=== PATIENT | male | born 1945 | race Caucasian/White ===

== ENCOUNTER 2016-03-24 01:57 | Inpatient (IN) | payer OTHER, MEDICARE ==
[~2016-03-24] VITALS: Ht 170.2 cm; Wt 84.9 kg
[2016-03-24] VITALS (11 sets, daily range): BP systolic 93–158; BP diastolic 47–75; PULSE 60–80; RESP 16–18; TEMP 96.4–98.2; O2SAT 95–98
[~2016-03-24 01:57] MED LIST: ALBU17I
[2016-03-24] MEDS ORDERED: HUMALOG SQ (02:15)
[2016-03-24] MEDS ORDERED: HYDR-3583 PO (02:15)
[2016-03-24] MEDS ORDERED: IPRASOL INH (02:16)
[2016-03-24] MEDS ORDERED: LACT10SO PO (02:17)
[2016-03-24] MEDS ORDERED: LEVEMIR SQ (02:17)
[2016-03-24] MEDS ORDERED: LEVO125T4 PO (02:18)
[2016-03-24] MEDS ORDERED: LYRI50CA PO (02:18)
[2016-03-24] MEDS ORDERED: MILKSUS PO (02:19)
[2016-03-24] MEDS ORDERED: METO50TA11 PO (02:19)
[2016-03-24] MEDS ORDERED: NITR1SUB3 SL (02:19)
[2016-03-24] MEDS ORDERED: POTA-163 PO (02:20)
[2016-03-24] MEDS ORDERED: THEO300T30 PO (02:21)
[2016-03-24] MEDS ORDERED: SIMV80TA PO (02:21)
[2016-03-24] MEDS ORDERED: SILV1CRE20 TOPICAL (02:21)
[2016-03-24] MEDS ORDERED: VICT18IN SQ (02:21)
[2016-03-24 02:32] LABS: AUTOMATED NEUTROPHIL # 4.5 TH/MM3 (1.8-7.7); BASOPHIL % 0.6 % (0.0-2.0); EOSINOPHIL # 0.1 TH/MM3 (0-0.4); EOSINOPHIL % 1.5 % (0.0-4.0); HEMO FLAGS DIFF FINAL; LYMPH % 19.2 % (9.0-44.0); LYMPHOCYTE # 1.2 TH/MM3 (1.0-4.8); MEAN CELL VOLUME 83.7 FL (80.0-100.0); MEAN CORPUSCULAR HEMOGLOBIN 28.4 PG (27.0-34.0); MEAN CORPUSCULAR HGB CONC 33.9 % (32.0-36.0); MONO % 7.4 % (0.0-8.0); NEUT % 71.3 % (16.0-70.0); PLATELET COUNT 232 TH/MM3 (150-450); RED BLOOD COUNT 3.23 MIL/MM3 (4.50-5.90); RED CELL DISTRIBUTION WIDTH 15.8 % (11.6-17.2); WHITE BLOOD COUNT 6.3 TH/MM3 (4.0-11.0)
--- NOTE | 2016-03-24 02:36 | RADRPT ---
EXAM DATE/TIME: 03/24/2016 02:18 [place] COMPARISON: No previous studies available for comparison. INDICATIONS : Shortness of breath.. Chest pain. MEDICAL HISTORY : None. SURGICAL HISTORY : None. ENCOUNTER: Initial ACUITY: 1 day PAIN SCORE: 0/10 LOCATION: Bilateral chest FINDINGS: A single AP semierect view of the chest was obtained and demonstrates patchy opacity in the medial le ft lower lobe. The right lung is clear. The heart size is mildly prominent with no perihilar edema. T he soft tissues and bony thorax are intact. There are multiple overlying electrocardiogram leads. CONCLUSION: Patchy opacity at the left lung base of concern for possible pneumonia. Chandan Danielle MD on March 24, 2016 at 2:33 Board Certified Radiologist. This report was verified electronically.
[2016-03-24 02:43] LABS: APTT (PATIENT) 30.4 SEC (24.3-30.1); INTERNATIONAL NORMALIZED RATIO 1.1 RATIO; PROTHROMBIN TIME - PATIENT 12.6 SEC (9.8-11.6)
[2016-03-24 02:51] LABS: BICARBONATE 33.2 MEQ/L (21.0-32.0); MAGNESIUM 1.1 MG/DL (1.5-2.5); POTASSIUM 3.1 MEQ/L (3.5-5.1)
[2016-03-24] MEDS ORDERED: cefTRIAXone INJ 1,000 MG in SODIUM CHLORIDE 0.9% INJ 100 ML IV ONE (03:30)
[2016-03-24] MEDS ORDERED: AZITHROMYCIN INJ 500 MG in SODIUM CHLOR 0.9% 250 ML INJ 250 ML IV ONE (03:30)
[2016-03-24] MEDS ORDERED: POTASSIUM CHLORIDE 20 MEQ CONTROLLED RELEASE TAB PO ONE (03:45)
[2016-03-24] MEDS ORDERED: traMADol HCL 50 MG TAB PO ONE (04:00)
[2016-03-24] MEDS ORDERED: RESP: ALBUTEROL 2.5 MG/IPRATROPIUM 0.5 MG NEB (SCH) INH ONE (04:00)
[2016-03-24] MEDS ORDERED: DEXTROSE 50% IN WATER 50 ML VIAL(D50) IV PUSH PRN (04:15)
[2016-03-24] MEDS ORDERED: Vancomycin Consult Pharmacy 1 EA OTHER SCH (04:15)
[2016-03-24] MEDS ORDERED: POTASSIUM CHLORIDE 10 MEQ CONTROLLED RELEASE TAB PO ONE (04:15)
[2016-03-24] MEDS ORDERED: GLUCAGON 1 MG/ML VIAL OTHER PRN (04:15)
--- NOTE | 2016-03-24 04:18 | PD ---
HPI Chief Complaint: Chest Pain Time Seen by Provider: 02:15 Travel History International Travel<30 days: No Contact w/Intl Traveler<30days: No Traveled to known affect area: No History of Present Illness HPI Patient is a 70-year-old male with history of CT in the past as well as COPD on home oxygen, who comes in complaining of chest pain and shortness of breath. He says he has been having episodes of chest pain all day, which feels like pressure to the left side of his chest. He says it radiates up towards his jaw. Says it feels like when he had an CT in the past. He also complains of a cough productive of yellowish sputum since yesterday. He has not had any fever or chills. He said he had some nausea associated with the chest pain, but no vomiting. PFSH Past Medical History Asthma: Yes Cardiovascular Problems: Yes (5 stents, 2 mi) High Cholesterol: Yes COPD: Yes Hypertension: Yes Respiratory: Yes (copd 02 dependent) Myocardial Infarction: Yes Tetanus Vaccination: < 5 Years Influenza Vaccination: Yes Past Surgical History Cardiac Surgery: Yes (5 stents ) Social History Alcohol Use: No Tobacco Use: No (03/31 PPD) Substance Use: No Allergies-Medications (Allergen,Severity, Reaction): Coded Allergies: Penicillin (Verified Allergy, Mild, 03/24/16) Reported Meds & Prescriptions Reported Meds & Active Scripts Active Reported Victoza Inj (Liraglutide Inj) 18 Mg/3 Ml Pen 1.8 Mg SQ DAILY Theophylline ER 12 HR (Theophylline) 300 Mg Tab 300 Mg PO Q12H Simvastatin 80 Mg Tab 80 Mg PO DAILY Silvadene Topical (Silver Sulfadiazine) 1 % Cream 1 Applic TOPICAL DIRECTED Potassium Chloride ER (Potassium Chloride) 20 Meq Tab 20 Meq PO BID Nitroglycerin SL (Nitroglycerin) 0.4 Mg Subl 0.4 Mg SL DIRECTED PRN ONE TABLET UNDER THE TONGUE NEEDED FOR CHEST PAIN, MAY REPEAT EVERY FIVE MINUTES FOR A TOTAL OF 3 DOSES OR CALL 911 IF NO RELIEF Milk of Magnesia Liq (Magnesium Hydroxide) 400 Mg/5 Ml Susp 30 Ml PO DAILY PRN Metoprolol Succinate ER 24 HR (Metoprolol Succinate) 50 Mg Tab 50 Mg PO DAILY Lyrica (Pregabalin) 50 Mg Cap 50 Mg PO DAILY Levothyroxine (Levothyroxine Sodium) 125 Mcg Tab 125 Mcg PO DAILY Levemir Inj (Insulin Detemir) 1,000 unit/ 10 ML Vial 10 Units SQ DAILY Do not mix with any other Insulin. Lactulose Liq (Lactulose) 10 Gm/15 Ml Soln 30 Ml PO Q6H PRN Duoneb (Ipratropium-Albuterol Neb) 0.5-2.5 Mg/3 Ml Neb 1 Nebule INH DAILY Hydrocodone-Acetaminophen 10-325 mg Tab 1 Tab PO Q4H PRN Humalog Inj (Insulin Human Lispro) 1,000 Unit/10 Ml Vial 5 Units SQ TIDAC Review of Systems Except as stated in HPI: all other systems reviewed are Neg General / Constitutional: No: Fever, Chills Eyes: No: Blurred Vision HENT: No: Headaches Cardiovascular: Positive: Chest Pain or Discomfort Respiratory: Positive: Cough, Shortness of Breath Gastrointestinal: Positive: Nausea, No: Vomiting, Abdominal Pain Musculoskeletal: Positive: Edema, No: Pain Skin: No Change in Pigmentation Neurologic: No: Weakness, Dizziness Physical Exam Narrative GENERAL: Awake and alert in no acute distress. SKIN: Warm and dry. HEAD: Atraumatic. Normocephalic. EYES: Pupils equal and round. No scleral icterus. ENT: Mucous membranes pink and moist. NECK: Trachea midline. No JVD. CARDIOVASCULAR: Regular rate and rhythm. No murmur appreciated. RESPIRATORY: No accessory muscle use. Decreased breath sounds. Breath sounds equal bilaterally. GASTROINTESTINAL: Abdomen soft, non-tender, nondistended. Umbilical hernia present, reducible, nontender. MUSCULOSKELETAL: No obvious deformities. No clubbing. No cyanosis. Minimal edema bilateral lower extremities. Pedal pulses intact. NEUROLOGICAL: Awake and alert. No obvious cranial nerve deficits. Motor grossly within normal limits. Normal speech. PSYCHIATRIC: Appropriate mood and affect; insight and judgment normal. Data Data Last Documented VS Vital Signs Date Time Temp Pulse Resp B/P Pulse Ox O2 Delivery O2 Flow Rate FiO2 03/24/16 03:44 80 18 144/66 98 Nasal Cannula 2 03/24/16 02:00 98.0 Orders Basic Metabolic Panel (Bmp) (03/24/16 02:14) Ckmb (Isoenzyme) Profile (03/24/16 02:14) Complete Blood Count With Diff (03/24/16 02:14) Magnesium (Mg) (03/24/16 02:14) Prothrombin Time / Inr (Pt) (03/24/16 02:14) Act Partial Throm Time (Ptt) (03/24/16 02:14) Troponin I (03/24/16 02:14) Lipase (03/24/16 02:14) Chest, Single Ap (03/24/16 02:14) Ecg Monitoring (03/24/16 02:14) Bilateral Bp Monitoring (03/24/16 02:14) Iv Access Insert/Monitor (03/24/16 02:14) Oximetry (03/24/16 02:14) Oxygen Administration (03/24/16 02:14) Sodium Chloride 0.9% Flush (Ns Flush) (03/24/16 02:15) Ceftriaxone Inj (Rocephin Inj) (03/24/16 03:30) Azithromycin Inj (Zithromax Inj) (03/24/16 03:30) Potassium Chloride (Kcl) (03/24/16 03:45) Admit Order (Ed Use Only) (03/24/16 ) Insulin Detemir Inj (Levemir Inj) (03/24/16 09:00) Levothyroxine (Synthroid) (03/24/16 06:00) Metoprolol Succinate Er (Toprol Xl) (03/24/16 09:00) Potassium Chloride (Kcl) (03/24/16 09:00) Pregabalin (Lyrica) (03/24/16 09:00) Theophylline Er 12 Hr (Theochron) (03/24/16 05:00) Pravastatin (Pravachol) (03/24/16 09:00) Albuterol-Ipratropium Neb (Duoneb Neb) (03/24/16 04:00) Tramadol (Ultram) (03/24/16 04:00) Diet Heart Healthy (03/24/16 Breakfast) Vital Signs (Adult) LEIDA.Q4H (03/24/16 03:53) Diet 1800 Ada Cons Carb (03/24/16 Breakfast) Troponin I (03/24/16 08:00) Troponin I (03/24/16 14:00) Acetaminophen (Tylenol) (03/24/16 04:00) Ondansetron Inj (Zofran Inj) (03/24/16 04:00) Labs Laboratory Tests Test 03/24/16 02:20 White Blood Count 6.3 TH/MM3 Red Blood Count 3.23 MIL/MM3 Hemoglobin 9.2 GM/DL Hematocrit 27.0 % Mean Corpuscular Volume 83.7 FL Mean Corpuscular Hemoglobin 28.4 PG Mean Corpuscular Hemoglobin 33.9 % Concent Red Cell Distribution Width 15.8 % Platelet Count 232 TH/MM3 Mean Platelet Volume 8.5 FL Neutrophils (%) (Auto) 71.3 % Lymphocytes (%) (Auto) 19.2 % Monocytes (%) (Auto) 7.4 % Eosinophils (%) (Auto) 1.5 % Basophils (%) (Auto) 0.6 % Neutrophils # (Auto) 4.5 TH/MM3 Lymphocytes # (Auto) 1.2 TH/MM3 Monocytes # (Auto) 0.5 TH/MM3 Eosinophils # (Auto) 0.1 TH/MM3 Basophils # (Auto) 0.0 TH/MM3 CBC Comment DIFF FINAL Differential Comment Prothrombin Time 12.6 SEC Prothromb Time International 1.1 RATIO Ratio Activated Partial 30.4 SEC Thromboplast Time Sodium Level 141 MEQ/L Potassium Level 3.1 MEQ/L Chloride Level 100 MEQ/L Carbon Dioxide Level 33.2 MEQ/L Anion Gap 8 MEQ/L Blood Urea Nitrogen 6 MG/DL Creatinine 0.79 MG/DL Estimat Glomerular Filtration 96 ML/MIN Rate Random Glucose 92 MG/DL Calcium Level 7.7 MG/DL Magnesium Level 1.1 MG/DL Total Creatine Kinase 25 U/L Troponin I 0.04 NG/ML Lipase 137 U/L MDM Medical Decision Making Medical Screen Exam Complete: Yes Emergency Medical Condition: Yes Medical Record Reviewed: Yes Interpretation(s) ECG shows sinus rhythm at 75, no ST elevation. T-wave inversions in V2 and V3. PVCs. Differential Diagnosis ACS versus pneumonia versus NSTEMI versus STEMI versus pneumothorax Narrative Course Patient is 71-year-old male who comes in complaining of chest pain with cough. Exam shows decreased breath sounds at the lungs. IV established, patient connected to the youth nutritional monitor. Patient received nitroglycerin 3 as well as aspirin from EMS with improvement of his chest pain. He is currently not having any pain. ECG shows no ST elevation. Labs sent show troponin of 0.04. Potassium is low at 3.1, this was replaced. Hemoglobin is 9.2. Chest x-ray shows a left lower lung infiltrate. Patient treated with Rocephin and azithromycin. Patient asked for a breathing treatment, given 1 DuoNeb. Patient admitted for pneumonia and ACS rule out. Diagnosis Primary Impression: Pneumonia Qualified Code: J18.1 - Pneumonia of left lower lobe due to infectious organism Additional Impression: Chest pain Qualified Code: R07.89 - Other chest pain Admitting Information Admitting Physician Requests: Admit Xiao Messina MD Mar 24, 2016 04:18
[2016-03-24] MEDS ORDERED: MAGNESIUM SULFATE 1 GM PREMIX 100 ML IV ONE ×2 (04:30→10:45)
--- NOTE | 2016-03-24 04:34 | HHI.HP ---
[facility] Bertha Kc MD Admission Diagnosis pneumonia, chest pain Diagnoses: (1) Pneumonia Diagnosis: Principal (2) Chest pain Chief Complaint: chest pain Travel History International Travel<30 Days: No Contact w/Intl Traveler <30 Da: No Traveled to Known Affected Are: No History of Present Illness patient is a 71 y/o male with history of CAD, COPD, hypertension and diabetes , shelter resident, was just discharged from the hospital yesterday, was sent from shelter because of chest pain and sob. he says that he had chest pain all day yesterday. pain is in lower chest and epigastric with no radiation. he didn't have and emesis, diaphoresis or dizziness. he had productive cough of yellowish sputum. he doesn't report any fever. he uses oxygen for his COPD. he says that he was in the hospital for about a week because of rectal bleed and was just discharged to rehab yesterday. Review of Systems Constitutional: DENIES: Fever, Weight loss, Chills, Night Sweats Eyes: DENIES: Blurred vision, Diplopia, Vision loss, Double Vision Ears, nose, mouth, throat: DENIES: Tinnitus, Vertigo, Throat pain, Epistaxis Respiratory: COMPLAINS OF: Cough, Sputum production, Shortness of breath, DENIES: Apneas, Snoring, Wheezing, Hemoptysis Cardiovascular: COMPLAINS OF: Chest pain, DENIES: Palpitations, Syncope, Dyspnea on Exertion, PND, Lower Extremity Edema, Orthopnea, Claudication Gastrointestinal: DENIES: Abdominal pain, Black stools, Bloody stools, Constipation, Diarrhea, Nausea, Vomiting, Difficulty Swallowing, Anorexia Genitourinary: DENIES: Urinary frequency, Urgency, Hematuria, Dysuria Musculoskeletal: DENIES: Joint pain, Muscle aches, Stiffness, Joint Swelling Integumentary: DENIES: Rash Neurologic: DENIES: Abnormal gait, Headache, Localized weakness, Paresthesias, Seizures, Speech Problems, Tremor, Poor Balance Psychiatric: DENIES: Anxiety, Confusion, Mood changes, Depression, Hallucinations, Agitation, Suicidal Ideation, Homicidal Ideation, Delusions Past Family Social History Past Medical History CAD- s/p stent placement hypertension diabetes mellitus COPD hypothyroidism Past Surgical History bladder surgery cardiac stent placement Reported Medications levothyroxine metoprolol victoza levemir simvastatin theophylline potassium lyrica Allergies: Coded Allergies: Penicillin (Verified Allergy, Mild, 03/24/16) Active Ordered Medications Current Medications IV Flush 2 ml 2 ml UNSCH PRN IVF FLUSH AFTER USING IV ACCESS; Start 03/24/16 at 02:15 Ceftriaxone Sodium 1000 mg/ Sodium Chloride 100 ml @ 200 mls/hr ONCE ONCE IV Last administered on 03/24/16at 03:37; Start 03/24/16 at 03:30; Stop 03/24/16 at 03:59; Status DC Azithromycin/ Sodium Chloride (Zithromax Inj/ NS 250 ml Inj) 250 ml @ 250 mls/ hr ONCE ONCE IV Last administered on 03/24/16at 03:40; Start 03/24/16 at 03: 30; Stop 03/24/16 at 04:29 Potassium Chloride (KCl) 20 meq ONCE ONCE PO Last administered on 03/24/16at 03:40; Start 03/24/16 at 03:45; Stop 03/24/16 at 03:46; Status DC Insulin Detemir (Levemir Inj) 10 units DAILY SQ ; Start 03/24/16 at 09:00 Levothyroxine Sodium (Synthroid) 125 mcg DAILY@06 PO ; Start 03/24/16 at 06:00 Metoprolol Succinate (Toprol Xl) 50 mg DAILY PO ; Start 03/24/16 at 09:00 Potassium Chloride (KCl) 20 meq BID PO ; Start 03/24/16 at 09:00 Pregabalin (Lyrica) 50 mg DAILY PO ; Start 03/24/16 at 09:00 Theophylline (Theochron) 300 mg Q12H PO ; Start 03/24/16 at 05:00 Pravastatin Sodium (Pravachol) 80 mg DAILY PO CM; Start 03/24/16 at 09:00 Albuterol/ Ipratropium (Duoneb Neb) 1 ampule ONCE ONCE INH Last administered on 03/24/16at 04:07; Start 03/24/16 at 04:00; Stop 03/24/16 at 04:01; Status DC Tramadol HCl (Ultram) 50 mg ONCE ONCE PO Last administered on 03/24/16at 04:06 ; Start 03/24/16 at 04:00; Stop 03/24/16 at 04:01; Status DC Acetaminophen (Tylenol) 650 mg Q4H PRN PO FEVER; Start 03/24/16 at 04:00 Ondansetron HCl (Zofran Inj) 4 mg Q8HR PRN IV PUSH NAUSEA; Start 03/24/16 at 04:00 Family History not relevant to this admission. Social History shelter resident.quit smoking and drinking years ago. Physical Exam Vital Signs Vital Signs Date Time Temp Pulse Resp B/P Pulse Ox O2 Delivery O2 Flow Rate FiO2 03/24/16 04:07 95 Nasal Cannula 2.00 03/24/16 03:44 80 18 144/66 98 Nasal Cannula 2 03/24/16 03:40 98 Nasal Cannula 2 03/24/16 03:40 98 Nasal Cannula 2 03/24/16 02:00 98.0 78 18 158/73 96 Physical Exam GENERAL: with mild sob SKIN: No rashes, ecchymoses or lesions. Cool and dry. HEAD: Atraumatic. Normocephalic. No temporal or scalp tenderness. EYES: Pupils equal round and reactive. Extraocular motions intact. No scleral icterus. No injection or drainage. ENT: Nose without bleeding, purulent drainage or septal hematoma. Throat without erythema, tonsillar hypertrophy or exudate. Uvula midline. Airway patent. NECK: Trachea midline. No JVD or lymphadenopathy. Supple, nontender, no meningeal signs. CARDIOVASCULAR: Regular rate and rhythm without murmurs, gallops, or rubs. RESPIRATORY: diminished air entry in bases GASTROINTESTINAL: Abdomen soft, non-tender, nondistended. No hepato-splenomegaly , or palpable masses. No guarding. MUSCULOSKELETAL: Extremities without clubbing, cyanosis, or edema. No joint tenderness, effusion, or edema noted. No calf tenderness. Negative Homans sign bilaterally. NEUROLOGICAL: Awake and alert. Cranial nerves II through XII intact. Motor and sensory grossly within normal limits. Five out of 5 muscle strength in all muscle groups. Normal speech. Laboratory Laboratory Tests Test 03/24/16 02:20 White Blood Count 6.3 Red Blood Count 3.23 Hemoglobin 9.2 Hematocrit 27.0 Mean Corpuscular Volume 83.7 Mean Corpuscular Hemoglobin 28.4 Mean Corpuscular Hemoglobin 33.9 Concent Red Cell Distribution Width 15.8 Platelet Count 232 Mean Platelet Volume 8.5 Neutrophils (%) (Auto) 71.3 Lymphocytes (%) (Auto) 19.2 Monocytes (%) (Auto) 7.4 Eosinophils (%) (Auto) 1.5 Basophils (%) (Auto) 0.6 Neutrophils # (Auto) 4.5 Lymphocytes # (Auto) 1.2 Monocytes # (Auto) 0.5 Eosinophils # (Auto) 0.1 Basophils # (Auto) 0.0 CBC Comment DIFF FINAL Differential Comment Prothrombin Time 12.6 Prothromb Time International 1.1 Ratio Activated Partial 30.4 Thromboplast Time Sodium Level 141 Potassium Level 3.1 Chloride Level 100 Carbon Dioxide Level 33.2 Anion Gap 8 Blood Urea Nitrogen 6 Creatinine 0.79 Estimat Glomerular Filtration 96 Rate Random Glucose 92 Calcium Level 7.7 Magnesium Level 1.1 Total Creatine Kinase 25 Troponin I 0.04 Lipase 137 Result Diagram: 03/24/1621903/24/16219 Imaging Last Impressions Chest X-Ray 03/24/16213 Signed Impressions: Service Date/Time: Thursday, March 24, 2016 02:18 - CONCLUSION: Patchy opacity at the left lung base of concern for possible pneumonia. Chandan Danielle MD EKG; sinus rhythm with RBBB and occasional supraventricular complexes. Assessment and Plan Assessment and Plan A/P - Nosocomial pneumonia ( patient was just discharged from the hospital to rehab ) with history of COPD start broad spectrum IV antibiotics- continue with neb treatment and oxygen via N/C- will obtain and follow the cultures of note the patient is oxygen dependent -chest pain with CAD- s/p stent placement; pain is atypical with negative first set of cardiac enzymes- resume metoprolol and statin- patient had recent rectal bleed and reportedly was taken off his antiplatelet therapy- will trend the cardiac enzymes- being followed up by . -hypokalemia/hypomagnesemia; will replace and monitor -diabetes mellitus; resume levemir- accu-check with SSI -hypertension/ dyslipidemia/hypothyroidism; resume home meds -anemia with recent rectal bleed- patient says that he had GI work-up including colonoscopy during that visit will monitor H/H. -DVT prophylaxis with SCD's Discussed Condition With ER physician and the patient. Physician Certification 2 Midnight Certification Type: Admission for Inpatient Services Order for Inpatient Services The services are ordered in accordance with Medicare regulations or non- Medicare payer requirements, as applicable. In the case of services not specified as inpatient-only, they are appropriately provided as inpatient services in accordance with the 2-midnight benchmark. Estimated LOS (days): 2 days is the estimated time the patient will need to remain in the hospital, assuming treatment plan goals are met and no additional complications. Post-Hospital Plan: SNF Problem Qualifiers (1) Pneumonia: Qualified Code: J18.1 - Pneumonia of left lower lobe due to infectious organism (2) Chest pain: Qualified Code: R07.89 - Other chest pain Hillary Davies MD Mar 24, 2016 04:34
[2016-03-24] MEDS ORDERED: THEOPHYLLINE ER 12 HR 300 MG TABCR PO SCH (05:00)
[2016-03-24] MEDS: THEOPHYLLINE ER 24 HR 300 MG CAPCR PO SCH ×2 (06:05→21:05)
[2016-03-24] MEDS: LEVOTHYROXINE SODIUM 125 MCG TAB PO SCH ×2 (06:05→08:46)
[2016-03-24] MEDS: VANCOMYCIN INJ 1,300 MG in SODIUM CHLORID 0.9% 500 ML INJ 500 ML IV SCH ×2 (06:05→20:58)
[2016-03-24] MEDS: INSULIN ASPART SUPPLEMENTAL SCALE SQ SCH ×4 (06:26→23:56)
--- NOTE | 2016-03-24 07:33 | EKG ---
Date Performed: 03/24/2016 Time Performed: 02:00:07 PTAGE: 71 years EKG: Sinus rhythm WITH OCCASIONAL SUPRAVENTRICULAR PREMATURE COMPLEXES RIGHT BUNDLE BRANCH BLOCK ABNORMAL ECG NO PREVIOUS TRACING DOCTOR: Daniel Boogie Interpretating Date/Time 03/24/2016 07:33:23
[2016-03-24] MEDS: LEVOFLOXACIN 750 MG PREMIX INJ 150 ML IV SCH (08:46)
[2016-03-24] MEDS: INSULIN DETEMIR 100 UNITS/ML VIAL SQ SCH (08:46)
[2016-03-24] MEDS: POTASSIUM CHLORIDE 20 MEQ CONTROLLED RELEASE TAB PO SCH ×2 (08:47→21:00)
[2016-03-24] MEDS: PRAVASTATIN SOD 80 MG TAB PO SCH (08:47)
[2016-03-24] MEDS: ACETAMINOPHEN 325 MG TAB PO PRN ×2 (08:47→17:34)
[2016-03-24] MEDS: PANTOPRAZOLE SOD 20 MG DELAYED RELEASE TAB PO SCH (08:47)
[2016-03-24] MEDS: METOPROLOL SUCCINATE 50 MG EXTENDED RELEASE TAB PO SCH (08:47)
[2016-03-24] MEDS: RESP: ALBUTEROL 2.5 MG/IPRATROPIUM 0.5 MG NEB (SCH) NEB ×4 (09:01→19:53)
--- NOTE | 2016-03-24 10:03 | HHI.PR ---
Subjective Remarks Follow-up for chest pain and cough Per patient, chest pain is a lot better, about 3/10, sharp and pressure-like, mostly in the subcostal area associated with cough with yellowish sputum. Afebrile. Per patient, he was at [facility] recently for rectal bleeding and was found to have bleeding secondary to medications. Colonoscopy was done which was allegedly unremarkable. Objective Vitals Vital Signs Date Time Temp Pulse Resp B/P Pulse Ox O2 Delivery O2 Flow Rate FiO2 03/24/16 09:01 95 Nasal Cannula 2.00 03/24/16 08:13 97.7 68 16 132/75 95 03/24/16 06:05 97.9 69 18 128/72 96 03/24/16 04:07 95 Nasal Cannula 2.00 03/24/16 03:44 80 18 144/66 98 Nasal Cannula 2 03/24/16 03:40 98 Nasal Cannula 2 03/24/16 03:40 98 Nasal Cannula 2 03/24/16 02:00 98.0 78 18 158/73 96 I/O 03/23/16 03/23/16 03/23/16 03/24/16 03/24/16 03/24/16 07:00 15:00 23:00 07:00 15:00 23:00 Intake Total 30 ml Balance 30 ml Intake Oral 30 ml Result Diagram: 03/24/1621903/24/16219 Imaging Last Impressions Chest X-Ray 03/24/16213 Signed Impressions: Service Date/Time: Thursday, March 24, 2016 02:18 - CONCLUSION: Patchy opacity at the left lung base of concern for possible pneumonia. Chandan Danielle MD Objective Remarks Not in distress, on oxygen. PERRL, pink conjunctiva without injection, anicteric Nose without bleeding, airway patent, oropharynx clear Supple neck, no masses or thyromegaly, trachea midline Normal rate and regular rhythm, no murmurs gallops or rubs appreciated. Crackles in both bases especially on the left, no wheezing. Poor effort. Normal bowel sounds, soft, non-tender, nondistended, no guarding. Extremities without clubbing, cyanosis, or edema. No rash of generalized distribution. AAO x3, no cranial nerve deficits, moves all 4 extremities, no focal neurologic deficits Normal mood, appropriate affect A/P Problem List: (1) Pneumonia ICD Code: J18.9 Status: Acute (2) Chest pain ICD Code: R07.9 Status: Acute Assessment and Plan This is a 71-year-old male who presented to the hospital with chest pain and cough. Hospital-acquired pneumonia-patient recently discharged from the hospital for rectal bleeding to rehabilitation. Not in COPD exacerbation with history of COPD. Continue vancomycin and Levaquin, patient already improved, duo nebs [id number] and as needed. Check sputum culture. Patient is oxygen dependent. No leukocytosis-start incentive spirometry Chest pain with history of coronary artery disease-s/p stent placement; pain is atypical with negative first set of cardiac enzymes, will check another troponin , continue metoprolol and statin. Upon definitive therapy because of rectal bleeding Recent rectal bleed-per patient, had rectal bleeding and was transfused 2 units of packed red blood cells at [facility], colonoscopy allegedly done and was told that it was unremarkable, antiplatelets were stopped. We'll retrieve records from [facility]. Monitor hemoglobin. Hypokalemia-replaced, recheck Hypomagnesemia-replaced, recheck Sacral wound-consult wound care, Mepilex for now. Next Diabetes mellitus-continue Levemir with sliding scale insulin. DVT prophylaxis: SCDs Discussed with RN. Discharge Planning Discharged back to rehabilitation when medically cleared. Problem Qualifiers (1) Pneumonia: Qualified Code: J18.1 - Pneumonia of left lower lobe due to infectious organism (2) Chest pain: Qualified Code: R07.89 - Other chest pain Mary Mccollum MD Mar 24, 2016 10:03
[2016-03-24] MEDS ORDERED: ENALAPRILAT 1.25 MG/ML VIAL IV PUSH PRN (10:45)
[2016-03-24] MEDS ORDERED: VANCOMYCIN INJ 1,300 MG in SODIUM CHLORID 0.9% 500 ML INJ 500 ML IV SCH (12:00)
[2016-03-24 12:55] LABS: HEMATOCRIT 25.9 % (39.0-51.0); REVIEW FLAG FINAL
[2016-03-24 12:57] LABS: MAGNESIUM 1.4 MG/DL (1.5-2.5)
[2016-03-24 15:10] LABS: BICARBONATE 30.9 MEQ/L (21.0-32.0); POTASSIUM 3.7 MEQ/L (3.5-5.1)
[2016-03-24 18:36] LABS: HEMATOCRIT 29.4 % (39.0-51.0); REVIEW FLAG FINAL
[2016-03-24] MEDS: SODIUM CHLORIDE 0.9% FLUSH 5 ML FLUSH IVF PRN (21:00)
[2016-03-25] VITALS (8 sets, daily range): BP systolic 109–142; BP diastolic 51–63; PULSE 74–88; RESP 16–20; TEMP 95.7–99; O2SAT 88–97
[2016-03-25] MEDS: RESP: ALBUTEROL 2.5 MG/IPRATROPIUM 0.5 MG NEB (SCH) NEB ×6 (00:31→20:43)
[2016-03-25] MEDS ORDERED: diphenhydrAMINE HCL 50 MG CAP PO ONE (01:15)
[2016-03-25] MEDS: ACETAMINOPHEN 325 MG TAB PO PRN ×2 (01:22→18:25)
[2016-03-25 03:49] LABS: AUTOMATED NEUTROPHIL # 3.7 TH/MM3 (1.8-7.7); BASOPHIL % 0.9 % (0.0-2.0); EOSINOPHIL # 0.1 TH/MM3 (0-0.4); HEMATOCRIT 25.8 % (39.0-51.0); HEMO FLAGS DIFF FINAL; LYMPH % 21.4 % (9.0-44.0); LYMPHOCYTE # 1.2 TH/MM3 (1.0-4.8); MEAN CELL VOLUME 83.4 FL (80.0-100.0); MEAN CORPUSCULAR HEMOGLOBIN 27.7 PG (27.0-34.0); MEAN CORPUSCULAR HGB CONC 33.2 % (32.0-36.0); MONO % 7.2 % (0.0-8.0); NEUT % 68.5 % (16.0-70.0); PLATELET COUNT 195 TH/MM3 (150-450); RED BLOOD COUNT 3.09 MIL/MM3 (4.50-5.90); WHITE BLOOD COUNT 5.4 TH/MM3 (4.0-11.0)
[2016-03-25 04:12] LABS: BICARBONATE 28.5 MEQ/L (21.0-32.0); POTASSIUM 3.8 MEQ/L (3.5-5.1)
[2016-03-25] MEDS: THEOPHYLLINE ER 24 HR 300 MG CAPCR PO SCH ×2 (05:00→18:15)
[2016-03-25] MEDS: VANCOMYCIN INJ 1,300 MG in SODIUM CHLORID 0.9% 500 ML INJ 500 ML IV SCH (06:54)
[2016-03-25] MEDS: INSULIN ASPART SUPPLEMENTAL SCALE SQ SCH ×4 (07:00→21:00)
[2016-03-25] MEDS: METOPROLOL SUCCINATE 50 MG EXTENDED RELEASE TAB PO SCH (08:06)
[2016-03-25] MEDS: LEVOFLOXACIN 750 MG PREMIX INJ 150 ML IV SCH (08:06)
[2016-03-25] MEDS: PREGABALIN 25 MG CAP PO SCH ×2 (08:06→09:00)
[2016-03-25] MEDS: PRAVASTATIN SOD 80 MG TAB PO SCH (08:06)
[2016-03-25] MEDS: POTASSIUM CHLORIDE 20 MEQ CONTROLLED RELEASE TAB PO SCH ×2 (08:07→21:25)
[2016-03-25] MEDS: PANTOPRAZOLE SOD 20 MG DELAYED RELEASE TAB PO SCH (08:07)
[2016-03-25] MEDS: INSULIN DETEMIR 100 UNITS/ML VIAL SQ SCH (08:09)
--- NOTE | 2016-03-25 10:12 | HHI.PR ---
Subjective Remarks Follow-up for pneumonia Shortness of breath a bit better again today, no nausea or vomiting. Cough is improved. Afebrile. Patient's hemoglobin dropped. No bowel movements yet. Patient cannot sleep at night. Requesting trazodone. Objective Vitals Vital Signs Date Time Temp Pulse Resp B/P Pulse Ox O2 Delivery O2 Flow Rate FiO2 03/25/16 08:28 95 Nasal Cannula 2.00 03/25/16 08:00 95.7 78 20 136/63 95 03/25/16 04:00 98.5 80 16 121/51 96 03/25/16 00:00 98.4 74 16 140/56 97 03/24/16 20:00 96.4 62 16 93/47 97 03/24/16 19:55 98 Nasal Cannula 2.00 03/24/16 16:10 98.2 60 16 120/68 96 03/24/16 12:10 97.9 61 16 122/58 96 I/O 03/24/16 03/24/16 03/24/16 03/25/16 03/25/16 03/25/16 07:00 15:00 23:00 07:00 15:00 23:00 Intake Total 30 ml 980 ml 480 ml 120 ml Output Total 500 ml 100 ml Balance 30 ml 980 ml -20 ml 20 ml Intake Oral 30 ml 980 ml 480 ml 120 ml Output Urine Total 500 ml 100 ml # Voids 5 # Bowel Movements 0 0 Result Diagram: 03/25/16 0327 03/25/16326 Objective Remarks Not in distress, on oxygen. PERRL, pink conjunctiva without injection, anicteric Nose without bleeding, airway patent, oropharynx clear Supple neck, no masses or thyromegaly, trachea midline Normal rate and regular rhythm, no murmurs gallops or rubs appreciated. Crackles in both bases especially on the left, no wheezing. Poor effort. Normal bowel sounds, soft, non-tender, nondistended, no guarding. Extremities without clubbing, cyanosis, or edema. No rash of generalized distribution. AAO x3, no cranial nerve deficits, moves all 4 extremities, no focal neurologic deficits Normal mood, appropriate affect A/P Problem List: (1) Pneumonia ICD Code: J18.9 Status: Acute (2) Chest pain ICD Code: R07.9 Status: Acute Assessment and Plan This is a 71-year-old male who presented to the hospital with chest pain and cough. Hospital-acquired pneumonia-patient recently discharged from the hospital for rectal bleeding to rehabilitation. Not in COPD exacerbation with history of COPD. Continue vancomycin and Levaquin, patient already improved, duo nebs [id number] and as needed. Follow-up sputum culture. Patient is oxygen dependent, continue incentive spirometry Chest pain with history of coronary artery disease-s/p stent placement; pain is atypical with negative first set of cardiac enzymes, troponin negative 3, continue metoprolol and statin. Recent rectal bleed-per patient, had rectal bleeding and was transfused 2 units of packed red blood cells at [facility], colonoscopy allegedly done and was told that it was unremarkable, antiplatelets were stopped. Awaiting records from [facility]. Hemoglobin dropped, monitor CBC daily, check occult blood. Hypokalemia-replaced Hypomagnesemia-replace Sacral wound-consult wound care, Mepilex for now. Diabetes mellitus-continue Levemir with sliding scale insulin. Insomnia-trazodone DVT prophylaxis: SCDs Discussed with RN. Discharge Planning Discharged back to rehabilitation when medically cleared. Problem Qualifiers (1) Pneumonia: Qualified Code: J18.1 - Pneumonia of left lower lobe due to infectious organism (2) Chest pain: Qualified Code: R07.89 - Other chest pain Mary Mccollum MD Mar 25, 2016 10:12
[2016-03-25] MEDS: MAGNESIUM SULFATE 1 GM PREMIX 100 ML IV SCH ×2 (11:30→13:21)
[2016-03-25 12:41] LABS: HEMATOCRIT 27.1 % (39.0-51.0); REVIEW FLAG FINAL
[2016-03-25] MEDS: ONDANSETRON HCL 4 MG/2 ML VIAL IV PUSH PRN (13:20)
[2016-03-25] MEDS ORDERED: PHARMACY ORDERED LAB XX ONE (17:45)
[2016-03-25 19:20] LABS: HEMATOCRIT 26.1 % (39.0-51.0); REVIEW FLAG FINAL
[2016-03-25] MEDS: traZODone HCL 50 MG TAB PO PRN (21:24)
[2016-03-26] VITALS (9 sets, daily range): BP systolic 107–140; BP diastolic 52–62; PULSE 80–96; RESP 16–34; TEMP 96.5–99.8; O2SAT 92–98
[2016-03-26] MEDS ORDERED: COLLAGENASE OINT 30 GM TUBE TOP PRN (00:30)
[2016-03-26] MEDS: RESP: ALBUTEROL 2.5 MG/IPRATROPIUM 0.5 MG NEB (SCH) NEB ×6 (00:42→19:34)
[2016-03-26] MEDS: ACETAMINOPHEN 325 MG TAB PO PRN ×2 (01:28→19:35)
[2016-03-26] MEDS: LEVOTHYROXINE SODIUM 125 MCG TAB PO SCH (05:48)
[2016-03-26] MEDS: THEOPHYLLINE ER 24 HR 300 MG CAPCR PO SCH ×2 (05:49→17:57)
[2016-03-26] MEDS: INSULIN ASPART SUPPLEMENTAL SCALE SQ SCH ×4 (07:00→21:00)
[2016-03-26 07:07] LABS: AUTOMATED NEUTROPHIL # 2.9 TH/MM3 (1.8-7.7); BASOPHIL % 0.7 % (0.0-2.0); EOSINOPHIL # 0.1 TH/MM3 (0-0.4); EOSINOPHIL % 2.9 % (0.0-4.0); HEMATOCRIT 25.4 % (39.0-51.0); HEMO FLAGS DIFF FINAL; LYMPH % 25.9 % (9.0-44.0); LYMPHOCYTE # 1.2 TH/MM3 (1.0-4.8); MEAN CELL VOLUME 84.2 FL (80.0-100.0); MEAN CORPUSCULAR HEMOGLOBIN 27.8 PG (27.0-34.0); MONO % 8.3 % (0.0-8.0); NEUT % 62.2 % (16.0-70.0); PLATELET COUNT 192 TH/MM3 (150-450); RED BLOOD COUNT 3.01 MIL/MM3 (4.50-5.90); RED CELL DISTRIBUTION WIDTH 16.2 % (11.6-17.2); WHITE BLOOD COUNT 4.7 TH/MM3 (4.0-11.0)
[2016-03-26 07:40] LABS: MAGNESIUM 1.9 MG/DL (1.5-2.5)
--- NOTE | 2016-03-26 08:48 | HHI.PR ---
Subjective Remarks Follow-up for chest pain Was paged for chest pain or shortness of breath. Patient had a sudden onset of severe, 8/10, vague, annoying, substernal/epigastric chest pain associated with tachypnea, diaphoresis and shortness of breath but no nausea, vomiting, dizziness or blurring of vision. Pain is now subsided but still present. He is now more calm. He also has bilateral lower extremity tingling/numbness. He says that he has history of hypokalemia. Objective Vitals Vital Signs Date Time Temp Pulse Resp B/P Pulse Ox O2 Delivery O2 Flow Rate FiO2 03/26/16 08:21 98 Nasal Cannula 2.00 03/26/16 04:00 96.5 88 17 125/52 93 03/26/16 00:00 98.2 80 16 107/57 96 03/25/16 20:45 93 Nasal Cannula 2.00 03/25/16 20:00 99.0 81 16 114/54 93 03/25/16 16:00 98.4 80 20 142/58 95 03/25/16 12:00 97.7 88 20 109/53 88 I/O 03/25/16 03/25/16 03/25/16 03/26/16 03/26/16 03/26/16 06:59 14:59 22:59 06:59 14:59 22:59 Intake Total 120 ml 1046 ml 517 ml Output Total 100 ml 100 ml Balance 20 ml 946 ml 517 ml Intake Oral 120 ml 390 ml 240 ml IV Total 656 ml 277 ml Output Urine Total 100 ml 100 ml # Voids 2 3 # Bowel Movements 0 0 0 Result Diagram: 03/26/16 0629 03/25/16 0327 Objective Remarks Mildly in distress, on nasal cannula, desaturation to 88% when talking. PERRL, pink conjunctiva without injection, anicteric Nose without bleeding, airway patent, oropharynx clear Supple neck, no masses or thyromegaly, trachea midline Normal rate and regular rhythm, no murmurs gallops or rubs appreciated. Crackles in both bases, otherwise clear. Poor effort. Normal bowel sounds, soft, non-tender, nondistended, no guarding. Extremities without clubbing, cyanosis, or edema. No rash of generalized distribution. AAO x3, no cranial nerve deficits, moves all 4 extremities, no focal neurologic deficits Anxious A/P Problem List: (1) Pneumonia ICD Code: J18.9 Status: Acute (2) Chest pain ICD Code: R07.9 Status: Acute Assessment and Plan This is a 71-year-old male who presented to the hospital with chest pain and cough. Hospital-acquired pneumonia-patient recently discharged from the hospital for rectal bleeding to rehabilitation. Not in COPD exacerbation with history of COPD. Continue vancomycin and Levaquin, patient already improved, duo nebs [id number] and as needed. Follow-up sputum culture. Patient is oxygen dependent, continue incentive spirometry Chest pain with history of coronary artery disease-s/p stent placement; had another chest pain today, with desaturation and shortness of breath and diaphoresis, check troponin 2, check EKG, check VQ scan. Continue metoprolol and statin. Not on any DVT prophylaxis. Recent rectal bleed-per patient, had rectal bleeding and was transfused 2 units of packed red blood cells at [facility], colonoscopy allegedly done and was told that it was unremarkable, antiplatelets were stopped. Obtain records from [facility]. Hemoglobin dropped again, monitor CBC, check occult blood. Transfuse as needed Hypokalemia-replaced Hypomagnesemia-replace Sacral wound-consult wound care, Mepilex for now. Diabetes mellitus-continue Levemir with sliding scale insulin. Insomnia-trazodone DVT prophylaxis: SCDs, pharmacological prophylaxis contraindicated, suspecting rectal bleed. Discharge Planning Discharged back to rehabilitation when medically cleared. Problem Qualifiers (1) Pneumonia: Qualified Code: J18.1 - Pneumonia of left lower lobe due to infectious organism (2) Chest pain: Qualified Code: R07.89 - Other chest pain Mary Mccollum MD Mar 26, 2016 08:48
[2016-03-26 08:55] LABS: BICARBONATE 26.3 MEQ/L (21.0-32.0)
[2016-03-26] MEDS: INSULIN DETEMIR 100 UNITS/ML VIAL SQ SCH (09:12)
[2016-03-26] MEDS: PREGABALIN 25 MG CAP PO SCH (09:12)
[2016-03-26] MEDS: POTASSIUM CHLORIDE 20 MEQ CONTROLLED RELEASE TAB PO SCH ×2 (09:13→23:07)
[2016-03-26] MEDS: LEVOFLOXACIN 750 MG PREMIX INJ 150 ML IV SCH (09:13)
[2016-03-26] MEDS: METOPROLOL SUCCINATE 50 MG EXTENDED RELEASE TAB PO SCH (09:13)
[2016-03-26] MEDS: PRAVASTATIN SOD 80 MG TAB PO SCH (09:13)
[2016-03-26] MEDS: PANTOPRAZOLE SOD 20 MG DELAYED RELEASE TAB PO SCH (09:14)
[2016-03-26] MEDS ORDERED: IOHEXOL 350 MG/ML 10 ML VIAL (for RAD DIAG) IV ONE (09:51)
--- NOTE | 2016-03-26 10:04 | RADRPT ---
EXAM DATE/TIME: 03/26/2016 09:48 [facility] COMPARISON: CHEST SINGLE AP, March 24, 2016, 2:18. INDICATIONS : Chest pain with short of breath IV CONTRAST: 75 cc Omnipaque 350 (iohexol) IV RADIATION DOSE: 23.30 CTDIvol (mGy) MEDICAL HISTORY : Cardiovascular disease. Hypertension. Chronic obstructive pulmonary disease.Asthma, 1 1/2 PPD smoker SURGICAL HISTORY : 5 cardiac stents ENCOUNTER: Initial ACUITY: 1 day PAIN SCALE: 5/10 LOCATION: chest TECHNIQUE: Volumetric scanning of the chest was performed using a pulmonary embolism protocol MIP images were re constructed. Using automated exposure control and adjustment of the mA and/or kV according to patien t size, radiation dose was kept as low as reasonably achievable to obtain optimal diagnostic quality images. FINDINGS: PULMONARY ARTERIES: No filling defects are seen in the pulmonary arteries through the segmental level. LUNGS: Mild compressive atelectasis with air bronchograms adjacent to the left and right lung bases pleural effusions.. PLEURAE: Bilateral small pleural effusions layer posteriorly. MEDIASTINUM: There is good visualization of the great vessels of the middle mediastinum. No evidence of mediastin al or hilar adenopathy/mass. Cardiomegaly with atherosclerotic changes of aorta and extensive coronar y calcifications. MUSCULOSKELETAL: Within normal limits for patient age. MISCELLANEOUS: The visualized upper abdominal organs demonstrate no acute abnormality. CONCLUSION: Negative for pulmonary embolism. Atherosclerotic cardiovascular disease compensated cardiomegaly with coronary calcifications. Small posterior bilateral pleural effusions with adjacent mil d compressive atelectasis of lower lobe adjacent parenchyma. Manas Vigil MD on March 26, 2016 at 9:58 Board Certified Radiologist. This report was verified electronically.
[2016-03-26] MEDS: LORazepam 1 MG TAB PO PRN (12:32)
--- NOTE | 2016-03-26 23:04 | EKG ---
Date Performed: 03/26/2016 Time Performed: 08:39:52 PTAGE: 71 years EKG: Sinus rhythm BORDERLINE LEFT AXIS DEVIATION RIGHT BUNDLE BRANCH BLOCK ABNORMAL ECG PREVIOUS TRACING : 03/24/2016 02.00 DOCTOR: Bozena Strickland Interpretating Date/Time 03/26/2016 23:02:02
[2016-03-27] VITALS (9 sets, daily range): BP systolic 74–100; BP diastolic 38–51; PULSE 93–122; RESP 16–23; TEMP 96.2–101.3; O2SAT 92–96
[2016-03-27] MEDS: RESP: ALBUTEROL 2.5 MG/IPRATROPIUM 0.5 MG NEB (SCH) NEB ×6 (01:03→19:54)
[2016-03-27] MEDS: traZODone HCL 50 MG TAB PO PRN ×2 (01:53→22:20)
[2016-03-27] MEDS: LEVOTHYROXINE SODIUM 125 MCG TAB PO SCH (06:03)
[2016-03-27] MEDS: THEOPHYLLINE ER 24 HR 300 MG CAPCR PO SCH ×2 (06:03→18:21)
[2016-03-27] MEDS: LORazepam 1 MG TAB PO PRN (06:08)
[2016-03-27] MEDS: ACETAMINOPHEN 325 MG TAB PO PRN ×3 (06:08→18:28)
[2016-03-27] MEDS: INSULIN ASPART SUPPLEMENTAL SCALE SQ SCH ×4 (06:09→21:00)
[2016-03-27 07:01] LABS: AUTOMATED NEUTROPHIL # 3.6 TH/MM3 (1.8-7.7); BASOPHIL % 0.7 % (0.0-2.0); EOSINOPHIL # 0.1 TH/MM3 (0-0.4); EOSINOPHIL % 2.4 % (0.0-4.0); HEMATOCRIT 25.4 % (39.0-51.0); HEMO FLAGS DIFF FINAL; LYMPH % 25.5 % (9.0-44.0); LYMPHOCYTE # 1.5 TH/MM3 (1.0-4.8); MEAN CELL VOLUME 83.6 FL (80.0-100.0); MEAN CORPUSCULAR HEMOGLOBIN 27.9 PG (27.0-34.0); MEAN CORPUSCULAR HGB CONC 33.4 % (32.0-36.0); MONO % 8.9 % (0.0-8.0); NEUT % 62.5 % (16.0-70.0); PLATELET COUNT 195 TH/MM3 (150-450); RED BLOOD COUNT 3.04 MIL/MM3 (4.50-5.90); RED CELL DISTRIBUTION WIDTH 16.3 % (11.6-17.2); WHITE BLOOD COUNT 5.7 TH/MM3 (4.0-11.0)
[2016-03-27 07:06] LABS: BICARBONATE 26.6 MEQ/L (21.0-32.0); MAGNESIUM 1.6 MG/DL (1.5-2.5); POTASSIUM 3.9 MEQ/L (3.5-5.1)
[2016-03-27] MEDS: METOPROLOL SUCCINATE 50 MG EXTENDED RELEASE TAB PO SCH (09:00)
[2016-03-27] MEDS: LEVOFLOXACIN 750 MG PREMIX INJ 150 ML IV SCH (10:27)
[2016-03-27] MEDS: PANTOPRAZOLE SOD 20 MG DELAYED RELEASE TAB PO SCH (10:28)
[2016-03-27] MEDS: PREGABALIN 25 MG CAP PO SCH (10:28)
[2016-03-27] MEDS: INSULIN DETEMIR 100 UNITS/ML VIAL SQ SCH (10:28)
[2016-03-27] MEDS: POTASSIUM CHLORIDE 20 MEQ CONTROLLED RELEASE TAB PO SCH ×2 (10:28→22:04)
[2016-03-27] MEDS: PRAVASTATIN SOD 80 MG TAB PO SCH (10:29)
--- NOTE | 2016-03-27 14:18 | HHI.PR ---
Subjective Remarks denies cp denies worsening sob still with cough. low grade temp of 100.9 today Objective Vitals Vital Signs Date Time Temp Pulse Resp B/P Pulse Ox O2 Delivery O2 Flow Rate FiO2 03/27/16 08:11 93 Nasal Cannula 2.00 03/27/16 08:00 100.9 97 18 92/50 95 03/27/16 04:00 98.2 93 16 100/41 96 03/27/16 01:07 93 Nasal Cannula 2.00 03/26/16 23:24 98.1 84 16 118/53 94 03/26/16 19:00 99.6 96 17 140/62 94 03/26/16 17:41 92 Nasal Cannula 2.00 03/26/16 15:50 99.8 92 31 139/52 95 I/O 03/26/16 03/26/16 03/26/16 03/27/16 03/27/16 03/27/16 07:00 15:00 23:00 07:00 15:00 23:00 Intake Total 517 ml 360 ml 480 ml 480 ml Balance 517 ml 360 ml 480 ml 480 ml Intake Oral 240 ml 360 ml 480 ml 480 ml IV Total 277 ml # Voids 3 1 4 3 # Bowel Movements 0 1 1 0 Result Diagram: 03/27/16 0536 03/27/16 [address] Angiography 03/26/16 0000 Signed Impressions: Service Date/Time: Saturday, March 26, 2016 09:48 - CONCLUSION: Negative for pulmonary embolism. Atherosclerotic cardiovascular disease compensated cardiomegaly with coronary calcifications. Small posterior bilateral pleural effusions with adjacent mild compressive atelectasis of lower lobe adjacent parenchyma. Manas Vigil MD Chest X-Ray 03/24/16 0214 Signed Impressions: Service Date/Time: Thursday, March 24, 2016 02:18 - CONCLUSION: Patchy opacity at the left lung base of concern for possible pneumonia. Chandan Danielle MD Objective Remarks GENERAL: Well-nourished, well-developed patient. SKIN: Warm and dry. Unstageable sacral decubitus ulcer. Ulcer without erythema , purulent discharge observed. HEAD: Normocephalic. EYES: No scleral icterus. No injection or drainage. NECK: Supple, trachea midline. No JVD or lymphadenopathy. CARDIOVASCULAR: Regular rate and rhythm without murmurs, gallops, or rubs. RESPIRATORY: Crackles in the left lower lung field. No wheezing or rhonchi auscultated. GASTROINTESTINAL: Abdomen soft, non-tender, nondistended. EXTREMITIES: No cyanosis, or edema. NEUROLOGICAL: Awake, alert, and oriented x 3. Non-focal. Procedures none Medications and IVs Current Medications Medications (Trade) Dose Ordered Sig/Hilda Route Start Time Stop Time Status Last Admin (NS Flush) 2 ml UNSCH PRN IVF 03/24/16 02:15 03/24/16 21:00 (Levemir Inj) 10 units DAILY SQ 03/24/16 09:00 03/27/16 10:28 (Synthroid) 125 mcg DAILY@06 PO 03/24/16 06:00 03/27/16 06:03 (Toprol Xl) 50 mg DAILY PO 03/24/16 09:00 03/26/16 09:13 (KCl) 20 meq BID PO 03/24/16 09:00 03/27/16 10:28 (Lyrica) 50 mg DAILY PO 03/24/16 09:00 03/27/16 10:28 (Pravachol) 80 mg DAILY PO 03/24/16 09:00 03/27/16 10:29 (Tylenol) 650 mg Q4H PRN PO 03/24/16 04:00 03/27/16 10:28 Ondansetron HCl 4 mg 4 mg Q8HR PRN IV PUSH 03/24/16 04:00 03/25/16 13:20 (Levaquin 750 Mg Premix Inj) 150 ml @ 100 mls/hr Q24H IV 03/24/16 09:00 03/27/16 10:27 (D50w (Vial) Inj) 25 ml UNSCH PRN IV PUSH 03/24/16 04:15 Glucagon 1 mg 1 mg UNSCH PRN OTHER 03/24/16 04:15 Vancomycin HCl 1300 mg/Sodium Chloride 513 ml @ 242.362 mls/hr Q12H IV 03/24/16 06:00 Hold 03/25/16 06:54 (Vancomycin Consult Pharmacy) 0 ml @ 0 mls/hr UNSCH OTHER 03/24/16 04:15 (Protonix) 20 mg DAILY PO 03/24/16 09:00 03/27/16 10:28 (Pablito-24) 300 mg Q12H PO 03/24/16 05:00 03/27/16 06:03 (Vasotec Inj) 1.25 mg Q6H PRN IV PUSH 03/24/16 10:45 (Desyrel) 50 mg HS PRN PO 03/25/16 10:15 03/27/16 01:53 (Santyl Oint) APPLY TO COCCYX WOUND UNSCH PRN TOP 03/26/16 00:30 03/26/16 23:16 (Ativan) 1 mg Q6H PRN PO 03/26/16 12:30 03/27/16 06:08 Urinary Catheter: No Vascular Central Line Catheter: No A/P Problem List: (1) HCAP (healthcare-associated pneumonia) ICD Code: J18.9 Status: Acute Plan: Evaluation admitted to the medical floor. Treated with IV antibioticsthe patient starting IV vancomycin and IV Levaquin. Evaluation having low-grade fevers and hypotension as well as tachycardia, concurred with sepsis syndrome. Blood cultures negative 3. Sputum culture no growth in 48 hours. However patient having fevers. I will add aztreonam and Flagyl to cover for possible aspiration pneumonia. Consultations infectious disease. (2) Chest pain ICD Code: R07.9 Status: Resolved Plan: Chest pain resolved. Cardiac enzymes remained negative. EKG showed sinus rhythm with right bundle branch block and T-wave inversions in V1 and V2. No ST changes suggestive of active ischemia. (3) DANNA (acute kidney injury) ICD Code: N17.9 Status: Acute Plan: Creatinine trending up slowly, it was 0.85 on presentation and now is 1.16. I will start the patient on gentle IV fluids and continue to monitor BUN/ creatinine as well as strict I's and O's. The patient's urine output seems to be marginal to low. Also check urine for eosinophils to rule out acute interstitial nephritis. The creatinine continues to rise then we'll consult nephrology. Hold vancomycin for possible vancomycin-induced acute kidney injury. (4) Anemia ICD Code: D64.9 Status: Acute Plan: Recent rectal bleed-per patient, had rectal bleeding and was transfused 2 units of packed red blood cells at [facility], colonoscopy allegedly done and was told that it was unremarkable, antiplatelets were stopped. Hemoglobin stable at 8.5. No reports of rectal bleeding. Continue to monitor hemoglobin and transfuse for a hemoglobin more than 9 if active bleeding. (5) Low grade fever ICD Code: R50.9 Status: Acute Plan: Patient with low-grade fever, likely sepsis from HCAP. Continue to monitor vital signs. (6) Diabetes ICD Code: E11.9 Status: Chronic Plan: Blood sugar seems to be stable. Continue Accu-Cheks and SSI with insulin NovoLog. Check hemoglobin A1c. (7) Hypotension ICD Code: I95.9 Status: Acute Plan: I will order 1 L bolus of normal saline. Monitor vital signs. (8) Hypokalemia ICD Code: E87.6 Status: Acute Plan: Resolved. K 3.9 today. continue to monitor and replace as needed. (9) Hypomagnesemia ICD Code: E83.42 Status: Acute Plan: Magnesium 1.6. Will continue to replace and monitor - goal >2 (10) Sacral wound ICD Code: S31.000A Status: Acute Plan: Appreciate wound care recommendations. Sacral wound ulcer is unstageable but does not look infected. Wound care recommended Santyl to be applied to the sacral wound. Assessment and Plan GI prophylaxis: Continue PPI. DVT prophylaxis: SCDs, chemotherapy prophylaxis contraindicated for reported rectal bleeding and increased risk of bleeding. Discharge Planning Continue to monitor in the medical floor. Problem Qualifiers (1) Chest pain: Qualified Code: R07.89 - Other chest pain (2) Anemia: Qualified Code: D64.9 - Anemia, unspecified type (3) Diabetes: Qualified Code: E11.8 - Type 2 diabetes mellitus with complication, with long- term current use of insulin (4) Hypotension: Qualified Code: I95.9 - Hypotension, unspecified hypotension type (5) Sacral wound: Qualified Code: S31.000D - Sacral wound, subsequent encounter Martinez Flores MD Mar 27, 2016 14:18
[2016-03-27] MEDS ORDERED: SODIUM CHLORID 0.9% 500 ML INJ 500 ML IV ONE (15:15)
[2016-03-27] MEDS: metroNIDAZOLE 500 MG INJ 100 ML IV SCH ×2 (18:20→23:27)
[2016-03-27] MEDS: MAGNESIUM SULFATE 1 GM PREMIX 100 ML IV SCH ×2 (18:21→18:33)
[2016-03-27] MEDS: NS + KCL 20 MEQ INJ 1,000 ML IV SCH ×2 (18:29→23:27)
--- NOTE | 2016-03-27 20:22 | HHI.PR ---
Addendum to Inpatient Note Addendum Reason: Additional Documentation Additional Information Rapid response was called on this patient at around 8 PM. Patient was found to be hypotensive with a heart rate around 120s. Chart reviewed. Patient examined at the bedside. Patient is being managed for sepsis secondary to pneumonia. He also did have episodes of rectal bleed about a week ago while at [facility]. He was noted to be hypotensive during the day and therefore his primary doctors have ordered for fluid bolus at around 3 PM. However he so far has not received any fluids yet. On exam, patient is awake, alert, oriented. He is seen somewhat of mild to moderate respiratory distress. When asked about this, he stated that he has been short of breath for past several days. He denies any rectal bleed while at our hospital. Nursing staff also did not notice any blood in stool. Patient is actually constipated for today. Patient denies any chest pain. He does report that he has been dizzy for the past few days. He usually gets up and uses a bedside commode. He states every time he tries to get up, he would have to take a break to make sure that he doesn't get worse. His lung exam reveals bilateral good air entry, with mild expiratory wheezing. His heart rate is regular, tachycardic around 110, no murmur appreciated. His abdomen is soft and nontender. No murmur is appreciated. There is no calf asymmetry or edema. Impression: Hypotensionsecondary to anemia/sepsis Acute respiratory distresssecondary to COPD/anemia Plan: Stat labs including hemoglobin hematocrit, BNP. Electrolytes. give nebs stat pt denies hx of chf- states hx of copd on home oxygen fluid bolus one liter is being given check lactate level continue antibiotics regimen fever control hold antihypertensives labs reviewed later slowly dropping hgb given hypotension, hx of cad, will transfuse 2 units prbc each unit over 4 hrs critical care time 30min Cindy Jackson MD Mar 27, 2016 20:22
--- NOTE | 2016-03-27 21:16 | RADRPT ---
EXAM DATE/TIME: 03/27/2016 20:47 [facility] COMPARISON: CHEST SINGLE AP, March 24, 2016, 2:18. INDICATIONS : Short of Breath. MEDICAL HISTORY : Cardiovascular disease. Hypertension. Chronic obstructive pulmonary disease.Asthma, 1.5 PPD smoker. SURGICAL HISTORY : Cardiac stents ENCOUNTER: Initial ACUITY: 1 day PAIN SCORE: 0/10 LOCATION: Bilateral chest FINDINGS: Mild consolidation with a small effusion seen at the right lung base, not significantly changed. The infiltrate previously seen in the left lung base has essentially resolved in the interim. No pneumoth orax. Heart size stable, upper limits of normal. CONCLUSION: Clearing of the left base. No significant change mild consolidation and small effusion right base. Romel Beltran MD on March 27, 2016 at 21:14 Board Certified Radiologist. This report was verified electronically.
[2016-03-27] MEDS: AZTREONAM INJ 2,000 MG in SODIUM CHLORIDE 0.9% INJ 100 ML IV SCH (22:04)
[2016-03-27 22:27] LABS: AUTOMATED NEUTROPHIL # 3.8 TH/MM3 (1.8-7.7); BASOPHIL # 0.1 TH/MM3 (0-0.2); BASOPHIL % 1.3 % (0.0-2.0); EOSINOPHIL # 0.1 TH/MM3 (0-0.4); EOSINOPHIL % 2.4 % (0.0-4.0); HEMATOCRIT 23.5 % (39.0-51.0); HEMO FLAGS DIFF FINAL; LYMPHOCYTE # 1.4 TH/MM3 (1.0-4.8); MEAN CELL VOLUME 83.4 FL (80.0-100.0); MEAN CORPUSCULAR HEMOGLOBIN 28.2 PG (27.0-34.0); MEAN CORPUSCULAR HGB CONC 33.8 % (32.0-36.0); MONO % 8.3 % (0.0-8.0); PLATELET COUNT 222 TH/MM3 (150-450); RED BLOOD COUNT 2.81 MIL/MM3 (4.50-5.90); WHITE BLOOD COUNT 5.9 TH/MM3 (4.0-11.0)
[2016-03-27 22:55] LABS: ANION GAP 5 MEQ/L (5-15); AST (GOT) 13 U/L (15-37); BICARBONATE 30.1 MEQ/L (21.0-32.0); BLOOD UREA NITROGEN 7 MG/DL (7-18); CHLORIDE 101 MEQ/L (98-107); GLOMERULAR FILTRATION RATE 56 ML/MIN (>89); MAGNESIUM 1.8 MG/DL (1.5-2.5); POTASSIUM 3.8 MEQ/L (3.5-5.1); SODIUM (NA) 136 MEQ/L (136-145)
[2016-03-27 22:59] LABS: ALKALINE PHOSPHATASE 102 U/L (45-117); ALT (GPT) 9 U/L (12-78); TOTAL BILIRUBIN ADULT 0.6 MG/DL (0.2-1.0)
[2016-03-28] VITALS (14 sets, daily range): BP systolic 93–142; BP diastolic 45–86; PULSE 103–137; RESP 18–38; TEMP 96.3–101; O2SAT 94–100
[2016-03-28] MEDS: RESP: ALBUTEROL 2.5 MG/IPRATROPIUM 0.5 MG NEB (SCH) NEB ×3 (00:33→08:00)
[2016-03-28] MEDS: AZTREONAM INJ 2,000 MG in SODIUM CHLORIDE 0.9% INJ 100 ML IV SCH ×3 (01:00→16:49)
[2016-03-28 01:18] LABS: BLOOD, URINE SMALL (NEG); GLUCOSE,URINE NEG (NEG); KETONE, URINE NEG (NEG); MUCUS URINE FEW /lpf (OCC); NITRITE,URINE NEG (NEG); RENAL EPITHELIAL CELLS <1 /hpf; SQUAMOUS EPITHELIAL CELL URINE 1 /hpf (0-5); URINE COLOR YELLOW (YELLW/STRAW)
[2016-03-28 01:22] LABS: COMMENT (UR) CULT NOT INDICATED; CULTURE IF INDICATED CULT NOT INDICATED
[2016-03-28] MEDS: THEOPHYLLINE ER 24 HR 300 MG CAPCR PO SCH ×2 (04:48→16:52)
[2016-03-28] MEDS: ACETAMINOPHEN 325 MG TAB PO PRN ×2 (04:48→11:15)
[2016-03-28] MEDS: LEVOTHYROXINE SODIUM 125 MCG TAB PO SCH (04:48)
[2016-03-28] MEDS: INSULIN ASPART SUPPLEMENTAL SCALE SQ SCH ×4 (07:00→20:08)
[2016-03-28] MEDS: metroNIDAZOLE 500 MG INJ 100 ML IV SCH (07:58)
[2016-03-28] MEDS: LEVOFLOXACIN 750 MG PREMIX INJ 150 ML IV SCH (07:59)
[2016-03-28] MEDS: PREGABALIN 25 MG CAP PO SCH (07:59)
[2016-03-28] MEDS: PRAVASTATIN SOD 80 MG TAB PO SCH (07:59)
[2016-03-28] MEDS: INSULIN DETEMIR 100 UNITS/ML VIAL SQ SCH (08:00)
[2016-03-28] MEDS: PANTOPRAZOLE SOD 20 MG DELAYED RELEASE TAB PO SCH (08:00)
[2016-03-28] MEDS: POTASSIUM CHLORIDE 20 MEQ CONTROLLED RELEASE TAB PO SCH ×2 (08:00→20:02)
[2016-03-28] MEDS: RESP: ALBUTEROL 1.25 MG/3 ML NEB (PRN) NEB ×4 (08:55→19:19)
[2016-03-28] MEDS: NS + KCL 20 MEQ INJ 1,000 ML IV SCH ×2 (12:00→19:48)
[2016-03-28] MEDS ORDERED: MORPHINE SULFATE 4 MG/ML INJ IV ONE (12:15)
[2016-03-28] MEDS: ONDANSETRON HCL 4 MG/2 ML VIAL IV PUSH PRN (12:33)
--- NOTE | 2016-03-28 12:41 | PD.CONS ---
History of Present Illness Service Infectious Disease Consult Requested By Dr Blunt Reason for Consult Evaluate patient with sepsis, suspect HCAP and has decubitus ulcers Primary Care Physician Bertha Kc MD Diagnoses: History of Present Illness Patient seen and examined. Records reviewed. Patient is a 71-year-old male, came from the long term, admitted to the hospital for evaluation of chest pain and shortness of breath. He was reportedly just discharged from the hospital. Patient points to this sternal region, and describes the pain as heavy and constant. It gets worse when he takes a deep breath. He has a cough but not bringing up any phlegm. Patient has not noted any improvement in his symptoms. Chest x-ray on admission did show some infiltrates on the left base. He had CTA 2 days ago and did not show any evidence of pulmonary embolism, did show bilateral pleural effusion with some compressive atelectasis. Patient since yesterday started having fevers. He is complaining of being cold currently. He has not had any bowel movement, and claims that his by mouth intake is very poor. He complains of diffuse abdominal pain. He is voiding without any problem, and has no Baca catheter in place. Patient has no central line, and has peripheral IV. Patient has not really ambulated except transferring from bed to the bedside commode. He denies any nausea or vomiting. His last chest x-ray yesterday has shown some improvement in the infiltrates. Patient has been on Levaquin since March 24 , and Azactam was added. Patient also is on IV vancomycin. Infectious disease consultation has been requested to evaluate the patient for sepsis, suspected pneumonia, and also patient with decubitus ulcer. Review of Systems Constitutional: COMPLAINS OF: Fever, Chills, Change in appetite Ears, nose, mouth, throat: DENIES: Nasal discharge, Oral lesions, Throat pain, Ear Pain, Running Nose, Sinus Pain Respiratory: COMPLAINS OF: Cough, Shortness of breath Cardiovascular: COMPLAINS OF: Chest pain, DENIES: Palpitations Gastrointestinal: COMPLAINS OF: Abdominal pain, Constipation, Anorexia, DENIES : Nausea, Vomiting Genitourinary: DENIES: Urgency, Dysuria Musculoskeletal: COMPLAINS OF: Back pain Integumentary: DENIES: Rash Neurologic: DENIES: Headache Past Family Social History Allergies: Coded Allergies: Penicillin (Verified Allergy, Mild, 12/26/16) Past Medical History CAD- s/p stent placement hypertension diabetes mellitus COPD hypothyroidism Past Surgical History bladder surgery cardiac stent placement Active Ordered Medications Tylenol Albuterol Azactam Vasotec Insulin Levaquin Synthroid Ativan Flagyl Morphine Zofran Protonix Potassium Pravachol [place], Theophylline Desyrel Social History Resides in [place] Ex-smoker Previous hx ETOH No drug use Physical Exam Vital Signs Vital Signs Date Time Temp Pulse Resp B/P Pulse Ox O2 Delivery O2 Flow Rate FiO2 03/28/16 08:55 96 Nasal Cannula 2.00 03/28/16 08:00 97.7 113 19 93/47 95 03/28/16 07:30 99.3 112 18 112/86 96 03/28/16 04:15 100.4 118 20 97/45 94 03/28/16 04:00 100.4 114 18 107/50 96 03/28/16 01:10 100.2 106 20 122/48 96 03/28/16 00:55 99.4 106 20 112/45 95 03/28/16 00:35 95 Nasal Cannula 2.00 03/28/16 00:15 100.0 103 19 109/48 94 03/27/16 22:00 110 03/27/16 22:00 95 Nasal Cannula 2.00 03/27/16 19:45 101.3 122 23 74/38 95 03/27/16 16:23 96 Nasal Cannula 2.00 03/27/16 16:00 98.0 99 16 93/49 94 Physical Exam GENERAL: This is a well-nourished, well-developed male, looks chronically ill appearing, in no apparent distress. SKIN: Warm and dry. Has poor skin turgor. Has brownish pigmentation of the skin in his upper extremity. IV sites look okay. No ecchymosis. HEAD: Atraumatic. Normocephalic. No temporal or scalp tenderness. EYES: [place] conjunctivae IV, no petechia or hemorrhage. Pupils equal round and reactive. Extraocular motions intact. No scleral icterus. No injection or drainage. ENT: Nose without bleeding, or purulent drainage. Slightly dry oral mucosa.. Throat without erythema, or exudate. Uvula midline. Airway patent. NECK: Trachea midline. No JVD or lymphadenopathy. Supple, nontender, no meningeal signs. CARDIOVASCULAR: Regular rate and rhythm without murmurs, gallops, or rubs. RESPIRATORY: Clear to auscultation. Breath sounds equal bilaterally. No wheezes , rales, or rhonchi. Decreased breath sounds at the bases. GASTROINTESTINAL: Abdomen distended, and globular, bowel sounds are present and hypoactive. There is diffuse abdominal tenderness, and he has a large umbilical hernia. No guarding or rebound. MUSCULOSKELETAL: Extremities without clubbing, cyanosis. Has mild edema. No joint effusion, or edema noted. No calf tenderness. Negative Homans sign bilaterally. NEUROLOGICAL: Awake and alert. Cranial nerves II through XII intact. Motor and sensory grossly within normal limits. Five out of 5 muscle strength in all muscle groups. Normal speech. PSYCH: Depressed affect, calm and cooperative LINE: PIV with no evidence of infection Laboratory Laboratory Tests Test 03/27/16 03/27/16 03/27/16 03/27/16 17:53 22:18 22:20 23:00 Hemoglobin 8.5 7.9 B-Type Natriuretic Peptide 25 White Blood Count 5.9 Red Blood Count 2.81 Hematocrit 23.5 Mean Corpuscular Volume 83.4 Mean Corpuscular Hemoglobin 28.2 Mean Corpuscular Hemoglobin 33.8 Concent Red Cell Distribution Width 16.0 Platelet Count 222 Mean Platelet Volume 8.3 Neutrophils (%) (Auto) 64.0 Lymphocytes (%) (Auto) 24.0 Monocytes (%) (Auto) 8.3 Eosinophils (%) (Auto) 2.4 Basophils (%) (Auto) 1.3 Neutrophils # (Auto) 3.8 Lymphocytes # (Auto) 1.4 Monocytes # (Auto) 0.5 Eosinophils # (Auto) 0.1 Basophils # (Auto) 0.1 CBC Comment DIFF FINAL Differential Comment Sodium Level 136 Potassium Level 3.8 Chloride Level 101 Carbon Dioxide Level 30.1 Anion Gap 5 Blood Urea Nitrogen 7 Creatinine 1.26 Estimat Glomerular Filtration 56 Rate Random Glucose 91 Lactic Acid Level 1.3 Calcium Level 7.9 Magnesium Level 1.8 Total Bilirubin 0.6 Aspartate Amino Transf 13 (AST/SGOT) Alanine Aminotransferase 9 (ALT/SGPT) Alkaline Phosphatase 102 Total Protein 5.1 Albumin 2.0 Blood Type A POSITIVE A POSITIVE Antibody Screen NEGATIVE Crossmatch Leukocyte-Reduced Red Blood Cells Blood Bank Comment Test 03/28/16 01:00 Urine Color YELLOW Urine Turbidity CLEAR Urine pH 8.0 Urine Specific [place] 1.016 Urine Protein TRACE Urine Glucose (UA) NEG Urine Ketones NEG Urine Occult Blood SMALL Urine Nitrite NEG Urine Bilirubin NEG Urine Urobilinogen LESS THAN 2.0 Urine Leukocyte Esterase SMALL Urine RBC LESS THAN 1 Urine WBC 3 Urine Squamous Epithelial 1 Cells Urine Renal Epithelial Cells <1 Urine Mucus FEW Microscopic Urinalysis Comment CULT NOT INDICATED Date/Time Procedure Status Source Growth 03/25/16 06:00 Gram Stain - Final Complete Sputum Expectorated Sputum 03/25/16 06:00 Sputum Culture - Final Complete Sputum Expectorated Sputum NO GROWTH IN 48 HOURS. 03/24/16 04:35 Aerobic Blood Culture - Preliminary Resulted Blood Peripheral NO GROWTH IN 4 DAYS 03/24/16 04:35 Anaerobic Blood Culture - Preliminary Resulted Blood Peripheral NO GROWTH IN 4 DAYS Result Diagram: 03/27/16 2218 03/27/16 2218 Imaging RADIOLOGY STUDIES/FILMS REVIEWED Chest X-Ray 03/27/16 0000 Signed Impressions: Service Date/Time: February 20:47 - CONCLUSION: Clearing of the left base. No significant change mild consolidation and small effusion right base. Romel Beltran MD CT Angiography 03/26/16 0000 Signed Impressions: Service Date/Time: Saturday, March 26, 2016 09:48 - CONCLUSION: Negative for pulmonary embolism. Atherosclerotic cardiovascular disease compensated cardiomegaly with coronary calcifications. Small posterior bilateral pleural effusions with adjacent mild compressive atelectasis of lower lobe adjacent parenchyma. Manas Vigil MD Assessment and Plan Assessment and Plan IMPRESSION Sepsis, new, started with fevers yesterday, tachycardic, and some low BP - CXR is better, no PNA on CTA, no PE - no diarrhea, has abdominal pain, ?source; LFT ok - UA ok - PIV ok, no central line - decubitus look ok and not grossly infected Chest pain, etiology? RECOMMENDATION Repeat 2 BC today Stop Levaquin Continue Vanco and Azactam - pharm doing Vanco dosing Continue Flagyl CT A/P - to evaluate abdominal pain Follow C/S Monitor temps Monitor progress Follow clinical response and determine Abx course I will follow along with you Thank you for this consultation Chitra Gaspar MD Mar 28, 2016 12:41
[2016-03-28] MEDS ORDERED: DIATRIZOATE MEGLUM/DIATRIZOATE SOD 9 ML CUP PO ONE (13:15)
[2016-03-28 14:07] LABS: CREATINE KINASE 122 U/L (39-308)
[2016-03-28 14:19] LABS: CKMB 2.5 NG/ML (0.5-3.6)
--- NOTE | 2016-03-28 15:33 | HHI.PR ---
Subjective Remarks Overnight events noted patient hypotensive last night transfused 2 units prbc c/o chest pain today - given morphine still tachycardic Patient denies melena or hematochezia c/o abdominal pain - more epigastric and LUQ Denies melena, hematochezia, denies nausea Objective Vitals Vital Signs Date Time Temp Pulse Resp B/P Pulse Ox O2 Delivery O2 Flow Rate FiO2 03/28/16 11:00 96.3 115 21 131/62 100 03/28/16 08:55 96 Nasal Cannula 2.00 03/28/16 08:00 97.7 113 19 93/47 95 03/28/16 07:30 99.3 112 18 112/86 96 03/28/16 04:15 100.4 118 20 97/45 94 03/28/16 04:00 100.4 114 18 107/50 96 03/28/16 01:10 100.2 106 20 122/48 96 03/28/16 00:55 99.4 106 20 112/45 95 03/28/16 00:35 95 Nasal Cannula 2.00 03/28/16 00:15 100.0 103 19 109/48 94 03/27/16 22:00 110 03/27/16 22:00 95 Nasal Cannula 2.00 03/27/16 19:45 101.3 122 23 74/38 95 03/27/16 16:23 96 Nasal Cannula 2.00 03/27/16 16:00 98.0 99 16 93/49 94 I/O 03/27/16 03/27/16 03/27/16 03/28/16 03/28/16 03/28/16 06:59 14:59 22:59 06:59 14:59 22:59 Intake Total 480 ml 480 ml 1216 ml 889 ml 845 ml Balance 480 ml 480 ml 1216 ml 889 ml 845 ml Intake Oral 480 ml 480 ml 240 ml 240 ml IV Total 976 ml 324 ml 520 ml Packed Cells 325 ml 325 ml # Voids 3 3 1 5 # Bowel Movements 0 0 0 0 Result Diagram: 03/27/16221703/27/162217 Imaging Last Impressions Chest X-Ray 03/27/16 0000 Signed Impressions: Service Date/Time: February 20:47 - CONCLUSION: Clearing of the left base. No significant change mild consolidation and small effusion right base. Romel Beltran MD CT Angiography 03/26/16 0000 Signed Impressions: Service Date/Time: Saturday, March 26, 2016 09:48 - CONCLUSION: Negative for pulmonary embolism. Atherosclerotic cardiovascular disease compensated cardiomegaly with coronary calcifications. Small posterior bilateral pleural effusions with adjacent mild compressive atelectasis of lower lobe adjacent parenchyma. Manas Vigil MD Objective Remarks GENERAL: Well-nourished, well-developed patient. SKIN: Warm and dry. Unstageable sacral decubitus ulcer. Ulcer without erythema , purulent discharge observed. HEAD: Normocephalic. EYES: No scleral icterus. No injection or drainage. NECK: Supple, trachea midline. No JVD or lymphadenopathy. CARDIOVASCULAR: Regular rate and rhythm without murmurs, gallops, or rubs. RESPIRATORY: Crackles in the left lower lung field. No wheezing or rhonchi auscultated. GASTROINTESTINAL: Abdomen soft, non-tender, nondistended. Bowel sounds are sluggish. There is a large umbilical hernia which is compressible but nonreproducible. Abdominal hernia is non-tender. EXTREMITIES: No cyanosis, or edema. NEUROLOGICAL: Awake, alert, and oriented x 3. Non-focal. Procedures none Medications and IVs Current Medications Medications (Trade) Dose Ordered Sig/Hilda Route Start Time Stop Time Status Last Admin (NS Flush) 2 ml UNSCH PRN IVF 03/24/16 02:15 03/24/16 21:00 (Levemir Inj) 10 units DAILY SQ 03/24/16 09:00 03/28/16 08:00 (Synthroid) 125 mcg DAILY@06 PO 03/24/16 06:00 03/28/16 04:48 (Toprol Xl) 50 mg DAILY PO 03/24/16 09:00 Hold 03/26/16 09:13 (KCl) 20 meq BID PO 03/24/16 09:00 03/28/16 08:00 (Lyrica) 50 mg DAILY PO 03/24/16 09:00 03/28/16 07:59 (Pravachol) 80 mg DAILY PO 03/24/16 09:00 03/28/16 07:59 (Tylenol) 650 mg Q4H PRN PO 03/24/16 04:00 12/30/16 11:15 (Zofran Inj) 4 mg Q8HR PRN IV PUSH 03/24/16 04:00 03/28/16 12:33 (D50w (Vial) Inj) 25 ml UNSCH PRN IV PUSH 03/24/16 04:15 (Glucagon Inj) 1 mg UNSCH PRN OTHER 03/24/16 04:15 (Protonix) 20 mg DAILY PO 03/24/16 09:00 03/28/16 08:00 ([place]-24) 300 mg Q12H PO 03/24/16 05:00 03/28/16 04:48 (Vasotec Inj) 1.25 mg Q6H PRN IV PUSH 03/24/16 10:45 (Desyrel) 50 mg HS PRN PO 03/25/16 10:15 03/27/16 22:20 (Santyl Oint) APPLY TO COCCYX WOUND UNSCH PRN TOP 03/26/16 00:30 03/26/16 23:16 Lorazepam 1 mg 1 mg Q6H PRN PO 03/26/16 12:30 03/27/16 06:08 Potassium Chloride/Sodium Chloride 1,000 ml @ 150 mls/hr Q6H40M IV 03/27/16 16:00 03/27/16 18:29 (Azactam Inj/NS Inj) 100 ml @ 200 mls/hr Q8H IV 03/27/16 17:00 03/28/16 07:59 (Flagyl) 500 mg Q8H PO 03/28/16 17:00 Urinary Catheter: No Vascular Central Line Catheter: No A/P Problem List: (1) HCAP (healthcare-associated pneumonia) ICD Code: J18.9 Status: Acute Plan: Patient admitted to the medical floor. Treated with IV antibioticsthe patient was started IV vancomycin and IV Levaquin. Evaluation having low-grade fevers and hypotension as well as tachycardia, concurred with sepsis syndrome. Blood cultures negative 3. Sputum culture no growth in 48 hours. However patient having fevers. I will add aztreonam and Flagyl to cover for possible aspiration pneumonia. 03/28 appreciate ID recommendations. She had active recommendations. Blood cultures redrawn. Repeat chest x-ray obtained on 03/27 showed consolidation and effusion on the right base. Ancef from that the patient has right crackles on exam. IV Levaquin has been discontinued as per the infectious disease. Continue vancomycin and aztreonam. (2) Chest pain ICD Code: R07.9 Status: Resolved Plan: Chest pain resolved. Cardiac enzymes remained negative. EKG showed sinus rhythm with right bundle branch block and T-wave inversions in V1 and V2. No ST changes suggestive of active ischemia. (3) DANNA (acute kidney injury) ICD Code: N17.9 Status: Acute Plan: Creatinine trending up slowly, it was 0.85 on presentation and now is 1.16. I will start the patient on gentle IV fluids and continue to monitor BUN/ creatinine as well as strict I's and O's. The patient's urine output seems to be marginal to low. Also check urine for eosinophils to rule out acute interstitial nephritis. The creatinine continues to rise then we'll consult nephrology. Hold vancomycin for possible vancomycin-induced acute kidney injury. (4) Anemia ICD Code: D64.9 Status: Acute Plan: Recent rectal bleed-per patient, had rectal bleeding and was transfused 2 units of packed red blood cells at [facility], colonoscopy allegedly done and was told that it was unremarkable, antiplatelets were stopped. Hemoglobin stable at 8.5. No reports of rectal bleeding. Continue to monitor hemoglobin and transfuse for a hemoglobin more than 9 if active bleeding. 03/28 patient had hemoglobin drop from 8.5-7.9. Status post transfusion of 2 units of packed red blood cells. We'll check stat CBC. There are no signs of any active bleeding at this time. Continue to monitor and transfuse for hemoglobin less than 9 effective bleeding and less than 7 if no active bleeding. (5) Low grade fever ICD Code: R50.9 Status: Acute Plan: Patient with low-grade fever, likely sepsis from HCAP, patient also has abdominal pain, CT abdomen and pelvis ordered to rule out abdominal process. (6) Diabetes ICD Code: E11.9 Status: Chronic Plan: Blood sugar seems to be stable. Continue Accu-Cheks and SSI with insulin NovoLog. Check hemoglobin A1c. 03/28 blood sugar seems to be stable. Continue Accu-Cheks with SSI with insulin NovoLog. (7) Hypotension ICD Code: I95.9 Status: Acute Plan: I will order 1 L bolus of normal saline. Monitor vital signs. 03/28 patient again with hypotension overnight. Status post fusion of the units of proper blood cells. Blood pressure much improved today. (8) Hypokalemia ICD Code: E87.6 Status: Acute Plan: Resolved. K 3.8 today. continue to monitor and replace as needed. (9) Hypomagnesemia ICD Code: E83.42 Status: Acute Plan: Magnesium 1.6. Will continue to replace and monitor - goal >2 (10) Sacral wound ICD Code: S31.000A Status: Acute Plan: Appreciate wound care recommendations. Sacral wound ulcer is unstageable but does not look infected. Wound care recommended Santyl to be applied to the sacral wound. (11) Sinus tachycardia ICD Code: R00.0 Status: Acute Plan: 03/28 patient again tachycardic. Patient currently with abdominal pain, looks dehydrated. I will increase IV fluids to 50 mL per hour. Bolus with normal saline as needed for systolic blood pressure less than 100. (12) Abdominal pain ICD Code: R10.9 Status: Acute Plan: Abdominal pain mostly localized in the epigastric and left upper quadrant region. Patient has a compressible but none reducible umbilical hernia. Bowel sounds are sluggish. Check CT abdomen and pelvis without IV contrast with oral contrast to rule out obstruction and another possible source of sepsis. I will place on IV morphine for pain control. Assessment and Plan GI prophylaxis: Continue PPI. DVT prophylaxis: SCDs, chemotherapy prophylaxis contraindicated for reported rectal bleeding and increased risk of bleeding. Discharge Planning Continue to monitor in the medical floor. Problem Qualifiers (1) Chest pain: Qualified Code: R07.89 - Other chest pain (2) Anemia: Qualified Code: D64.9 - Anemia, unspecified type (3) Diabetes: Qualified Code: E11.8 - Type 2 diabetes mellitus with complication, with long- term current use of insulin (4) Hypotension: Qualified Code: I95.9 - Hypotension, unspecified hypotension type (5) Sacral wound: Qualified Code: S31.000D - Sacral wound, subsequent encounter (6) Abdominal pain: Qualified Code: R10.10 - Pain of upper abdomen Martinez Flores MD Mar 28, 2016 15:33
[2016-03-28 16:10] LABS: AUTOMATED NEUTROPHIL # 3.4 TH/MM3 (1.8-7.7); BASOPHIL # 0.1 TH/MM3 (0-0.2); BASOPHIL % 0.9 % (0.0-2.0); EOSINOPHIL # 0.2 TH/MM3 (0-0.4); EOSINOPHIL % 3.9 % (0.0-4.0); HEMATOCRIT 29.1 % (39.0-51.0); HEMO FLAGS DIFF FINAL; LYMPH % 23.8 % (9.0-44.0); LYMPHOCYTE # 1.4 TH/MM3 (1.0-4.8); MEAN CELL VOLUME 81.4 FL (80.0-100.0); MEAN CORPUSCULAR HEMOGLOBIN 27.3 PG (27.0-34.0); MEAN CORPUSCULAR HGB CONC 33.6 % (32.0-36.0); MONO % 12.8 % (0.0-8.0); NEUT % 58.6 % (16.0-70.0); PLATELET COUNT 221 TH/MM3 (150-450); RED BLOOD COUNT 3.58 MIL/MM3 (4.50-5.90); RED CELL DISTRIBUTION WIDTH 17.7 % (11.6-17.2); WHITE BLOOD COUNT 5.9 TH/MM3 (4.0-11.0)
[2016-03-28 16:25] LABS: ALT (GPT) 11 U/L (12-78); ANION GAP 8 MEQ/L (5-15); AST (GOT) 17 U/L (15-37); BICARBONATE 26.7 MEQ/L (21.0-32.0); BLOOD UREA NITROGEN 10 MG/DL (7-18); CHLORIDE 103 MEQ/L (98-107); GLOMERULAR FILTRATION RATE 57 ML/MIN (>89); POTASSIUM 3.8 MEQ/L (3.5-5.1); SODIUM (NA) 138 MEQ/L (136-145)
[2016-03-28 16:27] LABS: ALKALINE PHOSPHATASE 98 U/L (45-117); TOTAL BILIRUBIN ADULT 0.9 MG/DL (0.2-1.0)
[2016-03-28] MEDS: metroNIDAZOLE 500 MG TAB PO SCH (16:48)
[2016-03-28] MEDS: MORPHINE SULFATE 4 MG/ML INJ IV PUSH PRN ×2 (16:49→20:02)
--- NOTE | 2016-03-28 19:01 | RADRPT ---
EXAM DATE/TIME: 03/28/2016 18:35 [facility] COMPARISON: No previous studies available for comparison. INDICATIONS : Diffuse abdominal pain for 4 days. ORAL CONTRAST: Partial prescribed oral contrast ingested. RADIATION DOSE: 8.00 CTDIvol (mGy) MEDICAL HISTORY : Hypertension. Cardiovascular disease Chronic obstructive pulmonary disease. SURGICAL HISTORY : None. ENCOUNTER: Initial ACUITY: 4 - 6 days PAIN SCALE: 4/10 LOCATION: Diffuse abdomen/pelvis TECHNIQUE: Volumetric scanning of the abdomen and pelvis was performed. Using automated exposure control and ad justment of the mA and/or kV according to patient size, radiation dose was kept as low as reasonably achievable to obtain optimal diagnostic quality images. FINDINGS: LOWER LUNGS: Right basilar consolidation and small right pleural effusion. Tiny left pleural effusion LIVER: Homogeneous density without lesion. There is no dilation of the biliary tree. There are calcified ga llstones. SPLEEN: Normal size without lesion. PANCREAS: Within normal limits. KIDNEYS: Normal in size and shape. There is no mass, stone, or hydronephrosis. ADRENAL GLANDS: Within normal limits. VASCULAR: There is no aortic aneurysm. BOWEL/MESENTERY: There is diverticulosis greatest involving the descending and sigmoid colon. Mild degree of diverticu litis cannot be excluded the sigmoid colon. Small air-fluid level seen anterior to the artery bladder likely within small bowel loop. There is no free intraperitoneal air or fluid. ABDOMINAL WALL: Moderate sized umbilical hernia containing fat. RETROPERITONEUM: There is no lymphadenopathy. BLADDER: Decompressed by Baca catheter REPRODUCTIVE: Within normal limits. INGUINAL: There is no lymphadenopathy or hernia. MUSCULOSKELETAL: Degenerative changes and scoliosis. CONCLUSION: 1. Diverticulosis of the colon with questionable minimal diverticulitis of the sigmoid colon. No perf oration or abscess. 2. Cholelithiasis. 3. Small air fluid level anterior to the urinary bladder which is decompressed by Baca catheter. Thi s is likely related to an unopacified small bowel loop. 4. Right basilar consolidation a small right pleural effusion. Small left pleural effusion. Ajith Woods MD on March 28, 2016 at 18:53 Board Certified Radiologist. This report was verified electronically.
[2016-03-28] MEDS: traZODone HCL 50 MG TAB PO PRN (21:42)
--- NOTE | 2016-03-28 23:04 | HHI.PR ---
Addendum to Inpatient Note Addendum Reason: Additional Documentation Additional Information Patient complaining of chest pressure tonight. Vital signs are stable. He's in no distress. Will obtain STAT troponin I, CBC, and EKG. Will follow results. Sierra Quezada Mar 28, 2016 23:04
[2016-03-28] MEDS ORDERED: SODIUM CHLOR 0.9% 1000 ML INJ 1,000 ML IV ONE (23:15)
[2016-03-28] MEDS ORDERED: ACETAMINOPHEN 1000 MG/100 ML VIAL IV ONE (23:15)
--- NOTE | 2016-03-28 23:50 | RADRPT ---
EXAM DATE/TIME: 03/28/2016 23:31 [facility] COMPARISON: CHEST SINGLE AP, March 27, 2016, 20:47. INDICATIONS : Chest pain. MEDICAL HISTORY : Hypertension. Chronic obstructive pulmonary disease. Myocardial infarction. Asthma. SURGICAL HISTORY : Coronary artery stent. ENCOUNTER: Subsequent ACUITY: 4 - 6 days PAIN SCORE: 7/10 LOCATION: Bilateral chest FINDINGS: A single view of the chest demonstrates right basilar density and small pleural effusion. Left lung c lear. The cardiomediastinal contours are unremarkable. Osseous structures are intact. CONCLUSION: Right basilar density and small right pleural effusion. Ajith Woods MD on March 28, 2016 at 23:48 Board Certified Radiologist. This report was verified electronically.
[2016-03-29] VITALS (13 sets, daily range): BP systolic 106–192; BP diastolic 41–67; PULSE 101–156; RESP 20–36; TEMP 98.8–102.2; O2SAT 93–98
[2016-03-29 00:15] LABS: BLOOD GAS BASE EXCESS -0.4 mmol/L (-2-2); BLOOD GAS CARBOXYHEMOGLOBIN 1.7 % (0-4); BLOOD GAS HCO3 23 mmol/L (22-26); BLOOD GAS METHEMOGLOBIN 0.8 % (0-2); BLOOD GAS O2 HGB SATURATION 95 % (90-100); BLOOD GAS OXYGEN CONTENT 12.8 Vol % (12.0-20.0); BLOOD GAS PCO2 30 mmHg (38-42); BLOOD GAS PO2 87 mmHg (61-120); BLOOD GAS TOTAL HGB 9.5 G/DL (12.0-16.0); CRITICAL VALUE NO; DRAW SITE RT RADIAL; LITER FLOW 3 L/M; NUMBER OF ARTERIAL PUNCTURES 1; OXYGEN DEVICE NASAL CANNULA; TEMP CORR TO 98.6
[2016-03-29 00:16] LABS: STAT YES; ULNAR PULSE PRESENT
[2016-03-29 00:18] LABS: AUTOMATED NEUTROPHIL # 3.6 TH/MM3 (1.8-7.7); BASOPHIL % 0.8 % (0.0-2.0); EOSINOPHIL # 0.2 TH/MM3 (0-0.4); EOSINOPHIL % 3.2 % (0.0-4.0); HEMO FLAGS DIFF FINAL; LYMPH % 25.9 % (9.0-44.0); LYMPHOCYTE # 1.5 TH/MM3 (1.0-4.8); MEAN CELL VOLUME 80.5 FL (80.0-100.0); MEAN CORPUSCULAR HGB CONC 34.8 % (32.0-36.0); MONO % 10.4 % (0.0-8.0); NEUT % 59.7 % (16.0-70.0); PLATELET COUNT 193 TH/MM3 (150-450); RED BLOOD COUNT 3.36 MIL/MM3 (4.50-5.90); RED CELL DISTRIBUTION WIDTH 17.6 % (11.6-17.2)
[2016-03-29] MEDS: LORazepam 1 MG TAB PO PRN ×3 (01:00→22:35)
[2016-03-29] MEDS: metroNIDAZOLE 500 MG TAB PO SCH ×3 (01:00→19:34)
[2016-03-29] MEDS ORDERED: SODIUM CHLOR 0.9% 1000 ML INJ 1,000 ML IV ONE (01:00)
[2016-03-29] MEDS: AZTREONAM INJ 2,000 MG in SODIUM CHLORIDE 0.9% INJ 100 ML IV SCH ×3 (02:09→19:34)
[2016-03-29] MEDS: NS + KCL 20 MEQ INJ 1,000 ML IV SCH (02:28)
[2016-03-29] MEDS: RESP: ALBUTEROL 1.25 MG/3 ML NEB (PRN) NEB ×2 (03:14→07:32)
[2016-03-29] MEDS: LEVOTHYROXINE SODIUM 125 MCG TAB PO SCH (06:03)
[2016-03-29] MEDS: THEOPHYLLINE ER 24 HR 300 MG CAPCR PO SCH ×2 (06:03→20:21)
[2016-03-29] MEDS: INSULIN ASPART SUPPLEMENTAL SCALE SQ SCH ×4 (06:07→21:00)
[2016-03-29 06:40] LABS: AUTOMATED NEUTROPHIL # 3.2 TH/MM3 (1.8-7.7); BASOPHIL % 0.8 % (0.0-2.0); EOSINOPHIL # 0.2 TH/MM3 (0-0.4); HEMATOCRIT 25.9 % (39.0-51.0); HEMO FLAGS DIFF FINAL; LYMPHOCYTE # 1.2 TH/MM3 (1.0-4.8); MEAN CELL VOLUME 80.8 FL (80.0-100.0); MEAN CORPUSCULAR HGB CONC 34.6 % (32.0-36.0); MONO % 10.3 % (0.0-8.0); NEUT % 61.9 % (16.0-70.0); PLATELET COUNT 189 TH/MM3 (150-450); RED CELL DISTRIBUTION WIDTH 17.3 % (11.6-17.2); WHITE BLOOD COUNT 5.1 TH/MM3 (4.0-11.0)
[2016-03-29 07:05] LABS: ALT (GPT) 9 U/L (12-78); ANION GAP 10 MEQ/L (5-15); AST (GOT) 17 U/L (15-37); BICARBONATE 22.7 MEQ/L (21.0-32.0); BLOOD UREA NITROGEN 7 MG/DL (7-18); CHLORIDE 107 MEQ/L (98-107); GLOMERULAR FILTRATION RATE 66 ML/MIN (>89); MAGNESIUM 1.6 MG/DL (1.5-2.5); POTASSIUM 3.8 MEQ/L (3.5-5.1); SODIUM (NA) 140 MEQ/L (136-145)
[2016-03-29 07:07] LABS: ALKALINE PHOSPHATASE 91 U/L (45-117); TOTAL BILIRUBIN ADULT 0.7 MG/DL (0.2-1.0)
[2016-03-29] MEDS: PREGABALIN 25 MG CAP PO SCH (07:50)
[2016-03-29] MEDS: INSULIN DETEMIR 100 UNITS/ML VIAL SQ SCH (07:50)
[2016-03-29] MEDS: PRAVASTATIN SOD 80 MG TAB PO SCH (07:51)
[2016-03-29] MEDS: PANTOPRAZOLE SOD 40 MG DELAYED RELEASE TAB PO SCH (07:51)
[2016-03-29] MEDS: POTASSIUM CHLORIDE 20 MEQ CONTROLLED RELEASE TAB PO SCH ×2 (07:51→19:34)
--- NOTE | 2016-03-29 11:48 | HHI.PR ---
Subjective Remarks Patient tachycardic last night feels sob still coughing denies cp abdominal pain much improved and almost resolved denies fevers/chills stable vital signs Objective Vitals Vital Signs Date Time Temp Pulse Resp B/P Pulse Ox O2 Delivery O2 Flow Rate FiO2 03/29/16 08:00 98.8 120 26 151/65 95 03/29/16 07:33 94 Nasal Cannula 3.00 03/29/16 04:30 99.5 114 22 112/47 97 03/29/16 02:20 99.6 123 26 122/49 96 03/29/16 00:46 99.3 119 29 106/41 96 03/28/16 23:00 101.0 137 38 118/47 95 03/28/16 20:00 98.5 129 19 142/53 95 03/28/16 19:23 97 Nasal Cannula 3.00 03/28/16 16:00 97.8 119 21 129/46 97 03/28/16 13:00 100 Nasal Cannula 2.00 I/O 03/28/16 03/28/16 03/28/16 03/29/16 03/29/16 03/29/16 07:00 15:00 23:00 07:00 15:00 23:00 Intake Total 889 ml 1325 ml 240 ml 2860 ml Output Total 250 ml 900 ml Balance 889 ml 1325 ml -10 ml 1960 ml Intake Oral 240 ml 480 ml 240 ml 360 ml IV Total 324 ml 520 ml 2500 ml Packed Cells 325 ml 325 ml Output Urine Total 250 ml 900 ml # Voids 5 3 # Bowel Movements 0 0 0 0 Result Diagram: 03/29/16 0530 03/29/16 0530 Imaging Last Impressions Chest X-Ray 03/28/16 0000 Signed Impressions: Service Date/Time: Monday, March 28, 2016 23:31 - CONCLUSION: Right basilar density and small right pleural effusion. Ajith Woods MD Abdomen/Pelvis CT 03/28/16 0000 Signed Impressions: Service Date/Time: Monday, March 28, 2016 18:35 - CONCLUSION: 1. Diverticulosis of the colon with questionable minimal diverticulitis of the sigmoid colon. No perforation or abscess. 2. Cholelithiasis. 3. Small air fluid level anterior to the urinary bladder which is decompressed by Baca catheter. This is likely related to an unopacified small bowel loop. 4. Right basilar consolidation a small right pleural effusion. Small left pleural effusion. Ajith Woods MD CT Angiography 03/26/16 0000 Signed Impressions: Service Date/Time: Saturday, March 26, 2016 09:48 - CONCLUSION: Negative for pulmonary embolism. Atherosclerotic cardiovascular disease compensated cardiomegaly with coronary calcifications. Small posterior bilateral pleural effusions with adjacent mild compressive atelectasis of lower lobe adjacent parenchyma. Manas Vigil MD Objective Remarks GENERAL: Well-nourished, well-developed patient in moderate respiratory distress SKIN: Warm and dry. Unstageable sacral decubitus ulcer. Ulcer without erythema , purulent discharge observed. HEAD: Normocephalic. EYES: No scleral icterus. No injection or drainage. NECK: Supple, trachea midline. No JVD or lymphadenopathy. CARDIOVASCULAR: Regular rate and rhythm without murmurs, gallops, or rubs. RESPIRATORY: Crackles in the left lower lung field. No wheezing or rhonchi auscultated. GASTROINTESTINAL: Abdomen soft, non-tender, nondistended. Bowel sounds are sluggish. There is a large umbilical hernia which is compressible but nonreproducible. Abdominal hernia is non-tender. EXTREMITIES: No cyanosis, or edema. NEUROLOGICAL: Awake, alert, and oriented x 3. Non-focal. Procedures none Medications and IVs Current Medications Medications (Trade) Dose Ordered Sig/Hilda Route Start Time Stop Time Status Last Admin (NS Flush) 2 ml UNSCH PRN IVF 03/24/16 02:15 03/24/16 21:00 (Levemir Inj) 10 units DAILY SQ 03/24/16 09:00 03/29/16 07:50 (Synthroid) 125 mcg DAILY@06 PO 03/24/16 06:00 03/29/16 06:03 (Toprol Xl) 50 mg DAILY PO 03/24/16 09:00 Hold 03/26/16 09:13 (KCl) 20 meq BID PO 03/24/16 09:00 03/29/16 07:51 (Lyrica) 50 mg DAILY PO 03/24/16 09:00 03/29/16 07:50 (Pravachol) 80 mg DAILY PO 03/24/16 09:00 03/29/16 07:51 (Tylenol) 650 mg Q4H PRN PO 03/24/16 04:00 03/28/16 11:15 (Zofran Inj) 4 mg Q8HR PRN IV PUSH 03/24/16 04:00 03/28/16 12:33 (D50w (Vial) Inj) 25 ml UNSCH PRN IV PUSH 03/24/16 04:15 (Glucagon Inj) 1 mg UNSCH PRN OTHER 03/24/16 04:15 (Pablito-24) 300 mg Q12H PO 03/24/16 05:00 03/29/16 06:03 (Vasotec Inj) 1.25 mg Q6H PRN IV PUSH 03/24/16 10:45 (Desyrel) 50 mg HS PRN PO 03/25/16 10:15 03/28/16 21:42 (Santyl Oint) APPLY TO COCCYX WOUND UNSCH PRN TOP 03/26/16 00:30 03/26/16 23:16 Lorazepam 1 mg 1 mg Q6H PRN PO 03/26/16 12:30 03/29/16 07:51 Potassium Chloride/Sodium Chloride 1,000 ml @ 150 mls/hr Q6H40M IV 03/27/16 16:00 03/29/16 02:28 (Azactam Inj/NS Inj) 100 ml @ 200 mls/hr Q8H IV 03/27/16 17:00 03/29/16 07:50 (Flagyl) 500 mg Q8H PO 03/28/16 17:00 03/29/16 07:51 (Morphine Inj) 2 mg Q3H PRN IV PUSH 03/28/16 16:30 03/28/16 20:02 (Morphine Inj) 4 mg Q3H PRN IV PUSH 03/28/16 16:30 (Protonix) 40 mg DAILY PO 03/29/16 09:00 03/29/16 07:51 Urinary Catheter: No Vascular Central Line Catheter: No A/P Problem List: (1) HCAP (healthcare-associated pneumonia) ICD Code: J18.9 Status: Acute Plan: Patient admitted to the medical floor. Treated with IV antibioticsthe patient was started IV vancomycin and IV Levaquin. Evaluation having low-grade fevers and hypotension as well as tachycardia, concurred with sepsis syndrome. Blood cultures negative 3. Sputum culture no growth in 48 hours. However patient having fevers. I will add aztreonam and Flagyl to cover for possible aspiration pneumonia. 03/28 appreciate ID recommendations. She had active recommendations. Blood cultures redrawn. Repeat chest x-ray obtained on 03/27 showed consolidation and effusion on the right base. Patient has right crackles on lung exam. CT abdomen and pelvis showed possible diverticulitis - Patient started on oral flagyl. Continue IV Vancomycin and IV Aztreonam. Antibiotics as per ID. (2) Chest pain ICD Code: R07.9 Status: Resolved Plan: Chest pain resolved. Cardiac enzymes remained negative. EKG showed sinus rhythm with right bundle branch block and T-wave inversions in V1 and V2. No ST changes suggestive of active ischemia. (3) DANNA (acute kidney injury) ICD Code: N17.9 Status: Acute Plan: Creatinine trending up slowly, it was 0.85 on presentation and now is 1.16. I will start the patient on gentle IV fluids and continue to monitor BUN/ creatinine as well as strict I's and O's. The patient's urine output seems to be marginal to low. Also check urine for eosinophils to rule out acute interstitial nephritis. The creatinine continues to rise then we'll consult nephrology. Hold vancomycin for possible vancomycin-induced acute kidney injury. (4) Anemia ICD Code: D64.9 Status: Acute Plan: Recent rectal bleed-per patient, had rectal bleeding and was transfused 2 units of packed red blood cells at [facility], colonoscopy allegedly done and was told that it was unremarkable, antiplatelets were stopped. Hemoglobin stable at 8.5. No reports of rectal bleeding. Continue to monitor hemoglobin and transfuse for a hemoglobin more than 9 if active bleeding. 03/28 patient had hemoglobin drop from 8.5-7.9. Status post transfusion of 2 units of packed red blood cells. We'll check stat CBC. There are no signs of any active bleeding at this time. Continue to monitor and transfuse for hemoglobin less than 9 effective bleeding and less than 7 if no active bleeding. (5) Low grade fever ICD Code: R50.9 Status: Acute Plan: Patient with low-grade fever, likely sepsis from HCAP, patient also has abdominal pain, CT abdomen and pelvis ordered to rule out abdominal process. CT abdomen and pelvis showed diverticulitis. Patient started on by mouth Flagyl twice a day, IV Flagyl discontinued. (6) Diabetes ICD Code: E11.9 Status: Chronic Plan: Blood sugar seems to be stable. Continue Accu-Cheks and SSI with insulin NovoLog. Hemoglobin A1c pending. (7) Hypotension ICD Code: I95.9 Status: Acute Plan: I will order 1 L bolus of normal saline. Monitor vital signs. 03/28 patient again with hypotension overnight. Status post fusion of the units of proper blood cells. Blood pressure much improved today. 03/29 hypotension resolved. DC IV fluids. (8) Hypokalemia ICD Code: E87.6 Status: Acute Plan: Resolved. K 3.8 today. continue to monitor and replace as needed. (9) Hypomagnesemia ICD Code: E83.42 Status: Acute Plan: Magnesium 1.6. Will continue to replace and monitor - goal >2 (10) Sacral wound ICD Code: S31.000A Status: Acute Plan: Appreciate wound care recommendations. Sacral wound ulcer is unstageable but does not look infected. Wound care recommended Santyl to be applied to the sacral wound. (11) Sinus tachycardia ICD Code: R00.0 Status: Acute Plan: 03/28 patient again tachycardic. Patient currently with abdominal pain, looks dehydrated. I will increase IV fluids to 50 mL per hour. Bolus with normal saline as needed for systolic blood pressure less than 100. 03/29 telemetry monitoring shows A. fib with RVR. (12) Abdominal pain ICD Code: R10.9 Status: Acute Plan: , Pain much improved. Likely secondary to diverticulitis shown on CT of the abdomen and pelvis. Continue IV antibiotics as per ID. CT abdomen and pelvis rule out perforation (13) SOB (shortness of breath) ICD Code: R06.02 Status: Acute Plan: Shortness of breath likely secondary to A. fib with RVR. I will check a chest x-ray. Discontinue IV fluids. I will give Lasix 20 g IV 1 since patient has been on IV fluids. (14) Atrial fibrillation with RVR ICD Code: I48.91 Status: Acute Plan: Check EKG stat. Evaluation with heart rate sustained in the 140s complaining of shortness of breath. Telemetry shows A. fib with RVR. I will start the patient on IV Cardizem bolus and will also start a drip. I will check TSH and consult cardiology. Patient will be transferred to the [facility] floor. I will also start heparin drip and check 2-D echocardiogram. (15) Sepsis ICD Code: A41.9 Status: Acute Plan: Patient with fever up to 101, tachycardia and diverticulitis as well as suspected pneumonia as well as resolved hypotension. ID following. Blood cultures negative to date UA negative. Assessment and Plan GI prophylaxis: Continue PPI. DVT prophylaxis: SCDs, chemotherapy prophylaxis contraindicated for reported rectal bleeding and increased risk of bleeding. Discharge Planning Continue to monitor in the medical floor. Problem Qualifiers (1) Chest pain: Qualified Code: R07.89 - Other chest pain (2) Anemia: Qualified Code: D64.9 - Anemia, unspecified type (3) Diabetes: Qualified Code: E11.8 - Type 2 diabetes mellitus with complication, with long- term current use of insulin (4) Hypotension: Qualified Code: I95.9 - Hypotension, unspecified hypotension type (5) Sacral wound: Qualified Code: S31.000D - Sacral wound, subsequent encounter (6) Abdominal pain: Qualified Code: R10.10 - Pain of upper abdomen Martinez Flores MD Mar 29, 2016 11:48
[2016-03-29] MEDS ORDERED: DILTIAZEM INJ 125 MG in SODIUM CHLORIDE 0.9% INJ 100 ML IV SCH (12:00)
[2016-03-29] MEDS ORDERED: DILTIAZEM HCL 25 MG/5 ML VIAL IVP ONE (12:00)
[2016-03-29] MEDS ORDERED: FUROSEMIDE 20 MG/2 ML VIAL IV PUSH ONE (12:00)
[2016-03-29] MEDS ORDERED: DILTIAZEM HCL 25 MG/5 ML VIAL IVP PRN (12:15)
[2016-03-29] MEDS ORDERED: HEPARIN-D5W INJ 250 ML IV SCH (12:15)
--- NOTE | 2016-03-29 13:16 | RADRPT ---
EXAM DATE/TIME: 03/29/2016 12:32 [facility] COMPARISON: CHEST SINGLE AP, March 28, 2016, 23:31. INDICATIONS : Shortness of breath. MEDICAL HISTORY : Hypertension. Chronic obstructive pulmonary disease. Myocardial infarction. Asthma. SURGICAL HISTORY : Coronary artery stent. ENCOUNTER: Initial ACUITY: 3 weeks PAIN SCORE: 4/10 LOCATION: Chest FINDINGS: No significant change has occurred. Moderate right effusion and right basilar consolidation. Left tyler ng is clear. Cardiomegaly. CONCLUSION: No significant change has occurred. Luis Carlos Oneill MD on March 29, 2016 at 13:14 Board Certified Radiologist. This report was verified electronically.
--- NOTE | 2016-03-29 14:24 | EKG ---
Date Performed: 03/29/2016 Time Performed: 08:13:19 PTAGE: 71 years EKG: SINUS TACHYCARDIA MARKED LEFT AXIS DEVIATION RIGHT BUNDLE BRANCH BLOCK CANNOT EXCLUDE A MOE OR ANTEROSEPTAL INFARCT Since previous tracing, no significant change noted ABNORMAL ECG PREVIOUS TRACING : 03/28/2016 12.20 DOCTOR: Mandy Laura Interpretating Date/Time 03/29/2016 14:24:04
--- NOTE | 2016-03-29 14:24 | EKG ---
Date Performed: 03/28/2016 Time Performed: 12:20:38 PTAGE: 71 years EKG: SINUS TACHYCARDIA INDETERMINATE AXIS RIGHT BUNDLE BRANCH BLOCK Compared to previous tracing , the sinus tachycardia is new. There has been a rightward shift in the axis. There has been an inc rease in the anterior ST-T wave changes associated with the right bundle branch block. ABNORMAL ECG PREVIOUS TRACING : 03/26/2016 08.39 DOCTOR: Mandy Laura Interpretating Date/Time 03/29/2016 14:23:32
[2016-03-29] MEDS: MORPHINE SULFATE 4 MG/ML INJ IV PUSH PRN ×2 (14:40→19:35)
[2016-03-29] MEDS ORDERED: DILTIAZEM HCL 25 MG/5 ML VIAL IV PUSH PRN (15:00)
[2016-03-29] MEDS ORDERED: BUMETANIDE INJ 1 MG/4 ML VIAL IV PUSH ONE (15:15)
[2016-03-29 15:37] LABS: BLOOD GAS BASE EXCESS -0.7 mmol/L (-2-2); BLOOD GAS CARBOXYHEMOGLOBIN 1.8 % (0-4); BLOOD GAS HCO3 23 mmol/L (22-26); BLOOD GAS METHEMOGLOBIN 1.3 % (0-2); BLOOD GAS O2 HGB SATURATION 90 % (90-100); BLOOD GAS OXYGEN CONTENT 13.4 Vol % (12.0-20.0); BLOOD GAS PCO2 35 mmHg (38-42); BLOOD GAS PO2 64 mmHg (61-120); BLOOD GAS TOTAL HGB 10.6 G/DL (12.0-16.0); CRITICAL VALUE NO; DRAW SITE RT RADIAL; LITER FLOW 3 L/M; NUMBER OF ARTERIAL PUNCTURES 1; OXYGEN DEVICE NASAL CANNULA; STAT NO; TEMP CORR TO 98.6; ULNAR PULSE PRESENT
[2016-03-29] MEDS ORDERED: POTASSIUM PHOSPHATE INJ 15 MMOL in SODIUM CHLORIDE 0.9% INJ 150 ML IV ONE (16:00)
[2016-03-29 16:42] LABS: HEMATOCRIT 36.6 % (39.0-51.0); MEAN CELL VOLUME 80.7 FL (80.0-100.0); MEAN CORPUSCULAR HEMOGLOBIN 27.6 PG (27.0-34.0); RED BLOOD COUNT 4.53 MIL/MM3 (4.50-5.90); REVIEW FLAG FINAL
[2016-03-29 16:43] LABS: MEAN CORPUSCULAR HGB CONC 34.2 % (32.0-36.0); PLATELET COUNT 242 TH/MM3 (150-450); RED CELL DISTRIBUTION WIDTH 17.5 % (11.6-17.2)
[2016-03-29 16:45] LABS: APTT (PATIENT) 33.3 SEC (24.3-30.1); INTERNATIONAL NORMALIZED RATIO 1.3 RATIO; PROTHROMBIN TIME - PATIENT 14.7 SEC (9.8-11.6)
[2016-03-29] MEDS: CEFEPIME INJ 1,000 MG in SODIUM CHLORIDE 0.9% INJ 100 ML IV SCH (17:00)
--- NOTE | 2016-03-29 18:08 | MB ---
cc: MARIBEL LAURA M.D. DATE OF CONSULTATION 03/29/16 CHIEF COMPLAINT Chest pain and tachycardia. HISTORY OF PRESENT ILLNESS The patient is a 71-year-old white male with complex cardiovascular history. He has known coronary artery disease and is status post multiple stent placement at various hospitals around [facility]. Review of office records reveals prior stent placements in 2005, 2008, 2010, 2012 and 2013. He has a longstanding history of hypertension, diabetes, chronic obstructive pulmonary disease, hypothyroidism. The patient presents initially presents from detention with chest pain and shortness of breath approximately one week ago. He was admitted with sepsis and GI bleed. Throughout his hospital stay, he has had intermittent tachycardia and has been transferred down to telemetry unit at that time for suspected atrial fibrillation. At the time I see him, the patient is remarkably free of cardiovascular complaints lying supine in bed without chest discomfort, shortness of breath, orthopnea or sensation of palpitation. He denies nausea or vomiting, syncope or presyncope, although he has been out of bed except to transfer to a bedside commode. PAST MEDICAL HISTORY As above. ALLERGIES PENICILLIN PHYSICAL EXAMINATION GENERAL: The patient is a pleasant white male in no acute distress. VITAL SIGNS: Blood pressure of 148/70, pulse of 80, respirations of 20. The patient is afebrile. HEENT/NECK: Unremarkable for the patient' s age. No jugular venous distention. No bruits appreciated. LUNGS: Diffuse crackles right chest. CARDIOVASCULAR: Irregular rate and rhythm without murmurs, rubs, clicks or gallops. Heart sounds are distant. ABDOMEN: Soft without masses, no organomegaly. Bowel sounds are present. EXTREMITIES: No cyanosis, clubbing or edema. NEUROLOGIC: Grossly intact without focal findings. LABORATORY DATA Complete metabolic profile is unremarkable except for random glucose of 119. Creatinine of 1.24. Total protein is low at 4.8. Serial enzymes are minimally elevated at 0.04 and remain flat throughout this admission. B-natriuretic peptide is normal at 25. TSH is within normal limits. CBC is remarkable for a normochromic normocytic anemia on admission with hematocrit of 23%. After two units of packed blood cells hematocrit is now noted at 36%. Platelet count is normal. IMAGING STUDIES Chest x-ray shows moderate right effusion and right basilar consolidation. Left lung is reported to be clear. CT of the abdomen and pelvis reveals diverticulosis with minimal diverticulitis. No perforation or abscess noted. CARDIOLOGY STUDIES Electrocardiogram reveals probable atrial flutter with right axis deviation and right bundle branch block and diffuse nonspecific ST-T wave changes. ASSESSMENT AND PLAN Essentially the patient presents with probably intermittent atrial flutter in the setting of known coronary artery disease and recurrent GI bleed. The patient will be transferred to the unit for closer observation. At the present time, the patient is stable and free of cardiovascular complaints. Prognosis is guarded. Further therapy pending per Dr. Laura. MD HUMBERTO Feng/ /5:04 PM /5:29 PM
--- NOTE | 2016-03-29 18:13 | MB ---
cc: MARIBEL PALOMARES DATE OF CONSULTATION 03/29/16 ADDENDUM The patient gives a history of atrial fibrillation with previous anticoagulant use, but he comes in taking only antiplatelet therapy and he had a new patient office visit with my partner, Dr. Nash, last week and there is no mention of atrial fibrillation. He did go into atrial fibrillation earlier today, but has subsequently converted to sinus rhythm. He is admitted primarily for gastrointestinal bleeding and was transfused just yesterday evening. In light of recent antiplatelet therapy, I think we need to discontinue the heparin started this afternoon until we can be certain about his GI status. He is being transferred to ICU where he can be watched closely. I am going to check an echocardiogram. I am going to check thyroid function studies. Actually, his thyroid studies are normal. We will gradually switch him to p.o. AV nicolas blocking therapy and I will consider anticoagulation when he is cleared by GI or if he has atrial fibrillation that is recurrent and sustains more than 48 hours. Obviously, we would also be more aggressive if he has evidence of rheumatic heart disease, but there is no history of that and I hear no murmurs to suggest that possibility. Ultimately, he is clearly going to be at significantly higher risk of bleeding with full anticoagulant therapy and we need further workup to decide about the wisdom of that approach. We will follow with you. MD HUMBERTO Feng/ /5:42 PM /6:09 PM
[2016-03-29] MEDS: MAGNESIUM SULFATE 1 GM PREMIX 100 ML IV SCH ×2 (18:28→19:32)
--- NOTE | 2016-03-29 20:06 | HHI.PR ---
Addendum to Inpatient Note Addendum Reason: Additional Documentation Additional Information Earlier around 5 PM I was called by RN because patient complaining of shortness of breath, having the 150s despite of being on IV Cardizem drip. I ordered a second IV Cardizem bolus which slowed the heart rate into the 90s. The patient was satting 98%. Patient awake alert and oriented 3, in mild distress. Also ordered IV Bumex, chest x-ray which showed worsening right lower lobe infiltrate. Patient was also starting IV cefepime. ABG ordered. Case was discussed with Dr. Chen who recommended possible use of bipap. ABG showed a pH of 7.44, PCO2 35, PO2 of 64. The patient at the time did not require any BiPAP and was satting well on nasal cannula. The patient was transferred to the intensive care unit. Martinez Flores MD Mar 29, 2016 20:06
[2016-03-29] MEDS: ACETAMINOPHEN 325 MG TAB PO PRN (20:21)
[2016-03-29 20:36] LABS: HDL CHOLESTEROL 27.8 MG/DL (40.0-60.0)
[2016-03-30] VITALS (14 sets, daily range): BP systolic 92–119; BP diastolic 49–58; PULSE 91–130; RESP 26–40; TEMP 98.7–101.5; O2SAT 93–99
[2016-03-30] MEDS: CEFEPIME INJ 1,000 MG in SODIUM CHLORIDE 0.9% INJ 100 ML IV SCH ×3 (01:00→14:45)
[2016-03-30] MEDS: AZTREONAM INJ 2,000 MG in SODIUM CHLORIDE 0.9% INJ 100 ML IV SCH ×3 (01:27→16:30)
[2016-03-30] MEDS: MORPHINE SULFATE 4 MG/ML INJ IV PUSH PRN ×4 (01:28→14:45)
[2016-03-30] MEDS: metroNIDAZOLE 500 MG TAB PO SCH ×3 (01:28→14:45)
[2016-03-30] MEDS: ONDANSETRON HCL 4 MG/2 ML VIAL IV PUSH PRN (04:19)
[2016-03-30] MEDS: LEVOTHYROXINE SODIUM 125 MCG TAB PO SCH (05:09)
[2016-03-30] MEDS: INSULIN ASPART SUPPLEMENTAL SCALE SQ SCH ×4 (05:46→20:27)
[2016-03-30 06:40] LABS: ALT (GPT) 10 U/L (12-78); ANION GAP 11 MEQ/L (5-15); AST (GOT) 19 U/L (15-37); BICARBONATE 24.5 MEQ/L (21.0-32.0); BLOOD UREA NITROGEN 10 MG/DL (7-18); CHLORIDE 102 MEQ/L (98-107); GLOMERULAR FILTRATION RATE 55 ML/MIN (>89); MAGNESIUM 1.8 MG/DL (1.5-2.5); POTASSIUM 4.1 MEQ/L (3.5-5.1); SODIUM (NA) 137 MEQ/L (136-145)
[2016-03-30] MEDS: THEOPHYLLINE ER 24 HR 300 MG CAPCR PO SCH ×2 (06:50→16:30)
[2016-03-30 06:55] LABS: ALKALINE PHOSPHATASE 103 U/L (45-117); TOTAL BILIRUBIN ADULT 0.7 MG/DL (0.2-1.0)
[2016-03-30 08:14] LABS: AUTOMATED NEUTROPHIL # 4.5 TH/MM3 (1.8-7.7); BASOPHIL % 0.6 % (0.0-2.0); EOSINOPHIL # 0.1 TH/MM3 (0-0.4); EOSINOPHIL % 1.8 % (0.0-4.0); HEMATOCRIT 31.7 % (39.0-51.0); LYMPH % 26.4 % (9.0-44.0); MEAN CELL VOLUME 82.6 FL (80.0-100.0); MEAN CORPUSCULAR HEMOGLOBIN 26.7 PG (27.0-34.0); MEAN CORPUSCULAR HGB CONC 32.3 % (32.0-36.0); MONO % 12.6 % (0.0-8.0); NEUT % 58.6 % (16.0-70.0); PLATELET COUNT 206 TH/MM3 (150-450); RED BLOOD COUNT 3.83 MIL/MM3 (4.50-5.90); RED CELL DISTRIBUTION WIDTH 17.5 % (11.6-17.2); WHITE BLOOD COUNT 7.6 TH/MM3 (4.0-11.0)
[2016-03-30 08:16] LABS: HEMO FLAGS AUTO DIFF
[2016-03-30] MEDS: PRAVASTATIN SOD 80 MG TAB PO SCH (09:28)
[2016-03-30] MEDS: PREGABALIN 25 MG CAP PO SCH (09:28)
[2016-03-30] MEDS: POTASSIUM CHLORIDE 20 MEQ CONTROLLED RELEASE TAB PO SCH ×2 (09:28→20:27)
[2016-03-30] MEDS: PANTOPRAZOLE SOD 40 MG DELAYED RELEASE TAB PO SCH (09:28)
[2016-03-30] MEDS: LORazepam 1 MG TAB PO PRN (10:37)
--- NOTE | 2016-03-30 13:32 | EKG ---
Date Performed: 03/29/2016 Time Performed: 12:45:23 PTAGE: 71 years EKG: SUPRAVENTRICUALR TACHYCARDIA RIGHT BUNDLE BRANCH BLOCK PROBABLE ANTEROLATERAL INFARCT OF UN DETERMINED AGE ABNORMAL ECG Compared to PREVIOUS TRACING , the supraventricular tachycardia is new. There has been a rightward sh ift in the axis. PREVIOUS TRACIN03/29/2016 08.13 DOCTOR: Mandy Laura Interpretating Date/Time 03/30/2016 13:29:37
--- NOTE | 2016-03-30 13:34 | EKG ---
Date Performed: 03/29/2016 Time Performed: 13:32:32 PTAGE: 71 years EKG: SUPRAVENTRICULAR TACHYCARDIA OF UNCERTAIN MECHANISM RIGHT BUNDLE BRANCH BLOCK RIGHT AXIS DE VIATION ANTEROLATERAL INFARCT OF UNDETERMINED AGE Abnormal ECG Compared to PREVIOUS TRACING , there has been no significant serial change. PREVIOUS TRACIN 016 12.45 DOCTOR: Mandy Laura Interpretating Date/Time 03/30/2016 13:30:44
--- NOTE | 2016-03-30 14:05 | PD.CARD.PN ---
Subjective Subjective Remarks Has remained in AF with RVR - rates 100-110 mostly. No further CP Objective Medications Current Medications Medications (Trade) Dose Ordered Sig/Hilda Route Start Time Stop Time Status Last Admin (NS Flush) 2 ml UNSCH PRN IVF 03/24/16 02:15 03/24/16 21:00 (Levemir Inj) 10 units DAILY SQ 03/24/16 09:00 Hold 03/29/16 07:50 (Synthroid) 125 mcg DAILY@06 PO 03/24/16 06:00 03/30/16 05:09 (Toprol Xl) 50 mg DAILY PO 03/24/16 09:00 Hold 03/26/16 09:13 (KCl) 20 meq BID PO 03/24/16 09:00 03/30/16 09:28 (Lyrica) 50 mg DAILY PO 03/24/16 09:00 03/30/16 09:28 (Pravachol) 80 mg DAILY PO 03/24/16 09:00 03/30/16 09:28 (Tylenol) 650 mg Q4H PRN PO 03/24/16 04:00 03/29/16 20:21 (Zofran Inj) 4 mg Q8HR PRN IV PUSH 03/24/16 04:00 03/30/16 04:19 (D50w (Vial) Inj) 25 ml UNSCH PRN IV PUSH 03/24/16 04:15 (Glucagon Inj) 1 mg UNSCH PRN OTHER 03/24/16 04:15 (Pablito-24) 300 mg Q12H PO 03/24/16 05:00 03/30/16 06:50 (Vasotec Inj) 1.25 mg Q6H PRN IV PUSH 03/24/16 10:45 (Desyrel) 50 mg HS PRN PO 03/25/16 10:15 03/28/16 21:42 (Santyl Oint) APPLY TO COCCYX WOUND UNSCH PRN TOP 03/26/16 00:30 03/26/16 23:16 Lorazepam 1 mg 1 mg Q6H PRN PO 03/26/16 12:30 03/30/16 10:37 (Azactam Inj/NS Inj) 100 ml @ 200 mls/hr Q8H IV 03/27/16 17:00 03/30/16 09:24 (Flagyl) 500 mg Q8H PO 03/28/16 17:00 03/30/16 09:28 (Morphine Inj) 2 mg Q3H PRN IV PUSH 03/28/16 16:30 03/30/16 02:25 (Morphine Inj) 4 mg Q3H PRN IV PUSH 03/28/16 16:30 03/30/16 05:10 Pantoprazole Sodium 40 mg 40 mg DAILY PO 03/29/16 09:00 03/30/16 09:28 Diltiazem HCl 125 mg/Sodium Chloride 125 ml @ 0 mls/hr TITRATE IV 03/29/16 12:00 03/29/16 20:22 (Maxipime Inj/NS Inj) 100 ml @ 200 mls/hr Q8H IV 03/29/16 17:00 03/30/16 09:00 Vital Signs / I&O Vital Signs Date Time Temp Pulse Resp B/P Pulse Ox O2 Delivery O2 Flow Rate FiO2 03/30/16 10:28 24 03/30/16 09:30 94 Nasal Cannula 4.00 03/30/16 08:00 98.8 91 34 108/53 93 03/30/16 08:00 113 03/30/16 07:44 98 40 03/30/16 07:00 92 Nasal Cannula 4.00 03/30/16 06:00 114 03/30/16 04:00 111 03/30/16 04:00 98.7 111 31 111/57 99 03/30/16 02:00 107 03/30/16 00:00 107 03/30/16 00:00 99.4 107 40 119/58 99 03/29/16 22:00 118 03/29/16 21:34 98 Simple Mask 10.00 03/29/16 20:00 97 Bi-Pap 50 03/29/16 20:00 102.2 101 36 106/53 97 03/29/16 20:00 133 03/29/16 18:33 97 50 03/29/16 17:34 95 Nasal Cannula 2.00 03/29/16 17:00 99.9 116 20 149/62 95 03/29/16 16:00 101.3 153 22 192/57 95 03/29/16 15:45 18 03/29/16 15:30 156 I/O 12/31/16 12/03/29/16 03/30/16 03/30/16 03/30/16 07:00 15:00 23:00 07:00 15:00 23:00 Intake Total 2860 ml 240 ml 2610 ml 493 ml Output Total 900 ml 800 ml 325 ml 550 ml Balance 1960 ml -560 ml 2285 ml -57 ml Intake Oral 360 ml 240 ml 240 ml 120 ml IV Total 2500 ml 2370 ml 373 ml Output Urine Total 900 ml 800 ml 325 ml 550 ml # Bowel Movements 0 0 0 0 Physical Exam Lungs: CTA anteriorly CV: IRRR, HS distant Monitor: AF with RVR; rate 115 Ext: No edema Laboratory Laboratory Tests Test 03/29/16 03/29/16 03/29/16 03/29/16 15:30 15:51 15:58 19:59 Blood Gas Puncture Site RT RADIAL Blood Gas Patient Temperature 98.6 Blood Gas HCO3 23 mmol/L Blood Gas Base Excess -0.7 mmol/L Blood Gas Oxygen Saturation 90 % Arterial Blood pH 7.44 Arterial Blood Partial 35 mmHg Pressure CO2 Arterial Blood Partial 64 mmHg Pressure O2 Arterial Blood Oxygen Content 13.4 Vol % Arterial Blood 1.8 % Carboxyhemoglobin Arterial Blood Methemoglobin 1.3 % Blood Gas Hemoglobin 10.6 G/DL Oxygen Delivery Device NASAL CANNULA Blood Gas Liter Flow 3 L/M Prothrombin Time 14.7 SEC Prothromb Time International 1.3 RATIO Ratio Activated Partial 33.3 SEC 30.0 SEC Thromboplast Time White Blood Count 10.0 TH/MM3 Red Blood Count 4.53 MIL/MM3 Hemoglobin 12.5 GM/DL Hematocrit 36.6 % Mean Corpuscular Volume 80.7 FL Mean Corpuscular Hemoglobin 27.6 PG Mean Corpuscular Hemoglobin 34.2 % Concent Red Cell Distribution Width 17.5 % Platelet Count 242 TH/MM3 Mean Platelet Volume 8.9 FL Troponin I 0.11 NG/ML Triglycerides Level 154 MG/DL Cholesterol Level 93 MG/DL LDL Cholesterol 34 MG/DL HDL Cholesterol 27.8 MG/DL Cholesterol/HDL Ratio 3.34 RATIO Test 03/29/16 03/30/16 22:30 03:52 Nasal Screen MRSA (PCR) NEGATIVE White Blood Count 7.6 TH/MM3 Red Blood Count 3.83 MIL/MM3 Hemoglobin 10.2 GM/DL Hematocrit 31.7 % Mean Corpuscular Volume 82.6 FL Mean Corpuscular Hemoglobin 26.7 PG Mean Corpuscular Hemoglobin 32.3 % Concent Red Cell Distribution Width 17.5 % Platelet Count 206 TH/MM3 Mean Platelet Volume 8.5 FL Neutrophils (%) (Auto) 58.6 % Lymphocytes (%) (Auto) 26.4 % Monocytes (%) (Auto) 12.6 % Eosinophils (%) (Auto) 1.8 % Basophils (%) (Auto) 0.6 % Neutrophils # (Auto) 4.5 TH/MM3 Lymphocytes # (Auto) 2.0 TH/MM3 Monocytes # (Auto) 1.0 TH/MM3 Eosinophils # (Auto) 0.1 TH/MM3 Basophils # (Auto) 0.0 TH/MM3 CBC Comment AUTO DIFF Sodium Level 137 MEQ/L Potassium Level 4.1 MEQ/L Chloride Level 102 MEQ/L Carbon Dioxide Level 24.5 MEQ/L Anion Gap 11 MEQ/L Blood Urea Nitrogen 10 MG/DL Creatinine 1.29 MG/DL Estimat Glomerular Filtration 55 ML/MIN Rate Random Glucose 125 MG/DL Calcium Level 7.9 MG/DL Phosphorus Level 3.6 MG/DL Magnesium Level 1.8 MG/DL Total Bilirubin 0.7 MG/DL Aspartate Amino Transf 19 U/L (AST/SGOT) Alanine Aminotransferase 10 U/L (ALT/SGPT) Alkaline Phosphatase 103 U/L Total Protein 4.8 GM/DL Albumin 1.8 GM/DL Imaging Last Impressions Chest X-Ray 03/29/16 0000 Signed Impressions: Service Date/Time: Tuesday, March 29, 2016 12:32 - CONCLUSION: No significant change has occurred. Luis Carlos Oneill MD Abdomen/Pelvis CT 03/28/16 0000 Signed Impressions: Service Date/Time: Monday, March 28, 2016 18:35 - CONCLUSION: 1. Diverticulosis of the colon with questionable minimal diverticulitis of the sigmoid colon. No perforation or abscess. 2. Cholelithiasis. 3. Small air fluid level anterior to the urinary bladder which is decompressed by Baca catheter. This is likely related to an unopacified small bowel loop. 4. Right basilar consolidation a small right pleural effusion. Small left pleural effusion. Ajith Woods MD CT Angiography 03/26/16 0000 Signed Impressions: Service Date/Time: Saturday, March 26, 2016 09:48 - CONCLUSION: Negative for pulmonary embolism. Atherosclerotic cardiovascular disease compensated cardiomegaly with coronary calcifications. Small posterior bilateral pleural effusions with adjacent mild compressive atelectasis of lower lobe adjacent parenchyma. Manas Vigil MD Assessment and Plan Assessment and Plan Covering for Dr. Nash 1) Persistent AF with RVR; will start Amiodarone 400mg TID with food 2) Ideally would like to start anticoagulation. GI consultation would be appreciated. Etiology of GIB/anemia on admission unclear. Will ask attending to order heparin if stable from GI eval/standpoint. Heparin as a trial would give the opportunity to reverse for acute problems. 3) No further CP. Troponin elevation noted at 0.11 but presently assymptomatic. Echo pending. Dr. Scott will see on Thursday and Dr. aNsh to assume cardiology f/u Thursday. Discussed Condition With Deandra Anglin Mar 30, 2016 14:05
[2016-03-30 14:47] LABS: SCAN/DIFF AUTO DIFF CONFIRMED
--- NOTE | 2016-03-30 15:17 | HHI.PR ---
Subjective Remarks patient still in afib with RVR as per RN patient has been complaining all day Patient c/o chest pain which he refers as burning Objective Vitals Vital Signs Date Time Temp Pulse Resp B/P Pulse Ox O2 Delivery O2 Flow Rate FiO2 03/30/16 14:50 22 03/30/16 10:28 24 03/30/16 09:30 94 Nasal Cannula 4.00 03/30/16 08:00 98.8 91 34 108/53 93 03/30/16 08:00 113 03/30/16 07:44 98 40 03/30/16 07:00 92 Nasal Cannula 4.00 03/30/16 06:00 114 03/30/16 04:00 111 03/30/16 04:00 98.7 111 31 111/57 99 03/30/16 02:00 107 03/30/16 00:00 107 03/30/16 00:00 99.4 107 40 119/58 99 03/29/16 22:00 118 03/29/16 21:34 98 Simple Mask 10.00 03/29/16 20:00 97 Bi-Pap 50 03/29/16 20:00 102.2 101 36 106/53 97 03/29/16 20:00 133 03/29/16 18:33 97 50 03/29/16 17:34 95 Nasal Cannula 2.00 03/29/16 17:00 99.9 116 20 149/62 95 03/29/16 16:00 101.3 153 22 192/57 95 03/29/16 15:30 156 I/O 03/29/16 03/29/16 03/29/16 03/30/16 03/30/16 03/30/16 06:59 14:59 22:59 06:59 14:59 22:59 Intake Total 2860 ml 240 ml 2610 ml 493 ml Output Total 900 ml 800 ml 325 ml 550 ml Balance 1960 ml -560 ml 2285 ml -57 ml Intake Oral 360 ml 240 ml 240 ml 120 ml IV Total 2500 ml 2370 ml 373 ml Output Urine Total 900 ml 800 ml 325 ml 550 ml # Bowel Movements 0 0 0 0 Result Diagram: 03/30/16 0352 03/30/16 0352 Imaging Last Impressions Chest X-Ray 03/29/16 0000 Signed Impressions: Service Date/Time: Tuesday, March 29, 2016 12:32 - CONCLUSION: No significant change has occurred. Luis Carlos Oneill MD Abdomen/Pelvis CT 03/28/16 0000 Signed Impressions: Service Date/Time: Monday, March 28, 2016 18:35 - CONCLUSION: 1. Diverticulosis of the colon with questionable minimal diverticulitis of the sigmoid colon. No perforation or abscess. 2. Cholelithiasis. 3. Small air fluid level anterior to the urinary bladder which is decompressed by Baca catheter. This is likely related to an unopacified small bowel loop. 4. Right basilar consolidation a small right pleural effusion. Small left pleural effusion. Ajith Woods MD CT Angiography 03/26/16 0000 Signed Impressions: Service Date/Time: Saturday, March 26, 2016 09:48 - CONCLUSION: Negative for pulmonary embolism. Atherosclerotic cardiovascular disease compensated cardiomegaly with coronary calcifications. Small posterior bilateral pleural effusions with adjacent mild compressive atelectasis of lower lobe adjacent parenchyma. Manas Vigil MD Objective Remarks GENERAL: Well-nourished, well-developed patient in moderate respiratory distress SKIN: Warm and dry. Unstageable sacral decubitus ulcer. Ulcer without erythema , purulent discharge observed. HEAD: Normocephalic. EYES: No scleral icterus. No injection or drainage. NECK: Supple, trachea midline. No JVD or lymphadenopathy. CARDIOVASCULAR: Regular rate and rhythm without murmurs, gallops, or rubs. RESPIRATORY: Crackles in the right lower lung field. Wheezing diffusely but more in right lung. GASTROINTESTINAL: Abdomen soft, non-tender, nondistended. Bowel sounds are sluggish. There is a large umbilical hernia which is compressible but nonreproducible. Abdominal hernia is non-tender. EXTREMITIES: No cyanosis, or edema. NEUROLOGICAL: Awake, alert, and oriented x 3. Non-focal. Procedures none Medications and IVs Current Medications Medications (Trade) Dose Ordered Sig/Hilda Route Start Time Stop Time Status Last Admin (NS Flush) 2 ml UNSCH PRN IVF 03/24/16 02:15 03/24/16 21:00 (Levemir Inj) 10 units DAILY SQ 03/24/16 09:00 Hold 03/29/16 07:50 (Synthroid) 125 mcg DAILY@06 PO 03/24/16 06:00 03/30/16 05:09 (KCl) 20 meq BID PO 03/24/16 09:00 03/30/16 09:28 (Lyrica) 50 mg DAILY PO 03/24/16 09:00 03/30/16 09:28 (Pravachol) 80 mg DAILY PO 03/24/16 09:00 03/30/16 09:28 (Tylenol) 650 mg Q4H PRN PO 03/24/16 04:00 03/29/16 20:21 (Zofran Inj) 4 mg Q8HR PRN IV PUSH 03/24/16 04:00 03/30/16 04:19 (D50w (Vial) Inj) 25 ml UNSCH PRN IV PUSH 03/24/16 04:15 (Glucagon Inj) 1 mg UNSCH PRN OTHER 03/24/16 04:15 (Pablito-24) 300 mg Q12H PO 03/24/16 05:00 03/30/16 06:50 (Vasotec Inj) 1.25 mg Q6H PRN IV PUSH 03/24/16 10:45 (Desyrel) 50 mg HS PRN PO 03/25/16 10:15 03/28/16 21:42 (Santyl Oint) APPLY TO COCCYX WOUND UNSCH PRN TOP 03/26/16 00:30 03/26/16 23:16 Lorazepam 1 mg 1 mg Q6H PRN PO 03/26/16 12:30 03/30/16 10:37 (Azactam Inj/NS Inj) 100 ml @ 200 mls/hr Q8H IV 03/27/16 17:00 03/30/16 09:24 (Flagyl) 500 mg Q8H PO 03/28/16 17:00 03/30/16 14:45 (Morphine Inj) 2 mg Q3H PRN IV PUSH 03/28/16 16:30 03/30/16 02:25 (Morphine Inj) 4 mg Q3H PRN IV PUSH 03/28/16 16:30 03/30/16 14:45 Pantoprazole Sodium 40 mg 40 mg DAILY PO 03/29/16 09:00 03/30/16 09:28 Diltiazem HCl 125 mg/Sodium Chloride 125 ml @ 0 mls/hr TITRATE IV 03/29/16 12:00 03/29/16 20:22 (Maxipime Inj/NS Inj) 100 ml @ 200 mls/hr Q8H IV 03/29/16 17:00 03/30/16 14:45 (Cordarone) 400 mg TID PO 03/30/16 18:00 A/P Problem List: (1) HCAP (healthcare-associated pneumonia) ICD Code: J18.9 Status: Acute Plan: Patient admitted to the medical floor. Treated with IV antibioticsthe patient was started IV vancomycin and IV Levaquin. Evaluation having low-grade fevers and hypotension as well as tachycardia, concurred with sepsis syndrome. Blood cultures negative 3. Sputum culture no growth in 48 hours. However patient having fevers. I will add aztreonam and Flagyl to cover for possible aspiration pneumonia. 03/28 appreciate ID recommendations. She had active recommendations. Blood cultures redrawn. Repeat chest x-ray obtained on 03/27 showed consolidation and effusion on the right base. Patient has right crackles on lung exam. CT abdomen and pelvis showed possible diverticulitis - Patient started on oral flagyl. Continue IV Vancomycin and IV Aztreonam. Antibiotics as per ID. 02/27 Patient with respiratory failure sp bipap overnight, now better on nasal canula. repeat cxr. Expiratory wheezing difusely but more on left lung field, will start on IV Solumedrol. (2) Chest pain ICD Code: R07.9 Status: Resolved Plan: Chest pain resolved. Cardiac enzymes remained negative. EKG showed sinus rhythm with right bundle branch block and T-wave inversions in V1 and V2. No ST changes suggestive of active ischemia. 02/27 Patient still c/o chest pain, cardiology following. Troponin elevated and trending up. Today 0.11 from 0.05. (3) DANNA (acute kidney injury) ICD Code: N17.9 Status: Acute Plan: Creatinine trending up slowly, it was 0.85 on presentation and now is 1.16. I will start the patient on gentle IV fluids and continue to monitor BUN/ creatinine as well as strict I's and O's. The patient's urine output seems to be marginal to low. 03/30/16 urine output better, creatinine trending up slowly. Consult nephrology. urine eosinophils negative. (4) Anemia ICD Code: D64.9 Status: Acute Plan: Recent rectal bleed-per patient, had rectal bleeding and was transfused 2 units of packed red blood cells at [facility], colonoscopy allegedly done and was told that it was unremarkable, antiplatelets were stopped. Hemoglobin stable at 8.5. No reports of rectal bleeding. Continue to monitor hemoglobin and transfuse for a hemoglobin more than 9 if active bleeding. 03/28 patient had hemoglobin drop from 8.5-7.9. Status post transfusion of 2 units of packed red blood cells. We'll check stat CBC. There are no signs of any active bleeding at this time. Continue to monitor and transfuse for hemoglobin less than 9 effective bleeding and less than 7 if no active bleeding. 02/27 Gi bleed source is unclear. Patient had transfusion due to anemia and chest pain. Stool for occult blood pending. GI consult as per cardiology recommendations. (5) Diabetes ICD Code: E11.9 Status: Chronic Plan: Blood sugar seems to be stable. Continue Accu-Cheks and SSI with insulin NovoLog. Hemoglobin A1c pending. (6) Hypotension ICD Code: I95.9 Status: Acute Plan: I will order 1 L bolus of normal saline. Monitor vital signs. 03/28 patient again with hypotension overnight. Status post fusion of the units of proper blood cells. Blood pressure much improved today. 03/29 hypotension resolved. DC IV fluids. 03/30/16 Patient hypotensive after Iv morphine. Will give 500 ml NS bolus and hold Cardizem drip for now. (7) Hypokalemia ICD Code: E87.6 Status: Resolved Plan: Resolved, continue to monitor and replace as needed. (8) Hypomagnesemia ICD Code: E83.42 Status: Acute Plan: Magnesium 1.8. Will continue to replace and monitor - goal >2 (9) Sacral wound ICD Code: S31.000A Status: Acute Plan: Appreciate wound care recommendations. Sacral wound ulcer is unstageable but does not look infected. Wound care recommended Santyl to be applied to the sacral wound. 03/30/16 fu wound culture since some purulence observed. (10) Sinus tachycardia ICD Code: R00.0 Status: Acute Plan: 03/28 patient again tachycardic. Patient currently with abdominal pain, looks dehydrated. I will increase IV fluids to 50 mL per hour. Bolus with normal saline as needed for systolic blood pressure less than 100. 03/29 telemetry monitoring shows A. fib with RVR. 03/30/16 afib w rvr - fu cardiology recommendations - started on amiodarone. (11) Abdominal pain ICD Code: R10.9 Status: Acute Plan: Likely secondary to diverticulitis shown on CT of the abdomen and pelvis. Continue IV antibiotics as per ID. CT abdomen and pelvis rule out perforation 03/30/16 pain resolved. (12) SOB (shortness of breath) ICD Code: R06.02 Status: Acute Plan: Shortness of breath likely secondary to A. fib with RVR. CXR showed 03/30/16 Patient wheezing today. ? Allergic reeaction to cefepime, ? reactive airway disease. Dc Cefepime. Start on Iv Solumedrol. (13) Atrial fibrillation with RVR ICD Code: I48.91 Plan: Check EKG stat. Evaluation with heart rate sustained in the 140s complaining of shortness of breath. Telemetry shows A. fib with RVR. I will start the patient on IV Cardizem bolus and will also start a drip. I will check TSH and consult cardiology. Patient will be transferred to the [facility] floor. I will also start heparin drip and check 2-D echocardiogram. 03/30/16 tsh normal. Appreciate cardiology (14) Sepsis ICD Code: A41.9 Status: Acute Plan: Patient with fever up to 101, tachycardia and diverticulitis as well as suspected pneumonia as well as resolved hypotension. ID following. Blood cultures negative to date UA negative. 03/30/16 patient febrile with a Tmax of 102.2 last night. On Cefepime, Aztreonam, po flagyl. Dc Cefepime and resume Iv Vancomycin. Vanco to be dosed by pharmacy. Vancomycin was held due to rising creatinine, urine eosinophils negative. Assessment and Plan GI prophylaxis: Continue PPI. DVT prophylaxis: SCDs, chemotherapy prophylaxis contraindicated for reported rectal bleeding and increased risk of bleeding. Discharge Planning Continue to monitor in the medical floor. Problem Qualifiers (1) Chest pain: Qualified Code: R07.89 - Other chest pain (2) Anemia: Qualified Code: D64.9 - Anemia, unspecified type (3) Diabetes: Qualified Code: E11.8 - Type 2 diabetes mellitus with complication, with long- term current use of insulin (4) Hypotension: Qualified Code: I95.9 - Hypotension, unspecified hypotension type (5) Sacral wound: Qualified Code: S31.000D - Sacral wound, subsequent encounter (6) Abdominal pain: Qualified Code: R10.10 - Pain of upper abdomen Martinez Flores MD Mar 30, 2016 15:17
[2016-03-30] MEDS ORDERED: methylPREDNISolone SOD SUCC 125 MG/2 ML VIAL IV PUSH ONE (15:30)
[2016-03-30] MEDS ORDERED: VANCOMYCIN INJ 1,000 MG in SODIUM CHLOR 0.9% 250 ML INJ 250 ML IV SCH (16:00)
[2016-03-30] MEDS ORDERED: Vancomycin Consult Pharmacy 1 EA OTHER SCH (16:00)
[2016-03-30] MEDS ORDERED: SODIUM CHLORID 0.9% 500 ML INJ 500 ML IV ONE (16:00)
[2016-03-30] MEDS: AMIODARONE 200 MG TAB PO SCH (16:30)
[2016-03-30] MEDS: SODIUM CHLOR 0.9% 1000 ML INJ 1,000 ML IV SCH (17:00)
[2016-03-30] MEDS: ACETAMINOPHEN 325 MG TAB PO PRN (17:13)
[2016-03-30 17:14] LABS: AUTOMATED NEUTROPHIL # 6.3 TH/MM3 (1.8-7.7); BASOPHIL # 0.1 TH/MM3 (0-0.2); BASOPHIL % 0.8 % (0.0-2.0); EOSINOPHIL % 0.3 % (0.0-4.0); HEMATOCRIT 29.8 % (39.0-51.0); HEMO FLAGS DIFF FINAL; LYMPH % 17.2 % (9.0-44.0); LYMPHOCYTE # 1.5 TH/MM3 (1.0-4.8); MEAN CELL VOLUME 82.1 FL (80.0-100.0); MEAN CORPUSCULAR HEMOGLOBIN 27.1 PG (27.0-34.0); MONO % 11.2 % (0.0-8.0); NEUT % 70.5 % (16.0-70.0); PLATELET COUNT 243 TH/MM3 (150-450); RED BLOOD COUNT 3.63 MIL/MM3 (4.50-5.90); RED CELL DISTRIBUTION WIDTH 17.2 % (11.6-17.2)
--- NOTE | 2016-03-30 17:19 | EC ---
Study Study Date:03/30/2016 STUDY CONCLUSIONS SUMMARY - Procedure narrative: Limited study secondary to moving patient/ poor patient cooperation. - Left ventricle: Wall thickness was increased in a pattern of mild LVH. Systolic function was normal. The estimated ejection fraction was in the range of 55% to 60%. If LV function is below 40, please consider prescribing an ACEI or ARB or document rationale for non-use. PROCEDURE DATA Procedure: Limited study secondary to moving patient/ poor patient cooperation. Transthoracic echocardiography. Image quality was poor. Study completion: The patient tolerated the procedure well. Transthoracic echocardiography. M-mode, limited 2D, limited spectral Doppler, and color Doppler. CARDIAC ANATOMY LEFT VENTRICLE: Wall thickness was increased in a pattern of mild LVH. Systolic function was normal. The estimated ejection fraction was in the range of 55% to 60%. BASIC MEASUREMENTS ADULT NORMAL Left ventricle LV internal dimension, ED, chordal level, 46 mm 43-52 PLAX LV internal dimension, ES, chordal level, 37 mm 23-38 PLAX Fractional shortening, chordal level, PLAX *20 % >29 LV posterior wall thickness, ED 12.8 mm IVS/LVPW ratio, ED 1.16 <1.3 Ventricular septum Septal thickness, ED 14.9 mm Aortic valve Leaflet separation 22 mm 15-26 Right ventricle RV internal dimension, ED, PLAX 29.8 mm 19-38 BASIC MEASUREMENTS ADULT NORMAL Aortic valve Leaflet separation 22 mm 15-26 Aorta Root diameter, ED 37 mm 20-37 Left atrium Anterior-posterior dimension, ES *41 mm 19-40 LA/aortic root ratio 1.11 LEGEND: Mean values are shown as u=mean value. Asterisk (*) burnett values outside specified normal range. Prepared and signed by Joy Scott [id number]
[2016-03-30 17:46] LABS: FERRITIN 2066 NG/ML (26-388); TRANSFERRIN IRON PROFILE 94 MG/DL (200-360)
[2016-03-30] MEDS ORDERED: VANCOMYCIN INJ 1,600 MG in SODIUM CHLORID 0.9% 500 ML INJ 500 ML IV SCH (18:00)
[2016-03-30] MEDS: methylPREDNISolone SOD SUCC 40 MG/1 ML VIAL IV PUSH SCH (21:10)
[2016-03-31] VITALS (14 sets, daily range): BP systolic 97–122; BP diastolic 51–57; PULSE 74–131; RESP 26–41; TEMP 97.6–98.4; O2SAT 95–99
[2016-03-31] MEDS: metroNIDAZOLE 500 MG TAB PO SCH ×3 (00:59→16:46)
[2016-03-31] MEDS: AZTREONAM INJ 2,000 MG in SODIUM CHLORIDE 0.9% INJ 100 ML IV SCH ×3 (00:59→16:46)
[2016-03-31] MEDS: traZODone HCL 50 MG TAB PO PRN ×2 (02:26→20:03)
[2016-03-31] MEDS: SODIUM CHLOR 0.9% 1000 ML INJ 1,000 ML IV SCH ×3 (03:00→23:00)
[2016-03-31] MEDS: RESP: ALBUTEROL 1.25 MG/3 ML NEB (PRN) NEB ×4 (03:27→22:59)
[2016-03-31] MEDS: methylPREDNISolone SOD SUCC 40 MG/1 ML VIAL IV PUSH SCH ×3 (05:50→21:55)
[2016-03-31] MEDS: LEVOTHYROXINE SODIUM 125 MCG TAB PO SCH (05:50)
[2016-03-31] MEDS: THEOPHYLLINE ER 24 HR 300 MG CAPCR PO SCH ×2 (05:50→16:47)
[2016-03-31] MEDS: INSULIN ASPART SUPPLEMENTAL SCALE SQ SCH ×4 (06:03→20:03)
[2016-03-31 06:52] LABS: AUTOMATED NEUTROPHIL # 3.5 TH/MM3 (1.8-7.7); BASOPHIL % 0.4 % (0.0-2.0); HEMATOCRIT 32.2 % (39.0-51.0); HEMO FLAGS DIFF FINAL; LYMPH % 8.4 % (9.0-44.0); LYMPHOCYTE # 0.3 TH/MM3 (1.0-4.8); MEAN CELL VOLUME 82.9 FL (80.0-100.0); MEAN CORPUSCULAR HEMOGLOBIN 26.6 PG (27.0-34.0); MEAN CORPUSCULAR HGB CONC 32.1 % (32.0-36.0); MONO % 2.6 % (0.0-8.0); NEUT % 88.6 % (16.0-70.0); PLATELET COUNT 217 TH/MM3 (150-450); RED BLOOD COUNT 3.89 MIL/MM3 (4.50-5.90); RED CELL DISTRIBUTION WIDTH 17.1 % (11.6-17.2); WHITE BLOOD COUNT 3.9 TH/MM3 (4.0-11.0)
[2016-03-31] MEDS: POTASSIUM CHLORIDE 20 MEQ CONTROLLED RELEASE TAB PO SCH ×2 (09:36→20:04)
[2016-03-31] MEDS: PRAVASTATIN SOD 80 MG TAB PO SCH (09:36)
[2016-03-31] MEDS: PANTOPRAZOLE SOD 40 MG DELAYED RELEASE TAB PO SCH (09:37)
[2016-03-31] MEDS: PREGABALIN 25 MG CAP PO SCH (09:37)
[2016-03-31] MEDS: AMIODARONE 200 MG TAB PO SCH ×3 (09:40→18:24)
--- NOTE | 2016-03-31 10:56 | PD.CONS ---
HPI History of Present Illness This is a 71 year old male with a known history of CAD S/P stents, COPD, HTN and diabetes, chornic anemia and recent rectal bleed. He was in [facility] about 3 weeks ago for rectal bleed/anemia and was discharged to a SNF, was there one day developed chest pain and shortness of breath and was admitted here with pneumonia. During his stay at [facility] a colonoscopy was done for his rectal bleeding, he states the colonoscopy did not find any reason for the bleed. He reports he was on Plavix and ASA for his CAD and Hx of chronic AFIB. Plavix and ASA were discontinued at that admission secondary to rectal bleed. He has been anemic during this admission,has evidence of iron deficiency with no signs of bleeding, he had PRBC's secondary to being symptomatic. H&H today is 10.4/32.2. GI was consulted for recommendations to start anticoagulants. ( Zuri Trent) PFSH Past Medical History CAD- s/p stent placement hypertension diabetes mellitus COPD hypothyroidism Past Surgical History bladder surgery cardiac stent placement (Zuri Trent) Coded Allergies: Penicillin (Verified Allergy, Mild, 03/24/16) Medications Reported Meds & Active Scripts Active Reported Victoza Inj (Liraglutide Inj) 18 Mg/3 Ml Pen 1.8 Mg SQ DAILY Theophylline ER 12 HR (Theophylline) 300 Mg Tab 300 Mg PO Q12H Simvastatin 80 Mg Tab 80 Mg PO DAILY Silvadene Topical (Silver Sulfadiazine) 1 % Cream 1 Applic TOPICAL DIRECTED Potassium Chloride ER (Potassium Chloride) 20 Meq Tab 20 Meq PO BID Nitroglycerin SL (Nitroglycerin) 0.4 Mg Subl 0.4 Mg SL DIRECTED PRN ONE TABLET UNDER THE TONGUE NEEDED FOR CHEST PAIN, MAY REPEAT EVERY FIVE MINUTES FOR A TOTAL OF 3 DOSES OR CALL 911 IF NO RELIEF Milk of Magnesia Liq (Magnesium Hydroxide) 400 Mg/5 Ml Susp 30 Ml PO DAILY PRN Metoprolol Succinate ER 24 HR (Metoprolol Succinate) 50 Mg Tab 50 Mg PO DAILY Lyrica (Pregabalin) 50 Mg Cap 50 Mg PO DAILY Levothyroxine (Levothyroxine Sodium) 125 Mcg Tab 125 Mcg PO DAILY Levemir Inj (Insulin Detemir) 1,000 unit/ 10 ML Vial 10 Units SQ DAILY Do not mix with any other Insulin. Lactulose Liq (Lactulose) 10 Gm/15 Ml Soln 30 Ml PO Q6H PRN Duoneb (Ipratropium-Albuterol Neb) 0.5-2.5 Mg/3 Ml Neb 1 Nebule INH DAILY Hydrocodone-Acetaminophen 10-325 mg Tab 1 Tab PO Q4H PRN Humalog Inj (Insulin Human Lispro) 1,000 Unit/10 Ml Vial 5 Units SQ TIDAC Family History not relevant to this admission. Social History [facility] resident.quit smoking and drinking years ago. (Zuri Trent) Review of Systems Gastrointestinal: COMPLAINS OF: Abdominal pain (mild epigastric tenderness), DENIES: Bloody stools, Constipation, Diarrhea, Nausea, Vomiting (Zuri Trent) GI Exam Vitals I&O Vital Signs Date Time Temp Pulse Resp B/P Pulse Ox O2 Delivery O2 Flow Rate FiO2 03/31/16 10:00 115 03/31/16 08:00 121 03/31/16 08:00 97.8 121 41 102/57 97 03/31/16 07:45 97 Nasal Cannula 3.00 03/31/16 07:00 99 Nasal Cannula 4.00 03/31/16 06:00 102 03/31/16 04:00 101 03/31/16 04:00 98.0 101 28 117/54 99 03/31/16 02:00 89 03/31/16 00:00 97.8 96 26 122/56 98 03/31/16 00:00 96 03/30/16 22:00 101 03/30/16 20:00 98 03/30/16 20:00 98.8 98 26 110/52 96 03/30/16 19:00 100 Nasal Cannula 4.00 03/30/16 18:00 102 03/30/16 16:00 98.8 104 30 94/52 95 03/30/16 16:00 104 03/30/16 14:50 22 03/30/16 14:00 130 03/30/16 12:00 111 03/30/16 12:00 101.5 111 36 92/49 95 03/30/16 10:28 24 I/O 03/30/16 03/30/16 03/30/16 03/31/16 03/31/16 03/31/16 07:00 15:00 23:00 07:00 15:00 23:00 Intake Total 493 ml 1070 ml 1140 ml 640 ml Output Total 550 ml 500 ml 600 ml 700 ml Balance -57 ml 570 ml 540 ml -60 ml Intake Oral 120 ml 400 ml 240 ml 240 ml IV Total 373 ml 670 ml 900 ml 400 ml Output Urine Total 550 ml 500 ml 600 ml 700 ml # Bowel Movements 0 Imaging Last 72 hours Impressions Chest X-Ray 03/29/16 0000 Signed Impressions: Service Date/Time: Tuesday, March 29, 2016 12:32 - CONCLUSION: No significant change has occurred. Luis Carlos Oneill MD Laboratory Test 03/30/16 03/31/16 16:44 04:47 White Blood Count 9.0 TH/MM3 3.9 TH/MM3 Red Blood Count 3.63 MIL/MM3 3.89 MIL/MM3 Hemoglobin 9.8 GM/DL 10.4 GM/DL Hematocrit 29.8 % 32.2 % Mean Corpuscular Volume 82.1 FL 82.9 FL Mean Corpuscular Hemoglobin 27.1 PG 26.6 PG Mean Corpuscular Hemoglobin 33.0 % 32.1 % Concent Red Cell Distribution Width 17.2 % 17.1 % Platelet Count 243 TH/MM3 217 TH/MM3 Mean Platelet Volume 8.0 FL 8.4 FL Neutrophils (%) (Auto) 70.5 % 88.6 % Lymphocytes (%) (Auto) 17.2 % 8.4 % Monocytes (%) (Auto) 11.2 % 2.6 % Eosinophils (%) (Auto) 0.3 % 0.0 % Basophils (%) (Auto) 0.8 % 0.4 % Neutrophils # (Auto) 6.3 TH/MM3 3.5 TH/MM3 Lymphocytes # (Auto) 1.5 TH/MM3 0.3 TH/MM3 Monocytes # (Auto) 1.0 TH/MM3 0.1 TH/MM3 Eosinophils # (Auto) 0.0 TH/MM3 0.0 TH/MM3 Basophils # (Auto) 0.1 TH/MM3 0.0 TH/MM3 CBC Comment DIFF FINAL DIFF FINAL Differential Comment Lactic Acid Level 1.0 mmol/L Iron Level 14 MCG/DL Total Iron Binding Capacity 132 MCG/DL Percent Iron Saturation 10.6 % Ferritin 2066 NG/ML Date/Time Procedure Status Source Growth 03/28/16 20:28 Stool Occult Blood (PHAM) Ordered Stool Stool Pending 03/28/16 14:35 Aerobic Blood Culture - Preliminary Resulted Blood Peripheral NO GROWTH IN 2 DAYS 03/28/16 14:35 Anaerobic Blood Culture - Preliminary Resulted Blood Peripheral NO GROWTH IN 2 DAYS Physical Examination HEENT: Pupils round and reactive to light; normocephalic; atraumatic; no jaundice. Throat is clear. NECK: Neck is supple, no JVD, no lymphadenopathy. CHEST: decreased breath sounds, mild wheezes in bases CARDIAC: Regular rate and rhythm with no murmur gallop or rubs. ABDOMEN: Soft, nondistended tender epigastric area; no hepatosplenomegaly; bowel sounds are present in all four quadrants. EXTREMITIES: No clubbing, cyanosis, or edema. SKIN: Normal; no rash; no jaundice. PHYSICAL LABORATORY ASSISTANT: No focal deficits; alert and oriented times three. (Zuri Trent) Assessment and Plan Assessment: (1) Anemia Plan: Has Hx of recent rectal bleed in Plavix and ASA According to the patient colonoscopy 3 weeks ago was unremarkable H&H has remained stable and has evidence of chronic anemia Plavix and ASA were discontinued secondary to bleeding No signs of obvious bleeding since admission (2) Diabetes Plan: followed by PCP (3) HCAP (healthcare-associated pneumonia) Plan: on antibiotics followed by PCP (4) Diverticulitis Plan: Currently on flagyl Abdomen/Pelvis CT done on 03/28/16 showed -1. Diverticulosis of the colon with questionable minimal diverticulitis of the sigmoid colon. No perforation or abscess. 2. Cholelithiasis. 3. Small air fluid level anterior to the urinary bladder which is decompressed by Baca catheter. This is likely related to an unopacified small bowel loop. 4. Right basilar consolidation a small right pleural effusion. Small left pleural effusion. Denies lower abdominal pain (5) Atrial fibrillation with RVR Plan: On Cardizem followed by cardiolgy Plan Plan -Continue to follow H&H, transfuse PRBC's PRN -Obtain results of previous colonoscopy done at [facility] -Continue Protonix -Supportive care -Further recommendations will follow after close review of case and previously colonoscopy, Thank you for this consultation Patient was seen and examined by Dr. Pulliam and myself this note is written on his behalf (Zuri Trent) Physician Comments Seen and examined, will review recent endoscopic evaluation from Steven Rodriguez, will follow up with you. (Shahla Pulliam MD) Problem Qualifiers (1) Anemia: Qualified Code: D64.9 - Anemia, unspecified type (2) Diabetes: Qualified Code: E11.8 - Type 2 diabetes mellitus with complication, with long- term current use of insulin (3) Diverticulitis: Zuri Trent Mar 31, 2016 10:56 Shahla Pulliam MD Mar 31, 2016 22:06
--- NOTE | 2016-03-31 13:24 | PD.CARD.PN ---
Subjective Subjective Remarks Pt without complaints, though aware of increased HR Objective Medications Current Medications Medications (Trade) Dose Ordered Sig/Hilda Route Start Time Stop Time Status Last Admin (NS Flush) 2 ml UNSCH PRN IVF 03/24/16 02:15 03/24/16 21:00 (Levemir Inj) 10 units DAILY SQ 03/24/16 09:00 Hold 03/29/16 07:50 (Synthroid) 125 mcg DAILY@06 PO 03/24/16 06:00 03/31/16 05:50 (KCl) 20 meq BID PO 03/24/16 09:00 03/31/16 09:36 (Lyrica) 50 mg DAILY PO 03/24/16 09:00 03/31/16 09:37 (Pravachol) 80 mg DAILY PO 03/24/16 09:00 03/31/16 09:36 (Tylenol) 650 mg Q4H PRN PO 03/24/16 04:00 03/30/16 17:13 (Zofran Inj) 4 mg Q8HR PRN IV PUSH 03/24/16 04:00 03/30/16 04:19 (D50w (Vial) Inj) 25 ml UNSCH PRN IV PUSH 03/24/16 04:15 (Glucagon Inj) 1 mg UNSCH PRN OTHER 03/24/16 04:15 (Pablito-24) 300 mg Q12H PO 03/24/16 05:00 03/31/16 05:50 (Vasotec Inj) 1.25 mg Q6H PRN IV PUSH 03/24/16 10:45 (Desyrel) 50 mg HS PRN PO 03/25/16 10:15 03/31/16 02:26 (Santyl Oint) APPLY TO COCCYX WOUND UNSCH PRN TOP 03/26/16 00:30 03/26/16 23:16 Lorazepam 1 mg 1 mg Q6H PRN PO 03/26/16 12:30 03/30/16 10:37 (Azactam Inj/NS Inj) 100 ml @ 200 mls/hr Q8H IV 03/27/16 17:00 03/31/16 09:36 (Flagyl) 500 mg Q8H PO 03/28/16 17:00 03/31/16 09:36 (Morphine Inj) 2 mg Q3H PRN IV PUSH 03/28/16 16:30 03/30/16 02:25 (Morphine Inj) 4 mg Q3H PRN IV PUSH 03/28/16 16:30 03/30/16 14:45 Pantoprazole Sodium 40 mg 40 mg DAILY PO 03/29/16 09:00 03/31/16 09:37 (Cardizem Inj/NS Inj) 125 ml @ 0 mls/hr TITRATE IV 03/29/16 12:00 03/29/16 20:22 (Cordarone) 400 mg TID PO 03/30/16 18:00 03/31/16 12:41 Methylprednisolone Sodium Succinate 40 mg 40 mg Q8HR IV PUSH 03/30/16 22:00 03/31/16 12:42 Pharmacy Profile Note 0 ml @ 0 mls/hr UNSCH OTHER 03/30/16 16:00 (Vancomycin Inj/ NS 500 ml Inj) 516 ml @ 250 mls/hr Q24H IV 03/30/16 18:00 03/30/16 17:47 Miscellaneous Information SPECIFIC LAB TO BE DRAWN:VANCO TROUGH DATE... ONCE ONCE XX 04/02/16 17:45 04/02/16 17:46 (NS 1000 ml Inj) 1,000 ml @ 100 mls/hr Q10H IV 03/30/16 17:00 03/31/16 12:42 Vital Signs / I&O Vital Signs Date Time Temp Pulse Resp B/P Pulse Ox O2 Delivery O2 Flow Rate FiO2 03/31/16 12:00 97.6 127 26 103/51 97 03/31/16 12:00 127 03/31/16 10:00 115 03/31/16 08:00 121 03/31/16 08:00 97.8 121 41 102/57 97 03/31/16 07:45 97 Nasal Cannula 3.00 03/31/16 07:00 99 Nasal Cannula 4.00 03/31/16 06:00 102 03/31/16 04:00 101 03/31/16 04:00 98.0 101 28 117/54 99 03/31/16 02:00 89 03/31/16 00:00 97.8 96 26 122/56 98 03/31/16 00:00 96 03/30/16 22:00 101 03/30/16 20:00 98 03/30/16 20:00 98.8 98 26 110/52 96 03/30/16 19:00 100 Nasal Cannula 4.00 03/30/16 18:00 102 03/30/16 16:00 98.8 104 30 94/52 95 03/30/16 16:00 104 03/30/16 14:50 22 03/30/16 14:00 130 I/O 03/30/16 03/30/16 03/30/16 03/31/16 03/31/16 03/31/16 07:00 15:00 23:00 07:00 15:00 23:00 Intake Total 493 ml 1070 ml 1140 ml 640 ml Output Total 550 ml 500 ml 600 ml 700 ml Balance -57 ml 570 ml 540 ml -60 ml Intake Oral 120 ml 400 ml 240 ml 240 ml IV Total 373 ml 670 ml 900 ml 400 ml Output Urine Total 550 ml 500 ml 600 ml 700 ml # Bowel Movements 0 Physical Exam GENERAL: Well developed, well nourished. No acute distress. HEENT: Jugular venous pressure is normal. CHEST: Lungs clear to auscultation bilaterally. Unlabored respiratory effort. CARDIAC: irregular rate and rhythm without S3, S4, or murmur. ABDOMEN: Soft, nontender, no hepatosplenomegaly. Bowel sounds present. EXTREMITIES: No clubbing, cyanosis, or edema. Laboratory Laboratory Tests Test 03/30/16 03/31/16 16:44 04:47 White Blood Count 9.0 TH/MM3 3.9 TH/MM3 Red Blood Count 3.63 MIL/MM3 3.89 MIL/MM3 Hemoglobin 9.8 GM/DL 10.4 GM/DL Hematocrit 29.8 % 32.2 % Mean Corpuscular Volume 82.1 FL 82.9 FL Mean Corpuscular Hemoglobin 27.1 PG 26.6 PG Mean Corpuscular Hemoglobin 33.0 % 32.1 % Concent Red Cell Distribution Width 17.2 % 17.1 % Platelet Count 243 TH/MM3 217 TH/MM3 Mean Platelet Volume 8.0 FL 8.4 FL Neutrophils (%) (Auto) 70.5 % 88.6 % Lymphocytes (%) (Auto) 17.2 % 8.4 % Monocytes (%) (Auto) 11.2 % 2.6 % Eosinophils (%) (Auto) 0.3 % 0.0 % Basophils (%) (Auto) 0.8 % 0.4 % Neutrophils # (Auto) 6.3 TH/MM3 3.5 TH/MM3 Lymphocytes # (Auto) 1.5 TH/MM3 0.3 TH/MM3 Monocytes # (Auto) 1.0 TH/MM3 0.1 TH/MM3 Eosinophils # (Auto) 0.0 TH/MM3 0.0 TH/MM3 Basophils # (Auto) 0.1 TH/MM3 0.0 TH/MM3 CBC Comment DIFF FINAL DIFF FINAL Differential Comment Lactic Acid Level 1.0 mmol/L Iron Level 14 MCG/DL Total Iron Binding Capacity 132 MCG/DL Percent Iron Saturation 10.6 % Ferritin 2066 NG/ML Assessment and Plan Assessment and Plan AF with RVR- Amio added yesterday - today cardizem IV bolus and drip - GI consult not clear if he could start on anticoagulation Anemia- per GI, recently taken off aspirin and plavix Sepsis- per ID Joy Scott MD Mar 31, 2016 13:24
[2016-03-31] MEDS ORDERED: DILTIAZEM HCL 25 MG/5 ML VIAL IVP ONE (13:30)
[2016-03-31] MEDS ORDERED: DILTIAZEM HCL 25 MG/5 ML VIAL IVP PRN (13:45)
[2016-03-31] MEDS: DILTIAZEM INJ 125 MG in SODIUM CHLORIDE 0.9% INJ 100 ML IV SCH ×2 (13:58→22:01)
[2016-03-31] MEDS: MORPHINE SULFATE 4 MG/ML INJ IV PUSH PRN ×2 (14:48→18:25)
--- NOTE | 2016-03-31 15:46 | HHI.IDPN ---
Subjective Subjective Remarks Notes reviewed High temsp not as frequent Still C/O abdominal pain and L sided chest pain Min cough Not SOB CT A/P with mild sigmoid diverticulitis Not eating much due to the pain Remains in atrial fib Antibiotics Azactam Flagyl Vancomycin Past Medical History CAD- s/p stent placement hypertension diabetes mellitus COPD hypothyroidism Past Surgical History bladder surgery cardiac stent placement Allergies: Coded Allergies: Penicillin (Verified Allergy, Mild, 03/24/16) Objective . Vital Signs Date Time Temp Pulse Resp B/P Pulse Ox O2 Delivery O2 Flow Rate FiO2 03/31/16 14:00 131 03/31/16 12:00 97.6 127 26 103/51 97 03/31/16 12:00 127 03/31/16 10:00 115 03/31/16 08:00 121 03/31/16 08:00 97.8 121 41 102/57 97 03/31/16 07:45 97 Nasal Cannula 3.00 03/31/16 07:00 99 Nasal Cannula 4.00 03/31/16 06:00 102 03/31/16 04:00 101 03/31/16 04:00 98.0 101 28 117/54 99 03/31/16 02:00 89 03/31/16 00:00 97.8 96 26 122/56 98 03/31/16 00:00 96 03/30/16 22:00 101 03/30/16 20:00 98 03/30/16 20:00 98.8 98 26 110/52 96 03/30/16 19:00 100 Nasal Cannula 4.00 03/30/16 18:00 102 03/30/16 16:00 98.8 104 30 94/52 95 03/30/16 16:00 104 03/30/16 03/30/16 03/31/16 14:59 22:59 06:59 Intake Total 1070 ml 1140 ml 640 ml Output Total 500 ml 600 ml 700 ml Balance 570 ml 540 ml -60 ml Intake Oral 400 ml 240 ml 240 ml IV Total 670 ml 900 ml 400 ml Output Urine Total 500 ml 600 ml 700 ml . Laboratory Tests Test 03/29/16 03/30/16 03/30/16 03/31/16 15:58 03:52 16:44 04:47 White Blood Count 10.0 TH/MM3 7.6 TH/MM3 9.0 TH/MM3 3.9 TH/MM3 Red Blood Count 4.53 MIL/MM3 3.83 MIL/MM3 3.63 MIL/MM3 3.89 MIL/MM3 Hemoglobin 12.5 GM/DL 10.2 GM/DL 9.8 GM/DL 10.4 GM/DL Hematocrit 36.6 % 31.7 % 29.8 % 32.2 % Mean Corpuscular Volume 80.7 FL 82.6 FL 82.1 FL 82.9 FL Mean Corpuscular Hemoglobin 27.6 PG 26.7 PG 27.1 PG 26.6 PG Mean Corpuscular Hemoglobin 34.2 % 32.3 % 33.0 % 32.1 % Concent Red Cell Distribution Width 17.5 % 17.5 % 17.2 % 17.1 % Platelet Count 242 TH/MM3 206 TH/MM3 243 TH/MM3 217 TH/MM3 Mean Platelet Volume 8.9 FL 8.5 FL 8.0 FL 8.4 FL Neutrophils (%) (Auto) 58.6 % 70.5 % 88.6 % Lymphocytes (%) (Auto) 26.4 % 17.2 % 8.4 % Monocytes (%) (Auto) 12.6 % 11.2 % 2.6 % Eosinophils (%) (Auto) 1.8 % 0.3 % 0.0 % Basophils (%) (Auto) 0.6 % 0.8 % 0.4 % Neutrophils # (Auto) 4.5 TH/MM3 6.3 TH/MM3 3.5 TH/MM3 Lymphocytes # (Auto) 2.0 TH/MM3 1.5 TH/MM3 0.3 TH/MM3 Monocytes # (Auto) 1.0 TH/MM3 1.0 TH/MM3 0.1 TH/MM3 Eosinophils # (Auto) 0.1 TH/MM3 0.0 TH/MM3 0.0 TH/MM3 Basophils # (Auto) 0.0 TH/MM3 0.1 TH/MM3 0.0 TH/MM3 CBC Comment AUTO DIFF DIFF FINAL DIFF FINAL Differential Comment AUTO DIFF CONFIRMED Laboratory Tests Test 03/29/16 03/30/16 03/30/16 19:59 03:52 16:44 Troponin I 0.11 NG/ML Triglycerides Level 154 MG/DL Cholesterol Level 93 MG/DL LDL Cholesterol 34 MG/DL HDL Cholesterol 27.8 MG/DL Cholesterol/HDL Ratio 3.34 RATIO Sodium Level 137 MEQ/L Potassium Level 4.1 MEQ/L Chloride Level 102 MEQ/L Carbon Dioxide Level 24.5 MEQ/L Anion Gap 11 MEQ/L Blood Urea Nitrogen 10 MG/DL Creatinine 1.29 MG/DL Estimat Glomerular Filtration 55 ML/MIN Rate Random Glucose 125 MG/DL Calcium Level 7.9 MG/DL Phosphorus Level 3.6 MG/DL Magnesium Level 1.8 MG/DL Total Bilirubin 0.7 MG/DL Aspartate Amino Transf 19 U/L (AST/SGOT) Alanine Aminotransferase 10 U/L (ALT/SGPT) Alkaline Phosphatase 103 U/L Total Protein 4.8 GM/DL Albumin 1.8 GM/DL Lactic Acid Level 1.0 mmol/L Iron Level 14 MCG/DL Total Iron Binding Capacity 132 MCG/DL Percent Iron Saturation 10.6 % Ferritin 2066 NG/ML Microbiology Date/Time Procedure Status Source Growth 03/28/16 20:28 Stool Occult Blood (PHAM) Ordered Stool Stool Pending Imaging Chest X-Ray 03/29/16 0000 Signed Impressions: Service Date/Time: Tuesday, March 29, 2016 12:32 - CONCLUSION: No significant change has occurred. Luis Carlos Oneill MD Abdomen/Pelvis CT 03/28/16 0000 Signed Impressions: Service Date/Time: Monday, March 28, 2016 18:35 - CONCLUSION: 1. Diverticulosis of the colon with questionable minimal diverticulitis of the sigmoid colon. No perforation or abscess. 2. Cholelithiasis. 3. Small air fluid level anterior to the urinary bladder which is decompressed by Baca catheter. This is likely related to an unopacified small bowel loop. 4. Right basilar consolidation a small right pleural effusion. Small left pleural effusion. Ajith Woods MD CT Angiography 03/26/16 0000 Signed Impressions: Service Date/Time: Saturday, March 26, 2016 09:48 - CONCLUSION: Negative for pulmonary embolism. Atherosclerotic cardiovascular disease compensated cardiomegaly with coronary calcifications. Small posterior bilateral pleural effusions with adjacent mild compressive atelectasis of lower lobe adjacent parenchyma. Manas Vigil MD Physical Exam GENERAL: Awake and alert, NAD. SKIN: Warm and dry. Has poor skin turgor. Has brownish pigmentation of the skin in his upper extremity. IV sites look okay. No ecchymosis. HEENT: [place] conjunctivae IV, no petechia or hemorrhage. No scleral icterus. No injection or drainage. Slightly dry oral mucosa.. Throat without erythema, or exudate. Uvula midline. Airway patent. NECK: Trachea midline. No JVD or lymphadenopathy. Supple, nontender, no meningeal signs. CARDIOVASCULAR: Regular rate and rhythm without murmurs, gallops, or rubs. RESPIRATORY: Clear to auscultation. Breath sounds equal bilaterally. No wheezes , rales, or rhonchi. Decreased breath sounds at the bases. GASTROINTESTINAL: Abdomen not distended, with diffuse abdominal tenderness, and he has a large umbilical hernia. No guarding or rebound. MUSCULOSKELETAL: Extremities without clubbing, cyanosis. Has mild edema. No joint effusion, or edema noted. No calf tenderness. Negative Homans sign bilaterally. NEUROLOGICAL: Non focal. PSYCH: calm and cooperative LINE: PIV with no evidence of infection Assessment & Plan Remarks IMPRESSION Sepsis, new, started with fevers yesterday, tachycardic, and some low BP - CXR is better, no PNA on CTA, no PE - has diverticultis on CT - temps not as frequent Chest pain, etiology? Abdominal pain RECOMMENDATION Continue Azactam Continue Flagyl Stop Vancomycin Restart PO Levaquin Monitor temps Monitor progress D/W Chitra Cadena MD Mar 31, 2016 15:46
[2016-03-31] MEDS: NITROGLYCERIN 2% OINT 1 GM PACKET TOPICAL SCH ×3 (16:46→23:26)
[2016-03-31] MEDS: LEVOFLOXACIN 500 MG TAB PO SCH (16:46)
[2016-03-31 17:20] LABS: HEMATOCRIT 28.3 % (39.0-51.0); REVIEW FLAG FINAL
[2016-03-31] MEDS: SODIUM CHLORIDE 0.9% FLUSH 5 ML FLUSH IVF PRN (17:24)
[2016-03-31] MEDS: ONDANSETRON HCL 4 MG/2 ML VIAL IV PUSH PRN (17:24)
[2016-03-31] MEDS ORDERED: DIGOXIN 0.5 MG/2 ML VIAL IV PUSH ONE (19:30)
--- NOTE | 2016-03-31 19:40 | HHI.PR ---
Subjective Remarks As per RN, the patient complaining of chest pain earlier. Patient still with tachycardia and rapid atrial fibrillation on telemetry. Patient opens also of abdominal pain, mostly epigastric Denies nausea or vomiting. As per RN the patient has not been eating much. Patient denies any melena or hematochezia Objective Vitals Vital Signs Date Time Temp Pulse Resp B/P Pulse Ox O2 Delivery O2 Flow Rate FiO2 03/31/16 18:00 125 03/31/16 16:00 131 03/31/16 16:00 98.4 131 34 97/51 95 03/31/16 14:00 131 03/31/16 12:00 97.6 127 26 103/51 97 03/31/16 12:00 127 03/31/16 10:00 115 03/31/16 08:00 121 03/31/16 08:00 97.8 121 41 102/57 97 03/31/16 07:45 97 Nasal Cannula 3.00 03/31/16 07:00 99 Nasal Cannula 4.00 03/31/16 06:00 102 03/31/16 04:00 101 03/31/16 04:00 98.0 101 28 117/54 99 03/31/16 02:00 89 03/31/16 00:00 97.8 96 26 122/56 98 03/31/16 00:00 96 03/30/16 22:00 101 03/30/16 20:00 98 03/30/16 20:00 98.8 98 26 110/52 96 I/O 03/30/16 03/30/16 03/30/16 03/31/16 03/31/16 03/31/16 06:59 14:59 22:59 06:59 14:59 22:59 Intake Total 493 ml 1070 ml 1140 ml 640 ml 1192 ml Output Total 550 ml 500 ml 600 ml 700 ml 500 ml Balance -57 ml 570 ml 540 ml -60 ml 692 ml Intake Oral 120 ml 400 ml 240 ml 240 ml 240 ml IV Total 373 ml 670 ml 900 ml 400 ml 952 ml Output Urine Total 550 ml 500 ml 600 ml 700 ml 500 ml # Bowel Movements 0 0 Result Diagram: 03/31/16 1700 03/30/16 0352 Imaging Last Impressions Chest X-Ray 03/29/16 0000 Signed Impressions: Service Date/Time: Tuesday, March 29, 2016 12:32 - CONCLUSION: No significant change has occurred. Luis Carlos Oneill MD Abdomen/Pelvis CT 03/28/16 0000 Signed Impressions: Service Date/Time: Monday, March 28, 2016 18:35 - CONCLUSION: 1. Diverticulosis of the colon with questionable minimal diverticulitis of the sigmoid colon. No perforation or abscess. 2. Cholelithiasis. 3. Small air fluid level anterior to the urinary bladder which is decompressed by Baca catheter. This is likely related to an unopacified small bowel loop. 4. Right basilar consolidation a small right pleural effusion. Small left pleural effusion. Ajith Woods MD CT Angiography 03/26/16 0000 Signed Impressions: Service Date/Time: Saturday, March 26, 2016 09:48 - CONCLUSION: Negative for pulmonary embolism. Atherosclerotic cardiovascular disease compensated cardiomegaly with coronary calcifications. Small posterior bilateral pleural effusions with adjacent mild compressive atelectasis of lower lobe adjacent parenchyma. Manas Vigil MD Objective Remarks GENERAL: Well-nourished, well-developed patient in moderate respiratory distress SKIN: Warm and dry. Unstageable sacral decubitus ulcer. Ulcer without erythema , purulent discharge observed. HEAD: Normocephalic. EYES: No scleral icterus. No injection or drainage. NECK: Supple, trachea midline. No JVD or lymphadenopathy. CARDIOVASCULAR: Regular rate and rhythm without murmurs, gallops, or rubs. RESPIRATORY: Crackles in the right lower lung field. Wheezing diffusely but more in right lung. GASTROINTESTINAL: Abdomen soft, non-tender, nondistended. Bowel sounds are sluggish. There is a large umbilical hernia which is compressible but nonreproducible. Abdominal hernia is non-tender. EXTREMITIES: No cyanosis, or edema. NEUROLOGICAL: Awake, alert, and oriented x 3. Non-focal. Procedures none Medications and IVs Current Medications Medications (Trade) Dose Ordered Sig/Hilda Route Start Time Stop Time Status Last Admin (NS Flush) 2 ml UNSCH PRN IVF 03/24/16 02:15 03/31/16 17:24 (Levemir Inj) 10 units DAILY SQ 03/24/16 09:00 Hold 03/29/16 07:50 (Synthroid) 125 mcg DAILY@06 PO 03/24/16 06:00 03/31/16 05:50 (KCl) 20 meq BID PO 03/24/16 09:00 03/31/16 09:36 (Lyrica) 50 mg DAILY PO 03/24/16 09:00 03/31/16 09:37 (Pravachol) 80 mg DAILY PO 03/24/16 09:00 03/31/16 09:36 (Tylenol) 650 mg Q4H PRN PO 03/24/16 04:00 03/30/16 17:13 (Zofran Inj) 4 mg Q8HR PRN IV PUSH 03/24/16 04:00 03/31/16 17:24 (D50w (Vial) Inj) 25 ml UNSCH PRN IV PUSH 03/24/16 04:15 (Glucagon Inj) 1 mg UNSCH PRN OTHER 03/24/16 04:15 (Pablito-24) 300 mg Q12H PO 03/24/16 05:00 03/31/16 16:47 (Vasotec Inj) 1.25 mg Q6H PRN IV PUSH 03/24/16 10:45 (Desyrel) 50 mg HS PRN PO 03/25/16 10:15 03/31/16 02:26 (Santyl Oint) APPLY TO COCCYX WOUND UNSCH PRN TOP 03/26/16 00:30 03/26/16 23:16 Lorazepam 1 mg 1 mg Q6H PRN PO 03/26/16 12:30 03/30/16 10:37 (Azactam Inj/NS Inj) 100 ml @ 200 mls/hr Q8H IV 03/27/16 17:00 03/31/16 16:46 (Flagyl) 500 mg Q8H PO 03/28/16 17:00 03/31/16 16:46 (Morphine Inj) 2 mg Q3H PRN IV PUSH 03/28/16 16:30 03/31/16 14:48 (Morphine Inj) 4 mg Q3H PRN IV PUSH 03/28/16 16:30 03/31/16 18:25 (Protonix) 40 mg DAILY PO 03/29/16 09:00 03/31/16 09:37 (Cordarone) 400 mg TID PO 03/30/16 18:00 03/31/16 18:24 Methylprednisolone Sodium Succinate 40 mg 40 mg Q8HR IV PUSH 03/30/16 22:00 03/31/16 12:42 Sodium Chloride 1,000 ml @ 100 mls/hr Q10H IV 03/30/16 17:00 03/31/16 12:42 (Cardizem Inj/NS Inj) 125 ml @ 0 mls/hr TITRATE IV 03/31/16 14:00 03/31/16 13:58 (Levaquin) 500 mg Q24H PO 03/31/16 16:00 03/31/16 16:46 (Nitroglycerin 2% Oint) 2 inch Q6HR TOPICAL 03/31/16 16:15 03/31/16 18:24 Urinary Catheter: No Vascular Central Line Catheter: No A/P Problem List: (1) HCAP (healthcare-associated pneumonia) ICD Code: J18.9 Status: Acute (2) Chest pain ICD Code: R07.9 Status: Resolved (3) DANNA (acute kidney injury) ICD Code: N17.9 Status: Acute (4) Anemia ICD Code: D64.9 Status: Acute (5) Diabetes ICD Code: E11.9 Status: Chronic (6) Hypotension ICD Code: I95.9 Status: Acute (7) Hypokalemia ICD Code: E87.6 Status: Resolved (8) Hypomagnesemia ICD Code: E83.42 Status: Acute (9) Sacral wound ICD Code: S31.000A Status: Acute (10) Sinus tachycardia ICD Code: R00.0 Status: Acute (11) Abdominal pain ICD Code: R10.9 Status: Acute (12) SOB (shortness of breath) ICD Code: R06.02 Status: Acute (13) Atrial fibrillation with RVR ICD Code: I48.91 Status: Acute (14) Sepsis ICD Code: A41.9 Status: Acute Assessment and Plan (1) HCAP (healthcare-associated pneumonia) Plan: Patient admitted to the medical floor. Treated with IV antibioticsthe patient was started IV vancomycin and IV Levaquin. Evaluation having low-grade fevers and hypotension as well as tachycardia, concurred with sepsis syndrome. Blood cultures negative 3. Sputum culture no growth in 48 hours. However patient having fevers. I will add aztreonam and Flagyl to cover for possible aspiration pneumonia. 03/28 appreciate ID recommendations. She had active recommendations. Blood cultures redrawn. Repeat chest x-ray obtained on 03/27 showed consolidation and effusion on the right base. Patient has right crackles on lung exam. CT abdomen and pelvis showed possible diverticulitis - Patient started on oral flagyl. Continue IV Vancomycin and IV Aztreonam. Antibiotics as per ID. 03/30 Patient with respiratory failure sp bipap overnight, now better on nasal canula. repeat cxr. Expiratory wheezing difusely but more on left lung field, will start on IV Solumedrol. 03/31/16 start to taper IV Solu-Medrol dose, continue IV antibiotics as per ID recommendations. I vancomycin discontinued. The patient starting IV Levaquin, continue aztreonam and oral Flagyl. Patient has good oxygen saturation on nasal cannula. (2) Chest pain Plan: Chest pain resolved. Cardiac enzymes remained negative. EKG showed sinus rhythm with right bundle branch block and T-wave inversions in V1 and V2. No ST changes suggestive of active ischemia. 03/30 Patient still c/o chest pain, cardiology following. Troponin elevated and trending up. Today 0.11 from 0.05. 03/31/16 patient complaining of chest pain today, likely rate related. Continue to monitor troponins. The patient was started on Nitropaste. Chest pain much improved but still present as per patient. (3) DANNA (acute kidney injury) Plan: Creatinine trending up slowly, it was 0.85 on presentation and now is 1.16. I will start the patient on gentle IV fluids and continue to monitor BUN/ creatinine as well as strict I's and O's. The patient's urine output seems to be marginal to low. Worsening urine output. Continue to monitor BUN/creatinine. Consult nephrology. (4) Anemia Plan: Recent rectal bleed-per patient, had rectal bleeding and was transfused 2 units of packed red blood cells at [facility], colonoscopy allegedly done and was told that it was unremarkable, antiplatelets were stopped. Hemoglobin stable at 8.5. No reports of rectal bleeding. Continue to monitor hemoglobin and transfuse for a hemoglobin more than 9 if active bleeding. 03/28 patient had hemoglobin drop from 8.5-7.9. Status post transfusion of 2 units of packed red blood cells. We'll check stat CBC. There are no signs of any active bleeding at this time. Continue to monitor and transfuse for hemoglobin less than 9 effective bleeding and less than 7 if no active bleeding. 03/31/16 appreciate GI consultation recommendations. The patient recently had a rectal bleed for which she had a colonoscopy at [facility]. The patient reportedly was on aspirin and Plavix for CAD and history of atrial fibrillation , however this was discontinued due to GI bleed which at the time required blood transfusion as per the patient. Follow-up GI recommendations, the patient likely is not a good candidate for anticoagulation. (5) Diabetes Plan: Blood sugar seems to be stable. Continue Accu-Cheks and SSI with insulin NovoLog. Hemoglobin A1c pending. (6) Hypotension Plan: I will order 1 L bolus of normal saline. Monitor vital signs. 03/28 patient again with hypotension overnight. Status post fusion of the units of proper blood cells. Blood pressure much improved today. 03/29 hypotension resolved. DC IV fluids. 03/30/16 Patient hypotensive after Iv morphine. Will give 500 ml NS bolus and hold Cardizem drip for now. 03/31/16 patient had stable blood pressure, however now again on RVR, Cardizem was resumed and is now hypotensive. Hypotension likely multifactorial from Nitropaste and Cardizem IV drip. I will give 1 dose of 0.5 mg of IV digoxin. I also instructed the RN to taper the dose of Cardizem as much as possible. (7) Hypokalemia Plan: Resolved, continue to monitor and replace as needed. (8) Hypomagnesemia Plan: Magnesium 1.8. Will continue to replace and monitor - goal >2 (9) Sacral wound Plan: Appreciate wound care recommendations. Sacral wound ulcer is unstageable but does not look infected. Wound care recommended Santyl to be applied to the sacral wound. 03/30/16 fu wound culture since some purulence observed. (10) Sinus tachycardia Plan: 03/28 patient again tachycardic. Patient currently with abdominal pain, looks dehydrated. I will increase IV fluids to 50 mL per hour. Bolus with normal saline as needed for systolic blood pressure less than 100. 03/29 telemetry monitoring shows A. fib with RVR. 03/30/16 afib w rvr - fu cardiology recommendations - started on amiodarone. (11) Abdominal pain Plan: Likely secondary to diverticulitis shown on CT of the abdomen and pelvis. Continue IV antibiotics as per ID. CT abdomen and pelvis rule out perforation 03/30/16 pain resolved. (12) SOB (shortness of breath) Plan: Shortness of breath likely secondary to A. fib with RVR. CXR showed 03/30/16 Patient wheezing today. ? Allergic reeaction to cefepime, ? reactive airway disease. Dc Cefepime. Start on Iv Solumedrol. 03/31/16 shortness of breath resolved. Patient not wheezing anymore. Start steroid taper. (13) Atrial fibrillation with RVR ICD Code: I48.91 Plan: Check EKG stat. Evaluation with heart rate sustained in the 140s complaining of shortness of breath. Telemetry shows A. fib with RVR. I will start the patient on IV Cardizem bolus and will also start a drip. I will check TSH and consult cardiology. Patient will be transferred to the [facility] floor. I will also start heparin drip and check 2-D echocardiogram. 03/30/16 tsh normal. Appreciate cardiology (14) Sepsis ICD Code: A41.9 Status: Acute Plan: Patient with fever up to 101, tachycardia and diverticulitis as well as suspected pneumonia as well as resolved hypotension. ID following. Blood cultures negative to date UA negative. 03/30/16 patient febrile with a Tmax of 102.2 last night. On Cefepime, Aztreonam, po flagyl. Dc Cefepime and resume Iv Vancomycin. Vanco to be dosed by pharmacy. Vancomycin was held due to rising creatinine, urine eosinophils negative. 03/31/16 vancomycin discontinued by infectious disease. Patient starting IV Levaquin, continue to treat him on by mouth Flagyl. Assessment and Plan GI prophylaxis: Continue PPI. DVT prophylaxis: SCDs, chemotherapy prophylaxis contraindicated for reported rectal bleeding and increased risk of bleeding. GI prophylaxis: Continue PPI. DVT prophylaxis: SCDs, chemotherapy prophylaxis contraindicated for reported rectal bleeding and increased risk of bleeding. Discharge Planning Continue to monitor in the intensive care unit. Problem Qualifiers (1) Chest pain: Qualified Code: R07.89 - Other chest pain (2) Anemia: Qualified Code: D64.9 - Anemia, unspecified type (3) Diabetes: Qualified Code: E11.8 - Type 2 diabetes mellitus with complication, with long- term current use of insulin (4) Hypotension: Qualified Code: I95.9 - Hypotension, unspecified hypotension type (5) Sacral wound: Qualified Code: S31.000D - Sacral wound, subsequent encounter (6) Abdominal pain: Qualified Code: R10.10 - Pain of upper abdomen Martinez Flores MD Mar 31, 2016 19:40
[2016-03-31 20:23] LABS: HEMOGLOBIN A1a 1.3 %; HEMOGLOBIN A1b 2.2 %; HEMOGLOBIN LA1C 1.9 %; HEMOGLOBIN P3 4.4 %
[2016-03-31 20:24] LABS: HEMOGLOBIN Ao 83.1 %
[2016-03-31 21:23] LABS: BICARBONATE 17.4 MEQ/L (21.0-32.0); CALCIUM-PROTEIN CORRECTED 8.4 MG/DL (8.5-10.1); POTASSIUM 3.9 MEQ/L (3.5-5.1); TOTAL BILIRUBIN ADULT 0.4 MG/DL (0.2-1.0)
[2016-03-31] MEDS ORDERED: METOPROLOL TARTRATE 5 MG/5 ML VIAL IV PUSH ONE (22:00)
[2016-03-31] MEDS: LORazepam 1 MG TAB PO PRN (23:26)
[2016-04-01] VITALS (16 sets, daily range): BP systolic 98–125; BP diastolic 52–61; PULSE 57–120; RESP 20–26; TEMP 97.6–98.2; O2SAT 93–99
[2016-04-01] MEDS: metroNIDAZOLE 500 MG TAB PO SCH ×4 (00:38→23:45)
[2016-04-01] MEDS: AZTREONAM INJ 2,000 MG in SODIUM CHLORIDE 0.9% INJ 100 ML IV SCH ×3 (00:39→18:01)
[2016-04-01] MEDS: RESP: ALBUTEROL 1.25 MG/3 ML NEB (PRN) NEB ×7 (01:42→19:58)
[2016-04-01 04:02] LABS: AUTOMATED NEUTROPHIL # 5.7 TH/MM3 (1.8-7.7); BASOPHIL % 0.1 % (0.0-2.0); HEMATOCRIT 26.6 % (39.0-51.0); LYMPH % 2.4 % (9.0-44.0); LYMPHOCYTE # 0.1 TH/MM3 (1.0-4.8); MEAN CELL VOLUME 81.8 FL (80.0-100.0); MEAN CORPUSCULAR HEMOGLOBIN 27.5 PG (27.0-34.0); MEAN CORPUSCULAR HGB CONC 33.6 % (32.0-36.0); MONO % 5.3 % (0.0-8.0); NEUT % 92.2 % (16.0-70.0); PLATELET COUNT 244 TH/MM3 (150-450); RED BLOOD COUNT 3.25 MIL/MM3 (4.50-5.90); WHITE BLOOD COUNT 6.1 TH/MM3 (4.0-11.0)
[2016-04-01 04:08] LABS: HEMO FLAGS AUTO DIFF
[2016-04-01] MEDS: LEVOTHYROXINE SODIUM 125 MCG TAB PO SCH (05:45)
[2016-04-01] MEDS: DILTIAZEM INJ 125 MG in SODIUM CHLORIDE 0.9% INJ 100 ML IV SCH ×2 (05:45→14:21)
[2016-04-01] MEDS: NITROGLYCERIN 2% OINT 1 GM PACKET TOPICAL SCH ×4 (05:45→23:45)
[2016-04-01] MEDS: methylPREDNISolone SOD SUCC 40 MG/1 ML VIAL IV PUSH SCH ×3 (05:45→21:48)
[2016-04-01] MEDS: THEOPHYLLINE ER 24 HR 300 MG CAPCR PO SCH ×2 (05:45→18:00)
[2016-04-01] MEDS: INSULIN ASPART SUPPLEMENTAL SCALE SQ SCH ×4 (06:06→20:00)
[2016-04-01 08:08] LABS: BANDS 6 % (0-6); NEUTROPHIL # MANUAL DIFF 5.9 TH/MM3 (1.8-7.7); PLATELET ESTIMATE SMEAR NORMAL (NORMAL); PLATELET MORPHOLOGY NORMAL (NORMAL); POLYS (SEG NEUTROPHILS) 91 % (16-70); SCAN/DIFF FINAL DIFF MANUAL; WBC DIFF SAMPLE 100
[2016-04-01 08:09] LABS: ACANTHOCYTES OCC (NORMAL)
[2016-04-01] MEDS: SODIUM CHLOR 0.9% 1000 ML INJ 1,000 ML IV SCH ×3 (09:00→23:58)
[2016-04-01] MEDS ORDERED: METOPROLOL TARTRATE 5 MG/5 ML VIAL ONE (09:08)
--- NOTE | 2016-04-01 09:15 | PD.CARD.PN ---
Subjective Subjective Remarks + cough. Poor appetite, C/o being hot - pushing blankets off Objective Medications Current Medications Medications (Trade) Dose Ordered Sig/Hilda Route Start Time Stop Time Status Last Admin (NS Flush) 2 ml UNSCH PRN IVF 03/24/16 02:15 03/31/16 17:24 (Levemir Inj) 10 units DAILY SQ 03/24/16 09:00 Hold 03/29/16 07:50 (Synthroid) 125 mcg DAILY@06 PO 03/24/16 06:00 04/01/16 05:45 (KCl) 20 meq BID PO 03/24/16 09:00 03/31/16 20:04 (Lyrica) 50 mg DAILY PO 03/24/16 09:00 03/31/16 09:37 (Pravachol) 80 mg DAILY PO 03/24/16 09:00 03/31/16 09:36 (Tylenol) 650 mg Q4H PRN PO 03/24/16 04:00 03/30/16 17:13 (Zofran Inj) 4 mg Q8HR PRN IV PUSH 03/24/16 04:00 03/31/16 17:24 (D50w (Vial) Inj) 25 ml UNSCH PRN IV PUSH 03/24/16 04:15 (Glucagon Inj) 1 mg UNSCH PRN OTHER 03/24/16 04:15 (Pablito-24) 300 mg Q12H PO 03/24/16 05:00 04/01/16 05:45 (Vasotec Inj) 1.25 mg Q6H PRN IV PUSH 03/24/16 10:45 (Desyrel) 50 mg HS PRN PO 03/25/16 10:15 03/31/16 20:03 (Santyl Oint) APPLY TO COCCYX WOUND UNSCH PRN TOP 03/26/16 00:30 03/26/16 23:16 Lorazepam 1 mg 1 mg Q6H PRN PO 03/26/16 12:30 03/31/16 23:26 (Azactam Inj/NS Inj) 100 ml @ 200 mls/hr Q8H IV 03/27/16 17:00 04/01/16 00:39 (Flagyl) 500 mg Q8H PO 03/28/16 17:00 04/01/16 00:38 (Morphine Inj) 2 mg Q3H PRN IV PUSH 03/28/16 16:30 03/31/16 14:48 (Morphine Inj) 4 mg Q3H PRN IV PUSH 03/28/16 16:30 03/31/16 18:25 (Protonix) 40 mg DAILY PO 03/29/16 09:00 03/31/16 09:37 (Cordarone) 400 mg TID PO 03/30/16 18:00 03/31/16 18:24 Methylprednisolone Sodium Succinate 40 mg 40 mg Q8HR IV PUSH 03/30/16 22:00 04/01/16 05:45 Sodium Chloride 1,000 ml @ 100 mls/hr Q10H IV 03/30/16 17:00 03/31/16 23:00 (Cardizem Inj/NS Inj) 125 ml @ 0 mls/hr TITRATE IV 03/31/16 14:00 04/01/16 05:45 (Levaquin) 500 mg Q24H PO 03/31/16 16:00 03/31/16 16:46 (Nitroglycerin 2% Oint) 2 inch Q6HR TOPICAL 03/31/16 16:15 04/01/16 05:45 Vital Signs / I&O Vital Signs Date Time Temp Pulse Resp B/P Pulse Ox O2 Delivery O2 Flow Rate FiO2 04/01/16 07:13 97 Nasal Cannula 3.00 04/01/16 06:00 92 04/01/16 04:00 97.8 115 26 112/53 94 04/01/16 04:00 115 04/01/16 02:00 106 04/01/16 00:00 98.2 97 21 114/53 96 04/01/16 00:00 97 03/31/16 22:00 74 03/31/16 20:00 98.0 117 30 116/56 95 03/31/16 20:00 117 03/31/16 19:15 96 Nasal Cannula 3.00 03/31/16 19:00 95 Nasal Cannula 4.00 03/31/16 18:00 125 03/31/16 16:00 131 03/31/16 16:00 98.4 131 34 97/51 95 03/31/16 14:00 131 03/31/16 12:00 97.6 127 26 103/51 97 03/31/16 12:00 127 03/31/16 10:00 115 I/O 03/31/16 03/31/16 03/31/16 04/01/16 04/01/16 04/01/16 07:00 15:00 23:00 07:00 15:00 23:00 Intake Total 640 ml 1192 ml 1540 ml 840 ml Output Total 700 ml 500 ml 800 ml 300 ml Balance -60 ml 692 ml 740 ml 540 ml Intake Oral 240 ml 240 ml 240 ml 240 ml IV Total 400 ml 952 ml 1300 ml 600 ml Output Urine Total 700 ml 500 ml 800 ml 300 ml # Bowel Movements 0 Physical Exam Alert Chest- crackles right base CV S1S2 irr irr tachy Abd soft Ext warm/well perfused. No edema Laboratory Laboratory Tests Test 03/31/16 03/31/16 04/01/16 17:00 20:07 03:16 Hemoglobin 9.3 GM/DL 8.9 GM/DL Hematocrit 28.3 % 26.6 % Sodium Level 136 MEQ/L Potassium Level 3.9 MEQ/L Chloride Level 104 MEQ/L Carbon Dioxide Level 17.4 MEQ/L Anion Gap 15 MEQ/L Blood Urea Nitrogen 19 MG/DL Creatinine 1.16 MG/DL Estimat Glomerular Filtration 62 ML/MIN Rate Random Glucose 287 MG/DL Calcium Level 7.1 MG/DL Protein Corrected Calcium 8.4 MG/DL Total Bilirubin 0.4 MG/DL Aspartate Amino Transf 27 U/L (AST/SGOT) Alanine Aminotransferase 10 U/L (ALT/SGPT) Alkaline Phosphatase 108 U/L Total Protein 4.8 GM/DL Albumin 1.8 GM/DL White Blood Count 6.1 TH/MM3 Red Blood Count 3.25 MIL/MM3 Mean Corpuscular Volume 81.8 FL Mean Corpuscular Hemoglobin 27.5 PG Mean Corpuscular Hemoglobin 33.6 % Concent Red Cell Distribution Width 17.0 % Platelet Count 244 TH/MM3 Mean Platelet Volume 8.2 FL Neutrophils (%) (Auto) 92.2 % Lymphocytes (%) (Auto) 2.4 % Monocytes (%) (Auto) 5.3 % Eosinophils (%) (Auto) 0.0 % Basophils (%) (Auto) 0.1 % Neutrophils # (Auto) 5.7 TH/MM3 Lymphocytes # (Auto) 0.1 TH/MM3 Monocytes # (Auto) 0.3 TH/MM3 Eosinophils # (Auto) 0.0 TH/MM3 Basophils # (Auto) 0.0 TH/MM3 CBC Comment AUTO DIFF Differential Total Cells 100 Counted Neutrophils % (Manual) 91 % Band Neutrophils % 6 % Lymphocytes % 2 % Monocytes % 1 % Neutrophils # (Manual) 5.9 TH/MM3 Differential Comment FINAL DIFF MANUAL Platelet Estimate NORMAL Platelet Morphology Comment NORMAL Acanthocytes OCC Assessment and Plan Problem List: (1) Atrial fibrillation with RVR Assessment and Plan: add metoprolol for rate control (2) Sepsis Assessment and Plan: due to pneumonia (3) Coronary artery disease Assessment and Plan: no angina. (4) Anemia Assessment and Plan: unable to safely anticoagulate Problem Qualifiers (1) Anemia: Qualified Code: D64.9 - Anemia, unspecified type Kelvin Nash MD Apr 01, 2016 09:15
[2016-04-01] MEDS: POTASSIUM CHLORIDE 20 MEQ CONTROLLED RELEASE TAB PO SCH ×2 (09:39→20:00)
[2016-04-01] MEDS: PRAVASTATIN SOD 80 MG TAB PO SCH (09:39)
[2016-04-01] MEDS: PREGABALIN 25 MG CAP PO SCH (09:39)
[2016-04-01] MEDS: PANTOPRAZOLE SOD 40 MG DELAYED RELEASE TAB PO SCH (09:40)
[2016-04-01] MEDS: AMIODARONE 200 MG TAB PO SCH ×3 (09:40→18:00)
[2016-04-01] MEDS: METOPROLOL TARTRATE 25 MG TAB PO SCH ×3 (09:42→21:48)
[2016-04-01] MEDS: LORazepam 1 MG TAB PO PRN (10:21)
--- NOTE | 2016-04-01 13:59 | HHI.GIFU ---
Subjective Remarks Patient is resting in bed, reports poor appetite but no nausea, no vomiting, no melena or hematochezia. Reports some mild abdominal pain (Shahida,Kelly HUMMEL) Objective Vitals I&O Vital Signs Date Time Temp Pulse Resp B/P Pulse Ox O2 Delivery O2 Flow Rate FiO2 04/01/16 10:00 93 04/01/16 08:00 98.0 95 25 122/58 93 04/01/16 08:00 88 04/01/16 08:00 94 Nasal Cannula 4.00 04/01/16 07:13 97 Nasal Cannula 3.00 04/01/16 06:00 92 04/01/16 04:00 97.8 115 26 112/53 94 04/01/16 04:00 115 04/01/16 02:00 106 04/01/16 00:00 98.2 97 21 114/53 96 04/01/16 00:00 97 03/31/16 22:00 74 03/31/16 20:00 98.0 117 30 116/56 95 03/31/16 20:00 117 03/31/16 19:15 96 Nasal Cannula 3.00 03/31/16 19:00 95 Nasal Cannula 4.00 03/31/16 18:00 125 03/31/16 16:00 131 03/31/16 16:00 98.4 131 34 97/51 95 03/31/16 14:00 131 I/O 03/31/16 03/31/16 03/31/16 04/01/16 04/01/16 04/01/16 07:00 15:00 23:00 07:00 15:00 23:00 Intake Total 640 ml 1192 ml 1540 ml 840 ml Output Total 700 ml 500 ml 800 ml 300 ml Balance -60 ml 692 ml 740 ml 540 ml Intake Oral 240 ml 240 ml 240 ml 240 ml IV Total 400 ml 952 ml 1300 ml 600 ml Output Urine Total 700 ml 500 ml 800 ml 300 ml # Bowel Movements 0 Laboratory Laboratory Tests Test 03/31/16 03/31/16 04/01/16 17:00 20:07 03:16 Hemoglobin 9.3 8.9 Hematocrit 28.3 26.6 Sodium Level 136 Potassium Level 3.9 Chloride Level 104 Carbon Dioxide Level 17.4 Anion Gap 15 Blood Urea Nitrogen 19 Creatinine 1.16 Estimat Glomerular Filtration 62 Rate Random Glucose 287 Calcium Level 7.1 Protein Corrected Calcium 8.4 Total Bilirubin 0.4 Aspartate Amino Transf 27 (AST/SGOT) Alanine Aminotransferase 10 (ALT/SGPT) Alkaline Phosphatase 108 Total Protein 4.8 Albumin 1.8 White Blood Count 6.1 Red Blood Count 3.25 Mean Corpuscular Volume 81.8 Mean Corpuscular Hemoglobin 27.5 Mean Corpuscular Hemoglobin 33.6 Concent Red Cell Distribution Width 17.0 Platelet Count 244 Mean Platelet Volume 8.2 Neutrophils (%) (Auto) 92.2 Lymphocytes (%) (Auto) 2.4 Monocytes (%) (Auto) 5.3 Eosinophils (%) (Auto) 0.0 Basophils (%) (Auto) 0.1 Neutrophils # (Auto) 5.7 Lymphocytes # (Auto) 0.1 Monocytes # (Auto) 0.3 Eosinophils # (Auto) 0.0 Basophils # (Auto) 0.0 CBC Comment AUTO DIFF Differential Total Cells 100 Counted Neutrophils % (Manual) 91 Band Neutrophils % 6 Lymphocytes % 2 Monocytes % 1 Neutrophils # (Manual) 5.9 Differential Comment FINAL DIFF MANUAL Platelet Estimate NORMAL Platelet Morphology Comment NORMAL Acanthocytes OCC Date/Time Procedure Status Source Growth 03/28/16 20:28 Stool Occult Blood (PHAM) Ordered Stool Stool Pending 03/28/16 14:35 Aerobic Blood Culture - Preliminary Resulted Blood Peripheral NO GROWTH IN 4 DAYS 03/28/16 14:35 Anaerobic Blood Culture - Preliminary Resulted Blood Peripheral NO GROWTH IN 4 DAYS Imaging Last Impressions Chest X-Ray 03/29/16 0000 Signed Impressions: Service Date/Time: Tuesday, March 29, 2016 12:32 - CONCLUSION: No significant change has occurred. Luis Carlos Oneill MD Abdomen/Pelvis CT 03/28/16 0000 Signed Impressions: Service Date/Time: Monday, March 28, 2016 18:35 - CONCLUSION: 1. Diverticulosis of the colon with questionable minimal diverticulitis of the sigmoid colon. No perforation or abscess. 2. Cholelithiasis. 3. Small air fluid level anterior to the urinary bladder which is decompressed by Baca catheter. This is likely related to an unopacified small bowel loop. 4. Right basilar consolidation a small right pleural effusion. Small left pleural effusion. Ajith Woods MD CT Angiography 03/26/16 0000 Signed Impressions: Service Date/Time: Saturday, March 26, 2016 09:48 - CONCLUSION: Negative for pulmonary embolism. Atherosclerotic cardiovascular disease compensated cardiomegaly with coronary calcifications. Small posterior bilateral pleural effusions with adjacent mild compressive atelectasis of lower lobe adjacent parenchyma. Manas Vigil MD Physical Exam HEENT: Pupils round and reactive to light; normocephalic; atraumatic; no jaundice. Throat is clear. NECK: Neck is supple, no JVD, no lymphadenopathy. CHEST: decreased breath sounds, mild wheezes in bases CARDIAC: Regular rate and rhythm with no murmur gallop or rubs. ABDOMEN: Soft, nondistended, nontender; no hepatosplenomegaly; bowel sounds are present in all four quadrants. EXTREMITIES: No clubbing, cyanosis, or edema. SKIN: Normal; no rash; no jaundice. COAGULATING BATH MIXER: No focal deficits; alert and oriented times three. (Kelly Pinedo) Assessment and Plan Assessment: (1) Anemia Plan: Has Hx of recent rectal bleed in Plavix and ASA According to the patient colonoscopy 3 weeks ago was unremarkable H&H has remained stable and has evidence of chronic anemia Plavix and ASA were discontinued secondary to bleeding No signs of obvious bleeding since admission (2) Diabetes Plan: followed by PCP (3) HCAP (healthcare-associated pneumonia) Plan: on antibiotics followed by PCP (4) Diverticulitis Plan: Currently on flagyl Abdomen/Pelvis CT done on 03/28/16 showed -1. Diverticulosis of the colon with questionable minimal diverticulitis of the sigmoid colon. No perforation or abscess. 2. Cholelithiasis. 3. Small air fluid level anterior to the urinary bladder which is decompressed by Bcaa catheter. This is likely related to an unopacified small bowel loop. 4. Right basilar consolidation a small right pleural effusion. Small left pleural effusion. Denies lower abdominal pain (5) Atrial fibrillation with RVR Plan: On Cardizem followed by cardiolgy Plan - Anemia- hgb continue to trend down, today is 8.9, no GI bleed reported, s/p 2 units of blood Plan -Continue to follow H&H, transfuse PRBC's PRN - Consider EGD once medically stable -Await report for previous colonoscopy done at [facility] - Cont. to hold Plavix -Continue Protonix -Supportive care Patient was seen and examined by Dr. Johnson and myself this note is written on his behalf (Kelly Pinedo) Physician Comments Patient was seen and examined, agree with above note. we will check labs, continue supportive care. (Dwight oJhnson MD) Problem Qualifiers (1) Anemia: Qualified Code: D64.9 - Anemia, unspecified type (2) Diabetes: Qualified Code: E11.8 - Type 2 diabetes mellitus with complication, with long- term current use of insulin (3) Diverticulitis: Kelly Pinedo Apr 01, 2016 13:59 Dwight Johnson MD Apr 01, 2016 22:14
[2016-04-01] MEDS ORDERED: CALCIUM CHLORIDE INJ 1 GM in SODIUM CHLORIDE 0.9% INJ 100 ML IV ONE (17:00)
--- NOTE | 2016-04-01 17:06 | HHI.PR ---
Subjective Remarks As per RN patient has a BM which was brown and non bloody patient has mild abdominal pain denies cp vital signs stable denies sob but requesting a treatment denies fevers/chills Objective Vitals Vital Signs Date Time Temp Pulse Resp B/P Pulse Ox O2 Delivery O2 Flow Rate FiO2 04/01/16 16:00 97.8 57 20 98/54 99 04/01/16 16:00 57 04/01/16 14:00 62 04/01/16 12:00 97.6 74 20 103/52 94 04/01/16 12:00 74 04/01/16 10:00 93 04/01/16 08:00 98.0 95 25 122/58 93 04/01/16 08:00 88 04/01/16 08:00 94 Nasal Cannula 4.00 04/01/16 07:13 97 Nasal Cannula 3.00 04/01/16 06:00 92 04/01/16 04:00 97.8 115 26 112/53 94 04/01/16 04:00 115 04/01/16 02:00 106 04/01/16 00:00 98.2 97 21 114/53 96 04/01/16 00:00 97 03/31/16 22:00 74 03/31/16 20:00 98.0 117 30 116/56 95 03/31/16 20:00 117 03/31/16 19:15 96 Nasal Cannula 3.00 03/31/16 19:00 95 Nasal Cannula 4.00 03/31/16 18:00 125 I/O 03/31/16 03/31/16 03/31/16 04/01/16 04/01/16 04/01/16 07:00 15:00 23:00 07:00 15:00 23:00 Intake Total 640 ml 1192 ml 1540 ml 840 ml 1541 ml Output Total 700 ml 500 ml 800 ml 300 ml 300 ml Balance -60 ml 692 ml 740 ml 540 ml 1241 ml Intake Oral 240 ml 240 ml 240 ml 240 ml 440 ml IV Total 400 ml 952 ml 1300 ml 600 ml 1101 ml Output Urine Total 700 ml 500 ml 800 ml 300 ml 300 ml # Bowel Movements 0 Result Diagram: 04/01/16 0316 03/31/162006 Objective Remarks GENERAL: Well-nourished, well-developed patient in moderate respiratory distress SKIN: Warm and dry. Unstageable sacral decubitus ulcer. Ulcer without erythema , purulent discharge observed. HEAD: Normocephalic. EYES: No scleral icterus. No injection or drainage. NECK: Supple, trachea midline. No JVD or lymphadenopathy. CARDIOVASCULAR: Regular rate and rhythm without murmurs, gallops, or rubs. RESPIRATORY: Clear lungs, no wheezing, ronchi or murmur GASTROINTESTINAL: Abdomen soft, non-tender, nondistended. Bowel sounds are sluggish. There is a large umbilical hernia which is compressible but nonreproducible. Abdominal hernia is non-tender. EXTREMITIES: No cyanosis, or edema. NEUROLOGICAL: Awake, alert, and oriented x 3. Non-focal. Procedures none Medications and IVs Current Medications Medications (Trade) Dose Ordered Sig/Hilda Route Start Time Stop Time Status Last Admin (NS Flush) 2 ml UNSCH PRN IVF 03/24/16 02:15 03/31/16 17:24 (Levemir Inj) 10 units DAILY SQ 03/24/16 09:00 Hold 03/29/16 07:50 (Synthroid) 125 mcg DAILY@06 PO 03/24/16 06:00 04/01/16 05:45 (KCl) 20 meq BID PO 03/24/16 09:00 04/01/16 09:39 (Lyrica) 50 mg DAILY PO 03/24/16 09:00 04/01/16 09:39 (Pravachol) 80 mg DAILY PO 03/24/16 09:00 04/01/16 09:39 (Tylenol) 650 mg Q4H PRN PO 03/24/16 04:00 03/30/16 17:13 (Zofran Inj) 4 mg Q8HR PRN IV PUSH 03/24/16 04:00 03/31/16 17:24 (D50w (Vial) Inj) 25 ml UNSCH PRN IV PUSH 03/24/16 04:15 (Glucagon Inj) 1 mg UNSCH PRN OTHER 03/24/16 04:15 (Pablito-24) 300 mg Q12H PO 03/24/16 05:00 04/01/16 05:45 (Vasotec Inj) 1.25 mg Q6H PRN IV PUSH 03/24/16 10:45 (Desyrel) 50 mg HS PRN PO 03/25/16 10:15 03/31/16 20:03 (Santyl Oint) APPLY TO COCCYX WOUND UNSCH PRN TOP 03/26/16 00:30 03/26/16 23:16 Lorazepam 1 mg 1 mg Q6H PRN PO 03/26/16 12:30 04/01/16 10:21 (Azactam Inj/NS Inj) 100 ml @ 200 mls/hr Q8H IV 03/27/16 17:00 04/01/16 09:42 (Flagyl) 500 mg Q8H PO 03/28/16 17:00 04/01/16 09:40 (Morphine Inj) 2 mg Q3H PRN IV PUSH 03/28/16 16:30 03/31/16 14:48 (Morphine Inj) 4 mg Q3H PRN IV PUSH 03/28/16 16:30 03/31/16 18:25 (Protonix) 40 mg DAILY PO 03/29/16 09:00 04/01/16 09:40 (Cordarone) 400 mg TID PO 03/30/16 18:00 04/01/16 11:59 Methylprednisolone Sodium Succinate 40 mg 40 mg Q8HR IV PUSH 03/30/16 22:00 04/01/16 14:21 Sodium Chloride 1,000 ml @ 100 mls/hr Q10H IV 03/30/16 17:00 04/01/16 14:21 (Cardizem Inj/NS Inj) 125 ml @ 0 mls/hr TITRATE IV 03/31/16 14:00 04/01/16 14:21 (Levaquin) 500 mg Q24H PO 03/31/16 16:00 03/31/16 16:46 (Nitroglycerin 2% Oint) 2 inch Q6HR TOPICAL 03/31/16 16:15 04/01/16 12:00 Metoprolol Tartrate 25 mg 25 mg Q8HR PO 04/01/16 10:00 04/01/16 14:20 (Calcium Chloride Inj/NS Inj) 110 ml @ 110 mls/hr ONCE ONCE IV 04/01/16 17:00 04/01/16 17:59 Urinary Catheter: Yes Assessment to: Continue Baca insert reason: Measure Accurate Output Vascular Central Line Catheter: No A/P Problem List: (1) HCAP (healthcare-associated pneumonia) ICD Code: J18.9 Status: Acute (2) Chest pain ICD Code: R07.9 Status: Resolved (3) DANNA (acute kidney injury) ICD Code: N17.9 Status: Acute (4) Anemia ICD Code: D64.9 Status: Acute (5) Diabetes ICD Code: E11.9 Status: Chronic (6) Hypotension ICD Code: I95.9 Status: Acute (7) Hypokalemia ICD Code: E87.6 Status: Resolved (8) Hypomagnesemia ICD Code: E83.42 Status: Acute (9) Sacral wound ICD Code: S31.000A Status: Acute (10) Sinus tachycardia ICD Code: R00.0 Status: Acute (11) Abdominal pain ICD Code: R10.9 Status: Acute (12) SOB (shortness of breath) ICD Code: R06.02 Status: Acute (13) Atrial fibrillation with RVR ICD Code: I48.91 Status: Acute (14) Sepsis ICD Code: A41.9 Status: Acute Assessment and Plan (1) HCAP (healthcare-associated pneumonia) Plan: Patient admitted to the medical floor. Treated with IV antibioticsthe patient was started IV vancomycin and IV Levaquin. Evaluation having low-grade fevers and hypotension as well as tachycardia, concurred with sepsis syndrome. Blood cultures negative 3. Sputum culture no growth in 48 hours. However patient having fevers. I will add aztreonam and Flagyl to cover for possible aspiration pneumonia. 03/28 appreciate ID recommendations. She had active recommendations. Blood cultures redrawn. Repeat chest x-ray obtained on 03/27 showed consolidation and effusion on the right base. Patient has right crackles on lung exam. CT abdomen and pelvis showed possible diverticulitis - Patient started on oral flagyl. Continue IV Vancomycin and IV Aztreonam. Antibiotics as per ID. 03/30 Patient with respiratory failure sp bipap overnight, now better on nasal canula. repeat cxr. Expiratory wheezing difusely but more on left lung field, will start on IV Solumedrol. 03/31/16 start to taper IV Solu-Medrol dose, continue IV antibiotics as per ID recommendations. I vancomycin discontinued. The patient starting IV Levaquin, continue aztreonam and oral Flagyl. Patient has good oxygen saturation on nasal cannula. 04/01/16 continue steroids - taper dose, antibiotics as per ID. (2) Chest pain Plan: Chest pain resolved. Cardiac enzymes remained negative. EKG showed sinus rhythm with right bundle branch block and T-wave inversions in V1 and V2. No ST changes suggestive of active ischemia. 03/30 Patient still c/o chest pain, cardiology following. Troponin elevated and trending up. Today 0.11 from 0.05. 03/31/16 patient complaining of chest pain today, likely rate related. Continue to monitor troponins. The patient was started on Nitropaste. Chest pain much improved but still present as per patient. (3) DANNA (acute kidney injury) Plan: Creatinine trending up slowly, it was 0.85 on presentation and now is 1.16. I will start the patient on gentle IV fluids and continue to monitor BUN/ creatinine as well as strict I's and O's. The patient's urine output seems to be marginal to low. 04/01/16 Low urine output, however creatinine slightly better, continue IV fluids , avoid nefrotoxins, monitor bun/creatinine, consider nephrology consult if worsening. (4) Anemia Plan: Recent rectal bleed-per patient, had rectal bleeding and was transfused 2 units of packed red blood cells at [facility], colonoscopy allegedly done and was told that it was unremarkable, antiplatelets were stopped. Hemoglobin stable at 8.5. No reports of rectal bleeding. Continue to monitor hemoglobin and transfuse for a hemoglobin more than 9 if active bleeding. 03/28 patient had hemoglobin drop from 8.5-7.9. Status post transfusion of 2 units of packed red blood cells. We'll check stat CBC. There are no signs of any active bleeding at this time. Continue to monitor and transfuse for hemoglobin less than 9 effective bleeding and less than 7 if no active bleeding. 03/31/16 appreciate GI consultation recommendations. The patient recently had a rectal bleed for which she had a colonoscopy at [facility]. The patient reportedly was on aspirin and Plavix for CAD and history of atrial fibrillation , however this was discontinued due to GI bleed which at the time required blood transfusion as per the patient. Follow-up GI recommendations, the patient likely is not a good candidate for anticoagulation. 04/01/16 As per GI EGD when more stable. Continue PPI. (5) Diabetes Plan: Blood sugar seems to be stable. Continue Accu-Cheks and SSI with insulin NovoLog. Hemoglobin A1c pending. (6) Hypotension Plan: I will order 1 L bolus of normal saline. Monitor vital signs. 03/28 patient again with hypotension overnight. Status post fusion of the units of proper blood cells. Blood pressure much improved today. 03/29 hypotension resolved. DC IV fluids. 03/30/16 Patient hypotensive after Iv morphine. Will give 500 ml NS bolus and hold Cardizem drip for now. 03/31/16 patient had stable blood pressure, however now again on RVR, Cardizem was resumed and is now hypotensive. Hypotension likely multifactorial from Nitropaste and Cardizem IV drip. I will give 1 dose of 0.5 mg of IV digoxin. I also instructed the RN to taper the dose of Cardizem as much as possible. 04/01/16 resolved (7) Hypokalemia Plan: Resolved, continue to monitor and replace as needed. (8) Hypomagnesemia Plan: Magnesium 1.8. Will continue to replace and monitor - goal >2 (9) Sacral wound Plan: Appreciate wound care recommendations. Sacral wound ulcer is unstageable but does not look infected. Wound care recommended Santyl to be applied to the sacral wound. 03/30/16 fu wound culture since some purulence observed. (10) Sinus tachycardia Plan: 03/28 patient again tachycardic. Patient currently with abdominal pain, looks dehydrated. I will increase IV fluids to 50 mL per hour. Bolus with normal saline as needed for systolic blood pressure less than 100. 03/29 telemetry monitoring shows A. fib with RVR. 03/30/16 afib w rvr - fu cardiology recommendations - started on amiodarone. (11) Abdominal pain Plan: Likely secondary to diverticulitis shown on CT of the abdomen and pelvis. Continue IV antibiotics as per ID. CT abdomen and pelvis rule out perforation 03/30/16 pain resolved. (12) SOB (shortness of breath) Plan: Shortness of breath likely secondary to A. fib with RVR. CXR showed 03/30/16 Patient wheezing today. ? Allergic reeaction to cefepime, ? reactive airway disease. Dc Cefepime. Start on Iv Solumedrol. 03/31/16 shortness of breath resolved. Patient not wheezing anymore. Start steroid taper. (13) Atrial fibrillation with RVR ICD Code: I48.91 Plan: Check EKG stat. Evaluation with heart rate sustained in the 140s complaining of shortness of breath. Telemetry shows A. fib with RVR. I will start the patient on IV Cardizem bolus and will also start a drip. I will check TSH and consult cardiology. Patient will be transferred to the [facility] floor. I will also start heparin drip and check 2-D echocardiogram. 03/30/16 tsh normal. Appreciate cardiology 04/01/16 Patient started on beta leilani, rate controlled now. Fu cardiology recommendations (14) Sepsis ICD Code: A41.9 Status: Acute Plan: Patient with fever up to 101, tachycardia and diverticulitis as well as suspected pneumonia as well as resolved hypotension. ID following. Blood cultures negative to date UA negative. 03/30/16 patient febrile with a Tmax of 102.2 last night. On Cefepime, Aztreonam, po flagyl. Dc Cefepime and resume Iv Vancomycin. Vanco to be dosed by pharmacy. Vancomycin was held due to rising creatinine, urine eosinophils negative. 03/31/16 vancomycin discontinued by infectious disease. Patient starting IV Levaquin, continue to treat him on by mouth Flagyl. 04/01/16 sepsis resolving. GI prophylaxis: Continue PPI. DVT prophylaxis: SCDs, chemotherapy prophylaxis contraindicated for reported rectal bleeding and increased risk of bleeding. Discharge Planning ok to transfer to medical telemetry. Problem Qualifiers (1) Chest pain: Qualified Code: R07.89 - Other chest pain (2) Anemia: Qualified Code: D64.9 - Anemia, unspecified type (3) Diabetes: Qualified Code: E11.8 - Type 2 diabetes mellitus with complication, with long- term current use of insulin (4) Hypotension: Qualified Code: I95.9 - Hypotension, unspecified hypotension type (5) Sacral wound: Qualified Code: S31.000D - Sacral wound, subsequent encounter (6) Abdominal pain: Qualified Code: R10.10 - Pain of upper abdomen Martinez Flores MD Apr 01, 2016 17:06
[2016-04-01] MEDS: LEVOFLOXACIN 500 MG TAB PO SCH (18:00)
[2016-04-01] MEDS: traZODone HCL 50 MG TAB PO PRN (23:45)
--- NOTE | 2016-04-01 23:58 | EKG ---
Date Performed: 03/31/2016 Time Performed: 14:58:29 PTAGE: 71 years EKG: ATRIAL FIBRILLATION WITH RAPID VENTRICULAR RESPONSE RIGHT BUNDLE BRANCH BLOCK POSSIBLE ANTE RIOR MYOCARDIAL INFARCTION , OF INDETERMINATE AGE ST DEPRESSION, CONSIDER SUBENDOCARDIAL INJURY ABNOR MAL ECG PREVIOUS TRACING : 03/29/2016 13.32 DOCTOR: Bozena Strickland Interpretating Date/Time 04/01/2016 23:50:30
[2016-04-02] VITALS (9 sets, daily range): BP systolic 123–171; BP diastolic 58–71; PULSE 74–103; RESP 20–24; TEMP 97.2–98.5; O2SAT 90–98
[2016-04-02] MEDS: AZTREONAM INJ 2,000 MG in SODIUM CHLORIDE 0.9% INJ 100 ML IV SCH ×3 (00:04→17:15)
[2016-04-02] MEDS: RESP: ALBUTEROL 1.25 MG/3 ML NEB (PRN) NEB ×3 (03:43→12:38)
[2016-04-02] MEDS: LORazepam 1 MG TAB PO PRN ×4 (04:24→23:03)
[2016-04-02] MEDS: THEOPHYLLINE ER 24 HR 300 MG CAPCR PO SCH ×2 (05:00→17:14)
[2016-04-02] MEDS: LEVOTHYROXINE SODIUM 125 MCG TAB PO SCH (05:53)
[2016-04-02] MEDS: NITROGLYCERIN 2% OINT 1 GM PACKET TOPICAL SCH ×3 (05:53→17:15)
[2016-04-02] MEDS: METOPROLOL TARTRATE 25 MG TAB PO SCH ×3 (05:53→22:35)
[2016-04-02] MEDS: methylPREDNISolone SOD SUCC 40 MG/1 ML VIAL IV PUSH SCH ×3 (05:55→22:33)
[2016-04-02 06:20] LABS: AUTOMATED NEUTROPHIL # 7.1 TH/MM3 (1.8-7.7); BASOPHIL % 0.1 % (0.0-2.0); HEMATOCRIT 30.1 % (39.0-51.0); HEMO FLAGS DIFF FINAL; LYMPH % 2.4 % (9.0-44.0); LYMPHOCYTE # 0.2 TH/MM3 (1.0-4.8); MEAN CELL VOLUME 83.3 FL (80.0-100.0); MEAN CORPUSCULAR HGB CONC 32.4 % (32.0-36.0); MONO % 3.6 % (0.0-8.0); NEUT % 93.9 % (16.0-70.0); PLATELET COUNT 311 TH/MM3 (150-450); RED BLOOD COUNT 3.62 MIL/MM3 (4.50-5.90); RED CELL DISTRIBUTION WIDTH 17.3 % (11.6-17.2); WHITE BLOOD COUNT 7.6 TH/MM3 (4.0-11.0)
[2016-04-02] MEDS: INSULIN ASPART SUPPLEMENTAL SCALE SQ SCH ×4 (06:25→22:35)
[2016-04-02 06:51] LABS: ALKALINE PHOSPHATASE 118 U/L (45-117); ALT (GPT) 10 U/L (12-78); ANION GAP 9 MEQ/L (5-15); AST (GOT) 14 U/L (15-37); BICARBONATE 20.9 MEQ/L (21.0-32.0); BLOOD UREA NITROGEN 24 MG/DL (7-18); CHLORIDE 108 MEQ/L (98-107); GLOMERULAR FILTRATION RATE 63 ML/MIN (>89); MAGNESIUM 2.1 MG/DL (1.5-2.5); POTASSIUM 4.4 MEQ/L (3.5-5.1); SODIUM (NA) 138 MEQ/L (136-145); TOTAL BILIRUBIN ADULT 0.3 MG/DL (0.2-1.0)
[2016-04-02] MEDS: AMIODARONE 200 MG TAB PO SCH ×3 (09:11→17:15)
[2016-04-02] MEDS: metroNIDAZOLE 500 MG TAB PO SCH ×2 (09:11→17:14)
[2016-04-02] MEDS: PRAVASTATIN SOD 80 MG TAB PO SCH (09:11)
[2016-04-02] MEDS: PREGABALIN 25 MG CAP PO SCH (09:11)
[2016-04-02] MEDS: PANTOPRAZOLE SOD 40 MG DELAYED RELEASE TAB PO SCH (09:11)
[2016-04-02] MEDS: POTASSIUM CHLORIDE 20 MEQ CONTROLLED RELEASE TAB PO SCH ×2 (09:12→22:34)
--- NOTE | 2016-04-02 10:26 | PD.CARD.PN ---
Subjective Subjective Remarks no complaints, starting to eat Objective Medications Current Medications Medications (Trade) Dose Ordered Sig/Hilda Route Start Time Stop Time Status Last Admin (NS Flush) 2 ml UNSCH PRN IVF 03/24/16 02:15 03/31/16 17:24 (Levemir Inj) 10 units DAILY SQ 03/24/16 09:00 Hold 03/29/16 07:50 (Synthroid) 125 mcg DAILY@06 PO 03/24/16 06:00 04/02/16 05:53 (KCl) 20 meq BID PO 03/24/16 09:00 04/02/16 09:12 (Lyrica) 50 mg DAILY PO 03/24/16 09:00 04/02/16 09:11 (Pravachol) 80 mg DAILY PO 03/24/16 09:00 04/02/16 09:11 (Tylenol) 650 mg Q4H PRN PO 03/24/16 04:00 03/30/16 17:13 (Zofran Inj) 4 mg Q8HR PRN IV PUSH 03/24/16 04:00 03/31/16 17:24 (D50w (Vial) Inj) 25 ml UNSCH PRN IV PUSH 03/24/16 04:15 (Glucagon Inj) 1 mg UNSCH PRN OTHER 03/24/16 04:15 (Pablito-24) 300 mg Q12H PO 03/24/16 05:00 04/02/16 05:00 (Vasotec Inj) 1.25 mg Q6H PRN IV PUSH 03/24/16 10:45 (Desyrel) 50 mg HS PRN PO 03/25/16 10:15 04/01/16 23:45 (Santyl Oint) APPLY TO COCCYX WOUND UNSCH PRN TOP 03/26/16 00:30 03/26/16 23:16 Lorazepam 1 mg 1 mg Q6H PRN PO 03/26/16 12:30 04/02/16 09:11 (Azactam Inj/NS Inj) 100 ml @ 200 mls/hr Q8H IV 03/27/16 17:00 04/02/16 09:13 (Flagyl) 500 mg Q8H PO 03/28/16 17:00 04/02/16 09:11 (Morphine Inj) 2 mg Q3H PRN IV PUSH 03/28/16 16:30 03/31/16 14:48 (Morphine Inj) 4 mg Q3H PRN IV PUSH 03/28/16 16:30 03/31/16 18:25 (Protonix) 40 mg DAILY PO 03/29/16 09:00 04/02/16 09:11 (Cordarone) 400 mg TID PO 03/30/16 18:00 04/02/16 09:11 Methylprednisolone Sodium Succinate 40 mg 40 mg Q8HR IV PUSH 03/30/16 22:00 04/02/16 05:55 (NS 1000 ml Inj) 1,000 ml @ 100 mls/hr Q10H IV 03/30/16 17:00 04/01/16 23:58 (Levaquin) 500 mg Q24H PO 03/31/16 16:00 04/01/16 18:00 (Nitroglycerin 2% Oint) 2 inch Q6HR TOPICAL 03/31/16 16:15 04/02/16 05:53 (Lopressor) 25 mg Q8HR PO 04/01/16 10:00 04/02/16 05:53 Vital Signs / I&O Vital Signs Date Time Temp Pulse Resp B/P Pulse Ox O2 Delivery O2 Flow Rate FiO2 04/02/16 08:50 94 Nasal Cannula 3.00 04/02/16 08:00 97.3 92 20 137/61 93 04/02/16 04:00 98.5 84 20 136/66 94 04/02/16 00:48 98.3 83 24 123/58 95 04/01/16 23:10 Nasal Cannula 2.00 04/01/16 22:50 97.8 75 24 125/61 95 04/01/16 22:25 75 04/01/16 22:00 76 04/01/16 20:00 98.0 76 25 121/57 96 04/01/16 20:00 76 04/01/16 19:59 96 Nasal Cannula 3.00 04/01/16 19:00 Nasal Cannula 4.00 40 04/01/16 18:00 120 04/01/16 16:00 97.8 57 20 98/54 99 04/01/16 16:00 57 04/01/16 14:00 62 04/01/16 12:00 97.6 74 20 103/52 94 04/01/16 12:00 74 I/O 04/01/16 04/01/16 04/01/16 04/02/16 04/02/16 04/02/16 07:00 15:00 23:00 07:00 15:00 23:00 Intake Total 840 ml 1541 ml 1130 ml Output Total 300 ml 300 ml 100 ml Balance 540 ml 1241 ml 1030 ml Intake Oral 240 ml 440 ml 480 ml IV Total 600 ml 1101 ml 650 ml Output Urine Total 300 ml 300 ml 100 ml # Bowel Movements 1 Physical Exam Alert Chest- diminished BS bases (CXR ordered CV S1S2 regular @85bpm. EKG ordered Abd soft Ext warm/well perfused. No edema Laboratory Laboratory Tests Test 04/02/16 05:02 White Blood Count 7.6 TH/MM3 Red Blood Count 3.62 MIL/MM3 Hemoglobin 9.8 GM/DL Hematocrit 30.1 % Mean Corpuscular Volume 83.3 FL Mean Corpuscular Hemoglobin 27.0 PG Mean Corpuscular Hemoglobin 32.4 % Concent Red Cell Distribution Width 17.3 % Platelet Count 311 TH/MM3 Mean Platelet Volume 8.6 FL Neutrophils (%) (Auto) 93.9 % Lymphocytes (%) (Auto) 2.4 % Monocytes (%) (Auto) 3.6 % Eosinophils (%) (Auto) 0.0 % Basophils (%) (Auto) 0.1 % Neutrophils # (Auto) 7.1 TH/MM3 Lymphocytes # (Auto) 0.2 TH/MM3 Monocytes # (Auto) 0.3 TH/MM3 Eosinophils # (Auto) 0.0 TH/MM3 Basophils # (Auto) 0.0 TH/MM3 CBC Comment DIFF FINAL Differential Comment Sodium Level 138 MEQ/L Potassium Level 4.4 MEQ/L Chloride Level 108 MEQ/L Carbon Dioxide Level 20.9 MEQ/L Anion Gap 9 MEQ/L Blood Urea Nitrogen 24 MG/DL Creatinine 1.14 MG/DL Estimat Glomerular Filtration 63 ML/MIN Rate Random Glucose 228 MG/DL Calcium Level 8.1 MG/DL Phosphorus Level 1.3 MG/DL Magnesium Level 2.1 MG/DL Total Bilirubin 0.3 MG/DL Aspartate Amino Transf 14 U/L (AST/SGOT) Alanine Aminotransferase 10 U/L (ALT/SGPT) Alkaline Phosphatase 118 U/L Total Protein 5.5 GM/DL Albumin 2.1 GM/DL Assessment and Plan Problem List: (1) Atrial fibrillation with RVR Assessment and Plan: no longer tachy. Off IV dilt. Check EKG (2) Sepsis Assessment and Plan: resolved. Stop IV saline (3) Coronary artery disease Assessment and Plan: no angina. cont BB and change NTP to Imdur (4) Anemia Assessment and Plan: has received total 5 U PRBC in past month. Keep olesya blood thinners for now Problem Qualifiers (1) Anemia: Qualified Code: D64.9 - Anemia, unspecified type Kelvin Nash MD Apr 02, 2016 10:26
--- NOTE | 2016-04-02 11:19 | RADRPT ---
EXAM DATE/TIME: 04/02/2016 10:40 [place] COMPARISON: CHEST SINGLE AP, March 29, 2016, 12:32. INDICATIONS: SOB MEDICAL HISTORY: Congestive heart failure. SURGICAL HISTORY: None. ENCOUNTER: Subsequent ACUITY: 3 days PAIN SCORE: 0/10 LOCATION: Chest FINDINGS: Pulmonary vascularity is normalizing. There are minimal consolidative changes in the right base with air bronchograms and a small amount of pleural effusion. The left lung is clear. Heart is minimall y enlarged. CONCLUSION: Persistent consolidative changes and a small amount of effusion on the right. Pulmonary vascularity is normal. Power Villareal MD FACR on April 02, 2016 at 11:04 Board Certified Radiologist. This report was verified electronically.
--- NOTE | 2016-04-02 13:21 | HHI.IDPN ---
Subjective Subjective Remarks Notes reviewed Temps better Feels better Min cough Not SOB CT A/P with mild sigmoid diverticulitis Antibiotics Azactam Flagyl Levaquin Past Medical History CAD- s/p stent placement hypertension diabetes mellitus COPD hypothyroidism Past Surgical History bladder surgery cardiac stent placement Allergies: Coded Allergies: Penicillin (Verified Allergy, Mild, 03/24/16) Objective . Vital Signs Date Time Temp Pulse Resp B/P Pulse Ox O2 Delivery O2 Flow Rate FiO2 04/02/16 08:50 94 Nasal Cannula 3.00 04/02/16 08:00 97.3 92 20 137/61 93 04/02/16 04:00 98.5 84 20 136/66 94 04/02/16 00:48 98.3 83 24 123/58 95 04/01/16 23:10 Nasal Cannula 2.00 04/01/16 22:50 97.8 75 24 125/61 95 04/01/16 22:25 75 04/01/16 22:00 76 04/01/16 20:00 98.0 76 25 121/57 96 04/01/16 20:00 76 04/01/16 19:59 96 Nasal Cannula 3.00 04/01/16 19:00 Nasal Cannula 4.00 40 04/01/16 18:00 120 04/01/16 16:00 97.8 57 20 98/54 99 04/01/16 16:00 57 04/01/16 14:00 62 04/01/16 04/01/16 04/02/16 15:00 23:00 07:00 Intake Total 1541 ml 1130 ml Output Total 300 ml 100 ml Balance 1241 ml 1030 ml Intake Oral 440 ml 480 ml IV Total 1101 ml 650 ml Output Urine Total 300 ml 100 ml . Laboratory Tests Test 03/31/16 04/01/16 04/02/16 17:00 03:16 05:02 Hemoglobin 9.3 GM/DL 8.9 GM/DL 9.8 GM/DL Hematocrit 28.3 % 26.6 % 30.1 % White Blood Count 6.1 TH/MM3 7.6 TH/MM3 Red Blood Count 3.25 MIL/MM3 3.62 MIL/MM3 Mean Corpuscular Volume 81.8 FL 83.3 FL Mean Corpuscular Hemoglobin 27.5 PG 27.0 PG Mean Corpuscular Hemoglobin 33.6 % 32.4 % Concent Red Cell Distribution Width 17.0 % 17.3 % Platelet Count 244 TH/MM3 311 TH/MM3 Mean Platelet Volume 8.2 FL 8.6 FL Neutrophils (%) (Auto) 92.2 % 93.9 % Lymphocytes (%) (Auto) 2.4 % 2.4 % Monocytes (%) (Auto) 5.3 % 3.6 % Eosinophils (%) (Auto) 0.0 % 0.0 % Basophils (%) (Auto) 0.1 % 0.1 % Neutrophils # (Auto) 5.7 TH/MM3 7.1 TH/MM3 Lymphocytes # (Auto) 0.1 TH/MM3 0.2 TH/MM3 Monocytes # (Auto) 0.3 TH/MM3 0.3 TH/MM3 Eosinophils # (Auto) 0.0 TH/MM3 0.0 TH/MM3 Basophils # (Auto) 0.0 TH/MM3 0.0 TH/MM3 CBC Comment AUTO DIFF DIFF FINAL Differential Total Cells 100 Counted Neutrophils % (Manual) 91 % Band Neutrophils % 6 % Lymphocytes % 2 % Monocytes % 1 % Neutrophils # (Manual) 5.9 TH/MM3 Differential Comment FINAL DIFF MANUAL Platelet Estimate NORMAL Platelet Morphology Comment NORMAL Acanthocytes OCC Laboratory Tests Test 03/31/16 04/02/16 20:07 05:02 Sodium Level 136 MEQ/L 138 MEQ/L Potassium Level 3.9 MEQ/L 4.4 MEQ/L Chloride Level 104 MEQ/L 108 MEQ/L Carbon Dioxide Level 17.4 MEQ/L 20.9 MEQ/L Anion Gap 15 MEQ/L 9 MEQ/L Blood Urea Nitrogen 19 MG/DL 24 MG/DL Creatinine 1.16 MG/DL 1.14 MG/DL Estimat Glomerular Filtration 62 ML/MIN 63 ML/MIN Rate Random Glucose 287 MG/DL 228 MG/DL Calcium Level 7.1 MG/DL 8.1 MG/DL Protein Corrected Calcium 8.4 MG/DL Total Bilirubin 0.4 MG/DL 0.3 MG/DL Aspartate Amino Transf 27 U/L 14 U/L (AST/SGOT) Alanine Aminotransferase 10 U/L 10 U/L (ALT/SGPT) Alkaline Phosphatase 108 U/L 118 U/L Total Protein 4.8 GM/DL 5.5 GM/DL Albumin 1.8 GM/DL 2.1 GM/DL Phosphorus Level 1.3 MG/DL Magnesium Level 2.1 MG/DL Imaging Chest X-Ray 03/29/16 0000 Signed Impressions: Service Date/Time: Tuesday, March 29, 2016 12:32 - CONCLUSION: No significant change has occurred. Luis Carlos Oneill MD Abdomen/Pelvis CT 03/28/16 0000 Signed Impressions: Service Date/Time: Monday, March 28, 2016 18:35 - CONCLUSION: 1. Diverticulosis of the colon with questionable minimal diverticulitis of the sigmoid colon. No perforation or abscess. 2. Cholelithiasis. 3. Small air fluid level anterior to the urinary bladder which is decompressed by Baca catheter. This is likely related to an unopacified small bowel loop. 4. Right basilar consolidation a small right pleural effusion. Small left pleural effusion. Ajith Woods MD CT Angiography 03/26/16 0000 Signed Impressions: Service Date/Time: Saturday, March 26, 2016 09:48 - CONCLUSION: Negative for pulmonary embolism. Atherosclerotic cardiovascular disease compensated cardiomegaly with coronary calcifications. Small posterior bilateral pleural effusions with adjacent mild compressive atelectasis of lower lobe adjacent parenchyma. Manas Vigil MD Physical Exam GENERAL: Awake and alert, NAD. SKIN: Warm and dry. IV sites look okay. No ecchymosis. HEENT: [facility] conjunctivae IV, no petechia or hemorrhage. No scleral icterus. No injection or drainage. Moist oral mucosa. NECK: Trachea midline. No JVD or lymphadenopathy. Supple, nontender, no meningeal signs. CARDIOVASCULAR: Regular rate and rhythm without murmurs, gallops, or rubs. RESPIRATORY: Clear to auscultation. Breath sounds equal bilaterally. No wheezes , rales, or rhonchi. Decreased breath sounds at the bases. GASTROINTESTINAL: Abdomen not distended, with diffuse abdominal tenderness, and he has a large umbilical hernia. No guarding or rebound. MUSCULOSKELETAL: Extremities without clubbing, cyanosis. Has mild edema. No joint effusion, or edema noted. No calf tenderness. NEUROLOGICAL: Non focal. PSYCH: calm and cooperative LINE: PIV with no evidence of infection Assessment & Plan Remarks IMPRESSION Sepsis, new, started with fevers yesterday, tachycardic, and some low BP - temps better - CXR is better, no PNA on CTA, no PE - has diverticultis on CT Chest pain, etiology? Abdominal pain RECOMMENDATION Continue Azactam Continue Flagyl Continue PO Levaquin Monitor temps - if temsp stays ok, prob stop Azactam in a few days Monitor progress Chitra Gaspar MD Apr 02, 2016 13:21
--- NOTE | 2016-04-02 13:24 | HHI.GIFU ---
Subjective Remarks Resting in bed. No abdominal pain or tenderness. No bleeding. No n/v. States he is feeling better. Tolerating diet. (Demetria Blas) Objective Vitals I&O Vital Signs Date Time Temp Pulse Resp B/P Pulse Ox O2 Delivery O2 Flow Rate FiO2 04/02/16 08:50 94 Nasal Cannula 3.00 04/02/16 08:00 97.3 92 20 137/61 93 04/02/16 04:00 98.5 84 20 136/66 94 04/02/16 00:48 98.3 83 24 123/58 95 04/01/16 23:10 Nasal Cannula 2.00 04/01/16 22:50 97.8 75 24 125/61 95 04/01/16 22:25 75 04/01/16 22:00 76 04/01/16 20:00 98.0 76 25 121/57 96 04/01/16 20:00 76 04/01/16 19:59 96 Nasal Cannula 3.00 04/01/16 19:00 Nasal Cannula 4.00 40 04/01/16 18:00 120 04/01/16 16:00 97.8 57 20 98/54 99 04/01/16 16:00 57 04/01/16 14:00 62 I/O 04/01/16 04/01/16 04/01/16 04/02/16 04/02/16 04/02/16 06:59 14:59 22:59 06:59 14:59 22:59 Intake Total 840 ml 1541 ml 1130 ml Output Total 300 ml 300 ml 100 ml Balance 540 ml 1241 ml 1030 ml Intake Oral 240 ml 440 ml 480 ml IV Total 600 ml 1101 ml 650 ml Output Urine Total 300 ml 300 ml 100 ml # Bowel Movements 1 Laboratory Laboratory Tests Test 04/02/16 05:02 White Blood Count 7.6 Red Blood Count 3.62 Hemoglobin 9.8 Hematocrit 30.1 Mean Corpuscular Volume 83.3 Mean Corpuscular Hemoglobin 27.0 Mean Corpuscular Hemoglobin 32.4 Concent Red Cell Distribution Width 17.3 Platelet Count 311 Mean Platelet Volume 8.6 Neutrophils (%) (Auto) 93.9 Lymphocytes (%) (Auto) 2.4 Monocytes (%) (Auto) 3.6 Eosinophils (%) (Auto) 0.0 Basophils (%) (Auto) 0.1 Neutrophils # (Auto) 7.1 Lymphocytes # (Auto) 0.2 Monocytes # (Auto) 0.3 Eosinophils # (Auto) 0.0 Basophils # (Auto) 0.0 CBC Comment DIFF FINAL Differential Comment Sodium Level 138 Potassium Level 4.4 Chloride Level 108 Carbon Dioxide Level 20.9 Anion Gap 9 Blood Urea Nitrogen 24 Creatinine 1.14 Estimat Glomerular Filtration 63 Rate Random Glucose 228 Calcium Level 8.1 Phosphorus Level 1.3 Magnesium Level 2.1 Total Bilirubin 0.3 Aspartate Amino Transf 14 (AST/SGOT) Alanine Aminotransferase 10 (ALT/SGPT) Alkaline Phosphatase 118 Total Protein 5.5 Albumin 2.1 Date/Time Procedure Status Source Growth 03/28/16 20:28 Stool Occult Blood (PHAM) Ordered Stool Stool Pending 03/28/16 14:35 Aerobic Blood Culture - Final Complete Blood Peripheral NO GROWTH IN 5 DAYS 03/28/16 14:35 Anaerobic Blood Culture - Final Complete Blood Peripheral NO GROWTH IN 5 DAYS Imaging Last Impressions Chest X-Ray 03/29/16 0000 Signed Impressions: Service Date/Time: Tuesday, March 29, 2016 12:32 - CONCLUSION: No significant change has occurred. Luis Carlos Oneill MD Abdomen/Pelvis CT 03/28/16 0000 Signed Impressions: Service Date/Time: Monday, March 28, 2016 18:35 - CONCLUSION: 1. Diverticulosis of the colon with questionable minimal diverticulitis of the sigmoid colon. No perforation or abscess. 2. Cholelithiasis. 3. Small air fluid level anterior to the urinary bladder which is decompressed by Baca catheter. This is likely related to an unopacified small bowel loop. 4. Right basilar consolidation a small right pleural effusion. Small left pleural effusion. Ajith Woods MD CT Angiography 03/26/16 0000 Signed Impressions: Service Date/Time: Saturday, March 26, 2016 09:48 - CONCLUSION: Negative for pulmonary embolism. Atherosclerotic cardiovascular disease compensated cardiomegaly with coronary calcifications. Small posterior bilateral pleural effusions with adjacent mild compressive atelectasis of lower lobe adjacent parenchyma. Manas Vigil MD Physical Exam HEENT: Normocephalic; atraumatic; no jaundice. CHEST: Decreased breath sounds, mild wheezes in bases CARDIAC: RRR. ABDOMEN: Soft, nondistended, nontender; no hepatosplenomegaly; bowel sounds are present in all four quadrants. EXTREMITIES: No clubbing, cyanosis, or edema. SKIN: Normal; no rash; no jaundice. MANUFACTURING HELPER: No focal deficits; alert and oriented times three. (Demetria Blas) Assessment and Plan Plan ASSESSMENT: - Iron Deficiency Anemia with recent hx of rectal bleed. Pt reports that he had a recent colonoscopy 3 weeks ago which was unremarkable. Abdomen/Pelvis CT (03/28/16)------> CONCLUSION: 1. Diverticulosis of the colon with questionable minimal diverticulitis of the sigmoid colon. No perforation or abscess. 2. Cholelithiasis. 3. Small air fluid level anterior to the urinary bladder which is decompressed by Baca catheter. This is likely related to an unopacified small bowel loop. 4. Right basilar consolidation a small right pleural effusion. Small left pleural effusion. HH is stable 9.8/30.1. S/P 2 units of PRBC. Not actively bleeding, although ASA and Plavix is on hold because of recent bleeding/anemia. ? EGD. - Diverticulitis. CT as above. Levaquin, Flagyl. - Atrial fibrillation. Cardiology following. On Amiodarone. Anticoagulation is on hold secondary to GI bleeding/anemia. - HCAP. Abx, nebs per primary. Azactam, Levaquin. - DM, per primary. PLAN: - GLENYS - Cont. Levaquin/Flagyl - Cont. PPI - Monitor HH - Transfuse as necessary - Consider EGD- will d/w Dr. Johnson - Supportive care - Further recommendations to follow based on results of above - Pt seen and examined by Dr. Johnson and myself and this note is written on his behalf (Demetria Blas) Physician Comments Patient was seen and examined, agree with above note and plan, lEGD for AM ( Dwight Johnson MD) Demetria Blas Apr 02, 2016 13:24 Dwight Johnson MD Apr 02, 2016 20:36
--- NOTE | 2016-04-02 14:07 | EKG ---
Date Performed: 04/02/2016 Time Performed: 12:23:45 PTAGE: 71 years EKG: BASELINE ARTIFACT PRESENT. Sinus rhythm WITH FIRST DEGREE AV BLOCK MARKED LEFT AXIS DEVIATION RIGHT BUNDLE BRANCH BLOCK ABNORMAL ECG COMPARE D TO PRIOR ELECTROCARDIOGRAM, Both EKGs have artifact. Sinus rhythm appears to have replaced possibl e atrial fibrillation. Clinical correlation suggested. PREVIOUS TRACING : 03/31/2016 14.58 DOCTOR: Mervin Barron Interpretating Date/Time 04/02/2016 14:07:30
--- NOTE | 2016-04-02 14:25 | HHI.PR ---
Subjective Remarks no complains denies any shortness of breath or abdominal pain Objective Vitals Vital Signs Date Time Temp Pulse Resp B/P Pulse Ox O2 Delivery O2 Flow Rate FiO2 04/02/16 08:50 94 Nasal Cannula 3.00 04/02/16 08:00 97.3 92 20 137/61 93 04/02/16 04:00 98.5 84 20 136/66 94 04/02/16 00:48 98.3 83 24 123/58 95 04/01/16 23:10 Nasal Cannula 2.00 04/01/16 22:50 97.8 75 24 125/61 95 04/01/16 22:25 75 04/01/16 22:00 76 04/01/16 20:00 98.0 76 25 121/57 96 04/01/16 20:00 76 04/01/16 19:59 96 Nasal Cannula 3.00 04/01/16 19:00 Nasal Cannula 4.00 40 04/01/16 18:00 120 04/01/16 16:00 97.8 57 20 98/54 99 04/01/16 16:00 57 I/O 04/01/16 04/01/16 04/01/16 04/02/16 04/02/16 04/02/16 06:59 14:59 22:59 06:59 14:59 22:59 Intake Total 840 ml 1541 ml 1130 ml Output Total 300 ml 300 ml 100 ml Balance 540 ml 1241 ml 1030 ml Intake Oral 240 ml 440 ml 480 ml IV Total 600 ml 1101 ml 650 ml Output Urine Total 300 ml 300 ml 100 ml # Bowel Movements 1 Result Diagram: 04/02/16 0502 04/02/16 0502 Imaging Last Impressions Chest X-Ray 03/29/16 0000 Signed Impressions: Service Date/Time: Tuesday, March 29, 2016 12:32 - CONCLUSION: No significant change has occurred. Luis Carlos Oneill MD Abdomen/Pelvis CT 03/28/16 0000 Signed Impressions: Service Date/Time: Monday, March 28, 2016 18:35 - CONCLUSION: 1. Diverticulosis of the colon with questionable minimal diverticulitis of the sigmoid colon. No perforation or abscess. 2. Cholelithiasis. 3. Small air fluid level anterior to the urinary bladder which is decompressed by Baca catheter. This is likely related to an unopacified small bowel loop. 4. Right basilar consolidation a small right pleural effusion. Small left pleural effusion. Ajith Woods MD CT Angiography 03/26/16 0000 Signed Impressions: Service Date/Time: Saturday, March 26, 2016 09:48 - CONCLUSION: Negative for pulmonary embolism. Atherosclerotic cardiovascular disease compensated cardiomegaly with coronary calcifications. Small posterior bilateral pleural effusions with adjacent mild compressive atelectasis of lower lobe adjacent parenchyma. Manas Vigil MD Objective Remarks anicteric no rales or wheezes irregular rhythm rate 80s abdomen- umbilical hernia, soft, good bowel sounds extremities no edema neuro exam - non focal Procedures none A/P Problem List: (1) HCAP (healthcare-associated pneumonia) ICD Code: J18.9 Status: Acute (2) Chest pain ICD Code: R07.9 Status: Resolved (3) DANNA (acute kidney injury) ICD Code: N17.9 Status: Acute (4) Anemia ICD Code: D64.9 Status: Acute (5) Diabetes ICD Code: E11.9 Status: Chronic (6) Hypotension ICD Code: I95.9 Status: Acute (7) Hypokalemia ICD Code: E87.6 Status: Resolved (8) Hypomagnesemia ICD Code: E83.42 Status: Acute (9) Sacral wound ICD Code: S31.000A Status: Acute (10) Sinus tachycardia ICD Code: R00.0 Status: Acute (11) Abdominal pain ICD Code: R10.9 Status: Acute (12) SOB (shortness of breath) ICD Code: R06.02 Status: Acute (13) Atrial fibrillation with RVR ICD Code: I48.91 Status: Acute (14) Sepsis ICD Code: A41.9 Status: Acute Assessment and Plan (1) HCAP (healthcare-associated pneumonia) Plan: Patient admitted to the medical floor. Treated with IV antibioticsthe patient was started IV vancomycin and IV Levaquin. Evaluation having low-grade fevers and hypotension as well as tachycardia, concurred with sepsis syndrome. Blood cultures negative 3. Sputum culture no growth in 48 hours. However patient having fevers. I will add aztreonam and Flagyl to cover for possible aspiration pneumonia. 03/28 appreciate ID recommendations. She had active recommendations. Blood cultures redrawn. Repeat chest x-ray obtained on 03/27 showed consolidation and effusion on the right base. Patient has right crackles on lung exam. CT abdomen and pelvis showed possible diverticulitis - Patient started on oral flagyl. Continue IV Vancomycin and IV Aztreonam. Antibiotics as per ID. 03/30 Patient with respiratory failure sp bipap overnight, now better on nasal canula. repeat cxr. Expiratory wheezing difusely but more on left lung field, will start on IV Solumedrol. 03/31/16 start to taper IV Solu-Medrol dose, continue IV antibiotics as per ID recommendations. I vancomycin discontinued. The patient starting IV Levaquin, continue aztreonam and oral Flagyl. Patient has good oxygen saturation on nasal cannula.. Azactam 04/01/16 continue steroids - taper dose, antibiotics as per ID. currently on Levaquin po, Flagyl and IV Azactam (2) Chest pain Plan: Chest pain resolved. Cardiac enzymes remained negative. EKG showed sinus rhythm with right bundle branch block and T-wave inversions in V1 and V2. No ST changes suggestive of active ischemia. 03/30 Patient still c/o chest pain, cardiology following. Troponin elevated and trending up. Today 0.11 from 0.05. 03/31/16 patient complaining of chest pain today, likely rate related. Continue to monitor troponins. The patient was started on Nitropaste. - switched to po Nitrates . (3) DANNA (acute kidney injury) Plan: Creatinine trending up slowly, it was 0.85 on presentation and now is 1.16. I will start the patient on gentle IV fluids and continue to monitor BUN/ creatinine as well as strict I's and O's. The patient's urine output seems to be marginal to low. 04/01/16 Low urine output, however creatinine slightly better, continue IV fluids , avoid nefrotoxins, monitor bun/creatinine, consider nephrology consult if worsening. (4) Anemia Plan: Recent rectal bleed-per patient, had rectal bleeding and was transfused 2 units of packed red blood cells at [facility], colonoscopy allegedly done and was told that it was unremarkable, antiplatelets were stopped. Hemoglobin stable at 8.5. No reports of rectal bleeding. Continue to monitor hemoglobin and transfuse for a hemoglobin more than 9 if active bleeding. 03/28 patient had hemoglobin drop from 8.5-7.9. Status post transfusion of 2 units of packed red blood cells. We'll check stat CBC. There are no signs of any active bleeding at this time. Continue to monitor and transfuse for hemoglobin less than 9 effective bleeding and less than 7 if no active bleeding. 03/31/16 appreciate GI consultation recommendations. The patient recently had a rectal bleed for which she had a colonoscopy at [facility]. The patient reportedly was on aspirin and Plavix for CAD and history of atrial fibrillation , however this was discontinued due to GI bleed which at the time required blood transfusion as per the patient. Follow-up GI recommendations, the patient likely is not a good candidate for anticoagulation. 04/01/16 As per GI EGD when more stable. Continue PPI. (5) Diabetes Plan: Blood sugar seems to be stable. Continue Accu-Cheks and SSI with insulin NovoLog. Hemoglobin A1c pending. (6) Hypotension Plan: resolved (7) Hypokalemia Plan: Resolved, continue to monitor and replace as needed. (8) Hypomagnesemia Plan: Magnesium 1.8. Will continue to replace and monitor - goal >2 (9) Sacral wound Plan: Appreciate wound care recommendations. Sacral wound ulcer is unstageable but does not look infected. Wound care recommended Santyl to be applied to the sacral wound. 03/30/16 fu wound culture since some purulence observed. (10) a trial fibrillation in RVR Plan: 03/28 patient again tachycardic. Patient currently with abdominal pain, looks dehydrated. I will increase IV fluids to 50 mL per hour. Bolus with normal saline as needed for systolic blood pressure less than 100. 03/29 telemetry monitoring shows A. fib with RVR. 03/30/16 afib w rvr - fu cardiology recommendations - started on amiodarone. currently rate controlled on LOpressor 25 mg po q8 (11) Abdominal pain Plan: Likely secondary to diverticulitis shown on CT of the abdomen and pelvis. Continue IV antibiotics as per ID. CT abdomen and pelvis rule out perforation 03/30/16 pain resolved. (12) SOB (shortness of breath) Plan: Shortness of breath likely secondary to A. fib with RVR. CXR showed 03/30/16 Patient wheezing today. ? Allergic reeaction to cefepime, ? reactive airway disease. Dc Cefepime. Start on Iv Solumedrol. 03/31/16 shortness of breath resolved. Patient not wheezing anymore. Start steroid taper. (13) Sepsis ICD Code: A41.9 Status: Acute Plan: Patient with fever up to 101, tachycardia and diverticulitis as well as suspected pneumonia as well as resolved hypotension. ID following. Blood cultures negative to date UA negative. 03/30/16 patient febrile with a Tmax of 102.2 last night. On Cefepime, Aztreonam, po flagyl. Dc Cefepime and resume Iv Vancomycin. Vanco to be dosed by pharmacy. Vancomycin was held due to rising creatinine, urine eosinophils negative. 03/31/16 vancomycin discontinued by infectious disease. on flagyl and Levaquin 04/01/16 sepsis resolving. GI prophylaxis: Continue PPI. DVT prophylaxis: SCDs, chemotherapy prophylaxis contraindicated for reported rectal bleeding and increased risk of bleeding. PT/OT consult ADD: 6 pm had a bout of BM- melena surrounded by ring of bright red blood check CBC now and in am will inform GI plan was to do an EGD next few days Problem Qualifiers (1) Chest pain: Qualified Code: R07.89 - Other chest pain (2) Anemia: Qualified Code: D64.9 - Anemia, unspecified type (3) Diabetes: Qualified Code: E11.8 - Type 2 diabetes mellitus with complication, with long- term current use of insulin (4) Hypotension: Qualified Code: I95.9 - Hypotension, unspecified hypotension type (5) Sacral wound: Qualified Code: S31.000D - Sacral wound, subsequent encounter (6) Abdominal pain: Qualified Code: R10.10 - Pain of upper abdomen Maninder Maurice MD Apr 02, 2016 14:25
[2016-04-02] MEDS: RESP: ALBUTEROL 1.25 MG/3 ML NEB (SCH) NEB ×4 (16:00→23:53)
[2016-04-02] MEDS: LEVOFLOXACIN 500 MG TAB PO SCH (17:15)
[2016-04-02] MEDS ORDERED: PHARMACY ORDERED LAB XX ONE (17:45)
[2016-04-02] MEDS ORDERED: SODIUM CHLOR 0.9% 1000 ML INJ 1,000 ML IV SCH (19:00)
[2016-04-02] MEDS ORDERED: PANTOPRAZOLE SODIUM 40 MG VIAL IV PUSH SCH (21:00)
[2016-04-03] VITALS (10 sets, daily range): BP systolic 120–161; BP diastolic 61–78; PULSE 88–109; RESP 16–20; TEMP 97–98.3; O2SAT 93–98
[2016-04-03] MEDS: metroNIDAZOLE 500 MG TAB PO SCH ×3 (01:05→16:33)
[2016-04-03] MEDS: AZTREONAM INJ 2,000 MG in SODIUM CHLORIDE 0.9% INJ 100 ML IV SCH ×2 (01:05→10:07)
[2016-04-03] MEDS: NITROGLYCERIN 2% OINT 1 GM PACKET TOPICAL SCH (01:05)
[2016-04-03] MEDS: RESP: ALBUTEROL 1.25 MG/3 ML NEB (SCH) NEB ×6 (03:59→22:15)
[2016-04-03] MEDS: MORPHINE SULFATE 4 MG/ML INJ IV PUSH PRN ×2 (04:19→21:33)
[2016-04-03] MEDS: LORazepam 1 MG TAB PO PRN ×3 (04:27→19:25)
[2016-04-03] MEDS: METOPROLOL TARTRATE 25 MG TAB PO SCH ×3 (06:24→21:32)
[2016-04-03] MEDS: LEVOTHYROXINE SODIUM 125 MCG TAB PO SCH (06:24)
[2016-04-03] MEDS: THEOPHYLLINE ER 24 HR 300 MG CAPCR PO SCH ×2 (06:24→16:33)
[2016-04-03] MEDS: INSULIN ASPART SUPPLEMENTAL SCALE SQ SCH ×4 (06:24→21:32)
[2016-04-03] MEDS: ISOSORBIDE MONONITRATE 30 MG TAB PO SCH (06:24)
[2016-04-03 08:37] LABS: BASOPHIL % 0.1 % (0.0-2.0); HEMATOCRIT 26.8 % (39.0-51.0); LYMPH % 3.7 % (9.0-44.0); LYMPHOCYTE # 0.2 TH/MM3 (1.0-4.8); MEAN CELL VOLUME 83.4 FL (80.0-100.0); MEAN CORPUSCULAR HEMOGLOBIN 27.2 PG (27.0-34.0); MEAN CORPUSCULAR HGB CONC 32.6 % (32.0-36.0); MONO % 4.5 % (0.0-8.0); NEUT % 91.7 % (16.0-70.0); PLATELET COUNT 293 TH/MM3 (150-450); RED BLOOD COUNT 3.21 MIL/MM3 (4.50-5.90); RED CELL DISTRIBUTION WIDTH 16.9 % (11.6-17.2); WHITE BLOOD COUNT 5.4 TH/MM3 (4.0-11.0)
[2016-04-03 08:44] LABS: HEMO FLAGS AUTO DIFF
[2016-04-03] MEDS ORDERED: LACTATED RINGER'S 1000 ML IV SCH (08:45)
[2016-04-03] MEDS ORDERED: INSULIN HUMAN REGULAR 1,000 UNITS/10 ML VIAL SQ PRN (08:45)
[2016-04-03] MEDS: SODIUM CHLORID 0.9% 500 ML IV SCH (08:45)
[2016-04-03] MEDS ORDERED: METOPROLOL TARTRATE 25 MG TAB PO PRN (08:45)
--- NOTE | 2016-04-03 09:20 | PD.CARD.PN ---
Subjective Subjective Remarks c/o sacral sore Objective Medications Current Medications Medications (Trade) Dose Ordered Sig/Hilda Route Start Time Stop Time Status Last Admin (NS Flush) 2 ml UNSCH PRN IVF 03/24/16 02:15 03/31/16 17:24 (Levemir Inj) 10 units DAILY SQ 03/24/16 09:00 Hold 03/29/16 07:50 (Synthroid) 125 mcg DAILY@06 PO 03/24/16 06:00 04/03/16 06:24 (KCl) 20 meq BID PO 03/24/16 09:00 04/02/16 22:34 (Lyrica) 50 mg DAILY PO 03/24/16 09:00 04/02/16 09:11 (Pravachol) 80 mg DAILY PO 03/24/16 09:00 04/02/16 09:11 (Tylenol) 650 mg Q4H PRN PO 03/24/16 04:00 03/30/16 17:13 (Zofran Inj) 4 mg Q8HR PRN IV PUSH 03/24/16 04:00 03/31/16 17:24 (D50w (Vial) Inj) 25 ml UNSCH PRN IV PUSH 03/24/16 04:15 (Glucagon Inj) 1 mg UNSCH PRN OTHER 03/24/16 04:15 (Pablito-24) 300 mg Q12H PO 03/24/16 05:00 04/03/16 06:24 (Vasotec Inj) 1.25 mg Q6H PRN IV PUSH 03/24/16 10:45 (Desyrel) 50 mg HS PRN PO 03/25/16 10:15 04/01/16 23:45 (Santyl Oint) APPLY TO COCCYX WOUND UNSCH PRN TOP 03/26/16 00:30 03/26/16 23:16 Lorazepam 1 mg 1 mg Q6H PRN PO 03/26/16 12:30 04/03/16 04:27 (Azactam Inj/NS Inj) 100 ml @ 200 mls/hr Q8H IV 03/27/16 17:00 04/03/16 01:05 (Flagyl) 500 mg Q8H PO 03/28/16 17:00 04/03/16 01:05 (Morphine Inj) 2 mg Q3H PRN IV PUSH 03/28/16 16:30 03/31/16 14:48 (Morphine Inj) 4 mg Q3H PRN IV PUSH 03/28/16 16:30 04/03/16 04:19 (Cordarone) 400 mg TID PO 03/30/16 18:00 04/02/16 17:15 (Levaquin) 500 mg Q24H PO 03/31/16 16:00 04/02/16 17:15 (Lopressor) 25 mg Q8HR PO 04/01/16 10:00 04/03/16 06:24 (Imdur) 30 mg DAILY@07 PO 04/03/16 07:00 04/03/16 06:24 (SoluMEDROL INJ) 40 mg Q12HR IV PUSH 04/02/16 21:00 04/02/16 22:33 Pantoprazole Sodium 40 mg 40 mg Q24H IV PUSH 04/02/16 21:00 04/02/16 22:31 Sodium Chloride 1,000 ml @ 42 mls/hr [id number] IV 04/02/16 19:00 Lactated Ringer's 1,000 ml @ 30 mls/hr Q24H IV 04/03/16 08:45 (NS 500 ml Inj) 500 ml @ 30 mls/hr [id number] IV 04/03/16 08:45 04/04/16 08:44 Vital Signs / I&O Vital Signs Date Time Temp Pulse Resp B/P Pulse Ox O2 Delivery O2 Flow Rate FiO2 04/03/16 07:38 96 Nasal Cannula 3.00 04/03/16 04:00 93 Nasal Cannula 3.00 04/03/16 04:00 98.3 94 20 130/61 98 04/03/16 00:00 97.0 90 20 139/78 96 04/02/16 23:55 93 Nasal Cannula 3.00 04/02/16 20:24 93 Nasal Cannula 3.00 04/02/16 20:00 98.0 91 20 133/62 98 04/02/16 20:00 Nasal Cannula 3.00 04/02/16 16:00 97.8 103 20 156/67 90 04/02/16 12:00 97.2 97 20 171/71 95 I/O 04/02/16 04/02/16 04/02/16 04/03/16 04/03/1604/03/17 06:59 14:59 22:59 06:59 14:59 22:59 Intake Total 840 ml 360 ml Output Total 825 ml 225 ml 350 ml Balance 15 ml 135 ml -350 ml Intake Oral 840 ml 360 ml Output Urine Total 825 ml 225 ml 350 ml # Bowel Movements 2 0 0 Physical Exam Alert Chest- diminished BS bases (CXR ordered CV S1S2 RRR Abd soft Ext warm/well perfused. No edema Laboratory Laboratory Tests Test 04/03/16 07:30 White Blood Count 5.4 TH/MM3 Red Blood Count 3.21 MIL/MM3 Hemoglobin 8.7 GM/DL Hematocrit 26.8 % Mean Corpuscular Volume 83.4 FL Mean Corpuscular Hemoglobin 27.2 PG Mean Corpuscular Hemoglobin 32.6 % Concent Red Cell Distribution Width 16.9 % Platelet Count 293 TH/MM3 Mean Platelet Volume 8.3 FL Neutrophils (%) (Auto) 91.7 % Lymphocytes (%) (Auto) 3.7 % Monocytes (%) (Auto) 4.5 % Eosinophils (%) (Auto) 0.0 % Basophils (%) (Auto) 0.1 % Neutrophils # (Auto) 5.0 TH/MM3 Lymphocytes # (Auto) 0.2 TH/MM3 Monocytes # (Auto) 0.2 TH/MM3 Eosinophils # (Auto) 0.0 TH/MM3 Basophils # (Auto) 0.0 TH/MM3 CBC Comment AUTO DIFF Assessment and Plan Problem List: (1) Atrial fibrillation with RVR Assessment and Plan: back in sinus. Reduce amio to 200mg daily (2) Sepsis Assessment and Plan: resolved (3) Coronary artery disease Assessment and Plan: no angina (4) Anemia Problem Qualifiers (1) Anemia: Qualified Code: D64.9 - Anemia, unspecified type Kelvin Nash MD Apr 03, 2016 09:20
[2016-04-03 09:47] LABS: BANDS 2 % (0-6); EOSINOPHILS 1 % (0-4); MYELOCYTES 2 % (0-0); NEUTROPHIL # MANUAL DIFF 5.1 TH/MM3 (1.8-7.7); POLYS (SEG NEUTROPHILS) 90 % (16-70); WBC DIFF SAMPLE 100
[2016-04-03 09:48] LABS: PLATELET ESTIMATE SMEAR NORMAL (NORMAL); PLATELET MORPHOLOGY NORMAL (NORMAL); SCAN/DIFF FINAL DIFF MANUAL
[2016-04-03] MEDS: PREGABALIN 25 MG CAP PO SCH (10:05)
[2016-04-03] MEDS: PRAVASTATIN SOD 80 MG TAB PO SCH (10:05)
[2016-04-03] MEDS: POTASSIUM CHLORIDE 20 MEQ CONTROLLED RELEASE TAB PO SCH ×2 (10:07→21:32)
[2016-04-03] MEDS: methylPREDNISolone SOD SUCC 40 MG/1 ML VIAL IV PUSH SCH (10:07)
[2016-04-03] MEDS ORDERED: PROPOFOL 200 MG/20 ML AMP IV ONE (11:52)
--- NOTE | 2016-04-03 12:07 | HHI.GIFU ---
Subjective Remarks feels ok, no sign of active bleed. Objective Vitals I&O Vital Signs Date Time Temp Pulse Resp B/P Pulse Ox O2 Delivery O2 Flow Rate FiO2 04/03/16 11:26 98.3 94 20 130/61 93 04/03/16 07:38 96 Nasal Cannula 3.00 04/03/16 04:00 93 Nasal Cannula 3.00 04/03/16 04:00 98.3 94 20 130/61 98 04/03/16 00:00 97.0 90 20 139/78 96 04/02/16 23:55 93 Nasal Cannula 3.00 04/02/16 20:24 93 Nasal Cannula 3.00 04/02/16 20:00 98.0 91 20 133/62 98 04/02/16 20:00 Nasal Cannula 3.00 04/02/16 16:00 97.8 103 20 156/67 90 I/O 04/02/16 04/02/16 04/02/16 04/03/16 04/03/16 04/03/16 07:00 15:00 23:00 07:00 15:00 23:00 Intake Total 840 ml 360 ml Output Total 825 ml 225 ml 350 ml Balance 15 ml 135 ml -350 ml Intake Oral 840 ml 360 ml Output Urine Total 825 ml 225 ml 350 ml # Bowel Movements 2 0 0 Laboratory Laboratory Tests Test 04/03/16 07:30 White Blood Count 5.4 Red Blood Count 3.21 Hemoglobin 8.7 Hematocrit 26.8 Mean Corpuscular Volume 83.4 Mean Corpuscular Hemoglobin 27.2 Mean Corpuscular Hemoglobin 32.6 Concent Red Cell Distribution Width 16.9 Platelet Count 293 Mean Platelet Volume 8.3 Neutrophils (%) (Auto) 91.7 Lymphocytes (%) (Auto) 3.7 Monocytes (%) (Auto) 4.5 Eosinophils (%) (Auto) 0.0 Basophils (%) (Auto) 0.1 Neutrophils # (Auto) 5.0 Lymphocytes # (Auto) 0.2 Monocytes # (Auto) 0.2 Eosinophils # (Auto) 0.0 Basophils # (Auto) 0.0 CBC Comment AUTO DIFF Differential Total Cells 100 Counted Neutrophils % (Manual) 90 Band Neutrophils % 2 Lymphocytes % 3 Monocytes % 2 Eosinophils % 1 Neutrophils # (Manual) 5.1 Myelocytes 2 Differential Comment FINAL DIFF MANUAL Platelet Estimate NORMAL Platelet Morphology Comment NORMAL Red Cell Morphology Comment NORMAL Date/Time Procedure Status Source Growth 04/02/16 18:00 Stool Occult Blood (PHAM) - Final Complete Stool Stool HEMOCCULT NEGATIVE Physical Exam HEENT: Normocephalic; atraumatic; no jaundice. CHEST: Decreased breath sounds, mild wheezes in bases CARDIAC: RRR. ABDOMEN: Soft, nondistended, nontender; no hepatosplenomegaly; bowel sounds are present in all four quadrants. EXTREMITIES: No clubbing, cyanosis, or edema. SKIN: Normal; no rash; no jaundice. JACK WINDER: No focal deficits; alert and oriented times three. Assessment and Plan Assessment: (1) Anemia Plan: Has Hx of recent rectal bleed in Plavix and ASA According to the patient colonoscopy 3 weeks ago was unremarkable H&H has remained stable and has evidence of chronic anemia Plavix and ASA were discontinued secondary to bleeding No signs of obvious bleeding since admission Hemoccult was negative, EGD showed gastritis no active bleed. (2) Diabetes Plan: followed by PCP (3) HCAP (healthcare-associated pneumonia) Plan: on antibiotics followed by PCP (4) Diverticulitis Plan: Currently on flagyl Abdomen/Pelvis CT done on 03/28/16 showed -1. Diverticulosis of the colon with questionable minimal diverticulitis of the sigmoid colon. No perforation or abscess. 2. Cholelithiasis. 3. Small air fluid level anterior to the urinary bladder which is decompressed by Baca catheter. This is likely related to an unopacified small bowel loop. 4. Right basilar consolidation a small right pleural effusion. Small left pleural effusion. Denies lower abdominal pain (5) Atrial fibrillation with RVR Plan: On Cardizem followed by cardiolgy Plan ASSESSMENT: - Iron Deficiency Anemia with recent hx of rectal bleed. Pt reports that he had a recent colonoscopy 3 weeks ago which was unremarkable. Abdomen/Pelvis CT (03/28/16)------> CONCLUSION: 1. Diverticulosis of the colon with questionable minimal diverticulitis of the sigmoid colon. No perforation or abscess. 2. Cholelithiasis. 3. Small air fluid level anterior to the urinary bladder which is decompressed by Baca catheter. This is likely related to an unopacified small bowel loop. 4. Right basilar consolidation a small right pleural effusion. Small left pleural effusion. HH is stable 9.8/30.1. S/P 2 units of PRBC. Not actively bleeding, although ASA and Plavix is on hold because of recent bleeding/anemia. ? EGD. - Diverticulitis. CT as above. Levaquin, Flagyl. - Atrial fibrillation. Cardiology following. On Amiodarone. Anticoagulation is on hold secondary to GI bleeding/anemia. - HCAP. Abx, nebs per primary. Azactam, Levaquin. - DM, per primary. PLAN: - GLENYS - Cont. Levaquin/Flagyl - Cont. PPI - Monitor HH - Transfuse as necessary\ capsule endoscopy as outpatient consider hematology consult. we will sign off. Problem Qualifiers (1) Anemia: Qualified Code: D64.9 - Anemia, unspecified type (2) Diabetes: Qualified Code: E11.8 - Type 2 diabetes mellitus with complication, with long- term current use of insulin (3) Diverticulitis: Dwight Johnson MD Apr 03, 2016 12:07
--- NOTE | 2016-04-03 12:19 | MR ---
cc: CARLEY JOHNSON M.D. DATE OF [address] Maurice. DATE OF PROCEDURE 04/03/2016 PROCEDURE Upper gastrointestinal endoscopy with biopsy. ENDOSCOPIST Dr. Johnson MEDICATIONS Propofol administered by Anesthesia. INSTRUMENT Pentax upper scope. INDICATION A 68-year-old gentleman who has anemia, needs evaluation of his GI tract. PROCEDURE After informing the patient about the procedure and complications, consent was signed. The patient was placed on his left lateral decubitus. Adequate sedation was achieved by propofol administered by Aesthesia. The scope was placed in the mouth, advanced under video guidance down to the second portion of the duodenum. The scope was drawn back to the stomach. Retroflexion was performed. Biopsy was done, then the scope drawn back without any immediate complication. FINDINGS 1. Esophagus: Normal. 2. Stomach: Gastropathy and gastritis. Biopsy was done. 3. Duodenum: Normal. 4. No sign of active bleeding. RECOMMENDATIONS 1. Follow-up biopsy. 2. Continue PPI. 3. Consider hematology consult. 4. Capsule endoscopy as an outpatient. 5. We will sign off since there was no sign of active bleeding and hemoccult was negative. MD MEHNAZ Liang/DANI /12:05 PM /12:14 PM
--- NOTE | 2016-04-03 12:56 | HHI.IDPN ---
Subjective Subjective Remarks Notes reviewed Temps normal Feels better Min cough Not SOB CT A/P with mild sigmoid diverticulitis Antibiotics Azactam Flagyl Levaquin Past Medical History CAD- s/p stent placement hypertension diabetes mellitus COPD hypothyroidism Past Surgical History bladder surgery cardiac stent placement Allergies: Coded Allergies: Penicillin (Verified Allergy, Mild, 03/24/16) Objective . Vital Signs Date Time Temp Pulse Resp B/P Pulse Ox O2 Delivery O2 Flow Rate FiO2 04/03/16 12:07 91 16 156/70 98 04/03/16 11:59 97.7 90 16 143/63 98 04/03/16 11:26 98.3 94 20 130/61 93 04/03/16 07:38 96 Nasal Cannula 3.00 04/03/16 04:00 93 Nasal Cannula 3.00 04/03/16 04:00 98.3 94 20 130/61 98 04/03/16 00:00 97.0 90 20 139/78 96 04/02/16 23:55 93 Nasal Cannula 3.00 04/02/16 20:24 93 Nasal Cannula 3.00 04/02/16 20:00 98.0 91 20 133/62 98 04/02/16 20:00 Nasal Cannula 3.00 04/02/16 16:00 97.8 103 20 156/67 90 04/02/16 04/02/16 04/03/16 15:00 23:00 07:00 Intake Total 840 ml 360 ml Output Total 825 ml 225 ml 350 ml Balance 15 ml 135 ml -350 ml Intake Oral 840 ml 360 ml Output Urine Total 825 ml 225 ml 350 ml # Bowel Movements 2 0 0 . Laboratory Tests Test 04/02/16 04/03/16 05:02 07:30 White Blood Count 7.6 TH/MM3 5.4 TH/MM3 Red Blood Count 3.62 MIL/MM3 3.21 MIL/MM3 Hemoglobin 9.8 GM/DL 8.7 GM/DL Hematocrit 30.1 % 26.8 % Mean Corpuscular Volume 83.3 FL 83.4 FL Mean Corpuscular Hemoglobin 27.0 PG 27.2 PG Mean Corpuscular Hemoglobin 32.4 % 32.6 % Concent Red Cell Distribution Width 17.3 % 16.9 % Platelet Count 311 TH/MM3 293 TH/MM3 Mean Platelet Volume 8.6 FL 8.3 FL Neutrophils (%) (Auto) 93.9 % 91.7 % Lymphocytes (%) (Auto) 2.4 % 3.7 % Monocytes (%) (Auto) 3.6 % 4.5 % Eosinophils (%) (Auto) 0.0 % 0.0 % Basophils (%) (Auto) 0.1 % 0.1 % Neutrophils # (Auto) 7.1 TH/MM3 5.0 TH/MM3 Lymphocytes # (Auto) 0.2 TH/MM3 0.2 TH/MM3 Monocytes # (Auto) 0.3 TH/MM3 0.2 TH/MM3 Eosinophils # (Auto) 0.0 TH/MM3 0.0 TH/MM3 Basophils # (Auto) 0.0 TH/MM3 0.0 TH/MM3 CBC Comment DIFF FINAL AUTO DIFF Differential Comment FINAL DIFF MANUAL Differential Total Cells 100 Counted Neutrophils % (Manual) 90 % Band Neutrophils % 2 % Lymphocytes % 3 % Monocytes % 2 % Eosinophils % 1 % Neutrophils # (Manual) 5.1 TH/MM3 Myelocytes 2 % Platelet Estimate NORMAL Platelet Morphology Comment NORMAL Red Cell Morphology Comment NORMAL Laboratory Tests Test 04/02/16 05:02 Sodium Level 138 MEQ/L Potassium Level 4.4 MEQ/L Chloride Level 108 MEQ/L Carbon Dioxide Level 20.9 MEQ/L Anion Gap 9 MEQ/L Blood Urea Nitrogen 24 MG/DL Creatinine 1.14 MG/DL Estimat Glomerular Filtration 63 ML/MIN Rate Random Glucose 228 MG/DL Calcium Level 8.1 MG/DL Phosphorus Level 1.3 MG/DL Magnesium Level 2.1 MG/DL Total Bilirubin 0.3 MG/DL Aspartate Amino Transf 14 U/L (AST/SGOT) Alanine Aminotransferase 10 U/L (ALT/SGPT) Alkaline Phosphatase 118 U/L Total Protein 5.5 GM/DL Albumin 2.1 GM/DL Microbiology Date/Time Procedure Status Source Growth 04/02/16 18:00 Stool Occult Blood (PHAM) - Final Complete Stool Stool HEMOCCULT NEGATIVE Imaging Chest X-Ray 03/29/16 0000 Signed Impressions: Service Date/Time: Tuesday, March 29, 2016 12:32 - CONCLUSION: No significant change has occurred. Luis Carlos Oneill MD Abdomen/Pelvis CT 03/28/16 0000 Signed Impressions: Service Date/Time: Monday, March 28, 2016 18:35 - CONCLUSION: 1. Diverticulosis of the colon with questionable minimal diverticulitis of the sigmoid colon. No perforation or abscess. 2. Cholelithiasis. 3. Small air fluid level anterior to the urinary bladder which is decompressed by Baca catheter. This is likely related to an unopacified small bowel loop. 4. Right basilar consolidation a small right pleural effusion. Small left pleural effusion. Ajith Woods MD CT Angiography 03/26/16 0000 Signed Impressions: Service Date/Time: Saturday, March 26, 2016 09:48 - CONCLUSION: Negative for pulmonary embolism. Atherosclerotic cardiovascular disease compensated cardiomegaly with coronary calcifications. Small posterior bilateral pleural effusions with adjacent mild compressive atelectasis of lower lobe adjacent parenchyma. Manas Vigil MD Physical Exam GENERAL: Awake and alert, NAD. SKIN: Warm and dry. IV sites look okay. No ecchymosis. HEENT: Spiro conjunctivae IV, no petechia or hemorrhage. No scleral icterus. No injection or drainage. Moist oral mucosa. NECK: Trachea midline. No JVD or lymphadenopathy. Supple, nontender, no meningeal signs. CARDIOVASCULAR: Regular rate and rhythm without murmurs, gallops, or rubs. RESPIRATORY: Clear to auscultation. Breath sounds equal bilaterally. No wheezes , rales, or rhonchi. Decreased breath sounds at the bases. GASTROINTESTINAL: Abdomen not distended, with diffuse abdominal tenderness, and he has a large umbilical hernia. No guarding or rebound. MUSCULOSKELETAL: Extremities without clubbing, cyanosis. Has mild edema. No joint effusion, or edema noted. No calf tenderness. NEUROLOGICAL: Non focal. PSYCH: calm and cooperative LINE: PIV with no evidence of infection Assessment & Plan Remarks IMPRESSION Sepsis, tachycardic, and some low BP - temps better - CXR is better, no PNA on CTA, no PE - has diverticultis on CT Chest pain, etiology? Abdominal pain RECOMMENDATION Stop Azactam Continue Flagyl Continue PO Levaquin Give 14 days po Abx Monitor temps Monitor progress Seems clinically stable from ID standpoint Chitra Gaspar MD Apr 03, 2016 12:56
--- NOTE | 2016-04-03 14:43 | HHI.PR ---
Subjective Remarks feeling much better and stronger denies any chest pains or shortness of breath po appetite improve Objective Vitals Vital Signs Date Time Temp Pulse Resp B/P Pulse Ox O2 Delivery O2 Flow Rate FiO2 04/03/16 12:07 91 16 156/70 98 04/03/16 11:59 97.7 90 16 143/63 98 04/03/16 11:26 98.3 94 20 130/61 93 04/03/16 07:38 96 Nasal Cannula 3.00 04/03/16 04:00 93 Nasal Cannula 3.00 04/03/16 04:00 98.3 94 20 130/61 98 04/03/16 00:00 97.0 90 20 139/78 96 04/02/16 23:55 93 Nasal Cannula 3.00 04/02/16 20:24 93 Nasal Cannula 3.00 04/02/16 20:00 98.0 91 20 133/62 98 04/02/16 20:00 Nasal Cannula 3.00 04/02/16 16:00 97.8 103 20 156/67 90 I/O 04/02/16 04/02/16 04/02/16 04/03/16 04/03/16 04/03/16 06:59 14:59 22:59 06:59 14:59 22:59 Intake Total 840 ml 360 ml 400 ml Output Total 825 ml 225 ml 350 ml Balance 15 ml 135 ml -350 ml 400 ml Intake Oral 840 ml 360 ml Other 400 ml Output Urine Total 825 ml 225 ml 350 ml # Bowel Movements 2 0 0 Result Diagram: 04/03/16 0730 04/02/16 0502 Imaging Last Impressions Chest X-Ray 04/02/16 0000 Signed Impressions: Service Date/Time: Saturday, April 02, 2016 10:40 - CONCLUSION: Persistent consolidative changes and a small amount of effusion on the right. Pulmonary vascularity is normal. Power Villareal MD FACR Abdomen/Pelvis CT 03/28/16 0000 Signed Impressions: Service Date/Time: Monday, March 28, 2016 18:35 - CONCLUSION: 1. Diverticulosis of the colon with questionable minimal diverticulitis of the sigmoid colon. No perforation or abscess. 2. Cholelithiasis. 3. Small air fluid level anterior to the urinary bladder which is decompressed by Baca catheter. This is likely related to an unopacified small bowel loop. 4. Right basilar consolidation a small right pleural effusion. Small left pleural effusion. Ajith Woods MD CT Angiography 03/26/16 0000 Signed Impressions: Service Date/Time: Saturday, March 26, 2016 09:48 - CONCLUSION: Negative for pulmonary embolism. Atherosclerotic cardiovascular disease compensated cardiomegaly with coronary calcifications. Small posterior bilateral pleural effusions with adjacent mild compressive atelectasis of lower lobe adjacent parenchyma. Manas Vigil MD Objective Remarks anicteric no rales or wheezes irregular rhythm abdomen- umbilical hernia, soft, good bowel sounds extremities no edema neuro exam - non focal Procedures 04/03- EGD- shos gastritis, normal duodenum, no signs of active bleeding Urinary Catheter: Yes Assessment to: Remove Date of Removal: Apr 03, 2016 A/P Problem List: (1) HCAP (healthcare-associated pneumonia) ICD Code: J18.9 Status: Acute (2) Chest pain ICD Code: R07.9 Status: Resolved (3) DANNA (acute kidney injury) ICD Code: N17.9 Status: Acute (4) Anemia ICD Code: D64.9 Status: Acute (5) Diabetes ICD Code: E11.9 Status: Chronic (6) Hypotension ICD Code: I95.9 Status: Acute (7) Hypokalemia ICD Code: E87.6 Status: Resolved (8) Hypomagnesemia ICD Code: E83.42 Status: Acute (9) Sacral wound ICD Code: S31.000A Status: Acute (10) Sinus tachycardia ICD Code: R00.0 Status: Acute (11) Abdominal pain ICD Code: R10.9 Status: Acute (12) SOB (shortness of breath) ICD Code: R06.02 Status: Acute (13) Atrial fibrillation with RVR ICD Code: I48.91 Status: Acute (14) Sepsis ICD Code: A41.9 Status: Acute Assessment and Plan (1) HCAP (healthcare-associated pneumonia)/Sepsis Plan: Patient admitted to the medical floor. Treated with IV antibioticsthe patient was started IV vancomycin and IV Levaquin. Evaluation having low-grade fevers and hypotension as well as tachycardia, concurred with sepsis syndrome. Blood cultures negative 3. Sputum culture no growth in 48 hours. However patient having fevers. I will add aztreonam and Flagyl to cover for possible aspiration pneumonia. 12/30 appreciate ID recommendations. She had active recommendations. Blood cultures redrawn. Repeat chest x-ray obtained on 03/27 showed consolidation and effusion on the right base. Patient has right crackles on lung exam. CT abdomen and pelvis showed possible diverticulitis - Patient started on oral flagyl. Continue IV Vancomycin and IV Aztreonam. Antibiotics as per ID. 03/30 Patient with respiratory failure sp bipap overnight, now better on nasal canula. repeat cxr. Expiratory wheezing difusely but more on left lung field, will start on IV Solumedrol. 03/31/16 start to taper IV Solu-Medrol dose, continue IV antibiotics as per ID recommendations. I vancomycin discontinued. The patient starting IV Levaquin, continue aztreonam and oral Flagyl. Patient has good oxygen saturation on nasal cannula.. Azactam continue steroids - taper dose- change to Prednisone 20 mg po bid 04/03 Azactam DC today 04/03 continue on po Levaquin and flagyl x 14 days course per ID recommendation (2) Chest pain Plan: Chest pain resolved. Cardiac enzymes remained negative. EKG showed sinus rhythm with right bundle branch block and T-wave inversions in V1 and V2. No ST changes suggestive of active ischemia. 03/30 Patient still c/o chest pain, cardiology following. Troponin elevated and trending up. Today 0.11 from 0.05. 03/31/16 patient complaining of chest pain today, likely rate related. Continue to monitor troponins. po Nitrates . (3) DANNA (acute kidney injury) creatinine stabilizing. good urine output last 24 hours. FF BMP. check phosphorous level (4) Anemia Plan: Recent rectal bleed-per patient, had rectal bleeding and was transfused 2 units of packed red blood cells at [facility], colonoscopy allegedly done and was told that it was unremarkable, antiplatelets were stopped. Hemoglobin stable at 8.5. No reports of rectal bleeding. Continue to monitor hemoglobin and transfuse for a hemoglobin more than 9 if active bleeding. 03/28 patient had hemoglobin drop from 8.5-7.9. Status post transfusion of 2 units of packed red blood cells. Continue to monitor and transfuse for hemoglobin less than 9 effective bleeding and less than 7 if no active bleeding. 03/31/16 appreciate GI consultation recommendations. The patient recently had a rectal bleed for which she had a colonoscopy at [facility]. The patient reportedly was on aspirin and Plavix for CAD and history of atrial fibrillation , however this was discontinued due to GI bleed which at the time required blood transfusion as per the patient. Follow-up GI recommendations, the patient likely is not a good candidate for anticoagulation. 04/02 S/P EGD- gastritis, no active bleeding. capsule endoscopy as OP GI suggests hematology evaluation (5) Diabetes Mellitus type 2 Plan: Blood sugar seems to be stable. Continue Accu-Cheks and SSI with insulin NovoLog. Hemoglobin A1c 6.7 start ADA diet/cardiac sliding scale. if po consistent restart insulin home regimen (6) Hypotension Plan: resolved (7) Hypokalemia Plan: Resolved, continue to monitor and replace as needed. (8) Hypomagnesemia Plan: Magnesium 1.8. Will continue to replace and monitor - goal >2 (9) Sacral wound Plan: Appreciate wound care recommendations. Sacral wound ulcer is unstageable but does not look infected. Wound care recommended Santyl to be applied to the sacral wound. 03/30/16 fu wound culture since some purulence observed. (10) a trial fibrillation i- better controlled Plan: 03/28 patient again tachycardic. Patient currently with abdominal pain, looks dehydrated. I will increase IV fluids to 50 mL per hour. Bolus with normal saline as needed for systolic blood pressure less than 100. 03/29 telemetry monitoring shows A. fib with RVR. currently rate controlled on LOpressor 25 mg po q8 (11) Abdominal pain- resolved Plan: Likely secondary to diverticulitis shown on CT of the abdomen and pelvis. Continue IV antibiotics as per ID. CT abdomen and pelvis rule out perforation 03/30/16 pain resolved. (12) SOB (shortness of breath) Plan: Shortness of breath likely secondary to A. fib with RVR. CXR showed 03/30/16 Patient wheezing today. ? Allergic reeaction to cefepime, ? reactive airway disease. Dc Cefepime. Start on Iv Solumedrol. 03/31/16 shortness of breath resolved. Patient not wheezing anymore. steroid taper. GI prophylaxis: Continue PPI. DVT prophylaxis: SCDs, chemotherapy prophylaxis contraindicated for reported rectal bleeding and increased risk of bleeding. PT/OT daily CM for DC planning-SNF Problem Qualifiers (1) Chest pain: Qualified Code: R07.89 - Other chest pain (2) Anemia: Qualified Code: D64.9 - Anemia, unspecified type (3) Diabetes: Qualified Code: E11.8 - Type 2 diabetes mellitus with complication, with long- term current use of insulin (4) Hypotension: Qualified Code: I95.9 - Hypotension, unspecified hypotension type (5) Sacral wound: Qualified Code: S31.000D - Sacral wound, subsequent encounter (6) Abdominal pain: Qualified Code: R10.10 - Pain of upper abdomen Maninder Maurice MD Apr 03, 2016 14:43 Maninder Maurice MD Apr 03, 2016 14:43 Qualified Code: R10.10 - Pain of upper abdomen Maninder Maurice MD Apr 03, 2016 14:43 Maninder Maurice MD Apr 03, 2016 14:43
[2016-04-03] MEDS: LEVOFLOXACIN 500 MG TAB PO SCH (16:33)
[2016-04-03] MEDS: predniSONE 20 MG TAB PO SCH (21:32)
[2016-04-04] VITALS (9 sets, daily range): BP systolic 121–155; BP diastolic 59–72; PULSE 89–114; RESP 18–24; TEMP 97.2–98.1; O2SAT 93–98
[2016-04-04] MEDS: RESP: ALBUTEROL 2.5 MG/IPRATROPIUM 0.5 MG NEB (PRN) NEB ×3 (00:26→13:56)
[2016-04-04] MEDS: SODIUM CHLORID 0.9% 500 ML IV SCH (01:25)
[2016-04-04] MEDS: metroNIDAZOLE 500 MG TAB PO SCH ×3 (01:29→17:09)
[2016-04-04] MEDS: LORazepam 1 MG TAB PO PRN ×4 (01:29→20:44)
[2016-04-04] MEDS: RESP: ALBUTEROL 1.25 MG/3 ML NEB (SCH) NEB ×4 (03:04→16:44)
[2016-04-04] MEDS: THEOPHYLLINE ER 24 HR 300 MG CAPCR PO SCH ×2 (06:06→17:09)
[2016-04-04] MEDS: ISOSORBIDE MONONITRATE 30 MG TAB PO SCH (06:07)
[2016-04-04] MEDS: METOPROLOL TARTRATE 25 MG TAB PO SCH ×3 (06:07→20:44)
[2016-04-04] MEDS: LEVOTHYROXINE SODIUM 125 MCG TAB PO SCH (06:07)
[2016-04-04] MEDS: INSULIN ASPART SUPPLEMENTAL SCALE SQ SCH ×4 (06:08→20:49)
[2016-04-04 06:59] LABS: HEMATOCRIT 29.6 % (39.0-51.0); MEAN CORPUSCULAR HEMOGLOBIN 26.5 PG (27.0-34.0); MEAN CORPUSCULAR HGB CONC 32.3 % (32.0-36.0); PLATELET COUNT 318 TH/MM3 (150-450); RED BLOOD COUNT 3.61 MIL/MM3 (4.50-5.90); RED CELL DISTRIBUTION WIDTH 16.8 % (11.6-17.2); REVIEW FLAG FINAL; WHITE BLOOD COUNT 6.1 TH/MM3 (4.0-11.0)
[2016-04-04 07:05] LABS: BICARBONATE 23.6 MEQ/L (21.0-32.0)
--- NOTE | 2016-04-04 08:24 | MB ---
cc: EVIE BARROS MD, ZAFAR MD WILSON,CHERIE Mejia M.D. DATE OF CONSULTATION: 04/04/2016 DATE OF : 1945 REASON FOR CONSULTATION Normocytic anemia. CHIEF COMPLAINT Mr. Ayala reports feeling fatigued and weak prior to this admission. He reports having had two or three bowel movements which contained a significant amount of bright red blood prior to his admission. HISTORY OF PRESENT ILLNESS Mr. Ayala is a pleasant 71-year-old male who reports being in his usual fair state of health up until about 3-1/2 weeks ago when he noticed red blood in his stool. He reports he had two or three episodes, although he felt fine after having had the bowel movements. A few days later he began to feel faint and weak. He began to develop shakes and chills. He presented to the [facility] in [place] where he was found to be anemic. He reports being transfused two units of packed red blood cells and while at that hospital was found to have pneumonia as well. He spent a few days in the hospital receiving antibiotics and transfusions. He was reportedly seen by his meal attendant Dr. Barry, who had performed a colonoscopy. The patient after discharge from the hospital was transferred to a rehab facility where he was convalescing. While at the rehab he was noted to have progressive anemia and this time he was referred to [facility] for an inpatient evaluation. Mr. Ayala upon presentation to [facility] was noted to have a hemoglobin of 9.2 gm/dl on 03/24/2016. Over the course of this admission his hemoglobin dropped down to 7.9 gm/dl. The otoniel occurred on 03/27/2016. He was transfused 2 units of packed red blood cells on 03/28/2016 and underwent a GI evaluation which included an EGD with biopsies. The procedure was performed on 04/03/2016. Findings revealed gastropathy and gastritis with biopsies performed. There was no evidence of active bleeding. He has not had any issues with recurrent GI bleeding or overt GI bleeding. Stool for occult blood was ordered on 04/02/2016 and was noted to be negative. Anemia work-up performed thus far had included serum iron studies which indicated a ferritin level which was elevated at 2066. This was drawn on 03/30/2016. Percent iron saturation, TIBC and iron levels were all low pointing towards anemia of chronic disease. The hematology service has been consulted to rule out the possibility of an underlying primary hematologic disorder. PAST MEDICAL HISTORY 1. Type 2 diabetes. 2. COPD. 3. CKD. 4. Coronary artery disease. 5. Hypothyroidism. 6. Personal history of tobaccoism. He has an [id number] history of smoking and quit about 10 years ago. PAST SURGICAL HISTORY 1. Tonsillectomy. 2. He reports having had some sort of bladder surgery. FAMILY HISTORY Mother had colon cancer. She did not of this. Father at an advanced age of "natural causes." SOCIAL HISTORY The patient is . He is originally from [place]. He presently lives at home with his brother. He has four children all of whom live locally. 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 He smoked two packs a day for about 40 years and quit in 2005. He previously was a heavy drinker but has not drank in many years. ALLERGIES PENICILLIN; "IT ALMOST KILLED ME." HEALTH CARE MAINTENANCE EGD and colonoscopy both within the last one year. MEDICATIONS Current inpatient medications: 1. Tylenol 650 mg p.o. q.4h. 2. Albuterol 1.2 mg nebulizer q.4h. 3. Amiodarone 200 mg p.o. daily. 4. Insulin detemir 10 units subcu daily. 5. Insulin sliding scale regular active protocol. 6. Isosorbide mononitrate 30 mg p.o. daily. 7. Levofloxacin 500 mg p.o. q. daily. 8. Levothyroxine 125 mcg p.o. daily. 9. Metoprolol 25 mg n.p.o. q.8h. 10.Metronidazole 500 mg p.o. q.8h. 11.Zofran 4 mg IV q.8h. as needed for nausea. 12.Pantoprazole 40 mg p.o. daily. 13.Potassium chloride 20 mEq p.o. b.i.d. 14.Pravastatin 80 mg p.o. daily. 15.Prednisone 20 mg p.o. b.i.d. 16.Lyrica 50 mg p.o. daily. 17.Trazodone 50 mg p.o. q.h.s. as needed at nighttime for sleep. 18.Theophylline 300 mg p.o. q.12h. REVIEW OF SYSTEMS A 13-point review of systems is obtained and the following are the pertinent positives: CONSTITUTIONAL: The patient reports fatigue, weakness, difficulty ambulating, decreased appetite, recent weight loss. CARDIOVASCULAR: He reports exertional dyspnea. He denies angina-like chest pain, PND, orthopnea. GENITOURINARY: He denies dysuria, hematuria or incontinence. GASTROINTESTINAL: Reports recent history of hematochezia which was painless. Denies jaundice, abdominal distension or pain. THERAPY COORDINATOR: Denies any focal sensory or motor deficits, but reports feeling generally weak. No other complaints. PHYSICAL EXAMINATION VITAL SIGNS: Temperature 97.4 degrees Fahrenheit, heart rate 104 beats a minute, respiratory rate 20, blood pressure 124/63. O2 sats are 95% on 2 liters nasal cannula. GENERAL APPEARANCE: Mr. Ayala is an elderly male. He is lying in bed. He is awake and alert this morning. He denies acute complaints. HEENT: Head is atraumatic, normocephalic. Conjunctivae are mildly pale. Sclerae are anicteric. EOMI. PERRLA. Oral exam dry mucous membranes, no pharyngeal erythema. He has none of his teeth. NECK: No palpable cervical or supraclavicular lymphadenopathy. CHEST: Examination of the chest indicates prominent spider angiomas, some bruising over the skin. RESPIRATORY: He has rhonchi and coarse crepitus diffusely audible. Good air movement bilaterally. Prolonged expiratory phase. CARDIOVASCULAR: Irregular rhythm, S1, S2. There is a systolic murmur over the aortic area. ABDOMEN: Protuberant belly. Soft, nontender, nondistended. No palpable organ enlargement. EXTREMITIES: Lower Extremities: No pretibial edema. No calf tenderness. THERAPY COORDINATOR: No focal sensory or motor deficits. LABORATORY FINDINGS Blood work dated 04/04/2016: WBC count 6.1, hemoglobin 9.6 gm/dl, hematocrit 30%, MCV 82, platelet count 318. Chemistries: Sodium 140, potassium 4, chloride 106, bicarb 23.6, BUN 22, creatinine 0.93, random glucose 248, phosphorus 1.2. Liver function tests from 04/02/2016: Total bilirubin 0.3, AST 14, ALT 10, alkaline phosphatase 118, albumin 2.1. Serum iron studies dated 03/30/2016: Iron level 14, TIBC 132, percent iron saturation 10.6% (all low), ferritin level 2066 which is high. Microbiology: Stool for occult blood negative on 04/02/2016. IMAGING STUDIES Dated 03/26/2016: CT angiogram reveals negative for pulmonary embolism. Atherosclerotic cardiovascular disease, cardiomegaly, coronary artery calcification. Small posterior bilateral pleural effusions with adjacent mild compressive atelectasis. CT scan of the abdomen and pelvis dated 03/28/2016: Diverticulosis of the colon with questionable minimal diverticulitis. Cholelithiasis. Small air-fluid level anterior to the urinary bladder which is decompressed by the Baca catheter. ASSESSMENT Mr. Ayala is a 71-year-old male with multiple medical co-morbid conditions as outlined above. He was admitted to the [facility] from his rehab facility for management of anemia. The patient prior to his admission to [facility] had been treated at [facility] for anemia as well as pneumonia. Leading up to his admission to [facility] within the last one month he had several episodes of bright red blood per rectum. Imaging studies performed at [facility] indicate possible diverticulosis. A colonoscopy was done at [facility] within the last few weeks; the results of this are not known to me. While at [facility] he did undergo an EGD and this revealed gastritis without evidence of active bleeding. The oncology service has been consulted for further work-up and management of a normocytic anemia. Blood work/anemia work-up thus far indicates no evidence of iron deficiency given the elevated ferritin level. RECOMMENDATIONS Anemia (normocytic): The patient's peripheral blood smear was reviewed. He had a mixed picture on the peripheral smear, i.e., there were some findings concerning for iron deficiency given the findings of elongated cells and occasional hypochromic cells. The remainder of the cells which I would estimate was the vast majority were normocytic and normochromic. There was no RBC clumping or fragmentation appreciated. Additionally, the patient was noted to have adequate numbers of platelets and adequate and mature-appearing numbers of white blood cells without any evidence of dysplasia or immature circulating cells. Additionally, he was noted to have a significant amount of reticulocytes indicating a healthy and appropriate marrow response to his anemia. At this point it appears his anemia is likely secondary to the GI bleeding. He may also have an underlying anemia related to his chronic medical illnesses such as diabetes. I do not think this patient has iron deficiency based on his significantly elevated ferritin level. Given the low TIBC in association with the low percent iron saturation I suspect he has a chronic inflammatory condition which may be mimicking a functional iron deficiency which usually results from the inability of the bone marrow to incorporate available iron to the red cell precursors. His hemoglobin is improving over the past 24 hours and he denies active bleeding. I will schedule a follow-up visit with me in the upcoming weeks at my [place] office. I did advise the patient of this. MD LARY Cullen/RHINA /7:20 AM /7:43 AM
[2016-04-04] MEDS: AMIODARONE 200 MG TAB PO SCH (08:36)
[2016-04-04] MEDS: PREGABALIN 25 MG CAP PO SCH (08:36)
[2016-04-04] MEDS: predniSONE 20 MG TAB PO SCH ×2 (08:36→20:44)
[2016-04-04] MEDS: POTASSIUM CHLORIDE 20 MEQ CONTROLLED RELEASE TAB PO SCH ×2 (08:37→20:44)
[2016-04-04] MEDS: PANTOPRAZOLE SOD 40 MG DELAYED RELEASE TAB PO SCH (08:37)
[2016-04-04] MEDS: PRAVASTATIN SOD 80 MG TAB PO SCH (08:37)
--- NOTE | 2016-04-04 13:07 | HHI.PR ---
Subjective Remarks feels much better stronger, no chest pain or palpitations no pain gets episodes of anxiety Objective Vitals Vital Signs Date Time Temp Pulse Resp B/P Pulse Ox O2 Delivery O2 Flow Rate FiO2 04/04/16 10:55 Nasal Cannula 3.00 04/04/16 08:08 93 Nasal Cannula 3.00 04/04/16 08:02 97.3 110 20 148/68 96 04/04/16 04:00 97.4 104 20 124/63 95 04/04/16 00:00 Nasal Cannula 2.00 04/04/16 00:00 97.2 99 24 139/72 97 04/03/16 22:17 96 Nasal Cannula 3.00 04/03/16 20:07 109 04/03/16 20:00 97.4 97 20 120/75 97 04/03/16 20:00 Nasal Cannula 2.00 04/03/16 16:00 Nasal Cannula 3.00 04/03/16 16:00 97.6 90 16 161/73 96 I/O 04/03/16 04/03/16 04/03/16 04/04/16 04/04/16 04/04/16 07:00 15:00 23:00 07:00 15:00 23:00 Intake Total 760 ml 360 ml 360 ml Output Total 350 ml 800 ml 350 ml 75 ml Balance -350 ml -40 ml 10 ml 285 ml Intake Oral 360 ml 360 ml 360 ml Other 400 ml Output Urine Total 350 ml 800 ml 350 ml 75 ml # Bowel Movements 0 1 0 0 Result Diagram: 04/04/16 0552 04/04/16 0552 Imaging Last Impressions Chest X-Ray 04/02/16 0000 Signed Impressions: Service Date/Time: Saturday, April 02, 2016 10:40 - CONCLUSION: Persistent consolidative changes and a small amount of effusion on the right. Pulmonary vascularity is normal. Power Villareal MD FACR Abdomen/Pelvis CT 03/28/16 0000 Signed Impressions: Service Date/Time: Monday, March 28, 2016 18:35 - CONCLUSION: 1. Diverticulosis of the colon with questionable minimal diverticulitis of the sigmoid colon. No perforation or abscess. 2. Cholelithiasis. 3. Small air fluid level anterior to the urinary bladder which is decompressed by Ham catheter. This is likely related to an unopacified small bowel loop. 4. Right basilar consolidation a small right pleural effusion. Small left pleural effusion. Ajith Woods MD CT Angiography 03/26/16 0000 Signed Impressions: Service Date/Time: Saturday, March 26, 2016 09:48 - CONCLUSION: Negative for pulmonary embolism. Atherosclerotic cardiovascular disease compensated cardiomegaly with coronary calcifications. Small posterior bilateral pleural effusions with adjacent mild compressive atelectasis of lower lobe adjacent parenchyma. Manas Vigil MD Objective Remarks anicteric no rales or wheezes irregular rhythm abdomen- umbilical hernia, soft, good bowel sounds extremities no edema neuro exam - non focal Procedures 04/03- EGD- shos gastritis, normal duodenum, no signs of active bleeding Urinary Catheter: Yes Assessment to: Continue A/P Problem List: (1) HCAP (healthcare-associated pneumonia) ICD Code: J18.9 Status: Acute (2) Chest pain ICD Code: R07.9 Status: Resolved (3) DANNA (acute kidney injury) ICD Code: N17.9 Status: Acute (4) Anemia ICD Code: D64.9 Status: Acute (5) Diabetes ICD Code: E11.9 Status: Chronic (6) Hypotension ICD Code: I95.9 Status: Acute (7) Hypokalemia ICD Code: E87.6 Status: Resolved (8) Hypomagnesemia ICD Code: E83.42 Status: Acute (9) Sacral wound ICD Code: S31.000A Status: Acute (10) Abdominal pain ICD Code: R10.9 Status: Acute (11) SOB (shortness of breath) ICD Code: R06.02 Status: Acute (12) Atrial fibrillation with RVR ICD Code: I48.91 Status: Acute (13) Sepsis ICD Code: A41.9 Status: Acute Assessment and Plan HCAP (healthcare-associated pneumonia)/Sepsis Plan: Patient admitted to the medical floor. Treated with IV antibioticsthe patient was started IV vancomycin and IV Levaquin. Evaluation having low-grade fevers and hypotension as well as tachycardia, concurred with sepsis syndrome. Blood cultures negative 3. Sputum culture no growth in 48 hours. However patient having fevers. I will add aztreonam and Flagyl to cover for possible aspiration pneumonia. 03/28 appreciate ID recommendations. She had active recommendations. Blood cultures redrawn. Repeat chest x-ray obtained on 03/27 showed consolidation and effusion on the right base. Patient has right crackles on lung exam. CT abdomen and pelvis showed possible diverticulitis - Patient started on oral flagyl. Continue IV Vancomycin and IV Aztreonam. Antibiotics as per ID. 03/30 Patient with respiratory failure sp bipap overnight, now better on nasal canula. repeat cxr. Expiratory wheezing difusely but more on left lung field, will start on IV Solumedrol. 03/31/16 start to taper IV Solu-Medrol dose, continue IV antibiotics as per ID recommendations. I vancomycin discontinued. The patient starting IV Levaquin, continue aztreonam and oral Flagyl. Patient has good oxygen saturation on nasal cannula.. Azactam continue steroids - taper dose- change to Prednisone 20 mg po bid 04/03- decrease to 10 mg po bid in am Azactam DC04/03 continue on po Levaquin and flagyl x 14 days course per ID recommendation Chest pain Plan: Chest pain resolved. Cardiac enzymes remained negative. EKG showed sinus rhythm with right bundle branch block and T-wave inversions in V1 and V2. No ST changes suggestive of active ischemia. 03/30 Patient still c/o chest pain, cardiology following. Troponin elevated and trending up. Today 0.11 from 0.05. 03/31/16 patient complaining of chest pain today, likely rate related. Continue to monitor troponins. po Nitrates . a trial fibrillation -rate variable Plan: 03/28 patient again tachycardic. Patient currently with abdominal pain, looks dehydrated. I will increase IV fluids to 50 mL per hour. Bolus with normal saline as needed for systolic blood pressure less than 100. 03/29 telemetry monitoring shows A. fib with RVR. started on amiodarone 200 mg po daily on LOpressor 25 mg po q8- incrase if needed DANNA (acute kidney injury) creatinine stabilizing. good urine output last 24 hours. FF BMP. check phosphorous level Anemia Plan: Recent rectal bleed-per patient, had rectal bleeding and was transfused 2 units of packed red blood cells at [facility], colonoscopy allegedly done and was told that it was unremarkable, antiplatelets were stopped. Hemoglobin stable at 8.5. No reports of rectal bleeding. Continue to monitor hemoglobin and transfuse for a hemoglobin more than 9 if active bleeding. 03/28 patient had hemoglobin drop from 8.5-7.9. Status post transfusion of 2 units of packed red blood cells. Continue to monitor and transfuse for hemoglobin less than 9 effective bleeding and less than 7 if no active bleeding. 03/31/16 appreciate GI consultation recommendations. The patient recently had a rectal bleed for which she had a colonoscopy at [facility]. The patient reportedly was on aspirin and Plavix for CAD and history of atrial fibrillation , however this was discontinued due to GI bleed which at the time required blood transfusion as per the patient. Follow-up GI recommendations, the patient likely is not a good candidate for anticoagulation. 04/02 S/P EGD- gastritis, no active bleeding. capsule endoscopy as OP GI suggests hematology evaluation Diabetes Mellitus type 2 Plan: Blood sugar seems to be stable. Continue Accu-Cheks and SSI with insulin NovoLog. Hemoglobin A1c 6.7 ADA diet/cardiac sliding scale. if po consistent restart insulin Levemir 10 units SQ hs home regimen (patient on tapering steroids) Hypotension Plan: resolved Hypokalemia Plan: Resolved, continue to monitor and replace as needed. Hypomagnesemia Plan: Magnesium 1.8. Will continue to replace and monitor - goal >2 Sacral wound Plan: Appreciate wound care recommendations. Sacral wound ulcer is unstageable but does not look infected. Wound care recommended Santyl to be applied to the sacral wound. 03/30/16 fu wound culture since some purulence observed. Abdominal pain- resolved Plan: Likely secondary to diverticulitis shown on CT of the abdomen and pelvis. Continue IV antibiotics as per ID. CT abdomen and pelvis rule out perforation 03/30/16 pain resolved. SOB (shortness of breath)- some anxiety component Plan: Shortness of breath likely secondary to A. fib with RVR. CXR showed 03/31/16 shortness of breath resolved. Patient not wheezing anymore. steroid taper. Ativan prn po GI prophylaxis: Continue PPI. DVT prophylaxis: SCDs, chemotherapy prophylaxis contraindicated for reported rectal bleeding and increased risk of bleeding. PT/OT daily CM for DC planning-SNF- refused to go back to [facility]/w him regarding removal of ham- patient refused -vehemently-" not now- want to get stronger first" Problem Qualifiers (1) Chest pain: Qualified Code: R07.89 - Other chest pain (2) Anemia: Qualified Code: D64.9 - Anemia, unspecified type (3) Diabetes: Qualified Code: E11.8 - Type 2 diabetes mellitus with complication, with long- term current use of insulin (4) Hypotension: Qualified Code: I95.9 - Hypotension, unspecified hypotension type (5) Sacral wound: Qualified Code: S31.000D - Sacral wound, subsequent encounter (6) Abdominal pain: Qualified Code: R10.10 - Pain of upper abdomen Maninder Maurice MD Apr 04, 2016 13:06 Maninder Maurice MD Apr 04, 2016 13:06 Qualified Code: R10.10 - Pain of upper abdomen Maninder Maurice MD Apr 04, 2016 13:06
[2016-04-04] MEDS: POTASSIUM PHOSPHATE/SODIUM PHOSPHATE 250 MG TAB PO SCH ×2 (14:55→20:44)
[2016-04-04] MEDS: LEVOFLOXACIN 500 MG TAB PO SCH (14:55)
--- NOTE | 2016-04-04 15:05 | HHI.IDPN ---
Subjective Subjective Remarks Notes reviewed Temps normal Feels better Not SOB CT A/P with mild sigmoid diverticulitis Antibiotics Flagyl Levaquin Past Medical History Reviewed Allergies: Coded Allergies: Penicillin (Verified Allergy, Mild, 03/24/16) Objective . Vital Signs Date Time Temp Pulse Resp B/P Pulse Ox O2 Delivery O2 Flow Rate FiO2 04/04/16 12:01 97.7 97 20 130/64 96 04/04/16 10:55 Nasal Cannula 3.00 04/04/16 08:08 93 Nasal Cannula 3.00 04/04/16 08:02 97.3 110 20 148/68 96 04/04/16 04:00 97.4 104 20 124/63 95 04/04/16 00:00 Nasal Cannula 2.00 04/04/16 00:00 97.2 99 24 139/72 97 04/03/16 22:17 96 Nasal Cannula 3.00 04/03/16 20:07 109 04/03/16 20:00 97.4 97 20 120/75 97 04/03/16 20:00 Nasal Cannula 2.00 04/03/16 16:00 Nasal Cannula 3.00 04/03/16 16:00 97.6 90 16 161/73 96 04/03/16 04/03/16 04/04/16 15:00 23:00 07:00 Intake Total 760 ml 360 ml 360 ml Output Total 800 ml 350 ml 75 ml Balance -40 ml 10 ml 285 ml Intake Oral 360 ml 360 ml 360 ml Other 400 ml Output Urine Total 800 ml 350 ml 75 ml # Bowel Movements 1 0 0 . Laboratory Tests Test 04/03/16 04/04/16 07:30 05:52 White Blood Count 5.4 TH/MM3 6.1 TH/MM3 Red Blood Count 3.21 MIL/MM3 3.61 MIL/MM3 Hemoglobin 8.7 GM/DL 9.6 GM/DL Hematocrit 26.8 % 29.6 % Mean Corpuscular Volume 83.4 FL 82.0 FL Mean Corpuscular Hemoglobin 27.2 PG 26.5 PG Mean Corpuscular Hemoglobin 32.6 % 32.3 % Concent Red Cell Distribution Width 16.9 % 16.8 % Platelet Count 293 TH/MM3 318 TH/MM3 Mean Platelet Volume 8.3 FL 8.2 FL Neutrophils (%) (Auto) 91.7 % Lymphocytes (%) (Auto) 3.7 % Monocytes (%) (Auto) 4.5 % Eosinophils (%) (Auto) 0.0 % Basophils (%) (Auto) 0.1 % Neutrophils # (Auto) 5.0 TH/MM3 Lymphocytes # (Auto) 0.2 TH/MM3 Monocytes # (Auto) 0.2 TH/MM3 Eosinophils # (Auto) 0.0 TH/MM3 Basophils # (Auto) 0.0 TH/MM3 CBC Comment AUTO DIFF Differential Total Cells 100 Counted Neutrophils % (Manual) 90 % Band Neutrophils % 2 % Lymphocytes % 3 % Monocytes % 2 % Eosinophils % 1 % Neutrophils # (Manual) 5.1 TH/MM3 Myelocytes 2 % Differential Comment FINAL DIFF MANUAL Platelet Estimate NORMAL Platelet Morphology Comment NORMAL Red Cell Morphology Comment NORMAL Laboratory Tests Test 04/04/16 05:52 Sodium Level 140 MEQ/L Potassium Level 4.0 MEQ/L Chloride Level 106 MEQ/L Carbon Dioxide Level 23.6 MEQ/L Anion Gap 10 MEQ/L Blood Urea Nitrogen 22 MG/DL Creatinine 0.93 MG/DL Estimat Glomerular Filtration 80 ML/MIN Rate Random Glucose 248 MG/DL Calcium Level 8.1 MG/DL Phosphorus Level 1.2 MG/DL Vitamin B12 Level 692 PG/ML Folate 8.1 NG/ML Microbiology Date/Time Procedure Status Source Growth 04/02/16 18:00 Stool Occult Blood (PHAM) - Final Complete Stool Stool HEMOCCULT NEGATIVE Imaging Chest X-Ray 03/29/16 0000 Signed Impressions: Service Date/Time: Tuesday, March 29, 2016 12:32 - CONCLUSION: No significant change has occurred. Luis Carlos Oneill MD Abdomen/Pelvis CT 03/28/16 0000 Signed Impressions: Service Date/Time: Monday, March 28, 2016 18:35 - CONCLUSION: 1. Diverticulosis of the colon with questionable minimal diverticulitis of the sigmoid colon. No perforation or abscess. 2. Cholelithiasis. 3. Small air fluid level anterior to the urinary bladder which is decompressed by Baca catheter. This is likely related to an unopacified small bowel loop. 4. Right basilar consolidation a small right pleural effusion. Small left pleural effusion. Ajith Woods MD CT Angiography 03/26/16 0000 Signed Impressions: Service Date/Time: Saturday, March 26, 2016 09:48 - CONCLUSION: Negative for pulmonary embolism. Atherosclerotic cardiovascular disease compensated cardiomegaly with coronary calcifications. Small posterior bilateral pleural effusions with adjacent mild compressive atelectasis of lower lobe adjacent parenchyma. Manas Vigil MD Physical Exam GENERAL: Awake and alert, NAD. SKIN: Warm and dry. IV sites look okay. No ecchymosis. HEENT: [place] conjunctivae IV, no petechia or hemorrhage. No scleral icterus. No injection or drainage. Moist oral mucosa. NECK: Supple, nontender, no meningeal signs. CARDIOVASCULAR: Regular rate and rhythm without murmurs, gallops, or rubs. RESPIRATORY: Clear to auscultation. Breath sounds equal bilaterally. Decreased breath sounds at the bases. GASTROINTESTINAL: Abdomen not distended, with diffuse abdominal tenderness, and he has a large umbilical hernia. No guarding or rebound. MUSCULOSKELETAL: Extremities without clubbing, cyanosis. Has mild edema. No calf tenderness. NEUROLOGICAL: Non focal. PSYCH: calm and cooperative LINE: PIV with no evidence of infection Assessment & Plan Remarks IMPRESSION Sepsis, tachycardic, and some low BP, resolved - temps better - CXR is better, no PNA on CTA, no PE - has diverticultis on CT Chest pain, etiology? Abdominal pain, has sigmoid diverticulitis on CT RECOMMENDATION Continue Flagyl Continue PO Levaquin Give 14 days po Abx Give Abx until Apr 12 - orders placed in [place] Seems clinically stable from ID standpoint I will be available prn Please call if with any new ID issue or question Chitra Gaspar MD Apr 04, 2016 15:05
--- NOTE | 2016-04-04 18:00 | PD.CARD.PN ---
Subjective Subjective Remarks No ne complaints except wants out of the hospital Objective Medications Current Medications Medications (Trade) Dose Ordered Sig/Hilda Route Start Time Stop Time Status Last Admin (NS Flush) 2 ml UNSCH PRN IVF 03/24/16 02:15 03/31/16 17:24 (Levemir Inj) 10 units DAILY SQ 03/24/16 09:00 Hold 03/29/16 07:50 (Synthroid) 125 mcg DAILY@06 PO 03/24/16 06:00 04/04/16 06:07 (KCl) 20 meq BID PO 03/24/16 09:00 04/04/16 08:37 (Lyrica) 50 mg DAILY PO 03/24/16 09:00 04/04/16 08:36 (Pravachol) 80 mg DAILY PO 03/24/16 09:00 04/04/16 08:37 (Tylenol) 650 mg Q4H PRN PO 03/24/16 04:00 03/30/16 17:13 (Zofran Inj) 4 mg Q8HR PRN IV PUSH 03/24/16 04:00 03/31/16 17:24 (D50w (Vial) Inj) 25 ml UNSCH PRN IV PUSH 03/24/16 04:15 (Glucagon Inj) 1 mg UNSCH PRN OTHER 03/24/16 04:15 (Pablito-24) 300 mg Q12H PO 03/24/16 05:00 04/04/16 17:09 (Vasotec Inj) 1.25 mg Q6H PRN IV PUSH 03/24/16 10:45 (Desyrel) 50 mg HS PRN PO 03/25/16 10:15 04/01/16 23:45 (Santyl Oint) APPLY TO COCCYX WOUND UNSCH PRN TOP 03/26/16 00:30 03/26/16 23:16 (Ativan) 1 mg Q6H PRN PO 03/26/16 12:30 04/04/16 14:55 (Flagyl) 500 mg Q8H PO 03/28/16 17:00 04/12/16 23:00 04/04/16 17:09 (Morphine Inj) 2 mg Q3H PRN IV PUSH 03/28/16 16:30 03/31/16 14:48 (Morphine Inj) 4 mg Q3H PRN IV PUSH 03/28/16 16:30 04/03/16 21:33 (Levaquin) 500 mg Q24H PO 03/31/16 16:00 04/12/16 23:00 04/04/16 14:55 (Lopressor) 25 mg Q8HR PO 04/01/16 10:00 04/04/16 13:46 (Imdur) 30 mg DAILY@07 PO 04/03/16 07:00 04/04/16 06:07 (Cordarone) 200 mg DAILY PO 04/04/16 09:00 04/04/16 08:36 (Protonix) 40 mg DAILY PO 04/04/16 09:00 04/04/16 08:37 (Deltasone) 20 mg BID PO 04/03/16 21:00 04/04/16 08:36 (Levemir Inj) 10 units HS SQ 04/04/16 21:00 (K-Phos Neutral) 250 mg Q8HR PO 04/04/16 15:00 04/05/16 14:59 04/04/16 14:55 Vital Signs / I&O Vital Signs Date Time Temp Pulse Resp B/P Pulse Ox O2 Delivery O2 Flow Rate FiO2 04/04/16 12:01 97.7 97 20 130/64 96 04/04/16 10:55 Nasal Cannula 3.00 04/04/16 08:08 93 Nasal Cannula 3.00 04/04/16 08:02 97.3 110 20 148/68 96 04/04/16 08:00 114 04/04/16 04:00 97.4 104 20 124/63 95 04/04/16 00:00 Nasal Cannula 2.00 04/04/16 00:00 97.2 99 24 139/72 97 04/03/16 22:17 96 Nasal Cannula 3.00 04/03/16 20:07 109 04/03/16 20:00 97.4 97 20 120/75 97 04/03/16 20:00 Nasal Cannula 2.00 I/O 04/03/16 04/03/16 04/03/16 04/04/16 04/04/16 04/04/16 07:00 15:00 23:00 07:00 15:00 23:00 Intake Total 760 ml 360 ml 360 ml Output Total 350 ml 800 ml 350 ml 75 ml Balance -350 ml -40 ml 10 ml 285 ml Intake Oral 360 ml 360 ml 360 ml Other 400 ml Output Urine Total 350 ml 800 ml 350 ml 75 ml # Bowel Movements 0 1 0 0 Physical Exam Alert Chest- diminished BS bases (CXR ordered CV S1S2 slightly irregular. Tele strip show AF Abd soft Ext warm/well perfused. No edema Laboratory Laboratory Tests Test 04/04/16 05:52 White Blood Count 6.1 TH/MM3 Red Blood Count 3.61 MIL/MM3 Hemoglobin 9.6 GM/DL Hematocrit 29.6 % Mean Corpuscular Volume 82.0 FL Mean Corpuscular Hemoglobin 26.5 PG Mean Corpuscular Hemoglobin 32.3 % Concent Red Cell Distribution Width 16.8 % Platelet Count 318 TH/MM3 Mean Platelet Volume 8.2 FL Sodium Level 140 MEQ/L Potassium Level 4.0 MEQ/L Chloride Level 106 MEQ/L Carbon Dioxide Level 23.6 MEQ/L Anion Gap 10 MEQ/L Blood Urea Nitrogen 22 MG/DL Creatinine 0.93 MG/DL Estimat Glomerular Filtration 80 ML/MIN Rate Random Glucose 248 MG/DL Calcium Level 8.1 MG/DL Phosphorus Level 1.2 MG/DL Vitamin B12 Level 692 PG/ML Folate 8.1 NG/ML Assessment and Plan Problem List: (1) Atrial fibrillation with RVR Assessment and Plan: Rate better. cont current meds (2) Sepsis Assessment and Plan: resolved (3) Coronary artery disease Assessment and Plan: stable (4) Anemia Assessment and Plan Cardiology to F/U prn - please call if questions Problem Qualifiers (1) Anemia: Qualified Code: D64.9 - Anemia, unspecified type Kelvin Nash MD Apr 04, 2016 18:00
[2016-04-04] MEDS: RESP: ALBUTEROL 2.5 MG/IPRATROPIUM 0.5 MG NEB (SCH) NEB (19:51)
[2016-04-04] MEDS: INSULIN DETEMIR 100 UNITS/ML VIAL SQ SCH (20:49)
[2016-04-05] VITALS (10 sets, daily range): BP systolic 102–157; BP diastolic 59–77; PULSE 87–101; RESP 18–48; TEMP 97.3–98.5; O2SAT 93–98
[2016-04-05] MEDS: RESP: ALBUTEROL 2.5 MG/IPRATROPIUM 0.5 MG NEB (SCH) NEB ×4 (00:02→20:32)
[2016-04-05] MEDS: MORPHINE SULFATE 4 MG/ML INJ IV PUSH PRN ×2 (01:59→21:07)
[2016-04-05] MEDS: LORazepam 1 MG TAB PO PRN ×4 (02:42→21:26)
[2016-04-05] MEDS: metroNIDAZOLE 500 MG TAB PO SCH ×3 (02:42→15:43)
[2016-04-05] MEDS: RESP: ALBUTEROL 2.5 MG/IPRATROPIUM 0.5 MG NEB (PRN) NEB ×3 (04:13→23:49)
[2016-04-05] MEDS: POTASSIUM PHOSPHATE/SODIUM PHOSPHATE 250 MG TAB PO SCH ×2 (06:42→12:08)
[2016-04-05] MEDS: METOPROLOL TARTRATE 25 MG TAB PO SCH ×3 (06:42→20:34)
[2016-04-05] MEDS: THEOPHYLLINE ER 24 HR 300 MG CAPCR PO SCH ×2 (06:42→15:43)
[2016-04-05] MEDS: LEVOTHYROXINE SODIUM 125 MCG TAB PO SCH (06:42)
[2016-04-05] MEDS: ISOSORBIDE MONONITRATE 30 MG TAB PO SCH (06:42)
[2016-04-05] MEDS: INSULIN ASPART SUPPLEMENTAL SCALE SQ SCH ×4 (06:42→20:36)
[2016-04-05] MEDS: PREGABALIN 25 MG CAP PO SCH (08:46)
[2016-04-05] MEDS: POTASSIUM CHLORIDE 20 MEQ CONTROLLED RELEASE TAB PO SCH ×2 (08:46→20:35)
[2016-04-05] MEDS: SODIUM CHLORIDE 0.9% FLUSH 5 ML FLUSH IVF PRN (08:46)
[2016-04-05] MEDS: PANTOPRAZOLE SOD 40 MG DELAYED RELEASE TAB PO SCH (08:47)
[2016-04-05] MEDS: predniSONE 20 MG TAB PO SCH ×2 (08:47→20:34)
[2016-04-05] MEDS: AMIODARONE 200 MG TAB PO SCH (08:47)
[2016-04-05] MEDS: PRAVASTATIN SOD 80 MG TAB PO SCH (08:47)
[2016-04-05] MEDS: LEVOFLOXACIN 500 MG TAB PO SCH (15:43)
[2016-04-05] MEDS: TIOTROPIUM BROMIDE 18 MCG INH INH SCH (16:57)
[2016-04-05] MEDS: ALBUTEROL SULFATE 90 MCG/ACT HFA 8 GM INHALER INH SCH ×3 (16:57→23:18)
[2016-04-05 20:34] LABS: BICARBONATE 28.5 MEQ/L (21.0-32.0)
[2016-04-05] MEDS: INSULIN DETEMIR 100 UNITS/ML VIAL SQ SCH (20:35)
[2016-04-05] MEDS ORDERED: traZODone HCL 50 MG TAB PO SCH (21:00)
[2016-04-06] MEDS: MORPHINE SULFATE 4 MG/ML INJ IV PUSH PRN ×2 (00:22→03:38)
[2016-04-06] MEDS: metroNIDAZOLE 500 MG TAB PO SCH ×3 (00:22→16:38)
[2016-04-06] MEDS: LORazepam 1 MG TAB PO PRN ×2 (03:38→09:46)
[2016-04-06] MEDS: ALBUTEROL SULFATE 90 MCG/ACT HFA 8 GM INHALER INH SCH ×4 (03:38→16:38)
[2016-04-06 04:12] VITALS: BP 168/76; PULSE 100; RESP 20; TEMP 97.8; O2SAT 100
[2016-04-06] MEDS: METOPROLOL TARTRATE 25 MG TAB PO SCH ×2 (05:54→11:52)
[2016-04-06] MEDS: ISOSORBIDE MONONITRATE 30 MG TAB PO SCH (05:54)
[2016-04-06] MEDS: LEVOTHYROXINE SODIUM 125 MCG TAB PO SCH (05:54)
[2016-04-06] MEDS: THEOPHYLLINE ER 24 HR 300 MG CAPCR PO SCH ×2 (05:54→16:38)
[2016-04-06] MEDS: INSULIN ASPART SUPPLEMENTAL SCALE SQ SCH ×3 (06:00→15:47)
[2016-04-06 08:00] VITALS: BP 165/72; PULSE 98; RESP 24; TEMP 97.6; O2SAT 95
[2016-04-06 08:19] VITALS: O2SAT 95
[2016-04-06] MEDS: RESP: ALBUTEROL 2.5 MG/IPRATROPIUM 0.5 MG NEB (SCH) NEB ×2 (08:19→13:07)
--- NOTE | 2016-04-06 08:36 | HHI.PR ---
Subjective Remarks late entry note for 04/05 visit rate 80s looking forward to go to SNF discuss with him and CM we are waiting for authorization no complains Objective Vitals Vital Signs Date Time Temp Pulse Resp B/P Pulse Ox O2 Delivery O2 Flow Rate FiO2 04/06/16 08:19 95 Nasal Cannula 2.00 04/06/16 07:38 Nasal Cannula 2.00 40 Humidified 04/06/16 04:12 97.8 100 20 168/76 100 04/06/16 03:45 20 04/05/16 23:19 97.3 90 20 135/68 94 04/05/16 20:35 93 Nasal Cannula 2.00 04/05/16 20:00 98.3 97 20 155/72 94 04/05/16 20:00 Nasal Cannula 2.00 04/05/16 20:00 101 04/05/16 16:00 98.5 95 20 141/69 96 04/05/16 12:00 97.6 98 18 102/64 96 04/05/16 11:39 Nasal Cannula 2.00 40 04/05/16 09:27 89 I/O 04/05/16 04/05/16 04/05/16 04/06/16 04/06/16 04/06/16 07:00 15:00 23:00 07:00 15:00 23:00 Intake Total 482 ml Output Total 1500 ml Balance -1018 ml Intake Oral 480 ml IV Total 2 ml Output Urine Total 1500 ml # Bowel Movements 1 Result Diagram: 04/04/16 0552 04/05/16 1928 Imaging Last Impressions Chest X-Ray 04/02/16 0000 Signed Impressions: Service Date/Time: Saturday, April 02, 2016 10:40 - CONCLUSION: Persistent consolidative changes and a small amount of effusion on the right. Pulmonary vascularity is normal. Power Villareal MD FACR Abdomen/Pelvis CT 03/28/16 0000 Signed Impressions: Service Date/Time: Monday, March 28, 2016 18:35 - CONCLUSION: 1. Diverticulosis of the colon with questionable minimal diverticulitis of the sigmoid colon. No perforation or abscess. 2. Cholelithiasis. 3. Small air fluid level anterior to the urinary bladder which is decompressed by Ham catheter. This is likely related to an unopacified small bowel loop. 4. Right basilar consolidation a small right pleural effusion. Small left pleural effusion. Ajith Woods MD CT Angiography 03/26/16 0000 Signed Impressions: Service Date/Time: Saturday, March 26, 2016 09:48 - CONCLUSION: Negative for pulmonary embolism. Atherosclerotic cardiovascular disease compensated cardiomegaly with coronary calcifications. Small posterior bilateral pleural effusions with adjacent mild compressive atelectasis of lower lobe adjacent parenchyma. Manas Vigil MD Objective Remarks anicteric no rales or wheezes irregular rhythm abdomen- umbilical hernia, soft, good bowel sounds extremities no edema neuro exam - non focal Procedures 04/03- EGD- shos gastritis, normal duodenum, no signs of active bleeding A/P Problem List: (1) HCAP (healthcare-associated pneumonia) ICD Code: J18.9 Status: Acute (2) Chest pain ICD Code: R07.9 Status: Resolved (3) DANNA (acute kidney injury) ICD Code: N17.9 Status: Acute (4) Anemia ICD Code: D64.9 Status: Acute (5) Diabetes ICD Code: E11.9 Status: Chronic (6) Hypotension ICD Code: I95.9 Status: Acute (7) Hypokalemia ICD Code: E87.6 Status: Resolved (8) Hypomagnesemia ICD Code: E83.42 Status: Acute (9) Sacral wound ICD Code: S31.000A Status: Acute (10) Abdominal pain ICD Code: R10.9 Status: Acute (11) SOB (shortness of breath) ICD Code: R06.02 Status: Acute (12) Atrial fibrillation with RVR ICD Code: I48.91 Status: Acute (13) Sepsis ICD Code: A41.9 Status: Acute Assessment and Plan HCAP (healthcare-associated pneumonia)/Sepsis Plan: Patient admitted to the medical floor. Treated with IV antibioticsthe patient was started IV vancomycin and IV Levaquin. Evaluation having low-grade fevers and hypotension as well as tachycardia, concurred with sepsis syndrome. Blood cultures negative 3. Sputum culture no growth in 48 hours. However patient having fevers. I will add aztreonam and Flagyl to cover for possible aspiration pneumonia. 03/28 appreciate ID recommendations. She had active recommendations. Blood cultures redrawn. Repeat chest x-ray obtained on 03/27 showed consolidation and effusion on the right base. Patient has right crackles on lung exam. CT abdomen and pelvis showed possible diverticulitis - Patient started on oral flagyl. Continue IV Vancomycin and IV Aztreonam. Antibiotics as per ID. 03/30 Patient with respiratory failure sp bipap overnight, now better on nasal canula. repeat cxr. Expiratory wheezing difusely but more on left lung field, will start on IV Solumedrol. 03/31/16 start to taper IV Solu-Medrol dose, continue IV antibiotics as per ID recommendations. I vancomycin discontinued. The patient starting IV Levaquin, continue aztreonam and oral Flagyl. Patient has good oxygen saturation on nasal cannula.. Azactam continue steroids - taper dose- change to Prednisone 20 mg po bid 04/03- decrease to 10 mg po bid in am Azactam DC04/03 continue on po Levaquin and flagyl x 14 days course per ID recommendation Chest pain Plan: Chest pain resolved. Cardiac enzymes remained negative. EKG showed sinus rhythm with right bundle branch block and T-wave inversions in V1 and V2. No ST changes suggestive of active ischemia. 03/30 Patient still c/o chest pain, cardiology following. Troponin elevated and trending up. Today 0.11 from 0.05. 03/31/16 patient complaining of chest pain today, likely rate related. Continue to monitor troponins. po Nitrates . a trial fibrillation -rate variable Plan: 03/28 patient again tachycardic. Patient currently with abdominal pain, looks dehydrated. I will increase IV fluids to 50 mL per hour. Bolus with normal saline as needed for systolic blood pressure less than 100. 03/29 telemetry monitoring shows A. fib with RVR. started on amiodarone 200 mg po daily on LOpressor 25 mg po q8- incrase if needed DANNA (acute kidney injury) creatinine stabilizing. good urine output last 24 hours. FF BMP. check phosphorous level Anemia Plan: Recent rectal bleed-per patient, had rectal bleeding and was transfused 2 units of packed red blood cells at [facility], colonoscopy allegedly done and was told that it was unremarkable, antiplatelets were stopped. Hemoglobin stable at 8.5. No reports of rectal bleeding. Continue to monitor hemoglobin and transfuse for a hemoglobin more than 9 if active bleeding. 03/28 patient had hemoglobin drop from 8.5-7.9. Status post transfusion of 2 units of packed red blood cells. Continue to monitor and transfuse for hemoglobin less than 9 effective bleeding and less than 7 if no active bleeding. 03/31/16 appreciate GI consultation recommendations. The patient recently had a rectal bleed for which she had a colonoscopy at [facility]. The patient reportedly was on aspirin and Plavix for CAD and history of atrial fibrillation , however this was discontinued due to GI bleed which at the time required blood transfusion as per the patient. Follow-up GI recommendations, the patient likely is not a good candidate for anticoagulation. 04/02 S/P EGD- gastritis, no active bleeding. capsule endoscopy as OP GI suggests hematology evaluation Diabetes Mellitus type 2 Plan: Blood sugar seems to be stable. Continue Accu-Cheks and SSI with insulin NovoLog. Hemoglobin A1c 6.7 ADA diet/cardiac sliding scale. if po consistent start insulin Levemir 10 units SQ hs home regimen (patient on tapering steroids) Hypotension Plan: resolved Hypokalemia Plan: Resolved, continue to monitor and replace as needed. Hypomagnesemia Plan: Magnesium 1.8. Will continue to replace and monitor - goal >2 Sacral wound Plan: Appreciate wound care recommendations. Sacral wound ulcer is unstageable but does not look infected. Wound care recommended Santyl to be applied to the sacral wound. 03/30/16 fu wound culture since some purulence observed. Abdominal pain- resolved Plan: Likely secondary to diverticulitis shown on CT of the abdomen and pelvis. Continue IV antibiotics as per ID. CT abdomen and pelvis rule out perforation 03/30/16 pain resolved. 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 fib with RVR. CXR showed 03/31/16 shortness of breath resolved. Patient not wheezing anymore. steroid taper. Ativan prn po GI prophylaxis: Continue PPI. DVT prophylaxis: SCDs, chemotherapy prophylaxis contraindicated for reported rectal bleeding and increased risk of bleeding. PT/OT daily CM for DC planning-SNF- refused to go back to [facility] D/w [facility] regarding removal of ham- patient refused -vehemently-" not now- want to get stronger first Problem Qualifiers (1) Chest pain: Qualified Code: R07.89 - Other chest pain (2) Anemia: Qualified Code: D64.9 - Anemia, unspecified type (3) Diabetes: Qualified Code: E11.8 - Type 2 diabetes mellitus with complication, with long- term current use of insulin (4) Hypotension: Qualified Code: I95.9 - Hypotension, unspecified hypotension type (5) Sacral wound: Qualified Code: S31.000D - Sacral wound, subsequent encounter (6) Abdominal pain: Qualified Code: R10.10 - Pain of upper abdomen Maninder Maurice MD Apr 06, 2016 08:35
--- NOTE | 2016-04-06 09:42 | HHI.PR ---
Subjective Remarks looking for rubin to going to [facility] very appreciative of the care he is getting here voiding spontaenously getting around gradually, feeling stronger voiding spontaenously- ham removed 04/05 - condom in place Objective Vitals Vital Signs Date Time Temp Pulse Resp B/P Pulse Ox O2 Delivery O2 Flow Rate FiO2 04/06/16 08:19 95 Nasal Cannula 2.00 04/06/16 08:00 97.6 98 24 165/72 95 04/06/16 07:38 Nasal Cannula 2.00 40 Humidified 04/06/16 04:12 97.8 100 20 168/76 100 04/06/16 03:45 20 04/05/16 23:19 97.3 90 20 135/68 94 04/05/16 20:35 93 Nasal Cannula 2.00 04/05/16 20:00 98.3 97 20 155/72 94 04/05/16 20:00 Nasal Cannula 2.00 04/05/16 20:00 101 04/05/16 16:00 98.5 95 20 141/69 96 04/05/16 12:00 97.6 98 18 102/64 96 04/05/16 11:39 Nasal Cannula 2.00 40 I/O 04/05/16 04/05/16 04/05/16 04/06/16 04/06/16 04/06/16 07:00 15:00 23:00 07:00 15:00 23:00 Intake Total 482 ml Output Total 1500 ml Balance -1018 ml Intake Oral 480 ml IV Total 2 ml Output Urine Total 1500 ml # Bowel Movements 1 Result Diagram: 04/04/16 0552 04/05/16 1928 Imaging Last Impressions Chest X-Ray 04/02/16 0000 Signed Impressions: Service Date/Time: Saturday, April 02, 2016 10:40 - CONCLUSION: Persistent consolidative changes and a small amount of effusion on the right. Pulmonary vascularity is normal. Power Villareal MD FACR Abdomen/Pelvis CT 03/28/16 0000 Signed Impressions: Service Date/Time: Monday, March 28, 2016 18:35 - CONCLUSION: 1. Diverticulosis of the colon with questionable minimal diverticulitis of the sigmoid colon. No perforation or abscess. 2. Cholelithiasis. 3. Small air fluid level anterior to the urinary bladder which is decompressed by Ham catheter. This is likely related to an unopacified small bowel loop. 4. Right basilar consolidation a small right pleural effusion. Small left pleural effusion. Ajith Woods MD CT Angiography 03/26/16 0000 Signed Impressions: Service Date/Time: Saturday, March 26, 2016 09:48 - CONCLUSION: Negative for pulmonary embolism. Atherosclerotic cardiovascular disease compensated cardiomegaly with coronary calcifications. Small posterior bilateral pleural effusions with adjacent mild compressive atelectasis of lower lobe adjacent parenchyma. Manas Vigil MD Objective Remarks anicteric no rales or wheezes regular rhythm - HR 80s abdomen- umbilical hernia, soft, good bowel sounds extremities no edema neuro exam - non focal Procedures 04/03- EGD- shos gastritis, normal duodenum, no signs of active bleeding Urinary Catheter: No Assessment to: Remove Date of Removal: Apr 05, 2016 A/P Problem List: (1) HCAP (healthcare-associated pneumonia) ICD Code: J18.9 Status: Acute (2) Chest pain ICD Code: R07.9 Status: Resolved (3) DANNA (acute kidney injury) ICD Code: N17.9 Status: Acute (4) Anemia ICD Code: D64.9 Status: Acute (5) Diabetes ICD Code: E11.9 Status: Chronic (6) Hypotension ICD Code: I95.9 Status: Acute (7) Hypokalemia ICD Code: E87.6 Status: Resolved (8) Hypomagnesemia ICD Code: E83.42 Status: Acute (9) Sacral wound ICD Code: S31.000A Status: Acute (10) Abdominal pain ICD Code: R10.9 Status: Acute (11) SOB (shortness of breath) ICD Code: R06.02 Status: Acute (12) Atrial fibrillation with RVR ICD Code: I48.91 Status: Acute (13) Sepsis ICD Code: A41.9 Status: Acute Assessment and Plan HCAP (healthcare-associated pneumonia)/Sepsis Plan: Patient admitted to the medical floor. Treated with IV antibioticsthe patient was started IV vancomycin and IV Levaquin. Evaluation having low-grade fevers and hypotension as well as tachycardia, concurred with sepsis syndrome. Blood cultures negative 3. Sputum culture no growth in 48 hours. However patient having fevers. I will add aztreonam and Flagyl to cover for possible aspiration pneumonia. 03/28 appreciate ID recommendations. She had active recommendations. Blood cultures redrawn. Repeat chest x-ray obtained on 03/27 showed consolidation and effusion on the right base. Patient has right crackles on lung exam. CT abdomen and pelvis showed possible diverticulitis - Patient started on oral flagyl. Continue IV Vancomycin and IV Aztreonam. Antibiotics as per ID. 03/30 Patient with respiratory failure sp bipap overnight, now better on nasal canula. repeat cxr. Expiratory wheezing difusely but more on left lung field, will start on IV Solumedrol. 03/31/16 start to taper IV Solu-Medrol dose, continue IV antibiotics as per ID recommendations. I vancomycin discontinued. The patient starting IV Levaquin, continue aztreonam and oral Flagyl. Patient has good oxygen saturation on nasal cannula.. Azactam continue steroids - taper dose- change to Prednisone 10 mg po bid - 04/06 Azactam DC/ continue on po Levaquin and flagyl x 14 days course per ID recommendation till Chest pain Plan: Chest pain resolved. Cardiac enzymes remained negative. EKG showed sinus rhythm with right bundle branch block and T-wave inversions in V1 and V2. No ST changes suggestive of active ischemia. a trial fibrillation -rate variable - intermittent now in SR Plan: 03/28 patient again tachycardic. Patient currently with abdominal pain, looks dehydrated. I will increase IV fluids to 50 mL per hour. Bolus with normal saline as needed for systolic blood pressure less than 100. 03/29 telemetry monitoring shows A. fib with RVR. on amiodarone 200 mg po daily on LOpressor 25 mg po q8-- adjust if needed DANNA (acute kidney injury) Hypophosphatemia creatinine stabilizing. good urine output on Kphos- recheck as op Anemia Plan: Recent rectal bleed-per patient, had rectal bleeding and was transfused 2 units of packed red blood cells at [facility], colonoscopy allegedly done and was told that it was unremarkable, antiplatelets were stopped. Hemoglobin stable at 8.5. No reports of rectal bleeding. Continue to monitor hemoglobin and transfuse for a hemoglobin more than 9 if active bleeding. 03/28 patient had hemoglobin drop from 8.5-7.9. Status post transfusion of 2 units of packed red blood cells. Continue to monitor and transfuse for hemoglobin less than 9 effective bleeding and less than 7 if no active bleeding. 03/31/16 appreciate GI consultation recommendations. The patient recently had a rectal bleed for which she had a colonoscopy at [facility]. The patient reportedly was on aspirin and Plavix for CAD and history of atrial fibrillation , however this was discontinued due to GI bleed which at the time required blood transfusion as per the patient. Follow-up GI recommendations, the patient likely is not a good candidate for anticoagulation. 04/02 S/P EGD- gastritis, no active bleeding. capsule endoscopy as OP- OP ff up with GI seen by Hematology- anemia of chronic disease Diabetes Mellitus type 2 Plan: Blood sugar seems to be stable. Continue Accu-Cheks and SSI with insulin NovoLog. Hemoglobin A1c 6.7 ADA diet/cardiac sliding scale. if po consistent start insulin Levemir 10 units SQ hs home regimen (patient on tapering steroids) Hypotension Plan: resolved Hypokalemia Plan: Resolved, continue to monitor and replace as needed. Hypomagnesemia Plan: Magnesium 1.8. Will continue to replace and monitor - goal >2 Sacral wound Plan: Appreciate wound care recommendations. Sacral wound ulcer is unstageable but does not look infected. Wound care recommended Santyl to be applied to the sacral wound. 03/30/16 fu wound culture since some purulence observed. Abdominal pain- resolved Plan: Likely secondary to diverticulitis shown on CT of the abdomen and pelvis. Continue IV antibiotics as per ID. CT abdomen and pelvis rule out perforation 03/30/16 pain resolved. SOB (shortness of breath)- some anxiety component- resolved COPD 02 dependent Plan: Shortness of breath likely secondary to A. fib with RVR. CXR showed 03/31/16 shortness of breath resolved. Patient not wheezing anymore. steroid taper. Ativan prn po GI prophylaxis: Continue PPI. DVT prophylaxis: SCDs, chemotherapy prophylaxis contraindicated for reported rectal bleeding and increased risk of bleeding. PT/OT daily CM for DC planning-SNF- we got autorization for PO rehab today Problem Qualifiers (1) Chest pain: Qualified Code: R07.89 - Other chest pain (2) Anemia: Qualified Code: D64.9 - Anemia, unspecified type (3) Diabetes: Qualified Code: E11.8 - Type 2 diabetes mellitus with complication, with long- term current use of insulin (4) Hypotension: Qualified Code: I95.9 - Hypotension, unspecified hypotension type (5) Sacral wound: Qualified Code: S31.000D - Sacral wound, subsequent encounter (6) Abdominal pain: Qualified Code: R10.10 - Pain of upper abdomen Maninder Maurice MD Apr 06, 2016 09:42
[2016-04-06] MEDS: TIOTROPIUM BROMIDE 18 MCG INH INH SCH (09:43)
[2016-04-06] MEDS: POTASSIUM CHLORIDE 20 MEQ CONTROLLED RELEASE TAB PO SCH (09:44)
[2016-04-06] MEDS: PREGABALIN 25 MG CAP PO SCH (09:44)
[2016-04-06] MEDS: AMIODARONE 200 MG TAB PO SCH (09:44)
[2016-04-06] MEDS: PRAVASTATIN SOD 80 MG TAB PO SCH (09:44)
[2016-04-06] MEDS: PANTOPRAZOLE SOD 40 MG DELAYED RELEASE TAB PO SCH (09:44)
[2016-04-06] MEDS ORDERED: AMIO200T PO (09:56)
[2016-04-06] MEDS ORDERED: METR-1 PO (09:56)
[2016-04-06] MEDS ORDERED: METO25TA3 PO (09:56)
[2016-04-06] MEDS ORDERED: PANT40TA3 PO (09:56)
[2016-04-06] MEDS ORDERED: ISOS30TA3 PO (09:56)
[2016-04-06] MEDS ORDERED: VENTAER INH (09:56)
[2016-04-06] MEDS ORDERED: LEVA500T PO (09:56)
[2016-04-06] MEDS ORDERED: KPHOS250 PO (10:00)
[2016-04-06] MEDS ORDERED: PRED5TAB PO (10:08)
[2016-04-06] MEDS ORDERED: TRAZ50TA12 PO (10:10)
[2016-04-06] MEDS ORDERED: LORA-474 PO (10:10)
[2016-04-06] MEDS ORDERED: HYDR-3533 PO (10:15)
--- NOTE | 2016-04-06 10:18 | HHI.DS ---
Discharge Summary Admission Date Mar 24, 2016 at 03:50 Discharge Date: Apr 06, 2016 Admitting Diagnosis pneumonia, chest pain (1) Sepsis ICD Code: A41.9 (2) HCAP (healthcare-associated pneumonia) ICD Code: J18.9 Diagnosis: Principal (3) Diabetes ICD Code: E11.9 Diagnosis: Secondary (4) SOB (shortness of breath) ICD Code: R06.02 Diagnosis: Secondary (5) DANNA (acute kidney injury) ICD Code: N17.9 Diagnosis: Secondary (6) Sacral wound ICD Code: S31.000A Diagnosis: Secondary (7) Chest pain ICD Code: R07.9 Diagnosis: Secondary (8) Anemia ICD Code: D64.9 Diagnosis: Secondary (9) Hypokalemia ICD Code: E87.6 Diagnosis: Secondary (10) Abdominal pain ICD Code: R10.9 Diagnosis: Secondary (11) Atrial fibrillation with RVR ICD Code: I48.91 Diagnosis: Secondary Procedures 04/03- EGD- shos gastritis, normal duodenum, no signs of active bleeding Brief History - From Admission patient is a 71 y/o male with history of CAD, COPD, hypertension and diabetes , [facility], was just discharged from the hospital yesterday, was [facility] because of chest pain and sob. he says that he had chest pain all day yesterday. pain is in lower chest and epigastric with no radiation. he didn't have and emesis, diaphoresis or dizziness. he had productive cough of yellowish sputum. he doesn't report any fever. he uses oxygen for his COPD. he says that he was in the hospital for about a week because of rectal bleed and was just discharged to rehab yesterday. CBC/BMP: 04/04/16 0552 04/05/16 1928 Significant Findings Laboratory Tests Test 04/04/16 04/05/16 05:52 19:28 Red Blood Count 3.61 MIL/MM3 (4.50-5.90) Hemoglobin 9.6 GM/DL (13.0-17.0) Hematocrit 29.6 % (39.0-51.0) Mean Corpuscular Hemoglobin 26.5 PG (27.0-34.0) Blood Urea Nitrogen 22 MG/DL (7-18) Estimat Glomerular Filtration 80 ML/MIN (>89) Rate Random Glucose 248 MG/DL 214 MG/DL (74-106) (74-106) Calcium Level 8.1 MG/DL 7.6 MG/DL (8.5-10.1) (8.5-10.1) Phosphorus Level 1.2 MG/DL 1.3 MG/DL (2.5-4.9) (2.5-4.9) Imaging Last Impressions Chest X-Ray 04/02/16 0000 Signed Impressions: Service Date/Time: Saturday, April 02, 2016 10:40 - CONCLUSION: Persistent consolidative changes and a small amount of effusion on the right. Pulmonary vascularity is normal. Power Villareal MD FACR Abdomen/Pelvis CT 03/28/16 0000 Signed Impressions: Service Date/Time: Monday, March 28, 2016 18:35 - CONCLUSION: 1. Diverticulosis of the colon with questionable minimal diverticulitis of the sigmoid colon. No perforation or abscess. 2. Cholelithiasis. 3. Small air fluid level anterior to the urinary bladder which is decompressed by Baca catheter. This is likely related to an unopacified small bowel loop. 4. Right basilar consolidation a small right pleural effusion. Small left pleural effusion. Ajith Woods MD CT Angiography 03/26/16 0000 Signed Impressions: Service Date/Time: Saturday, March 26, 2016 09:48 - CONCLUSION: Negative for pulmonary embolism. Atherosclerotic cardiovascular disease compensated cardiomegaly with coronary calcifications. Small posterior bilateral pleural effusions with adjacent mild compressive atelectasis of lower lobe adjacent parenchyma. Manas Vigil MD PE at Discharge anicteric no rales or wheezes regular rhythm - HR 80s abdomen- umbilical hernia, soft, good bowel sounds extremities no edema neuro exam - non focal Pt update on day of discharge feels great baseline 02 dependent SR on telemetry- HR 80s no edema lungs exam- no wheezes no rales Hospital Course HCAP (healthcare-associated pneumonia)/Sepsis Plan: Patient admitted to the medical floor. Treated with IV antibioticsthe patient was started IV vancomycin and IV Levaquin. Evaluation having low-grade fevers and hypotension as well as tachycardia, concurred with sepsis syndrome. Blood cultures negative 3. Sputum culture no growth in 48 hours. However patient having fevers. I will add aztreonam and Flagyl to cover for possible aspiration pneumonia. 03/28 appreciate ID recommendations. She had active recommendations. Blood cultures redrawn. Repeat chest x-ray obtained on 03/27 showed consolidation and effusion on the right base. Patient has right crackles on lung exam. CT abdomen and pelvis showed possible diverticulitis - Patient started on oral flagyl. Continue IV Vancomycin and IV Aztreonam. Antibiotics as per ID. 03/30 Patient with respiratory failure sp bipap overnight, now better on nasal canula. repeat cxr. Expiratory wheezing difusely but more on left lung field, will start on IV Solumedrol. 03/31/16 start to taper IV Solu-Medrol dose, continue IV antibiotics as per ID recommendations. I vancomycin discontinued. The patient starting IV Levaquin, continue aztreonam and oral Flagyl. Patient has good oxygen saturation on nasal cannula.. Azactam continue steroids - taper dose- change to Prednisone 10 mg po bid - 04/06 Azactam DC04/03 continue on po Levaquin and flagyl x 14 days course per ID recommendation till COPD 02 dependent some anxiety component Plan: Shortness of breath likely secondary to A. fib with RVR. CXR showed MDIs. steroid taper. Ativan prn po Chest pain Plan: Chest pain resolved. Cardiac enzymes remained negative. EKG showed sinus rhythm with right bundle branch block and T-wave inversions in V1 and V2. No ST changes suggestive of active ischemia. Atrial fibrillaion- rate controlled on amiodarone 200 mg po daily on LOpressor 25 mg po q8-- adjust if needed no OAC with GIB please schedule OP ff up with Dr Pittman for capsule endoscopy DANNA (acute kidney injury) Hypophosphatemia creatinine stabilizing. good urine output on Kphos- recheck as op Anemia Plan: Recent rectal bleed-per patient, had rectal bleeding and was transfused 2 units of packed red blood cells at [facility], colonoscopy allegedly done and was told that it was unremarkable, antiplatelets were stopped. Hemoglobin stable at 8.5. No reports of rectal bleeding. Continue to monitor hemoglobin and transfuse for a hemoglobin more than 9 if active bleeding. 03/28 patient had hemoglobin drop from 8.5-7.9. Status post transfusion of 2 units of packed red blood cells. Continue to monitor and transfuse for hemoglobin less than 9 effective bleeding and less than 7 if no active bleeding. 03/31/16 appreciate GI consultation recommendations. The patient recently had a rectal bleed for which she had a colonoscopy at [facility]. The patient reportedly was on aspirin and Plavix for CAD and history of atrial fibrillation , however this was discontinued due to GI bleed which at the time required blood transfusion as per the patient. Follow-up GI recommendations, the patient likely is not a good candidate for anticoagulation. 04/02 S/P EGD- gastritis, no active bleeding. capsule endoscopy as OP- OP ff up with GI seen by Hematology- anemia of chronic disease Diabetes Mellitus type 2 Plan: Blood sugar seems to be stable. Continue Accu-Cheks and SSI with insulin NovoLog. Hemoglobin A1c 6.7 ADA diet/cardiac sliding scale. if po consistent start insulin Levemir 10 units SQ hs home regimen (patient on tapering steroids) Hypotension Plan: resolved Hypokalemia Plan: Resolved, continue to monitor and replace as needed. Hypomagnesemia Plan: Magnesium 1.8. Will continue to replace and monitor - goal >2 Sacral wound Plan: Appreciate wound care recommendations. Sacral wound ulcer is unstageable but does not look infected. Wound care recommended Santyl to be applied to the sacral wound. 03/30/16 fu wound culture since some purulence observed. Abdominal pain- resolved Plan: Likely secondary to diverticulitis shown on CT of the abdomen and pelvis. Continue IV antibiotics as per ID. CT abdomen and pelvis rule out perforation 03/30/16 pain resolved. GI prophylaxis: Continue PPI. DVT prophylaxis: SCDs, chemotherapy prophylaxis contraindicated for reported rectal bleeding and increased risk of bleeding. PT/OT daily CM for DC planning-SNF- we got autorization for PO rehab today Pt Condition on Discharge: Stable Discharge Disposition: Discharge to SNF Discharge Time: <= 30 minutes Discharge Instructions DIET: Follow Instructions for: Heart Healthy Diet, Diabetic Diet Speech Therapy-Diet Recommends: Regular Activities you can perform: Weight Bearing as Rohit Activities to Avoid: Prolonged Standing, Strenuous Activity Follow up Referrals: Cardiology - 10 Days with Kelvin Nash MD Gastroenterology - 04/14/16 with [facility]OB[facility] PCP Follow-up - 04/07/16 with annita lucasc New Orders: COMP MET PROF (CMP) - 04/08/16 PHOSPHORUS (PO4) - 04/08/16 New Medications: Hydrocodone-Acetaminophen (Lortab) 5-325 Mg Tab 1 TAB PO Q8HR PRN shoulder/back pain #20 Ref 0 TAB Oxygen tank (Oxygen tank) 1 Ea Tank 2 LITER ANA.CANULA CONTINUOUS Oxygen Concentrator Portable Gaseous 2 L/min via Nasal Cannula Continuous For 99 months HYPOXEMIA PREVENTION #1 CYLINDER Potassium Phosphate-Sodium Phosphate (K-Phos Neutral) 155-852-130 Mg Tab 250 MG PO PCHS Electrolyte Replacement #15 Ref 0 TAB Prednisone (Prednisone) 5 Mg Tab 5 MG PO BID 2 tabs po bid x 2 days then 1 tab po bid x 2 days then 1 tab po daily x 3 days then DC. COPD #15 Ref 0 TAB Albuterol 18 GM Inh (Ventolin Hfa 18 GM Inh) 90 Mcg/Act Aer 2 PUFF INH Q4HR PRN COPD #2 INHALER Amiodarone (Amiodarone) 200 Mg Tab 200 MG PO DAILY AFIB Days 30 TAB Isosorbide Mononitrate ER (Isosorbide Mononitrate ER) 30 Mg Huber 30 MG PO DAILY@07 CARD #30 TAB Levofloxacin (Levaquin) 500 Mg Tab 500 MG PO Q24H Infection #7 TAB Lorazepam (Ativan) 1 Mg Tab 1 MG PO Q8HR PRN ANXIETY #20 Ref 0 TAB Metoprolol Tartrate (Metoprolol Tartrate) 25 Mg Tab 25 MG PO Q8HR CARD #90 TAB Metronidazole (Flagyl) 500 Mg Tab 500 MG PO Q8H Infection #21 TAB Pantoprazole (Pantoprazole) 40 Mg Tab 40 MG PO DAILY GIB #30 TAB Tiotropium Inh (Spiriva Handihaler) 18 Mcg Cap 18 MCG INH DAILY CPD #1 Ref 3 CAP Trazodone (Trazodone) 50 Mg Tab 50 MG PO HS HSanx/sl #30 TAB Continued Medications: Insulin Detemir Inj (Levemir Inj) 1,000 unit/ 10 ML Vial 10 UNITS SQ DAILY Do not mix with any other Insulin. Blood Sugar Management Ref 0 VIAL Insulin Lispro (Human) Inj (Humalog Inj) 1,000 Unit/10 Ml Vial 5 UNITS SQ TIDAC Blood Sugar Management #1 Ref 0 VIAL Levothyroxine (Levothyroxine) 125 Mcg Tab 125 MCG PO DAILY Thyroid #30 Ref 0 TAB Nitroglycerin SL (Nitroglycerin SL) 0.4 Mg Subl 0.4 MG SL DIRECTED ONE TABLET UNDER THE TONGUE NEEDED FOR CHEST PAIN, MAY REPEAT EVERY FIVE MINUTES FOR A TOTAL OF 3 DOSES OR CALL 911 IF NO RELIEF PRN CHEST PAIN #100 Ref 0 TAB.SL Potassium Chloride ER (Potassium Chloride ER) 20 Meq Tab 20 MEQ PO BID Electrolyte Replacement #60 Ref 0 TAB Pregabalin (Lyrica) 50 Mg Cap 50 MG PO DAILY #30 Ref 0 CAP Simvastatin (Simvastatin) 80 Mg Tab 80 MG PO DAILY Cholesterol Management #30 Ref 0 TAB Theophylline ER 12 HR (Theophylline ER 12 HR) 300 Mg Tab 300 MG PO Q12H #60 Ref 0 TAB Discontinued Medications: Hydrocodone-Acetaminophen (Hydrocodone-Acetaminophen) 10-325 mg Tab 1 TAB PO Q4H PRN PAIN Ref 0 TAB Ipratropium-Albuterol Neb (Duoneb) 0.5-2.5 Mg/3 Ml Neb 1 NEBULE INH DAILY Breathing Treatment #30 Ref 0 NEBULE Lactulose Liq (Lactulose Liq) 10 Gm/15 Ml Soln 30 ML PO Q6H PRN renal Ref 0 ML Liraglutide Inj (Victoza Inj) 18 Mg/3 Ml Pen 1.8 MG SQ DAILY #1 Ref 0 PEN Magnesium Hydroxide Liq (Milk of Magnesia Liq) 400 Mg/5 Ml Susp 30 ML PO DAILY PRN INDIGESTION OR UPSET STOMACH #1 Ref 0 BOTTLE Metoprolol Succinate ER 24 HR (Metoprolol Succinate ER 24 HR) 50 Mg Tab 50 MG PO DAILY #30 Ref 0 TAB Silver Sulfadiazine Topical (Silvadene Topical) 1 % Cream 1 APPLIC TOPICAL DIRECTED Wound Management #50 Ref 0 GM Maninder Maurice MD Apr 06, 2016 10:18
[2016-04-06] MEDS ORDERED: OXYGENTANK NAS.CANULA (10:30)
[2016-04-06] MEDS ORDERED: SPIRCAP INH (10:31)
[2016-04-06 10:53] VITALS: PULSE 86
[2016-04-06] MEDS ORDERED: DOCUSATE SODIUM 100 MG CAP PO SCH (11:00)
[2016-04-06 12:00] VITALS: BP 131/68; PULSE 94; RESP 20; TEMP 97.7; O2SAT 95
[2016-04-06 16:00] VITALS: BP 135/68; PULSE 78; RESP 24; TEMP 97.6; O2SAT 95
[2016-04-06] MEDS: LEVOFLOXACIN 500 MG TAB PO SCH (16:38)
[2016-04-06] MEDS ORDERED: predniSONE 20 MG TAB PO SCH (21:00)
== END 2016-04-06 18:29 | DRG 193 ==
LOC: NEPE 01:57 → NEDA 03:50 → UNDOADMIN 03:51 → NEDA 06:07 → N06B 06:07 → HCIS 03-29 13:25 → HIMW 03-29 17:45 → N04B 04-01 22:07
PROVIDERS: ADMIT Internal Medicine; ATTEND Internal Medicine
PROC: 30233N1 Transfusion of Nonautologous Red Blood Cells into Peripheral Vein, Percutaneous Approach (ICD-10-PCS; principal; 2016-03-28)
PROC: 5A09357 Assistance with Respiratory Ventilation, Less than 24 Consecutive Hours, Continuous Positive Airway Pressure (ICD-10-PCS; 2016-03-29)
PROC: 0DB68ZX Excision of Stomach, Via Natural or Artificial Opening Endoscopic, Diagnostic (ICD-10-PCS; 2016-04-03)
DX: J18.9 Pneumonia, unspecified organism (principal); A41.9 Sepsis, unspecified organism; J96.90 Respiratory failure, unspecified, unspecified whether with hypoxia or hypercapnia; N17.9 Acute kidney failure, unspecified; L89.150 Pressure ulcer of sacral region, unstageable; K92.2 Gastrointestinal hemorrhage, unspecified; K57.32 Diverticulitis of large intestine without perforation or abscess without bleeding; I48.1 Persistent atrial fibrillation; I48.92 Unspecified atrial flutter; J44.0 Chronic obstructive pulmonary disease with (acute) lower respiratory infection; I48.2 Chronic atrial fibrillation; E86.0 Dehydration; Z99.81 Dependence on supplemental oxygen; E83.42 Hypomagnesemia; I25.10 Atherosclerotic heart disease of native coronary artery without angina pectoris; E87.6 Hypokalemia; E03.9 Hypothyroidism, unspecified; E78.5 Hyperlipidemia, unspecified; G47.00 Insomnia, unspecified; D50.0 Iron deficiency anemia secondary to blood loss (chronic); R07.9 Chest pain, unspecified; R00.0 Tachycardia, unspecified; K80.20 Calculus of gallbladder without cholecystitis without obstruction; K29.70 Gastritis, unspecified, without bleeding; K31.9 Disease of stomach and duodenum, unspecified; F41.9 Anxiety disorder, unspecified; E83.39 Other disorders of phosphorus metabolism; D63.8 Anemia in other chronic diseases classified elsewhere; K42.9 Umbilical hernia without obstruction or gangrene; Y95 Nosocomial condition; K59.00 Constipation, unspecified; I12.9 Hypertensive chronic kidney disease with stage 1 through stage 4 chronic kidney disease, or unspecified chronic kidney disease; E11.22 Type 2 diabetes mellitus with diabetic chronic kidney disease; N18.9 Chronic kidney disease, unspecified; J45.909 Unspecified asthma, uncomplicated; I25.2 Old myocardial infarction; Z95.5 Presence of coronary angioplasty implant and graft; Z87.891 Personal history of nicotine dependence; Z79.4 Long term (current) use of insulin
CPT/HCPCS: 36430; 36600; 71010; 71275; 74176; 76937; 80048; 80053; 80061; 80202; 81001; 82272; 82550; 82552; 82607; 82728; 82746; 82805; 82948; 83036; 83540; 83550; 83605; 83690; 83735; 83880; 84100; 84443; 84484; 85007; 85014; 85018; 85025; 85027; 85610; 85730; 86850; 86900; 86901; 86920; 87040; 87070; 87205; 87641; 88305; 88312; 93005; 93306; 94002; 94003; 94640; 94664; 96374; 96375; C9113; J0131; J0456; J0692; J0696; J1160; J1644; J1815; J1940; J1956; J2270; J2405; J2920; J2930; J3370; J3475; J3480; J7030; J7040; J7050; J7120; J7512; J7613; P9016; Q0163; Q9963; Q9967

== ENCOUNTER 2016-04-17 19:13 | Emergency (ER) | payer MEDICARE, OTHER ==
[~2016-04-17] VITALS: Ht 170.2 cm; Wt 77.3 kg
[~2016-04-17 19:13] MED LIST changes: -ALBU17I; +AMIO200T PO; +HUMALOG SQ; +HYDR-3533 PO; +ISOS30TA3 PO; +KPHOS250 PO; +LEVA500T PO; +LEVEMIR SQ; +LEVO125T4 PO; +LORA-474 PO; +LYRI50CA PO; +METO25TA3 PO; +METR-1 PO; +NITR1SUB3 SL; +OXYGENTANK NAS.CANULA; +PANT40TA3 PO; +POTA-163 PO; +PRED5TAB PO; +SIMV80TA PO; +SPIRCAP INH; +THEO300T30 PO; +TRAZ50TA12 PO; +VENTAER INH
[2016-04-17 19:16] VITALS: BP 81/46; PULSE 108; RESP 20; TEMP 98.3; O2SAT 94
[2016-04-17] MEDS ORDERED: CALC600T4 PO (19:24)
[2016-04-17 19:34] VITALS: BP 116/55; PULSE 108; RESP 18; O2SAT 94
[2016-04-17] MEDS ORDERED: SODIUM CHLOR 0.9% 1000 ML INJ 1,000 ML IV ONE (19:45)
--- NOTE | 2016-04-17 19:51 | PD ---
HPI Chief Complaint: Respiratory Symptoms Time Seen by Provider: 19:35 Travel History International Travel<30 days: No Contact w/Intl Traveler<30days: No Traveled to known affect area: No History of Present Illness HPI This patient is sent from a long-term for evaluation of fever. He reports fever and chills for couple of days. He denies shortness of breath. He was hospitalized for pneumonia a month ago. He says he is an occasional dry cough but nothing sustained or severe. He has a chronic indwelling Baca and denies urinary complaints. No diarrhea or vomiting. He is essentially wheelchair bound and has chronic generalized weakness. He has a known decubitus. Severity is moderate. No alleviating factors. Duration 2 days PFSH Past Medical History Anemia: Yes Asthma: Yes Anxiety: Yes Depression: Yes Heart Rhythm Problems: Yes Cardiovascular Problems: Yes (5 stents, 2 mi) High Cholesterol: Yes Chest Pain: Yes COPD: Yes Diminished Hearing: Yes Hypertension: Yes Respiratory: Yes (copd 02 dependent) Myocardial Infarction: Yes Pneumonia: Yes Thyroid Disease: Yes Past Surgical History Cardiac Surgery: Yes (5 stents ) Social History Alcohol Use: No Tobacco Use: No (03/31 PPD) Substance Use: No Allergies-Medications (Allergen,Severity, Reaction): Coded Allergies: Penicillin (Verified Allergy, Mild, 04/17/16) Reported Meds & Prescriptions Reported Meds & Active Scripts Active Spiriva Handihaler (Tiotropium Inh) 18 Mcg Cap 18 Mcg INH DAILY Oxygen tank (Oxygen) 1 Ea Tank 2 Liter ANA.CANULA CONTINUOUS Oxygen Concentrator Portable Gaseous 2 L/min via Nasal Cannula Continuous For 99 months Lortab (Hydrocodone-Acetaminophen) 5-325 Mg Tab 1 Tab PO Q8HR PRN Ativan (Lorazepam) 1 Mg Tab 1 Mg PO Q8HR PRN Trazodone (Trazodone HCl) 50 Mg Tab 50 Mg PO HS K-Phos Neutral (Potassium Phos/Sodium Phos) 155-852-130 Mg Tab 250 Mg PO PCHS Pantoprazole (Pantoprazole Sodium) 40 Mg Tab 40 Mg PO DAILY Metoprolol Tartrate 25 Mg Tab 25 Mg PO Q8HR Levaquin (Levofloxacin) 500 Mg Tab 500 Mg PO Q24H Isosorbide Mononitrate ER (Isosorbide Mononitrate) 30 Mg Huber 30 Mg PO DAILY@07 Amiodarone (Amiodarone HCl) 200 Mg Tab 200 Mg PO DAILY 30 Days Ventolin Hfa 18 GM Inh (Albuterol Sulfate) 90 Mcg/Act Aer 2 Puff INH Q4HR PRN Reported Diff-Stat (Probiotic Product) 1 Cap Cap 1 Caplet PO BID Duoneb (Ipratropium-Albuterol Neb) 0.5-2.5 Mg/3 Ml Neb 1 Nebule INH Q6HR NEB Tylenol (Acetaminophen) 325 Mg Cap 650 Mg PO Q6H PRN Magnesium Oxide 500 Mg Tab 500 Mg PO DAILY Multivitamin Adults 50+ (Multiple Vitamins W/ Minerals) 1 Tab Tab 1 Cap PO DAILY Flomax (Tamsulosin HCl) 0.4 Mg Cap 0.4 Mg PO HS Levemir Flextouch Pen Inj (Insulin Detemir) 300 unit/3 ML Pen 8 Units SQ DAILY Diflucan (Fluconazole) 100 Mg Tab 100 Mg PO DAILY Feosol (Ferrous Sulfate) 65 Mg Tab 65 Mg PO TIDPC Nystatin Liq 100,000 unit/ml Susp 5 Ml SWISH-SWAL QID Lasix (Furosemide) 20 Mg Tab 20 Mg PO DAILY Calcium Carbonate 1,500 Mg Tab 1,500 Mg PO BID 1,500 mg calcium carbonate (600 mg elemental calcium) Theophylline ER 12 HR (Theophylline) 300 Mg Tab 300 Mg PO Q12H Simvastatin 80 Mg Tab 80 Mg PO DAILY Potassium Chloride ER (Potassium Chloride) 20 Meq Tab 20 Meq PO BID Nitroglycerin SL (Nitroglycerin) 0.4 Mg Subl 0.4 Mg SL DIRECTED PRN ONE TABLET UNDER THE TONGUE NEEDED FOR CHEST PAIN, MAY REPEAT EVERY FIVE MINUTES FOR A TOTAL OF 3 DOSES OR CALL 911 IF NO RELIEF Lyrica (Pregabalin) 50 Mg Cap 50 Mg PO DAILY Levothyroxine (Levothyroxine Sodium) 125 Mcg Tab 125 Mcg PO DAILY Humalog Inj (Insulin Human Lispro) 1,000 Unit/10 Ml Vial 5 Units SQ TIDAC Review of Systems General / Constitutional: Positive: Fever, Chills Eyes: No: Visual changes HENT: No: Headaches Cardiovascular: No: Chest Pain or Discomfort Respiratory: Positive: Cough, No: Shortness of Breath Gastrointestinal: No: Abdominal Pain Genitourinary: No: Dysuria Musculoskeletal: Positive: Weakness, No: Pain Skin: No Rash Neurologic: Positive: Weakness Psychiatric: No: Depression Endocrine: No: Polydipsia Hematologic/Lymphatic: No: Easy Bruising Physical Exam Narrative GENERAL: Well-nourished, well-developed patient in no apparent distress. SKIN: Warm and dry. HEAD: Atraumatic. Normocephalic. EYES: Pupils equal and round. No scleral icterus. No injection or drainage. ENT: No nasal bleeding or discharge. Mucous membranes pink and moist. NECK: Trachea midline. No JVD. CARDIOVASCULAR: Regular rate and rhythm. No murmur appreciated. RESPIRATORY: No accessory muscle use. Scattered rhonchi without wheeze or crackle . Breath sounds equal bilaterally. GASTROINTESTINAL: Abdomen soft, non-tender, nondistended. Hepatic and splenic margins not palpable. MUSCULOSKELETAL: No obvious deformities. No clubbing. No cyanosis. No edema. NEUROLOGICAL: Awake and alert. No obvious cranial nerve deficits. Motor grossly within normal limits. Normal speech. PSYCHIATRIC: Appropriate mood and affect; insight and judgment normal. Back: No midline tenderness. He has a roughly 2 x 2 centimeter circular shaped sacral decubitus with no drainage or erythema Data Data Last Documented VS Vital Signs Date Time Temp Pulse Resp B/P Pulse Ox O2 Delivery O2 Flow Rate FiO2 04/17/16 20:34 18 94 Nasal Cannula 04/17/16 20:34 2 04/17/16 19:34 108 116/55 04/17/16 19:16 98.3 Orders Complete Blood Count With Diff (04/17/16 19:42) Comprehensive Metabolic Panel (04/17/16 19:42) Lactic Acid Sepsis Protocol (04/17/16 19:42) Urinalysis - C+S If Indicated (04/17/16 19:42) Blood Culture (04/17/16 19:42) Chest, Single Ap (04/17/16 19:42) Ecg Monitoring (04/17/16 19:42) Iv Access Insert/Monitor (04/17/16 19:42) Oximetry (04/17/16 19:42) Oxygen Administration (04/17/16 19:42) Sodium Chlor 0.9% 1000 Ml Inj (Ns 1000 M (04/17/16 19:45) Influenzae A/B Antigen (04/17/16 19:51) Urine Culture (04/17/16 19:53) Labs Laboratory Tests Test 04/17/16 04/17/16 04/17/16 19:45 19:53 19:55 White Blood Count 6.3 TH/MM3 Red Blood Count 3.13 MIL/MM3 Hemoglobin 8.5 GM/DL Hematocrit 25.7 % Mean Corpuscular Volume 82.1 FL Mean Corpuscular Hemoglobin 27.1 PG Mean Corpuscular Hemoglobin 33.0 % Concent Red Cell Distribution Width 18.4 % Platelet Count 145 TH/MM3 Mean Platelet Volume 9.1 FL Neutrophils (%) (Auto) 72.8 % Lymphocytes (%) (Auto) 17.0 % Monocytes (%) (Auto) 9.1 % Eosinophils (%) (Auto) 0.1 % Basophils (%) (Auto) 1.0 % Neutrophils # (Auto) 4.6 TH/MM3 Lymphocytes # (Auto) 1.1 TH/MM3 Monocytes # (Auto) 0.6 TH/MM3 Eosinophils # (Auto) 0.0 TH/MM3 Basophils # (Auto) 0.1 TH/MM3 CBC Comment DIFF FINAL Differential Comment Sodium Level 134 MEQ/L Potassium Level 3.7 MEQ/L Chloride Level 96 MEQ/L Carbon Dioxide Level 29.8 MEQ/L Anion Gap 8 MEQ/L Blood Urea Nitrogen 12 MG/DL Creatinine 1.25 MG/DL Estimat Glomerular Filtration 57 ML/MIN Rate Random Glucose 119 MG/DL Calcium Level 7.5 MG/DL Total Bilirubin 0.4 MG/DL Aspartate Amino Transf 18 U/L (AST/SGOT) Alanine Aminotransferase 7 U/L (ALT/SGPT) Alkaline Phosphatase 62 U/L Total Protein 5.2 GM/DL Albumin 1.7 GM/DL Urine Color YELLOW Urine Turbidity CLEAR Urine pH 5.5 Urine Specific [place] 1.016 Urine Protein TRACE mg/dL Urine Glucose (UA) NEG mg/dL Urine Ketones NEG mg/dL Urine Occult Blood TRACE Urine Nitrite NEG Urine Bilirubin NEG Urine Urobilinogen LESS THAN 2.0 MG/DL Urine Leukocyte Esterase MOD Urine RBC 14 /hpf Urine WBC 18 /hpf Urine Bacteria OCC /hpf Urine Mucus FEW /lpf Urine Yeast (Budding) OCC Microscopic Urinalysis Comment CATH-CULTURE IND Lactic Acid Level 1.6 mmol/L MDM Medical Decision Making Medical Screen Exam Complete: Yes Emergency Medical Condition: Yes Medical Record Reviewed: Yes Differential Diagnosis Pneumonia, UTI, sepsis Narrative Course I have reviewed the patient's electronic medical record. Reviewed his recent admission and long-term paperwork. There are documented fevers yesterday and today. Reviewed his lab studies from 1 week ago. IV placed 2 sets of blood cultures obtained I gave him 1 L normal saline IV Initial blood pressure 115 systolic and heart rate of 90 I reviewed his chest x-ray is reviewed and looks better than the prior. Urinalysis shows a scant few white cells but in a chronically catheterize person I would defer any treatment to culture CBC is normal Metabolic profile is normal LFTs are normal Lactate is normal Patient has been afebrile here throughout and is basically asymptomatic and feels fine I discussed with nurse practitioner coverage. I'm discharging him back to the long-term for close follow-up there. I don't feel he needs rehospitalization. Influenza also is negative. Lactate Diagnosis Primary Impression: Acute febrile illness Additional Instructions: Follow-up with long-term [facility] Med/Other Pt SpecificInfo: Other Disposition: 03 DISCHARGE TO SNF Condition: Stable Jason Nava MD Apr 17, 2016 19:51
--- NOTE | 2016-04-17 20:11 | RADRPT ---
EXAM DATE/TIME: 04/17/2016 19:55 [facility] COMPARISON: CHEST SINGLE AP, April 02, 2016, 10:40. INDICATIONS : Fever. MEDICAL HISTORY : None. SURGICAL HISTORY : None. ENCOUNTER: Initial ACUITY: 1 day PAIN SCORE: Non-responsive. LOCATION: Bilateral chest FINDINGS: Right pleural effusion with mild basilar consolidation slightly improved in the interim. Left lung re natasha reasonably clear. No pneumothorax seen. Heart size stable, upper limits of normal. CONCLUSION: Partially resolved versus recurrent pleural effusion and mild consolidation at the right base. Romel Beltran MD on April 17, 2016 at 20:09 Board Certified Radiologist. This report was verified electronically.
[2016-04-17] MEDS ORDERED: MULT1TAB78 PO (20:16)
[2016-04-17] MEDS ORDERED: MAGN1TAB PO (20:16)
[2016-04-17] MEDS ORDERED: NYST1000 SWISH-SWAL (20:16)
[2016-04-17] MEDS ORDERED: IPRASOL INH (20:16)
[2016-04-17] MEDS ORDERED: DIFL100T PO (20:16)
[2016-04-17] MEDS ORDERED: FERR65TA PO (20:16)
[2016-04-17] MEDS ORDERED: TAMS5CAP PO (20:16)
[2016-04-17] MEDS ORDERED: FURO1TAB62 PO (20:16)
[2016-04-17] MEDS ORDERED: DIFFCHW PO (20:16)
[2016-04-17] MEDS ORDERED: INSU1INJ5 SQ (20:16)
[2016-04-17] MEDS ORDERED: ACET1CAP18 PO (20:16)
[2016-04-17 20:29] LABS: AUTOMATED NEUTROPHIL # 4.6 TH/MM3 (1.8-7.7); BASOPHIL # 0.1 TH/MM3 (0-0.2); EOSINOPHIL % 0.1 % (0.0-4.0); HEMATOCRIT 25.7 % (39.0-51.0); HEMO FLAGS DIFF FINAL; LYMPHOCYTE # 1.1 TH/MM3 (1.0-4.8); MEAN CELL VOLUME 82.1 FL (80.0-100.0); MEAN CORPUSCULAR HEMOGLOBIN 27.1 PG (27.0-34.0); MONO % 9.1 % (0.0-8.0); NEUT % 72.8 % (16.0-70.0); PLATELET COUNT 145 TH/MM3 (150-450); RED BLOOD COUNT 3.13 MIL/MM3 (4.50-5.90); RED CELL DISTRIBUTION WIDTH 18.4 % (11.6-17.2); WHITE BLOOD COUNT 6.3 TH/MM3 (4.0-11.0)
[2016-04-17 20:29] LABS: BACTERIA, URINE OCC /hpf; BLOOD, URINE TRACE (NEG); GLUCOSE,URINE NEG (NEG); KETONE, URINE NEG (NEG); MUCUS URINE FEW /lpf (OCC); NITRITE,URINE NEG (NEG); PH, URINE 5.5 (5.0-8.5); URINE COLOR YELLOW (YELLW/STRAW)
[2016-04-17 20:30] LABS: COMMENT (UR) CATH-CULTURE IND; CULTURE IF INDICATED CATH CULTURE IND
[2016-04-17 20:34] VITALS: RESP 18; O2SAT 94
[2016-04-17 20:45] LABS: ANION GAP 8 MEQ/L (5-15)
[2016-04-17 20:48] LABS: ALKALINE PHOSPHATASE 62 U/L (45-117); ALT (GPT) 7 U/L (12-78); AST (GOT) 18 U/L (15-37); BICARBONATE 29.8 MEQ/L (21.0-32.0); BLOOD UREA NITROGEN 12 MG/DL (7-18); CHLORIDE 96 MEQ/L (98-107); GLOMERULAR FILTRATION RATE 57 ML/MIN (>89); POTASSIUM 3.7 MEQ/L (3.5-5.1); SODIUM (NA) 134 MEQ/L (136-145); TOTAL BILIRUBIN ADULT 0.4 MG/DL (0.2-1.0)
== END 2016-04-17 23:07 ==
LOC: NEPA 19:13
DX: R50.9 Fever, unspecified (principal); R05 Cough; R53.1 Weakness; L89.159 Pressure ulcer of sacral region, unspecified stage; E78.00 Pure hypercholesterolemia, unspecified; H91.90 Unspecified hearing loss, unspecified ear; I10 Essential (primary) hypertension; E07.9 Disorder of thyroid, unspecified; I25.2 Old myocardial infarction; Z99.81 Dependence on supplemental oxygen; Z86.2 Personal history of diseases of the blood and blood-forming organs and certain disorders involving the immune mechanism; Z87.09 Personal history of other diseases of the respiratory system; Z86.59 Personal history of other mental and behavioral disorders; Z86.79 Personal history of other diseases of the circulatory system; Z87.01 Personal history of pneumonia (recurrent)
CPT/HCPCS: 71010; 80053; 81001; 83605; 85025; 87040; 87086; 87804; 99283; J7030

== ENCOUNTER 2016-04-22 22:46 | Inpatient (IN) | payer OTHER, MEDICARE ==
[~2016-04-22] VITALS: Ht 170.2 cm; Wt 77.5 kg
[~2016-04-22 22:46] MED LIST changes: +ACET1CAP18 PO; +CALC600T4 PO; +DIFFCHW PO; +DIFL100T PO; +FERR65TA PO; +FURO1TAB62 PO; +INSU1INJ5 SQ; +IPRASOL INH; -LEVEMIR SQ; +MAGN1TAB PO; -METR-1 PO; +MULT1TAB78 PO; +NYST1000 SWISH-SWAL; -PRED5TAB PO; +TAMS5CAP PO
[2016-04-22 22:54] VITALS: BP 130/63; PULSE 83; RESP 16; TEMP 98.6; O2SAT 100
[2016-04-22] MEDS ORDERED: AZTREONAM INJ 2,000 MG in SODIUM CHLORIDE 0.9% INJ 100 ML IV STA (23:14)
[2016-04-22] MEDS ORDERED: VANCOMYCIN INJ 1,000 MG in SODIUM CHLOR 0.9% 250 ML INJ 250 ML IV STA (23:14)
[2016-04-22] MEDS ORDERED: metroNIDAZOLE 500 MG INJ 100 ML IV STA (23:14)
[2016-04-22] MEDS ORDERED: SODIUM CHLOR 0.9% 1000 ML INJ 1,000 ML IV ONE (23:15)
--- NOTE | 2016-04-22 23:32 | PD ---
HPI Chief Complaint: Altered Mental Status Time Seen by Provider: 23:13 Travel History International Travel<30 days: No Contact w/Intl Traveler<30days: No Traveled to known affect area: No History of Present Illness HPI The patient is a 71 year old male who presents to the [facility] emergency department with a history of febrile illness that has intermittently been present for the last several days at his retirement. The patient's primary care physician is Dr. Calles. According to a note that was written by , the patient developed a fever again on April 16 with a MAXIMUM TEMPERATURE of 102. Patient was also noted to be tachycardic at 100 and O2 saturations of 90% on his 2 L. According to the record he had been on Levaquin and completed a course April 13, however when his temperature went back up again he was restarted on April 16. Due to concerns about sepsis he was sent over to the emergency department for continued evaluation and treatment after he continued to be febrile. The patient arrives awake and alert. The patient is currently afebrile. The patient was brought in by medical transport. The patient reports having body aches, sore on his sacrum, and generalized weakness. He reports that he has no appetite and a dry mouth. The patient reports having a productive cough for weeks. The patient denies any recent neck pain, chest pain , shortness of breath, abdominal pain, vomiting, diarrhea, or urinary symptoms. The patient denies any focal weakness. According to the retirement record the patient has had some altered mental status. FOR[facility]LY [facility] Past Medical History Narrative Medical The patient's past medical history is significant for having a GI bleed previously, history of type 2 diabetes mellitus, COPD, chronic renal insufficiency, coronary artery disease, hypothyroid disorder. Anemia: Yes Asthma: Yes Anxiety: Yes Depression: Yes Heart Rhythm Problems: Yes Cardiovascular Problems: Yes (5 stents, 2 mi) High Cholesterol: Yes Chest Pain: Yes COPD: Yes Diminished Hearing: Yes Hypertension: Yes Respiratory: Yes (copd 02 dependent) Myocardial Infarction: Yes Pneumonia: Yes Thyroid Disease: Yes Tetanus Vaccination: Unknown Past Surgical History Narrative Surgical The patient's past surgical history is significant for a bladder surgery, tonsillectomy. Cardiac Surgery: Yes (5 stents ) Social History Alcohol Use: No Tobacco Use: No (1 03/31 PPD) Substance Use: No Allergies-Medications (Allergen,Severity, Reaction): Coded Allergies: Penicillin (Verified Allergy, Mild, 04/22/16) Reported Meds & Prescriptions Reported Meds & Active Scripts Active Spiriva Handihaler (Tiotropium Inh) 18 Mcg Cap 18 Mcg INH DAILY Oxygen tank (Oxygen) 1 Ea Tank 2 Liter ANA.CANULA CONTINUOUS Oxygen Concentrator Portable Gaseous 2 L/min via Nasal Cannula Continuous For 99 months Lortab (Hydrocodone-Acetaminophen) 5-325 Mg Tab 1 Tab PO Q8HR PRN Ativan (Lorazepam) 1 Mg Tab 1 Mg PO Q8HR PRN Trazodone (Trazodone HCl) 50 Mg Tab 50 Mg PO HS K-Phos Neutral (Potassium Phos/Sodium Phos) 155-852-130 Mg Tab 250 Mg PO PCHS Pantoprazole (Pantoprazole Sodium) 40 Mg Tab 40 Mg PO DAILY Metoprolol Tartrate 25 Mg Tab 25 Mg PO Q8HR Levaquin (Levofloxacin) 500 Mg Tab 500 Mg PO Q24H Isosorbide Mononitrate ER (Isosorbide Mononitrate) 30 Mg Huber 30 Mg PO DAILY@07 Amiodarone (Amiodarone HCl) 200 Mg Tab 200 Mg PO DAILY 30 Days Ventolin Hfa 18 GM Inh (Albuterol Sulfate) 90 Mcg/Act Aer 2 Puff INH Q4HR PRN Reported Diff-Stat (Probiotic Product) 1 Cap Cap 1 Caplet PO BID Duoneb (Ipratropium-Albuterol Neb) 0.5-2.5 Mg/3 Ml Neb 1 Nebule INH Q6HR NEB Tylenol (Acetaminophen) 325 Mg Cap 650 Mg PO Q6H PRN Magnesium Oxide 500 Mg Tab 500 Mg PO DAILY Multivitamin Adults 50+ (Multiple Vitamins W/ Minerals) 1 Tab Tab 1 Cap PO DAILY Flomax (Tamsulosin HCl) 0.4 Mg Cap 0.4 Mg PO HS Levemir Flextouch Pen Inj (Insulin Detemir) 300 unit/3 ML Pen 8 Units SQ DAILY Diflucan (Fluconazole) 100 Mg Tab 100 Mg PO DAILY Feosol (Ferrous Sulfate) 65 Mg Tab 65 Mg PO TIDPC Nystatin Liq 100,000 unit/ml Susp 5 Ml SWISH-SWAL QID Lasix (Furosemide) 20 Mg Tab 20 Mg PO DAILY Calcium Carbonate 1,500 Mg Tab 1,500 Mg PO BID 1,500 mg calcium carbonate (600 mg elemental calcium) Theophylline ER 12 HR (Theophylline) 300 Mg Tab 300 Mg PO Q12H Simvastatin 80 Mg Tab 80 Mg PO DAILY Potassium Chloride ER (Potassium Chloride) 20 Meq Tab 20 Meq PO BID Nitroglycerin SL (Nitroglycerin) 0.4 Mg Subl 0.4 Mg SL DIRECTED PRN ONE TABLET UNDER THE TONGUE NEEDED FOR CHEST PAIN, MAY REPEAT EVERY FIVE MINUTES FOR A TOTAL OF 3 DOSES OR CALL 911 IF NO RELIEF Lyrica (Pregabalin) 50 Mg Cap 50 Mg PO DAILY Levothyroxine (Levothyroxine Sodium) 125 Mcg Tab 125 Mcg PO DAILY Humalog Inj (Insulin Human Lispro) 1,000 Unit/10 Ml Vial 5 Units SQ TIDAC Review of Systems Except as stated in HPI: all other systems reviewed are Neg General / Constitutional: Positive: Fever, Chills Eyes: No: Visual changes HENT: Positive: Congestion, No: Headaches, Rhinorrhea Cardiovascular: Positive: Dyspnea on exertion, No: Chest Pain or Discomfort Respiratory: Positive: Cough, No: Shortness of Breath Gastrointestinal: Positive: Loss of Appetite, No: Nausea, Vomiting, Diarrhea, Abdominal Pain, Changes in Bowel Habits, Indigestion Genitourinary: No: Urgency, Frequency, Dysuria, Flank Pain Musculoskeletal: Positive: Myalgias, Arthralgias, Pain Skin: No Rash Neurologic: Positive: Weakness (generalized weakness), Change in Mentation, No : Focal Abnormalities, Slurred Speech, Sensory Disturbance Psychiatric: No: Depression Endocrine: No: Polydipsia Hematologic/Lymphatic: No: Easy Bruising Physical Exam Narrative General: The patient is a well-developed well-nourished male in no acute distress. Head and Neck exam: Head is normocephalic atraumatic. Eyes: Pupils are equal round and reactive to light. Nose: Midline septum with pink mucous membranes Mouth: Dentition unremarkable. Dry mucus membranes. Posterior oropharynx is not erythematous. No tonsillar hypertrophy. Uvula midline. Airway patent. Neck: No palpable lymphadenopathy. No nuchal rigidity. No thyromegaly. Cardiovascular: Regular rate and rhythm without murmurs, gallops, or rubs. Lungs: Clear to auscultation bilaterally. No wheezes, rhonchi, or rales. Abdomen: Soft, without tenderness to palpation in all 4 quadrants of the abdomen. No guarding, rebound, or rigidity. Normal bowel sounds are audible. The patient has an umbilical hernia that is noted, however easily reducible and nontender to palpation. Extremities: No clubbing, cyanosis, or edema. 2+ pulses in all 4 extremities. No calf tenderness on palpation. Back: No spinous process tenderness to palpation. No costovertebral angle tenderness to palpation. Neurologic Exam: Grossly nonfocal. Skin Exam: The patient has a sacral decubitus ulcer that is approximately 1 cm deep and 3 cm wide. A culture from the base of the ulcer was done. The patient 's skin is dry area the patient has poor skin turgor. Data Data Last Documented VS Vital Signs Date Time Temp Pulse Resp B/P Pulse Ox O2 Delivery O2 Flow Rate FiO2 04/23/16 01:00 98.6 87 16 122/57 93 Nasal Cannula 2 Orders Electrocardiogram (04/22/16 23:14) Complete Blood Count With Diff (04/22/16 23:14) Comprehensive Metabolic Panel (04/22/16 23:14) Prothrombin Time / Inr (Pt) (04/22/16 23:14) Act Partial Throm Time (Ptt) (04/22/16 23:14) Lactic Acid Sepsis Protocol (04/22/16 23:14) Magnesium (Mg) (04/22/16 23:14) Lipase (04/22/16 23:14) Ckmb (Isoenzyme) Profile (04/22/16 23:14) Troponin I (04/22/16 23:14) Urinalysis - C+S If Indicated (04/22/16 23:14) Influenzae A/B Antigen (04/22/16 23:14) Blood Culture (04/22/16 23:14) Wound Culture And Gram Stain (04/22/16 23:14) Chest, Single Ap (04/22/16 23:14) Blood Glucose (04/22/16 23:14) Ecg Monitoring (04/22/16 23:14) Iv Access Insert/Monitor (04/22/16 23:14) Oximetry (04/22/16 23:14) Oxygen Administration (04/22/16 23:14) Vancomycin Inj (Vancomycin Inj) (04/22/16 23:14) Aztreonam Inj (Azactam Inj) (04/22/16 23:14) Metronidazole 500 Mg Inj (Flagyl 500 Mg (04/22/16 23:14) Sodium Chlor 0.9% 1000 Ml Inj (Ns 1000 M (04/22/16 23:15) Urine Culture (04/22/16 23:20) CKMB (04/22/16 23:00) CKMB% (04/22/16 23:00) Admit Order (Ed Use Only) (04/23/16 01:10) Labs Laboratory Tests Test 04/22/16 04/22/16 04/22/16 23:00 23:10 23:20 Prothrombin Time 13.9 SEC Prothromb Time International 1.2 RATIO Ratio Activated Partial 33.4 SEC Thromboplast Time White Blood Count 5.4 TH/MM3 Red Blood Count 3.49 MIL/MM3 Hemoglobin 9.4 GM/DL Hematocrit 28.3 % Mean Corpuscular Volume 81.0 FL Mean Corpuscular Hemoglobin 26.9 PG Mean Corpuscular Hemoglobin 33.2 % Concent Red Cell Distribution Width 18.0 % Platelet Count 218 TH/MM3 Mean Platelet Volume 9.4 FL Neutrophils (%) (Auto) 60.3 % Lymphocytes (%) (Auto) 28.4 % Monocytes (%) (Auto) 7.8 % Eosinophils (%) (Auto) 2.8 % Basophils (%) (Auto) 0.7 % Neutrophils # (Auto) 3.3 TH/MM3 Lymphocytes # (Auto) 1.5 TH/MM3 Monocytes # (Auto) 0.4 TH/MM3 Eosinophils # (Auto) 0.1 TH/MM3 Basophils # (Auto) 0.0 TH/MM3 CBC Comment DIFF FINAL Differential Comment Sodium Level 131 MEQ/L Potassium Level 4.5 MEQ/L Chloride Level 95 MEQ/L Carbon Dioxide Level 28.0 MEQ/L Anion Gap 8 MEQ/L Blood Urea Nitrogen 9 MG/DL Creatinine 1.21 MG/DL Estimat Glomerular Filtration 59 ML/MIN Rate Random Glucose 74 MG/DL Calcium Level 8.0 MG/DL Magnesium Level 1.7 MG/DL Total Bilirubin 0.6 MG/DL Aspartate Amino Transf 27 U/L (AST/SGOT) Alanine Aminotransferase 6 U/L (ALT/SGPT) Alkaline Phosphatase 85 U/L Total Creatine Kinase 155 U/L Creatine Kinase MB 1.5 NG/ML Troponin I 0.02 NG/ML Total Protein 6.1 GM/DL Albumin 1.8 GM/DL Lipase 333 U/L Lactic Acid Level 0.9 mmol/L Urine Color YELLOW Urine Turbidity CLEAR Urine pH 7.0 Urine Specific [place] 1.012 Urine Protein TRACE mg/dL Urine Glucose (UA) NEG mg/dL Urine Ketones NEG mg/dL Urine Occult Blood NEG Urine Nitrite NEG Urine Bilirubin NEG Urine Urobilinogen LESS THAN 2.0 MG/DL Urine Leukocyte Esterase MOD Urine RBC 3 /hpf Urine WBC 15 /hpf Urine Renal Epithelial Cells <1 /hpf Urine Mucus FEW /lpf Urine Yeast (Budding) RARE Microscopic Urinalysis Comment CATH-CULTURE IND MDM Medical Decision Making Medical Screen Exam Complete: Yes Emergency Medical Condition: Yes Medical Record Reviewed: Yes Interpretation(s) Last Impressions Chest X-Ray 04/22/16 [id number] Signed Impressions: Service Date/Time: Friday, April 22, 2016 23:33 - CONCLUSION: Linear infiltrate in the right lung base. Stable mild cardiomegaly. Mor Ruiz MD Differential Diagnosis Sepsis related to urinary tract infection or pneumonia, versus dehydration, versus electrolyte abnormality Narrative Course During the course of the patients emergency department visit, the patients history, examination, and differential diagnosis were reviewed with the patient. The patient had IV access obtained and blood work sent for analysis. The patient was placed on a predatory animal hunter with oximetry and blood pressure monitoring. The patient had an EKG done on arrival. The patient's EKG shows a sinus rhythm heart rate of 81, right bundle branch block, no acute ST segment changes are noted. A lactic acid was sent for analysis, blood cultures 2 were ordered, chest x-ray was ordered. The patient has a Baca catheter. Urine will be sent for analysis. The patient was provided normal saline 1 L IV fluid bolus. The patient was started on vancomycin, imipenem, and Flagyl IV for suspected sepsis of unknown source. The patients laboratory studies were reviewed and remarkable for a normal white count, hemoglobin of 9.4 which is similar to previous studies, lactic acid is 0.9. Sodium is 131. Albumin 1.8, lipase 333 urinalysis shows evidence of pyuria. Radiology studies were reviewed and remarkable for a chest x-ray that shows a right lung base infiltrate. The patients results were discussed with the patient, including the plan of care. I explained that further testing and/ or monitoring is indicated based on the patients history, examination, and/ or laboratory findings. Therefore, I recommended admission for additional evaluation. The patient expressed understanding and was agreeable with this plan. The patient was admitted to the hospital in stable condition and sent to a bed under the care of the [facility] service. Physician Communication Physician Communication The patient's case was discussed with Dr. Jackson who did agree to admit the patient for further evaluation and treatment at this time. Diagnosis Primary Impression: Lung infiltrate Additional Impressions: Urinary tract infection Qualified Code: T83.511A - Urinary tract infection associated with indwelling urethral catheter, initial encounter Anemia Qualified Code: D64.9 - Anemia, unspecified type Admitting Information Admitting Physician Requests: Admit Christa Nash MD Apr 22, 2016 23:32
[2016-04-22 23:34] LABS: AUTOMATED NEUTROPHIL # 3.3 TH/MM3 (1.8-7.7); BASOPHIL % 0.7 % (0.0-2.0); EOSINOPHIL # 0.1 TH/MM3 (0-0.4); EOSINOPHIL % 2.8 % (0.0-4.0); HEMATOCRIT 28.3 % (39.0-51.0); HEMO FLAGS DIFF FINAL; LYMPH % 28.4 % (9.0-44.0); LYMPHOCYTE # 1.5 TH/MM3 (1.0-4.8); MEAN CORPUSCULAR HEMOGLOBIN 26.9 PG (27.0-34.0); MEAN CORPUSCULAR HGB CONC 33.2 % (32.0-36.0); MONO % 7.8 % (0.0-8.0); NEUT % 60.3 % (16.0-70.0); PLATELET COUNT 218 TH/MM3 (150-450); RED BLOOD COUNT 3.49 MIL/MM3 (4.50-5.90); WHITE BLOOD COUNT 5.4 TH/MM3 (4.0-11.0)
[2016-04-22 23:38] LABS: APTT (PATIENT) 33.4 SEC (24.3-30.1); INTERNATIONAL NORMALIZED RATIO 1.2 RATIO; PROTHROMBIN TIME - PATIENT 13.9 SEC (9.8-11.6)
[2016-04-22 23:49] LABS: BLOOD, URINE NEG (NEG); GLUCOSE,URINE NEG (NEG); KETONE, URINE NEG (NEG); MUCUS URINE FEW /lpf (OCC); NITRITE,URINE NEG (NEG); RENAL EPITHELIAL CELLS <1 /hpf; URINE COLOR YELLOW (YELLW/STRAW)
[2016-04-22 23:50] LABS: COMMENT (UR) CATH-CULTURE IND; CULTURE IF INDICATED CATH CULTURE IND
--- NOTE | 2016-04-22 23:59 | RADRPT ---
EXAM DATE/TIME: 04/22/2016 23:33 [facility] COMPARISON: CHEST SINGLE AP, April 17, 2016, 19:55. INDICATIONS : Cough. MEDICAL HISTORY : Hypertension. Myocardial infarction. Chronic obstructive pulmonary disease. Thyroid disease, Irre gular heartbeat, Asthma, Pneumonia, Depression, Anxiety, Anemia SURGICAL HISTORY : Coronary artery stent. ENCOUNTER: Initial ACUITY: 3 weeks PAIN SCORE: 0/10 LOCATION: Bilateral chest FINDINGS: There is a linear infiltrate in the right lung base. The left lung base is clear. The heart size is e nlarged but stable. No pleural effusions. No definite pulmonary edema. The bony structures are stable with degenerative changes at both shoulder joints. CONCLUSION: Linear infiltrate in the right lung base. Stable mild cardiomegaly. Mor Ruiz MD on April 22, 2016 at 23:56 Board Certified Radiologist. This report was verified electronically.
[2016-04-23] VITALS (22 sets, daily range): BP systolic 107–126; BP diastolic 51–64; PULSE 85–119; RESP 14–20; TEMP 98.4–100; O2SAT 90–97
[2016-04-23 00:05] LABS: ALKALINE PHOSPHATASE 85 U/L (45-117); ALT (GPT) 6 U/L (12-78); ANION GAP 8 MEQ/L (5-15); AST (GOT) 27 U/L (15-37); BLOOD UREA NITROGEN 9 MG/DL (7-18); CHLORIDE 95 MEQ/L (98-107); CREATINE KINASE 155 U/L (39-308); GLOMERULAR FILTRATION RATE 59 ML/MIN (>89); MAGNESIUM 1.7 MG/DL (1.5-2.5); POTASSIUM 4.5 MEQ/L (3.5-5.1); SODIUM (NA) 131 MEQ/L (136-145); TOTAL BILIRUBIN ADULT 0.6 MG/DL (0.2-1.0)
[2016-04-23 00:18] LABS: CKMB 1.5 NG/ML (0.5-3.6)
[2016-04-23] MEDS ORDERED: NALOXONE HCL 0.4 MG/ML AMP IV PRN (01:30)
[2016-04-23] MEDS ORDERED: Vancomycin Consult Pharmacy 1 EA OTHER SCH (01:30)
[2016-04-23] MEDS ORDERED: SODIUM CHLORIDE 0.9% FLUSH 5 ML FLUSH FLUSH PRN (01:30)
[2016-04-23] MEDS ORDERED: RESP: ALBUTEROL 2.5 MG/IPRATROPIUM 0.5 MG NEB (SCH) NEB ONE (01:30)
--- NOTE | 2016-04-23 05:58 | HHI.HP ---
HPI Service [facility] Primary Care Physician Bertha Kc MD Admission Diagnosis Febrile illness, pneumonia, uti, ams Diagnoses: Chief Complaint: I am very weak, I cannot get up, had fever, cough Travel History International Travel<30 Days: No Contact w/Intl Traveler <30 Da: No Traveled to Known Affected Are: No History of Present Illness History from patient, ER physician communication, and review of medical records. Patient reported that he was sent from the rehabilitation facility because he was too weak and not able to get up and be on his feet. He states that he was also having cough. Reports of fever. However denies any nausea/vomiting/abdominal pain/shortness of breath. Denies any blood in stool or urine as far as he knows. Patient states he has been at the rehabilitation facility for about a day. He states that he was hospitalized at [facility] for about a week for the treatment of pneumonia. He is not sure whether he was in ICU. However he denies being on ventilator. It seems that he was actually sent to the hospital on April 17, 2016 for febrile illness. He was discharged back to the nursing facility to be on Levaquin. He apparently was on Levaquin for about a week at [facility] prior to that. Patient also has indwelling Baca catheter. He stated he had Baca catheter placed about 3 months ago. Also have sacral decubitus which she states was about 3 months duration as well. As per care home transfer notes, patient was also having altered mental status at the care home together with intermittent fevers. His blood pressure was 116/55, heart rate of 93, with 98% O2 sat. His sedimentation rate was 90. However while in emergency room, patient is awake alert and oriented although he is chronically weak and ill. There was no neck rigidity or photophobia. Review of Systems ROS Limitations: Poor Historian Constitutional: COMPLAINS OF: Fatigue, Chills, DENIES: Fever, Weight gain, Weight loss, Dizziness Endocrine: DENIES: Heat/cold intolerance, Polydipsia, Polyuria Respiratory: COMPLAINS OF: Cough, Wheezing, Shortness of breath, DENIES: Apneas, Snoring, Hemoptysis, Sputum production Cardiovascular: DENIES: Chest pain, Palpitations, Syncope, Dyspnea on Exertion , PND, Lower Extremity Edema, Orthopnea, Claudication Gastrointestinal: DENIES: Abdominal pain, Black stools, Bloody stools, Constipation, Diarrhea, Nausea, Vomiting, Difficulty Swallowing, Anorexia Genitourinary: COMPLAINS OF: Urinary incontinence, DENIES: Urinary frequency, Urgency, Hematuria, Dysuria Musculoskeletal: COMPLAINS OF: Muscle aches, Stiffness, Back pain Integumentary: COMPLAINS OF: Abnormal pigmentation Hematologic/lymphatic: COMPLAINS OF: Bruising Neurologic: COMPLAINS OF: Abnormal gait, Paresthesias, Poor Balance Past Family Social History Past Medical History Hypertension Atrial fibrillation COPDreports on home oxygen 2 L. 20/10. Neuropathy History of recent pneumoniarequiring hospitalization Chronic bilateral lower extremity edema Sacral decubiti Indwelling Baca Past Surgical History Coronary angiograms and stenting Reported Medications Patient's medications list from the care home reviewed Allergies: Coded Allergies: Penicillin (Verified Allergy, Mild, 04/22/16) Family History Reports of history of diabetes and heart failure in the mother . Fatherunknown history. Social History Denies smoking/alcohol abuse/drug abuse. Admits to being a long-term smoker previously. Physical Exam Vital Signs Vital Signs Date Time Temp Pulse Resp B/P Pulse Ox O2 Delivery O2 Flow Rate FiO2 04/23/16 05:00 102 18 107/52 97 Venturi Mask 04/23/16 02:15 92 Venturi Mask 6.00 50 04/23/16 01:00 98.6 87 16 122/57 93 Nasal Cannula 2 04/22/16 23:03 100 Nasal Cannula 2 04/22/16 23:00 100 Nasal Cannula 2 04/22/16 22:54 98.6 83 16 130/63 100 Physical Exam GENERAL: This is a well-nourished, well-developed patient, in no apparent distress. SKIN: multiple echymotic lesions on bialteral UE HEAD: Atraumatic. Normocephalic. No temporal or scalp tenderness. EYES:No scleral icterus. No injection or drainage. ENT: Nose without bleeding, purulent drainage or septal hematoma. Airway patent. NECK: Trachea midline. No JVD CARDIOVASCULAR: Regular rate and rhythm without murmurs, gallops, or rubs. RESPIRATORY: Clear to auscultation. Breath sounds equal bilaterally. No wheezes , rales, or rhonchi. GASTROINTESTINAL: Abdomen soft, non-tender, nondistended.. No guarding. MUSCULOSKELETAL: Extremities without clubbing, cyanosis. No calf tenderness. bilateral LE pitting edema 1+ up to kees NEUROLOGICAL: Awake and alert.Motor and sensory grossly within normal limits. Normal speech. Laboratory Laboratory Tests Test 04/22/16 04/22/16 04/22/16 23:00 23:10 23:20 Prothrombin Time 13.9 Prothromb Time International 1.2 Ratio Activated Partial 33.4 Thromboplast Time White Blood Count 5.4 Red Blood Count 3.49 Hemoglobin 9.4 Hematocrit 28.3 Mean Corpuscular Volume 81.0 Mean Corpuscular Hemoglobin 26.9 Mean Corpuscular Hemoglobin 33.2 Concent Red Cell Distribution Width 18.0 Platelet Count 218 Mean Platelet Volume 9.4 Neutrophils (%) (Auto) 60.3 Lymphocytes (%) (Auto) 28.4 Monocytes (%) (Auto) 7.8 Eosinophils (%) (Auto) 2.8 Basophils (%) (Auto) 0.7 Neutrophils # (Auto) 3.3 Lymphocytes # (Auto) 1.5 Monocytes # (Auto) 0.4 Eosinophils # (Auto) 0.1 Basophils # (Auto) 0.0 CBC Comment DIFF FINAL Differential Comment Sodium Level 131 Potassium Level 4.5 Chloride Level 95 Carbon Dioxide Level 28.0 Anion Gap 8 Blood Urea Nitrogen 9 Creatinine 1.21 Estimat Glomerular Filtration 59 Rate Random Glucose 74 Calcium Level 8.0 Magnesium Level 1.7 Total Bilirubin 0.6 Aspartate Amino Transf 27 (AST/SGOT) Alanine Aminotransferase 6 (ALT/SGPT) Alkaline Phosphatase 85 Total Creatine Kinase 155 Creatine Kinase MB 1.5 Troponin I 0.02 Total Protein 6.1 Albumin 1.8 Lipase 333 Lactic Acid Level 0.9 Urine Color YELLOW Urine Turbidity CLEAR Urine pH 7.0 Urine Specific [place] 1.012 Urine Protein TRACE Urine Glucose (UA) NEG Urine Ketones NEG Urine Occult Blood NEG Urine Nitrite NEG Urine Bilirubin NEG Urine Urobilinogen LESS THAN 2.0 Urine Leukocyte Esterase MOD Urine RBC 3 Urine WBC 15 Urine Renal Epithelial Cells <1 Urine Mucus FEW Urine Yeast (Budding) RARE Microscopic Urinalysis Comment CATH-CULTURE IND Date/Time Procedure Status Source Growth 04/22/16 23:25 Influenza Types A,B Antigen (PHAM) - Final Complete Nasal Aspirate NEGATIVE FOR FLU A AND B ANTIGEN.... 04/22/16 23:20 Urine Culture Received Urine Catheterized Urine Pending 04/22/16 23:05 Aerobic Blood Culture Received Blood Peripheral Pending 04/22/16 23:05 Anaerobic Blood Culture Received Blood Peripheral Pending 04/22/16 23:00 Gram Stain Received Wound Buttock Pending 04/22/16 23:00 Wound Culture Received Wound Buttock Pending Result Diagram: 04/22/16 2300 04/22/16 2300 Imaging Last 48 hours Impressions Chest X-Ray 04/22/16 2314 Signed Impressions: Service Date/Time: Friday, April 22, 2016 23:33 - CONCLUSION: Linear infiltrate in the right lung base. Stable mild cardiomegaly. Mor Ruiz MD Assessment and Plan Problem List: (1) Acute febrile illness ICD Code: R50.9 Status: Acute (2) Urinary tract infection ICD Code: N39.0 Status: Acute (3) Lung infiltrate ICD Code: R91.8 Status: Acute Assessment and Plan Impression: Pneumoniafailed outpatient therapy UTIin patient with indwelling Baca Sacral decubiti Plan: Patient was given vancomycin, Azactam, and Flagyl in ER. We'll follow culture results. We'll follow patient clinically. For now, I would continue vancomycin for coverage of MRSA in this care home/ hospitalized patient. Also would start him on ciprofloxacin 400 mg IV every 12 hours for UTI coverage. Wound care consult. Physical therapy consult. Resume home medications. DVT prophylaxiswith heparin. GI prophylaxison pantoprazole. Discussed Condition With Patient, ER physician, ER nurse Physician Certification 2 Midnight Certification Type: Admission for Inpatient Services Order for Inpatient Services The services are ordered in accordance with Medicare regulations or non- Medicare payer requirements, as applicable. In the case of services not specified as inpatient-only, they are appropriately provided as inpatient services in accordance with the 2-midnight benchmark. Estimated LOS (days): 3 days is the estimated time the patient will need to remain in the hospital, assuming treatment plan goals are met and no additional complications. Post-Hospital Plan: SNF Problem Qualifiers (1) Urinary tract infection: Qualified Code: T83.511A - Urinary tract infection associated with indwelling urethral catheter, initial encounter Cindy Jackson MD Apr 23, 2016 05:58
[2016-04-23] MEDS: INSULIN ASPART 1,000 UNITS/10 ML VIAL SQ SCH ×3 (08:00→17:00)
[2016-04-23] MEDS: LEVOTHYROXINE SODIUM 125 MCG TAB PO SCH (08:06)
[2016-04-23] MEDS ORDERED: PILL SPLITTER OTHER PRN (08:15)
--- NOTE | 2016-04-23 08:49 | EKG ---
Date Performed: 04/22/2016 Time Performed: 23:06:16 PTAGE: 71 years EKG: BASELINE ARTIFACT PRESENT. Sinus rhythm RIGHT BUNDLE BRANCH BLOCK POSSIBLE ANTERIOR MYOCARDIAL INFARCTION ABNORMAL ECG COMPARED TO PRIOR SYLVIA CTROCARDIOGRAM, Both EKGs have significant artifact. I cannot accurately compare rhythms but I do no t see changes otherwise. PREVIOUS TRACING : 04/02/2016 12.23 DOCTOR: Mervin Barron Interpretating Date/Time 04/23/2016 08:47:43
[2016-04-23] MEDS: THEOPHYLLINE ER 12 HR 300 MG TABCR PO SCH ×2 (09:00→20:57)
[2016-04-23] MEDS ORDERED: PATIENT OWN MEDICATION SQ SCH (09:00)
[2016-04-23] MEDS ORDERED: INSULIN DETEMIR SQ SCH (09:00)
[2016-04-23] MEDS: MULTIVITAMIN HEMATINIC THERAPEUTIC TAB PO SCH (09:00)
[2016-04-23] MEDS: TIOTROPIUM BROMIDE 18 MCG INH INH SCH (09:00)
[2016-04-23] MEDS ORDERED: PANTOPRAZOLE SOD 40 MG DELAYED RELEASE TAB PO SCH (09:00)
[2016-04-23] MEDS ORDERED: PROBIOTIC PRODUCT PO SCH (09:00)
[2016-04-23] MEDS: RESP: ALBUTEROL 2.5 MG/IPRATROPIUM 0.5 MG NEB (SCH) INH ×4 (09:45→20:00)
[2016-04-23] MEDS: CIPROFLOXACIN 400 MG PREMIX 200 ML IV SCH ×2 (10:05→20:58)
[2016-04-23] MEDS: AMIODARONE 200 MG TAB PO SCH (10:06)
[2016-04-23] MEDS: FERROUS SULFATE 325 MG (65 MG ELEMENTAL IRON) TAB PO SCH ×3 (10:07→17:38)
[2016-04-23] MEDS: PREGABALIN 25 MG CAP PO SCH (10:09)
[2016-04-23] MEDS: PRAVASTATIN SOD 80 MG TAB PO SCH (10:09)
[2016-04-23] MEDS: PANTOPRAZOLE SOD 40 MG DELAYED RELEASE TAB PO SCH (10:10)
[2016-04-23] MEDS: MAGNESIUM OXIDE 400 MG TAB PO SCH (12:57)
[2016-04-23] MEDS: SODIUM CHLORIDE 0.9% FLUSH 5 ML FLUSH FLUSH SCH ×2 (12:57→20:58)
[2016-04-23] MEDS: HEPARIN SODIUM - SQ 10,000 UNITS/ML VIAL SQ SCH ×2 (13:01→22:38)
[2016-04-23] MEDS: METOPROLOL TARTRATE 25 MG TAB PO SCH ×2 (13:01→22:38)
[2016-04-23] MEDS ORDERED: VANCOMYCIN INJ 1,500 MG in SODIUM CHLORID 0.9% 500 ML INJ 500 ML IV SCH (14:00)
[2016-04-23] MEDS ORDERED: VANCOMYCIN INJ 1,300 MG in SODIUM CHLORID 0.9% 500 ML INJ 500 ML IV SCH (14:00)
[2016-04-23] MEDS: TAMSULOSIN HCL 0.4 MG CAP PO SCH (20:57)
[2016-04-23] MEDS: traZODone HCL 50 MG TAB PO SCH (20:57)
[2016-04-23] MEDS: LORazepam 1 MG TAB PO PRN (21:55)
[2016-04-24] VITALS (26 sets, daily range): BP systolic 96–128; BP diastolic 47–55; PULSE 70–100; RESP 18–24; TEMP 98.3–99.4; O2SAT 90–97
[2016-04-24] MEDS: RESP: ALBUTEROL 2.5 MG/IPRATROPIUM 0.5 MG NEB (SCH) INH ×7 (00:04→23:09)
[2016-04-24] MEDS: ACETAMINOPHEN/HYDROcodone 325 MG/5 MG TAB PO PRN ×2 (03:36→15:03)
[2016-04-24] MEDS: HEPARIN SODIUM - SQ 10,000 UNITS/ML VIAL SQ SCH ×2 (05:54→14:00)
[2016-04-24] MEDS: LEVOTHYROXINE SODIUM 125 MCG TAB PO SCH (05:55)
[2016-04-24] MEDS: ISOSORBIDE MONONITRATE 30 MG TAB PO SCH (05:55)
[2016-04-24] MEDS: METOPROLOL TARTRATE 25 MG TAB PO SCH ×3 (05:55→21:28)
[2016-04-24 07:04] LABS: AUTOMATED NEUTROPHIL # 1.9 TH/MM3 (1.8-7.7); BASOPHIL % 0.7 % (0.0-2.0); EOSINOPHIL # 0.1 TH/MM3 (0-0.4); EOSINOPHIL % 2.9 % (0.0-4.0); HEMATOCRIT 21.8 % (39.0-51.0); HEMO FLAGS DIFF FINAL; LYMPHOCYTE # 1.1 TH/MM3 (1.0-4.8); MEAN CELL VOLUME 81.4 FL (80.0-100.0); MEAN CORPUSCULAR HEMOGLOBIN 27.7 PG (27.0-34.0); MONO % 11.3 % (0.0-8.0); NEUT % 54.1 % (16.0-70.0); PLATELET COUNT 198 TH/MM3 (150-450); RED BLOOD COUNT 2.68 MIL/MM3 (4.50-5.90); WHITE BLOOD COUNT 3.5 TH/MM3 (4.0-11.0)
[2016-04-24 07:21] LABS: BICARBONATE 25.9 MEQ/L (21.0-32.0)
[2016-04-24] MEDS: INSULIN ASPART 1,000 UNITS/10 ML VIAL SQ SCH ×3 (08:00→17:00)
[2016-04-24] MEDS ORDERED: ACETAMINOPHEN 325 MG TAB PO PRN (08:15)
[2016-04-24] MEDS ORDERED: POTASSIUM CHLORIDE 10 MEQ CONTROLLED RELEASE TAB PO ONE (08:30)
[2016-04-24] MEDS ORDERED: POTASSIUM CHLOR 20 MEQ PREMIX 100 ML IV ONE (08:30)
[2016-04-24] MEDS ORDERED: FUROSEMIDE 20 MG/2 ML VIAL IV ONE ×2 (08:45→18:00)
[2016-04-24] MEDS ORDERED: SODIUM CHLOR 0.9% 250 ML INJ 250 ML IV ONE (09:00)
[2016-04-24] MEDS: SODIUM CHLORIDE 0.9% FLUSH 5 ML FLUSH FLUSH SCH ×2 (09:19→21:00)
[2016-04-24] MEDS ORDERED: PNEUMOCOCCAL POLYVALENT INJ 25 MCG/0.5 ML SYR IM ONE (10:00)
[2016-04-24] MEDS ORDERED: INFLUENZA VIRUS VACCINE (QUADRIVALENT) 0.5 ML SYR IM ONE (10:00)
--- NOTE | 2016-04-24 10:04 | HHI.PR ---
Subjective Remarks Patient seen in follow-up for pneumonia, UTI, sacral pressure ulcer present on admission, anemia. H&H dropped this morning to 7.4/21.8. No reports of active bleeding. Patient reports having issues on and off with rectal bleeding. Most recently was at [facility] for this and reportedly had an unremarkable colonoscopy. Objective Vitals Vital Signs Date Time Temp Pulse Resp B/P Pulse Ox O2 Delivery O2 Flow Rate FiO2 04/24/16 07:24 96 Nasal Cannula 2.00 04/24/16 06:00 79 04/24/16 05:00 82 04/24/16 04:23 93 Nasal Cannula 2.00 04/24/16 04:00 77 04/24/16 03:00 79 04/24/16 03:00 99.4 80 18 98/48 92 04/24/16 02:00 84 04/24/16 01:00 92 04/24/16 00:04 90 Nasal Cannula 2.00 04/24/16 00:04 90 Nasal Cannula 2.00 04/24/16 00:00 96 04/23/16 23:00 92 04/23/16 23:00 98.4 92 18 122/57 94 04/23/16 22:00 93 04/23/16 21:00 98 04/23/16 20:00 99 04/23/16 19:35 91 Nasal Cannula 2.00 04/23/16 19:00 100.0 96 20 111/51 91 04/23/16 19:00 95 04/23/16 18:00 96 04/23/16 17:00 94 04/23/16 16:58 99.0 95 14 113/53 90 04/23/16 16:00 92 04/23/16 15:00 87 04/23/16 14:00 85 04/23/16 13:00 116 04/23/16 12:00 119 04/23/16 11:00 114 04/23/16 10:56 98.4 115 17 126/64 96 I/O 04/23/16 04/23/16 04/23/16 04/24/16 04/24/16 04/24/16 07:00 15:00 23:00 07:00 15:00 23:00 Intake Total 240 ml Output Total 1400 ml 450 ml Balance -1400 ml -210 ml Intake Oral 240 ml Output Urine Total 1400 ml 450 ml # Bowel Movements 1 Result Diagram: 04/24/16 0635 04/24/16 0635 Imaging Last Impressions Chest X-Ray 04/22/16 4411 Signed Impressions: Service Date/Time: Friday, April 22, 2016 23:33 - CONCLUSION: Linear infiltrate in the right lung base. Stable mild cardiomegaly. Mor Ruiz MD Objective Remarks GENERAL: Frail and elderly male in no apparent distress. CARDIOVASCULAR: Normal rate and regular rhythm without murmurs, gallops, or rubs. RESPIRATORY: Good respiratory efforts. Breath sounds equal and clear to auscultation bilaterally. GASTROINTESTINAL: Abdomen soft, non-tender, non-distended. Normal active bowel sounds MUSCULOSKELETAL: Extremities without cyanosis, or edema. NEURO: Alert & Oriented x4 to person, place, time, situation. Moves all ext x4 but generally weak. PSYCH: Appropriate mood and affect. A/P Problem List: (1) Acute febrile illness ICD Code: R50.9 Status: Acute (2) Urinary tract infection ICD Code: N39.0 Status: Acute (3) Lung infiltrate ICD Code: R91.8 Status: Acute Assessment and Plan 71-year-old male with multiple hospitalization and group home placement over the past couple of months admitted with pneumonia, UTI, and declining functional status. Pneumonia: Recurrence. Chest x-ray reviewed shows right lower lobe infiltrate. Patient presented with fever and cough. - Patient was started on vancomycin and Cipro in the emergency room. Will switch to cefepime. Less likely to have MRSA. UTI: Urine is growing Nany. Start fluconazole. Acute on chronic anemia: Patient reportedly has had issues with rectal bleeding in the recent weeks. No active bleeding currently. He reportedly had an unremarkable colonoscopy at [facility]. Will obtain records. Obtain Hemoccult stool - Transfuse 2 units of PRBC Declining functional status: Discussed with the patient's son and daughter at bedside yesterday evening. They're concerned that he has been having a declining course. Go for nice to treat the acute illness. PT consulted. COPD: Stable but recurrent pneumonia. Obtain CT chest to better eval lung parenchyma. Continue breathing treatments and home medications. GI prophylaxis: Stool softener PRN constipation. DVT PPx: SCDs Discharge Planning Will probably need SNF. Problem Qualifiers (1) Urinary tract infection: Qualified Code: T83.511A - Urinary tract infection associated with indwelling urethral catheter, initial encounter Abelardo Justice MD Apr 24, 2016 10:04
[2016-04-24] MEDS: PREGABALIN 25 MG CAP PO SCH (10:25)
[2016-04-24] MEDS: PRAVASTATIN SOD 80 MG TAB PO SCH (10:25)
[2016-04-24] MEDS: MULTIVITAMIN HEMATINIC THERAPEUTIC TAB PO SCH (10:25)
[2016-04-24] MEDS: THEOPHYLLINE ER 12 HR 300 MG TABCR PO SCH ×2 (10:25→21:28)
[2016-04-24] MEDS: FERROUS SULFATE 325 MG (65 MG ELEMENTAL IRON) TAB PO SCH ×3 (10:26→17:52)
[2016-04-24] MEDS: CIPROFLOXACIN 400 MG PREMIX 200 ML IV SCH (10:26)
[2016-04-24] MEDS: PANTOPRAZOLE SOD 40 MG DELAYED RELEASE TAB PO SCH (10:26)
[2016-04-24] MEDS: AMIODARONE 200 MG TAB PO SCH (10:27)
[2016-04-24 10:59] LABS: TRANSFERRIN IRON PROFILE 57 MG/DL (200-360)
[2016-04-24 11:24] LABS: FERRITIN 2286 NG/ML (26-388)
[2016-04-24] MEDS: MAGNESIUM OXIDE 400 MG TAB PO SCH (13:24)
[2016-04-24] MEDS: CEFEPIME INJ 2,000 MG in SODIUM CHLORIDE 0.9% INJ 100 ML IV SCH ×2 (13:24→21:27)
[2016-04-24] MEDS: TIOTROPIUM BROMIDE 18 MCG INH INH SCH (13:25)
[2016-04-24] MEDS: FLUCONAZOLE 200 MG TAB PO SCH (13:32)
[2016-04-24] MEDS: LORazepam 1 MG TAB PO PRN ×2 (14:10→23:07)
[2016-04-24] MEDS: TAMSULOSIN HCL 0.4 MG CAP PO SCH (21:28)
[2016-04-24] MEDS: traZODone HCL 50 MG TAB PO SCH (21:28)
[2016-04-25] VITALS (18 sets, daily range): BP systolic 112–122; BP diastolic 49–59; PULSE 16–107; RESP 16–18; TEMP 98.5–99.6; O2SAT 91–97
[2016-04-25] MEDS: RESP: ALBUTEROL 2.5 MG/IPRATROPIUM 0.5 MG NEB (SCH) INH ×5 (03:33→19:00)
[2016-04-25] MEDS: CEFEPIME INJ 2,000 MG in SODIUM CHLORIDE 0.9% INJ 100 ML IV SCH ×3 (04:20→21:16)
[2016-04-25] MEDS: LEVOTHYROXINE SODIUM 125 MCG TAB PO SCH (05:52)
[2016-04-25] MEDS: METOPROLOL TARTRATE 25 MG TAB PO SCH ×3 (05:52→21:16)
[2016-04-25 06:46] LABS: HEMATOCRIT 28.6 % (39.0-51.0); MEAN CELL VOLUME 82.4 FL (80.0-100.0); MEAN CORPUSCULAR HEMOGLOBIN 28.2 PG (27.0-34.0); MEAN CORPUSCULAR HGB CONC 34.3 % (32.0-36.0); PLATELET COUNT 251 TH/MM3 (150-450); RED BLOOD COUNT 3.47 MIL/MM3 (4.50-5.90); RED CELL DISTRIBUTION WIDTH 17.9 % (11.6-17.2); REVIEW FLAG FINAL
[2016-04-25 07:13] LABS: BICARBONATE 25.9 MEQ/L (21.0-32.0); POTASSIUM 3.1 MEQ/L (3.5-5.1)
[2016-04-25] MEDS ORDERED: PNEUMOCOCCAL POLYVALENT INJ 25 MCG/0.5 ML SYR IM ONE (09:00)
[2016-04-25] MEDS ORDERED: INFLUENZA VIRUS VACCINE (QUADRIVALENT) 0.5 ML SYR IM ONE (09:00)
[2016-04-25] MEDS ORDERED: POTASSIUM CHLORIDE 10 MEQ CONTROLLED RELEASE TAB PO ONE (09:00)
[2016-04-25] MEDS ORDERED: POTASSIUM CHLOR 20 MEQ PREMIX 100 ML IV ONE (09:00)
[2016-04-25] MEDS: AMIODARONE 200 MG TAB PO SCH (09:11)
[2016-04-25] MEDS: FERROUS SULFATE 325 MG (65 MG ELEMENTAL IRON) TAB PO SCH ×3 (09:11→17:06)
[2016-04-25] MEDS: THEOPHYLLINE ER 12 HR 300 MG TABCR PO SCH ×2 (09:11→21:16)
[2016-04-25] MEDS: PREGABALIN 25 MG CAP PO SCH (09:11)
[2016-04-25] MEDS: PRAVASTATIN SOD 80 MG TAB PO SCH (09:11)
[2016-04-25] MEDS: PANTOPRAZOLE SOD 40 MG DELAYED RELEASE TAB PO SCH (09:11)
[2016-04-25] MEDS: ISOSORBIDE MONONITRATE 30 MG TAB PO SCH (09:11)
[2016-04-25] MEDS: MULTIVITAMIN HEMATINIC THERAPEUTIC TAB PO SCH (09:12)
[2016-04-25] MEDS: FLUCONAZOLE 200 MG TAB PO SCH (09:14)
[2016-04-25] MEDS: TIOTROPIUM BROMIDE 18 MCG INH INH SCH (09:17)
[2016-04-25] MEDS: INSULIN ASPART 1,000 UNITS/10 ML VIAL SQ SCH ×3 (09:18→17:00)
[2016-04-25] MEDS: SODIUM CHLORIDE 0.9% FLUSH 5 ML FLUSH FLUSH SCH ×2 (09:19→21:17)
--- NOTE | 2016-04-25 09:58 | HHI.PR ---
Subjective Remarks Patient reports that he is feeling better today. No chest pain or increased in shortness of breath. K is low again. H&H stable. Objective Vitals Vital Signs Date Time Temp Pulse Resp B/P Pulse Ox O2 Delivery O2 Flow Rate FiO2 04/25/16 07:56 93 Nasal Cannula 2.00 04/25/16 06:00 91 04/25/16 05:00 98 04/25/16 04:00 99.1 93 18 114/54 93 04/25/16 04:00 93 04/25/16 02:00 84 04/25/16 01:00 84 04/25/16 00:00 76 04/25/16 00:00 99.5 76 18 112/49 97 04/24/16 20:00 98.6 85 18 116/53 93 04/24/16 20:00 85 04/24/16 18:40 98.4 82 24 112/50 95 04/24/16 18:00 79 04/24/16 17:00 99.1 99 24 102/51 95 04/24/16 17:00 99 04/24/16 16:00 83 04/24/16 16:00 99.3 83 20 96/50 95 04/24/16 15:00 90 04/24/16 14:57 97 Nasal Cannula 2.00 04/24/16 14:25 98.9 100 20 128/55 95 04/24/16 14:20 98.9 100 20 128/55 95 04/24/16 14:00 100 04/24/16 13:00 87 04/24/16 12:00 98.4 91 20 116/50 96 04/24/16 12:00 77 04/24/16 10:00 75 I/O 04/24/16 04/24/16 04/24/16 04/25/16 04/25/16 04/25/16 07:00 15:00 23:00 07:00 15:00 23:00 Intake Total 240 ml 360 ml 360 ml Output Total 450 ml 450 ml 2200 ml Balance -210 ml -90 ml -1840 ml Intake Oral 240 ml 360 ml 360 ml Output Urine Total 450 ml 450 ml 2200 ml # Bowel Movements 1 1 1 Result Diagram: 04/25/1660404/25/16604 Objective Remarks GENERAL: Frail and elderly male in no apparent distress. CARDIOVASCULAR: Normal rate and regular rhythm without murmurs, gallops, or rubs. RESPIRATORY: Good respiratory efforts. Breath sounds equal and clear to auscultation bilaterally. GASTROINTESTINAL: Abdomen soft, non-tender, non-distended. Normal active bowel sounds MUSCULOSKELETAL: Extremities without cyanosis, or edema. NEURO: Alert & Oriented x4 to person, place, time, situation. Moves all ext x4 but generally weak. PSYCH: Appropriate mood and affect. A/P Problem List: (1) Acute febrile illness ICD Code: R50.9 Status: Acute (2) Urinary tract infection ICD Code: N39.0 Status: Acute (3) Lung infiltrate ICD Code: R91.8 Status: Acute Assessment and Plan 71-year-old male with multiple hospitalization and half-way placement over the past couple of months admitted with pneumonia, UTI, and declining functional status. Pneumonia: Recurrence. Chest x-ray reviewed shows right lower lobe infiltrate. Patient presented with fever and cough. -Continue cefepime. Less likely to have MRSA. Chest CT pending UTI: Urine is growing Nany. Start fluconazole. Acute on chronic anemia: Patient reportedly has had issues with rectal bleeding in the recent weeks. No active bleeding currently. He reportedly had an unremarkable colonoscopy at [facility]. Will obtain records. Obtain Hemoccult stool - Status post 2 units of PRBC transfusion on 04/24/16 Declining functional status: Discussed with the patient's son and daughter at bedside yesterday evening. They're concerned that he has been having a declining course. Goal for now is to treat the acute illness. PT following. Will need more rehabilitation upon return at the SNF. COPD: Stable but recurrent pneumonia. Obtain CT chest to better eval lung parenchyma. Continue breathing treatments and home medications. GI prophylaxis: Stool softener PRN constipation. DVT PPx: SCDs Discharge Planning Continue IV antibiotics. Patient will probably be be stable to return to SNF in the next 1-2 days. Problem Qualifiers (1) Urinary tract infection: Qualified Code: T83.511A - Urinary tract infection associated with indwelling urethral catheter, initial encounter Abelardo Justice MD Apr 25, 2016 09:58
[2016-04-25] MEDS: MAGNESIUM OXIDE 400 MG TAB PO SCH (11:43)
[2016-04-25] MEDS: LORazepam 1 MG TAB PO PRN (11:48)
[2016-04-25] MEDS: COLLAGENASE OINT 30 GM TUBE TOP SCH (15:52)
--- NOTE | 2016-04-25 17:27 | RADRPT ---
EXAM DATE/TIME: 04/25/2016 16:11 [place] COMPARISON: CT PULMONARY ANGIOGRAM, March 26, 2016, 9:48. CHEST SINGLE AP, March, 23:33. INDICATIONS : Short of breath. RADIATION DOSE: 6.86 CTDIvol (mGy) MEDICAL HISTORY : Cardiovascular disease. Hypertension. SURGICAL HISTORY : None. ENCOUNTER: Initial ACUITY: 1 day PAIN SCALE: 5/10 LOCATION: chest TECHNIQUE: Volumetric scanning of the chest was performed. Using automated exposure control and adjustment of the mA and/or kV according to patient size, radiation dose was kept as low as reasonab ly achievable to obtain optimal diagnostic quality images. FINDINGS: Examination does not appear significantly changed. There is atherosclerotic cardiovascu lar disease and compensated cardiomegaly and extensive calcifications in the coronary arteries. Poste rior bilateral pleural effusions in the bases are again appreciated with compressive atelectasis of t he adjacent lung parenchyma. CONCLUSION: Stable CT scan of the chest Manas Vigil MD on April 25, 2016 at 17:24 Board Certified Radiologist. This report was verified electronically.
[2016-04-25] MEDS: TAMSULOSIN HCL 0.4 MG CAP PO SCH (21:16)
[2016-04-25] MEDS: traZODone HCL 50 MG TAB PO SCH (21:16)
[2016-04-26] VITALS (28 sets, daily range): BP systolic 103–160; BP diastolic 52–88; PULSE 85–124; RESP 18; TEMP 98.1–99.2; O2SAT 90–98
[2016-04-26] MEDS: RESP: ALBUTEROL 2.5 MG/IPRATROPIUM 0.5 MG NEB (SCH) INH ×6 (00:12→19:51)
[2016-04-26] MEDS: CEFEPIME INJ 2,000 MG in SODIUM CHLORIDE 0.9% INJ 100 ML IV SCH ×3 (04:20→21:16)
[2016-04-26] MEDS: ISOSORBIDE MONONITRATE 30 MG TAB PO SCH (05:42)
[2016-04-26] MEDS: LEVOTHYROXINE SODIUM 125 MCG TAB PO SCH (05:42)
[2016-04-26] MEDS: METOPROLOL TARTRATE 25 MG TAB PO SCH ×3 (05:42→21:16)
[2016-04-26] MEDS: INSULIN ASPART 1,000 UNITS/10 ML VIAL SQ SCH ×2 (08:00→11:38)
[2016-04-26] MEDS: COLLAGENASE OINT 30 GM TUBE TOP SCH (09:00)
[2016-04-26] MEDS: SODIUM CHLORIDE 0.9% FLUSH 5 ML FLUSH FLUSH SCH ×2 (09:00→21:17)
[2016-04-26] MEDS: MULTIVITAMIN HEMATINIC THERAPEUTIC TAB PO SCH (09:00)
[2016-04-26] MEDS: TIOTROPIUM BROMIDE 18 MCG INH INH SCH (09:00)
[2016-04-26] MEDS: FLUCONAZOLE 200 MG TAB PO SCH (09:15)
[2016-04-26] MEDS: AMIODARONE 200 MG TAB PO SCH (09:15)
[2016-04-26] MEDS: FERROUS SULFATE 325 MG (65 MG ELEMENTAL IRON) TAB PO SCH ×3 (09:15→18:30)
[2016-04-26] MEDS: THEOPHYLLINE ER 12 HR 300 MG TABCR PO SCH ×2 (09:16→21:16)
[2016-04-26] MEDS: PRAVASTATIN SOD 80 MG TAB PO SCH (09:16)
[2016-04-26] MEDS: PREGABALIN 25 MG CAP PO SCH (09:16)
[2016-04-26] MEDS: PANTOPRAZOLE SOD 40 MG DELAYED RELEASE TAB PO SCH (09:16)
--- NOTE | 2016-04-26 09:46 | HHI.PR ---
Subjective Remarks Patient reports that he is feeling better. Chest CT reviewed. No significant change. He is participating with physical therapy. Family is trying to get him to a senior care facility in [facility]. Objective Vitals Vital Signs Date Time Temp Pulse Resp B/P Pulse Ox O2 Delivery O2 Flow Rate FiO2 04/26/16 06:00 109 04/26/16 05:00 110 04/26/16 04:00 105 04/26/16 04:00 Nasal Cannula 2.00 04/26/16 04:00 99.0 107 18 120/57 94 04/26/16 03:00 100 04/26/16 02:00 98 04/26/16 01:00 96 04/26/16 00:13 90 Nasal Cannula 2.00 04/26/16 00:00 99.2 97 18 120/57 93 04/26/16 00:00 Nasal Cannula 2.00 04/26/16 00:00 95 04/25/16 23:00 89 04/25/16 22:00 95 04/25/16 21:00 107 04/25/16 20:00 102 04/25/16 20:00 99.6 104 18 119/59 93 04/25/16 20:00 Nasal Cannula 2.00 04/25/16 19:00 103 04/25/16 16:00 95 04/25/16 16:00 95 04/25/16 16:00 99.4 92 16 118/59 94 04/25/16 15:19 91 Nasal Cannula 2.00 04/25/16 12:00 87 04/25/16 11:52 99.2 16 16 122/54 97 I/O 04/25/16 04/25/16 04/25/16 04/26/16 04/26/16 04/26/16 07:00 15:00 23:00 07:00 15:00 23:00 Intake Total 360 ml 301 ml 1468 ml Output Total 2200 ml 600 ml Balance -1840 ml 301 ml 868 ml Intake Oral 360 ml 220 ml IV Total 301 ml 1248 ml Output Urine Total 2200 ml 600 ml # Bowel Movements 1 1 Result Diagram: 04/26/16 1051 04/26/16 1051 Imaging Last Impressions Chest CT 04/23/16 0000 Signed Impressions: Service Date/Time: Monday, April 25, 2016 16:11 - CONCLUSION: Stable CT scan of the chest Manas Vigil MD Chest X-Ray 04/22/16 7632 Signed Impressions: Service Date/Time: Friday, April 22, 2016 23:33 - CONCLUSION: Linear infiltrate in the right lung base. Stable mild cardiomegaly. Mor Ruiz MD Objective Remarks GENERAL: Frail and elderly male in no apparent distress. CARDIOVASCULAR: Normal rate and regular rhythm without murmurs, gallops, or rubs. RESPIRATORY: Good respiratory efforts. Breath sounds equal and clear to auscultation bilaterally. GASTROINTESTINAL: Abdomen soft, non-tender, non-distended. Normal active bowel sounds MUSCULOSKELETAL: Extremities without cyanosis, or edema. NEURO: Alert & Oriented x4 to person, place, time, situation. Moves all ext x4 but generally weak. PSYCH: Appropriate mood and affect. Micro/ID Microbiology Date/Time Procedure Status Source Growth 04/22/16 23:25 Influenza Types A,B Antigen (PHAM) - Final Complete Nasal Aspirate NEGATIVE FOR FLU A AND B ANTIGEN.... 04/22/16 23:20 Urine Culture - Final Complete Urine Catheterized Urine Nany Albicans 04/22/16 23:05 Aerobic Blood Culture - Preliminary Resulted Blood Peripheral NO GROWTH IN 4 DAYS 04/22/16 23:05 Anaerobic Blood Culture - Preliminary Resulted Blood Peripheral NO GROWTH IN 4 DAYS 04/22/16 23:00 Gram Stain - Final Resulted Wound Buttock 04/22/16 23:00 Wound Culture - Preliminary Resulted Group D Enterococcus A/P Problem List: (1) Acute febrile illness ICD Code: R50.9 Status: Acute (2) Urinary tract infection ICD Code: N39.0 Status: Acute (3) Lung infiltrate ICD Code: R91.8 Status: Acute Assessment and Plan 71-year-old male with multiple hospitalization and detention placement over the past couple of months admitted with pneumonia, UTI, and declining functional status. Pneumonia: Recurrence. Chest x-ray reviewed shows right lower lobe infiltrate. Patient presented with fever and cough. -Continue cefepime. Less likely to have MRSA. Stable chest CT UTI: Urine grew Nany. Continue fluconazole. Acute on chronic anemia: Patient reportedly has had issues with rectal bleeding in the recent weeks. No active bleeding currently. He reportedly had an unremarkable colonoscopy at [facility]. Records requested. Obtain Hemoccult stool - Status post 2 units of PRBC transfusion on 04/24/16 - H&H is stable. Declining functional status: Discussed with the patient's son and daughter at bedside yesterday evening. They're concerned that he has been having a declining course. Goal for now is to treat the acute illness. PT following. Will need more rehabilitation upon return at the SNF. Family is trying to get him down to [facility]. Diabetes: Asymptomatic hypoglycemia this morning. Will discontinue scheduled insulin and keep him on sliding scale with Accu-Cheks. Last hemoglobin A1c was 6.7. Atrial fibrillation: Continue amiodarone, heart rate slightly elevated. Increase metoprolol to 50 mg twice a day. COPD: Stable but recurrent pneumonia. Patient is very deconditioned and has persistent atelectasis. Incentive spirometry. Continue breathing treatments and home medications. GI prophylaxis: Stool softener PRN constipation. DVT PPx: SCDs Discharge Planning Continue IV antibiotics. Plan to discharge to SNF once arrangements are made. Case management following. Problem Qualifiers (1) Urinary tract infection: Qualified Code: T83.511A - Urinary tract infection associated with indwelling urethral catheter, initial encounter Abelardo Justice MD Apr 26, 2016 09:46
[2016-04-26] MEDS: MAGNESIUM OXIDE 400 MG TAB PO SCH (11:00)
[2016-04-26 11:28] LABS: AUTOMATED NEUTROPHIL # 3.6 TH/MM3 (1.8-7.7); BASOPHIL % 0.5 % (0.0-2.0); EOSINOPHIL # 0.2 TH/MM3 (0-0.4); EOSINOPHIL % 3.7 % (0.0-4.0); HEMATOCRIT 30.5 % (39.0-51.0); HEMO FLAGS DIFF FINAL; LYMPH % 26.4 % (9.0-44.0); LYMPHOCYTE # 1.6 TH/MM3 (1.0-4.8); MEAN CELL VOLUME 82.6 FL (80.0-100.0); MEAN CORPUSCULAR HEMOGLOBIN 27.9 PG (27.0-34.0); MEAN CORPUSCULAR HGB CONC 33.8 % (32.0-36.0); MONO % 11.2 % (0.0-8.0); NEUT % 58.2 % (16.0-70.0); PLATELET COUNT 278 TH/MM3 (150-450); RED BLOOD COUNT 3.69 MIL/MM3 (4.50-5.90); RED CELL DISTRIBUTION WIDTH 17.8 % (11.6-17.2); WHITE BLOOD COUNT 6.2 TH/MM3 (4.0-11.0)
[2016-04-26] MEDS: LORazepam 1 MG TAB PO PRN (12:00)
[2016-04-26 12:06] LABS: POTASSIUM 3.1 MEQ/L (3.5-5.1)
[2016-04-26] MEDS ORDERED: POTASSIUM CHLORIDE 10 MEQ CONTROLLED RELEASE TAB PO ONE (12:45)
[2016-04-26] MEDS ORDERED: GLUCAGON 1 MG/ML VIAL OTHER PRN (12:45)
[2016-04-26] MEDS ORDERED: POTASSIUM CHLOR 20 MEQ PREMIX 100 ML IV ONE (12:45)
[2016-04-26] MEDS ORDERED: DEXTROSE 50% IN WATER 50 ML VIAL(D50) IV PUSH PRN (12:45)
[2016-04-26] MEDS ORDERED: PHARMACY ORDERED LAB XX ONE (13:45)
[2016-04-26] MEDS: INSULIN ASPART SUPPLEMENTAL SCALE SQ SCH ×2 (16:00→21:00)
[2016-04-26] MEDS: TAMSULOSIN HCL 0.4 MG CAP PO SCH (21:16)
[2016-04-26] MEDS: traZODone HCL 50 MG TAB PO SCH (21:16)
[2016-04-27] VITALS (27 sets, daily range): BP systolic 89–134; BP diastolic 51–72; PULSE 70–107; RESP 18–20; TEMP 98.2–98.4; O2SAT 93–98
[2016-04-27] MEDS: RESP: ALBUTEROL 2.5 MG/IPRATROPIUM 0.5 MG NEB (SCH) INH ×6 (00:20→18:58)
[2016-04-27] MEDS: ACETAMINOPHEN/HYDROcodone 325 MG/5 MG TAB PO PRN ×2 (00:25→08:25)
[2016-04-27] MEDS: LORazepam 1 MG TAB PO PRN ×2 (02:27→12:17)
[2016-04-27] MEDS: CEFEPIME INJ 2,000 MG in SODIUM CHLORIDE 0.9% INJ 100 ML IV SCH ×3 (03:41→21:58)
[2016-04-27] MEDS: ISOSORBIDE MONONITRATE 30 MG TAB PO SCH (05:32)
[2016-04-27] MEDS: LEVOTHYROXINE SODIUM 125 MCG TAB PO SCH (05:32)
[2016-04-27] MEDS: INSULIN ASPART SUPPLEMENTAL SCALE SQ SCH ×4 (06:06→21:00)
[2016-04-27 07:36] LABS: HEMATOCRIT 30.8 % (39.0-51.0); MEAN CORPUSCULAR HEMOGLOBIN 27.2 PG (27.0-34.0); MEAN CORPUSCULAR HGB CONC 32.4 % (32.0-36.0); PLATELET COUNT 280 TH/MM3 (150-450); RED BLOOD COUNT 3.67 MIL/MM3 (4.50-5.90); RED CELL DISTRIBUTION WIDTH 18.5 % (11.6-17.2); REVIEW FLAG FINAL; WHITE BLOOD COUNT 4.4 TH/MM3 (4.0-11.0)
[2016-04-27 08:01] LABS: BICARBONATE 27.8 MEQ/L (21.0-32.0); POTASSIUM 3.4 MEQ/L (3.5-5.1)
[2016-04-27] MEDS: FLUCONAZOLE 200 MG TAB PO SCH (08:25)
[2016-04-27] MEDS: FERROUS SULFATE 325 MG (65 MG ELEMENTAL IRON) TAB PO SCH ×3 (08:25→17:34)
[2016-04-27] MEDS: MULTIVITAMIN HEMATINIC THERAPEUTIC TAB PO SCH (08:25)
[2016-04-27] MEDS: THEOPHYLLINE ER 12 HR 300 MG TABCR PO SCH ×2 (08:27→21:59)
[2016-04-27] MEDS: METOPROLOL TARTRATE 50 MG TAB PO SCH ×2 (08:27→21:59)
[2016-04-27] MEDS: PRAVASTATIN SOD 80 MG TAB PO SCH (08:27)
[2016-04-27] MEDS: PANTOPRAZOLE SOD 40 MG DELAYED RELEASE TAB PO SCH (08:27)
[2016-04-27] MEDS: PREGABALIN 25 MG CAP PO SCH (08:27)
[2016-04-27] MEDS: AMIODARONE 200 MG TAB PO SCH (08:27)
[2016-04-27] MEDS: TIOTROPIUM BROMIDE 18 MCG INH INH SCH (09:00)
[2016-04-27] MEDS: COLLAGENASE OINT 30 GM TUBE TOP SCH (09:00)
[2016-04-27] MEDS: SODIUM CHLORIDE 0.9% FLUSH 5 ML FLUSH FLUSH SCH ×2 (09:00→21:58)
--- NOTE | 2016-04-27 09:05 | HHI.PR ---
Subjective Remarks Patient reports that he is feeling better overall. No acute events overnight. Objective Vitals Vital Signs Date Time Temp Pulse Resp B/P Pulse Ox O2 Delivery O2 Flow Rate FiO2 04/27/16 06:00 99 04/27/16 05:00 102 04/27/16 04:00 98.4 100 20 134/69 98 04/27/16 04:00 100 04/27/16 03:00 91 04/27/16 02:00 93 04/27/16 01:00 97 04/27/16 00:00 98.2 86 18 124/70 97 04/27/16 00:00 86 04/26/16 23:00 85 04/26/16 22:00 92 04/26/16 21:00 101 04/26/16 20:00 101 04/26/16 19:52 96 Nasal Cannula 3.00 04/26/16 19:00 97 Nasal Cannula 2.00 04/26/16 19:00 98.4 101 18 160/88 98 04/26/16 19:00 104 04/26/16 18:00 96 04/26/16 17:00 103 04/26/16 16:00 101 04/26/16 15:00 117 04/26/16 15:00 99.0 103 18 123/68 98 04/26/16 14:00 124 04/26/16 13:00 120 04/26/16 12:00 121 04/26/16 11:30 98.1 111 18 128/64 93 04/26/16 11:17 18 04/26/16 11:00 103 04/26/16 10:00 102 I/O 04/26/16 04/26/16 04/26/16 04/27/16 04/27/16 04/27/16 07:00 15:00 23:00 07:00 15:00 23:00 Intake Total 1468 ml 490 ml 617 ml Output Total 600 ml 550 ml 750 ml Balance 868 ml -60 ml -133 ml Intake Oral 220 ml 240 ml 360 ml IV Total 1248 ml 250 ml 257 ml Output Urine Total 600 ml 550 ml 750 ml # Bowel Movements 1 3 1 Result Diagram: 04/27/16 0635 04/27/16 0635 Objective Remarks GENERAL: Frail and elderly male in no apparent distress. CARDIOVASCULAR: Normal rate and regular rhythm without murmurs, gallops, or rubs. RESPIRATORY: Good respiratory efforts. Breath sounds equal and clear to auscultation bilaterally. GASTROINTESTINAL: Abdomen soft, non-tender, non-distended. Normal active bowel sounds MUSCULOSKELETAL: Extremities without cyanosis, or edema. NEURO: Alert & Oriented. Normal speech. Moves all ext x4 but generally weak. PSYCH: Appropriate mood and affect. A/P Problem List: (1) Acute febrile illness ICD Code: R50.9 Status: Acute (2) Urinary tract infection ICD Code: N39.0 Status: Acute (3) Lung infiltrate ICD Code: R91.8 Status: Acute Assessment and Plan 71-year-old male with multiple hospitalization and jail placement over the past couple of months admitted with pneumonia, UTI, and declining functional status. Pneumonia: Recurrence. Chest x-ray reviewed shows right lower lobe infiltrate. Patient presented with fever and cough. -Continue cefepime. Stable chest CT UTI: Urine grew Nany. Continue fluconazole. Acute on chronic anemia: Patient reportedly has had issues with rectal bleeding in the recent weeks. No active bleeding currently. He reportedly had an unremarkable colonoscopy at [facility]. Records requested. Obtain Hemoccult stool - Status post 2 units of PRBC transfusion on 04/24/16 - H&H is stable. Declining functional status: Previously discussed with the patient's son and daughter at bedside. They're concerned that he has been having a declining course. Goal for now is to treat the acute illness. PT following. Will need more rehabilitation upon return at the SNF. Family is trying to get him down to [facility]. Diabetes: Asymptomatic hypoglycemia this morning. Scheduled insulin discontinued and keep him on sliding scale with Accu-Cheks. Last hemoglobin A1c was 6.7. Atrial fibrillation: Continue amiodarone. Metoprolol was increased to 50 mg twice daily. Hypokalemia: Replace and monitor. COPD: Stable but recurrent pneumonia. Patient is very deconditioned and has persistent atelectasis. Incentive spirometry. Continue breathing treatments and home medications. GI prophylaxis: Stool softener PRN constipation. DVT PPx: SCDs Discharge Planning Continue IV antibiotics. Plan to discharge to SNF in the next 24-48 hours. Case management following. Problem Qualifiers (1) Urinary tract infection: Qualified Code: T83.511A - Urinary tract infection associated with indwelling urethral catheter, initial encounter Abelardo Justice MD Apr 27, 2016 09:05
[2016-04-27] MEDS: MAGNESIUM OXIDE 400 MG TAB PO SCH (12:18)
[2016-04-27] MEDS ORDERED: MAGNESIUM SULFATE 1 GM PREMIX 100 ML IV ONE (12:30)
[2016-04-27] MEDS ORDERED: POTASSIUM CHLORIDE 20 MEQ CONTROLLED RELEASE TAB PO ONE (12:30)
[2016-04-27] MEDS: traZODone HCL 50 MG TAB PO SCH (21:59)
[2016-04-27] MEDS: TAMSULOSIN HCL 0.4 MG CAP PO SCH (21:59)
[2016-04-28] VITALS (19 sets, daily range): BP systolic 98–118; BP diastolic 50–57; PULSE 73–110; RESP 17–18; TEMP 98.5–98.6; O2SAT 94–98
[2016-04-28] MEDS: LORazepam 1 MG TAB PO PRN ×2 (02:47→11:51)
[2016-04-28] MEDS: CEFEPIME INJ 2,000 MG in SODIUM CHLORIDE 0.9% INJ 100 ML IV SCH ×2 (04:26→13:07)
[2016-04-28] MEDS: RESP: ALBUTEROL 2.5 MG/IPRATROPIUM 0.5 MG NEB (PRN) NEB ×4 (05:49→17:27)
[2016-04-28] MEDS: INSULIN ASPART SUPPLEMENTAL SCALE SQ SCH ×3 (06:05→16:00)
[2016-04-28] MEDS: ISOSORBIDE MONONITRATE 30 MG TAB PO SCH (06:06)
[2016-04-28] MEDS: LEVOTHYROXINE SODIUM 125 MCG TAB PO SCH (06:07)
[2016-04-28 06:53] LABS: HEMATOCRIT 31.9 % (39.0-51.0); MEAN CELL VOLUME 83.9 FL (80.0-100.0); MEAN CORPUSCULAR HEMOGLOBIN 27.2 PG (27.0-34.0); MEAN CORPUSCULAR HGB CONC 32.5 % (32.0-36.0); PLATELET COUNT 285 TH/MM3 (150-450); RED BLOOD COUNT 3.81 MIL/MM3 (4.50-5.90); RED CELL DISTRIBUTION WIDTH 18.2 % (11.6-17.2); REVIEW FLAG FINAL; WHITE BLOOD COUNT 5.7 TH/MM3 (4.0-11.0)
[2016-04-28 07:13] LABS: BICARBONATE 24.4 MEQ/L (21.0-32.0); POTASSIUM 3.7 MEQ/L (3.5-5.1)
[2016-04-28] MEDS: TIOTROPIUM BROMIDE 18 MCG INH INH SCH (09:00)
[2016-04-28] MEDS: SODIUM CHLORIDE 0.9% FLUSH 5 ML FLUSH FLUSH SCH (10:57)
[2016-04-28] MEDS: MAGNESIUM OXIDE 400 MG TAB PO SCH (10:58)
[2016-04-28] MEDS: MULTIVITAMIN HEMATINIC THERAPEUTIC TAB PO SCH (10:58)
[2016-04-28] MEDS: PREGABALIN 25 MG CAP PO SCH (10:58)
[2016-04-28] MEDS: THEOPHYLLINE ER 12 HR 300 MG TABCR PO SCH (10:58)
[2016-04-28] MEDS: METOPROLOL TARTRATE 50 MG TAB PO SCH (10:59)
[2016-04-28] MEDS: AMIODARONE 200 MG TAB PO SCH (10:59)
[2016-04-28] MEDS: PRAVASTATIN SOD 80 MG TAB PO SCH (10:59)
[2016-04-28] MEDS: FERROUS SULFATE 325 MG (65 MG ELEMENTAL IRON) TAB PO SCH ×2 (10:59→13:07)
[2016-04-28] MEDS: PANTOPRAZOLE SOD 40 MG DELAYED RELEASE TAB PO SCH (10:59)
[2016-04-28] MEDS: FLUCONAZOLE 200 MG TAB PO SCH (10:59)
[2016-04-28] MEDS: COLLAGENASE OINT 30 GM TUBE TOP SCH (11:00)
[2016-04-28] MEDS ORDERED: LEVA500T PO (13:49)
[2016-04-28] MEDS ORDERED: DIFL100T PO (13:49)
--- NOTE | 2016-04-28 13:50 | HHI.DS ---
Discharge Summary Admission Date Apr 23, 2016 at 01:11 Discharge Date: Apr 28, 2016 Admitting Diagnosis Febrile illness, pneumonia, uti, ams (1) Acute febrile illness ICD Code: R50.9 (2) Urinary tract infection ICD Code: N39.0 (3) Lung infiltrate ICD Code: R91.8 Procedures None Brief History - From Admission History from patient, ER physician communication, and review of medical records. Patient reported that he was sent from the rehabilitation facility because he was too weak and not able to get up and be on his feet. He states that he was also having cough. Reports of fever. However denies any nausea/vomiting/abdominal pain/shortness of breath. Denies any blood in stool or urine as far as he knows. Patient states he has been at the rehabilitation facility for about a day. He states that he was hospitalized at [facility] for about a week for the treatment of pneumonia. He is not sure whether he was in ICU. However he denies being on ventilator. It seems that he was actually sent to the hospital on April 17, 2016 for febrile illness. He was discharged back to the nursing facility to be on Levaquin. He apparently was on Levaquin for about a week at [facility] prior to that. Patient also has indwelling Baca catheter. He stated he had Baca catheter placed about 3 months ago. Also have sacral decubitus which she states was about 3 months duration as well. As per penitentiary transfer notes, patient was also having altered mental status at the penitentiary together with intermittent fevers. His blood pressure was 116/55, heart rate of 93, with 98% O2 sat. His sedimentation rate was 90. However while in emergency room, patient is awake alert and oriented although he is chronically weak and ill. There was no neck rigidity or photophobia. CBC/BMP: 04/28/16 0555 04/28/16 0555 Significant Findings Laboratory Tests Test 04/26/16 04/27/16 04/28/16 10:51 06:35 05:55 Red Blood Count 3.69 MIL/MM3 3.67 MIL/MM3 3.81 MIL/MM3 (4.50-5.90) (4.50-5.90) (4.50-5.90) Hemoglobin 10.3 GM/DL 10.0 GM/DL 10.4 GM/DL (13.0-17.0) (13.0-17.0) (13.0-17.0) Hematocrit 30.5 % 30.8 % 31.9 % (39.0-51.0) (39.0-51.0) (39.0-51.0) Red Cell Distribution Width 17.8 % 18.5 % 18.2 % (11.6-17.2) (11.6-17.2) (11.6-17.2) Monocytes (%) (Auto) 11.2 % (0.0-8.0) Sodium Level 133 MEQ/L 134 MEQ/L 132 MEQ/L (136-145) (136-145) (136-145) Potassium Level 3.1 MEQ/L 3.4 MEQ/L (3.5-5.1) (3.5-5.1) Estimat Glomerular Filtration 81 ML/MIN (>89) Rate Random Glucose 42 MG/DL (74-106) Calcium Level 7.9 MG/DL 8.2 MG/DL 8.1 MG/DL (8.5-10.1) (8.5-10.1) (8.5-10.1) Imaging Last Impressions Chest CT 04/23/16 0000 Signed Impressions: Service Date/Time: Monday, April 25, 2016 16:11 - CONCLUSION: Stable CT scan of the chest Manas Vigil MD Chest X-Ray 04/22/16 4504 Signed Impressions: Service Date/Time: Friday, April 22, 2016 23:33 - CONCLUSION: Linear infiltrate in the right lung base. Stable mild cardiomegaly. Mor Ruiz MD PE at Discharge GENERAL: Frail and elderly male in no apparent distress. CARDIOVASCULAR: Normal rate and regular rhythm without murmurs, gallops, or rubs. RESPIRATORY: Good respiratory efforts. Breath sounds equal and clear to auscultation bilaterally. GASTROINTESTINAL: Abdomen soft, non-tender, non-distended. Normal active bowel sounds MUSCULOSKELETAL: Extremities without cyanosis, or edema. NEURO: Alert & Oriented. Normal speech. Moves all ext x4 but generally weak. PSYCH: Appropriate mood and affect. Pt update on day of discharge Patient reports that he is feeling well. He is anxious to go to rehabilitation. Reports that his breathing is much better. Hospital Course 71-year-old male with multiple hospitalization and penitentiary placement over the past couple of months admitted with pneumonia, UTI, and declining functional status. Evaluation and treatment course detailed below. Pneumonia: Recurrence. Chest x-ray reviewed shows right lower lobe infiltrate. Patient presented with fever and cough. -Continue treated with cefepime. He is discharged on Levaquin to complete a course of antibiotics. He did have a chest CT which was stable compared to prior. The patient is very sedentary and not risk for recurrent pneumonia. He was totally counseled on using incentive spirometry and participating with physical therapy. I did discuss this with his family that he may continued to decline and have recurrent pneumonia. UTI: Urine grew Nany. Patient treated with fluconazole. He will continue the treatment for an additional 10 days. Acute on chronic anemia: Patient reportedly has had issues with rectal bleeding in the recent weeks. No active bleeding currently. He reportedly had an unremarkable colonoscopy at [facility]. - Status post 2 units of PRBC transfusion on 04/24/16. H&H remained stable. Patient is advised to follow up outpatient with GI. Declining functional status: Previously discussed with the patient's son and daughter at bedside. They're concerned that he has been having a declining course. Goal for now is to treat the acute illness. Will need more rehabilitation upon return at the SNF. Family is trying to get him down to [facility]. Diabetes: Asymptomatic hypoglycemia this morning. Scheduled insulin discontinued as the patient remained normal glycemic. His hemoglobin A1c was 6.7. He is advised on a diabetic diet. Atrial fibrillation: Continue amiodarone. Metoprolol. Hypokalemia: Replace and monitor. COPD: Stable but recurrent pneumonia. Patient is very deconditioned and has persistent atelectasis. Incentive spirometry. Continue breathing treatments and home medications. Pt Condition on Discharge: Good Discharge Disposition: Discharge to SNF Discharge Time: > 30 minutes Discharge Instructions DIET: Follow Instructions for: Heart Healthy Diet Activities you can perform: See Additionl Instruction Other Activity Instructions: Per PT recommendations. Continued Medications: Acetaminophen (Tylenol) 325 Mg Cap 650 MG PO Q6H PRN INCREASED TEMPERATURE Ref 0 CAP Albuterol 18 GM Inh (Ventolin Hfa 18 GM Inh) 90 Mcg/Act Aer 2 PUFF INH Q4HR PRN COPD #2 INHALER Amiodarone (Amiodarone) 200 Mg Tab 200 MG PO DAILY AFIB Days 30 TAB Calcium Carbonate (Calcium Carbonate) 1,500 Mg Tab 1500 MG PO BID 1,500 mg calcium carbonate (600 mg elemental calcium) Calcium Supplement Ref 0 TAB Ferrous Sulfate (Feosol) 65 Mg Tab 65 MG PO TIDPC Nutritional Supplement #60 Ref 0 TAB Fluconazole (Diflucan) 100 Mg Tab 100 MG PO DAILY Infection #10 Ref 0 TAB (This prescription has been renewed) Furosemide (Lasix) 20 Mg Tab 20 MG PO DAILY #30 Ref 0 TAB Hydrocodone-Acetaminophen (Lortab) 5-325 Mg Tab 1 TAB PO Q8HR PRN shoulder/back pain #20 Ref 0 TAB Ipratropium-Albuterol Neb (Duoneb) 0.5-2.5 Mg/3 Ml Neb 1 NEBULE INH Q6HR NEB Breathing Treatment #120 Ref 0 NEBULE Isosorbide Mononitrate ER (Isosorbide Mononitrate ER) 30 Mg Huber 30 MG PO DAILY@07 CARD #30 TAB Levofloxacin (Levaquin) 500 Mg Tab 500 MG PO Q24H Infection #7 TAB (This prescription has been renewed) Levothyroxine (Levothyroxine) 125 Mcg Tab 125 MCG PO DAILY Thyroid #30 Ref 0 TAB Magnesium Oxide (Magnesium Oxide) 500 Mg Tab 500 MG PO DAILY TAB Metoprolol Tartrate (Metoprolol Tartrate) 25 Mg Tab 25 MG PO Q8HR CARD #90 TAB Multiple Vitamins W/ Minerals (Multivitamin Adults 50+) 1 Tab Tab 1 CAP PO DAILY Nitroglycerin SL (Nitroglycerin SL) 0.4 Mg Subl 0.4 MG SL DIRECTED ONE TABLET UNDER THE TONGUE NEEDED FOR CHEST PAIN, MAY REPEAT EVERY FIVE MINUTES FOR A TOTAL OF 3 DOSES OR CALL 911 IF NO RELIEF PRN CHEST PAIN #100 Ref 0 TAB.SL Nystatin Liq (Nystatin Liq) 100,000 unit/ml Susp 5 ML SWISH-SWAL QID Infection Ref 0 ML Pantoprazole (Pantoprazole) 40 Mg Tab 40 MG PO DAILY GIB #30 TAB Potassium Chloride ER (Potassium Chloride ER) 20 Meq Tab 20 MEQ PO BID Electrolyte Replacement #60 Ref 0 TAB Potassium Phosphate-Sodium Phosphate (K-Phos Neutral) 155-852-130 Mg Tab 250 MG PO PCHS Electrolyte Replacement #15 Ref 0 TAB Pregabalin (Lyrica) 50 Mg Cap 50 MG PO DAILY #30 Ref 0 CAP Probiotic Product (Diff-Stat) 1 Cap Cap 1 CAPLET PO BID Simvastatin (Simvastatin) 80 Mg Tab 80 MG PO DAILY Cholesterol Management #30 Ref 0 TAB Tamsulosin (Flomax) 0.4 Mg Cap 0.4 MG PO HS Manage Prostate Problems #30 Ref 0 CAP Theophylline ER 12 HR (Theophylline ER 12 HR) 300 Mg Tab 300 MG PO Q12H #60 Ref 0 TAB Tiotropium Inh (Spiriva Handihaler) 18 Mcg Cap 18 MCG INH DAILY CPD #1 Ref 3 CAP Discontinued Medications: Insulin Detemir Inj (Levemir Flextouch Pen Inj) 300 unit/3 ML Pen 8 UNITS SQ DAILY Blood Sugar Management Ref 0 PEN Insulin Lispro (Human) Inj (Humalog Inj) 1,000 Unit/10 Ml Vial 5 UNITS SQ TIDAC Blood Sugar Management #1 Ref 0 VIAL Lorazepam (Ativan) 1 Mg Tab 1 MG PO Q8HR PRN ANXIETY #20 Ref 0 TAB Trazodone (Trazodone) 50 Mg Tab 50 MG PO HS HSanx/sl #30 TAB Abelardo Justice MD Apr 28, 2016 13:50
== END 2016-04-28 17:48 | DRG 190 ==
LOC: NEPE 22:46 → NEDA 04-23 01:11 → NEDH 04-23 06:49 → HCIN 04-23 10:45
PROVIDERS: ADMIT Family Medicine; ATTEND Family Medicine
PROC: 30233N1 Transfusion of Nonautologous Red Blood Cells into Peripheral Vein, Percutaneous Approach (ICD-10-PCS; principal; 2016-04-24)
DX: J44.0 Chronic obstructive pulmonary disease with (acute) lower respiratory infection (principal); J18.9 Pneumonia, unspecified organism; L89.159 Pressure ulcer of sacral region, unspecified stage; E11.22 Type 2 diabetes mellitus with diabetic chronic kidney disease; E11.649 Type 2 diabetes mellitus with hypoglycemia without coma; Z99.81 Dependence on supplemental oxygen; I48.91 Unspecified atrial fibrillation; T83.511A Infection and inflammatory reaction due to indwelling urethral catheter, initial encounter; B37.49 Other urogenital candidiasis; K62.5 Hemorrhage of anus and rectum; J98.11 Atelectasis; J45.909 Unspecified asthma, uncomplicated; F41.9 Anxiety disorder, unspecified; F32.9 Major depressive disorder, single episode, unspecified; E03.9 Hypothyroidism, unspecified; N18.9 Chronic kidney disease, unspecified; I12.9 Hypertensive chronic kidney disease with stage 1 through stage 4 chronic kidney disease, or unspecified chronic kidney disease; E78.00 Pure hypercholesterolemia, unspecified; H91.90 Unspecified hearing loss, unspecified ear; I25.2 Old myocardial infarction; I25.10 Atherosclerotic heart disease of native coronary artery without angina pectoris; Z95.5 Presence of coronary angioplasty implant and graft; K42.9 Umbilical hernia without obstruction or gangrene; I45.10 Unspecified right bundle-branch block; D64.9 Anemia, unspecified; Z23 Encounter for immunization; Z87.891 Personal history of nicotine dependence; Z87.01 Personal history of pneumonia (recurrent); E87.6 Hypokalemia
CPT/HCPCS: 36430; 71010; 71250; 80048; 80053; 81001; 82550; 82552; 82607; 82728; 82746; 82948; 83540; 83550; 83605; 83690; 83735; 84484; 85025; 85027; 85610; 85730; 86403; 86850; 86900; 86901; 86920; 87040; 87070; 87077; 87086; 87186; 87205; 87804; 90686; 90732; 93005; 94150; 94640; 94664; 96374; 96375; J0692; J0744; J1644; J1815; J1940; J3370; J3475; J3480; J7030; J7040; J7050; P9016; Q2038

== ENCOUNTER 2016-05-01 19:49 | Inpatient (IN) | payer MEDICARE, OTHER ==
[~2016-05-01] VITALS: Ht 170.2 cm; Wt 76.6 kg
[~2016-05-01 19:49] MED LIST changes: -HUMALOG SQ; -INSU1INJ5 SQ; -LORA-474 PO; -TRAZ50TA12 PO
[2016-05-01 20:22] VITALS: BP 132/63; PULSE 128; RESP 18; TEMP 98.8; O2SAT 96
[2016-05-01] MEDS ORDERED: SODIUM CHLOR 0.9% 1000 ML INJ 1,000 ML IV SCH (20:29)
--- NOTE | 2016-05-01 20:36 | PD ---
HPI Chief Complaint: Chest Pain Time Seen by Provider: 20:32 Travel History International Travel<30 days: No Contact w/Intl Traveler<30days: No Traveled to known affect area: No History of Present Illness HPI This report is in ERROR Please disregard this report and all prior copies ! This report is in ERROR Please disregard this report and all prior copies ! This report is in ERROR Please disregard this report and all prior copies ! PFSH Past Medical History Anemia: Yes Asthma: Yes Anxiety: Yes Depression: Yes Heart Rhythm Problems: Yes Cardiovascular Problems: Yes (5 stents, 2 mi) High Cholesterol: Yes Chest Pain: Yes COPD: Yes Diminished Hearing: Yes Hypertension: Yes Respiratory: Yes (copd 02 dependent) Myocardial Infarction: Yes Pneumonia: Yes Thyroid Disease: Yes Past Surgical History Cardiac Surgery: Yes (5 stents ) Social History Alcohol Use: No Tobacco Use: No (03/31 PPD) Substance Use: No Allergies-Medications (Allergen,Severity, Reaction): Coded Allergies: Penicillin (Verified Allergy, Mild, 05/01/16) Reported Meds & Prescriptions Reported Meds & Active Scripts Active Spiriva Handihaler (Tiotropium Inh) 18 Mcg Cap 18 Mcg INH DAILY Oxygen tank (Oxygen) 1 Ea Tank 2 Liter ANA.CANULA CONTINUOUS Oxygen Concentrator Portable Gaseous 2 L/min via Nasal Cannula Continuous For 99 months Lortab (Hydrocodone-Acetaminophen) 5-325 Mg Tab 1 Tab PO Q8HR PRN K-Phos Neutral (Potassium Phos/Sodium Phos) 155-852-130 Mg Tab 250 Mg PO PCHS Pantoprazole (Pantoprazole Sodium) 40 Mg Tab 40 Mg PO DAILY Metoprolol Tartrate 25 Mg Tab 25 Mg PO Q8HR Levaquin (Levofloxacin) 500 Mg Tab 500 Mg PO Q24H Isosorbide Mononitrate ER (Isosorbide Mononitrate) 30 Mg Huber 30 Mg PO DAILY@07 Amiodarone (Amiodarone HCl) 200 Mg Tab 200 Mg PO DAILY 30 Days Ventolin Hfa 18 GM Inh (Albuterol Sulfate) 90 Mcg/Act Aer 2 Puff INH Q4HR PRN Levaquin (Levofloxacin) 500 Mg Tab 500 Mg PO Q24H Reported Diff-Stat (Probiotic Product) 1 Cap Cap 1 Caplet PO BID Duoneb (Ipratropium-Albuterol Neb) 0.5-2.5 Mg/3 Ml Neb 1 Nebule INH Q6HR NEB Tylenol (Acetaminophen) 325 Mg Cap 650 Mg PO Q6H PRN Magnesium Oxide 500 Mg Tab 500 Mg PO DAILY Multivitamin Adults 50+ (Multiple Vitamins W/ Minerals) 1 Tab Tab 1 Cap PO DAILY Flomax (Tamsulosin HCl) 0.4 Mg Cap 0.4 Mg PO HS Diflucan (Fluconazole) 100 Mg Tab 100 Mg PO DAILY Feosol (Ferrous Sulfate) 65 Mg Tab 65 Mg PO TIDPC Nystatin Liq 100,000 unit/ml Susp 5 Ml SWISH-SWAL QID Lasix (Furosemide) 20 Mg Tab 20 Mg PO DAILY Calcium Carbonate 1,500 Mg Tab 1,500 Mg PO BID 1,500 mg calcium carbonate (600 mg elemental calcium) Theophylline ER 12 HR (Theophylline) 300 Mg Tab 300 Mg PO Q12H Simvastatin 80 Mg Tab 80 Mg PO DAILY Potassium Chloride ER (Potassium Chloride) 20 Meq Tab 20 Meq PO BID Nitroglycerin SL (Nitroglycerin) 0.4 Mg Subl 0.4 Mg SL DIRECTED PRN ONE TABLET UNDER THE TONGUE NEEDED FOR CHEST PAIN, MAY REPEAT EVERY FIVE MINUTES FOR A TOTAL OF 3 DOSES OR CALL 911 IF NO RELIEF Lyrica (Pregabalin) 50 Mg Cap 50 Mg PO DAILY Levothyroxine (Levothyroxine Sodium) 125 Mcg Tab 125 Mcg PO DAILY Review of Systems Except as stated in HPI: all other systems reviewed are Neg Physical Exam Narrative This report is in ERROR Please disregard this report and all prior copies ! This report is in ERROR Please disregard this report and all prior copies ! This report is in ERROR Please disregard this report and all prior copies ! Data Data Last Documented VS Vital Signs Date Time Temp Pulse Resp B/P Pulse Ox O2 Delivery O2 Flow Rate FiO2 05/01/16 20:25 Nasal Cannula 2 05/01/16 20:22 98.8 128 18 132/63 96 Orders Electrocardiogram (05/01/16 20:21) Complete Blood Count With Diff (05/01/16 20:21) Basic Metabolic Panel (Bmp) (05/01/16 20:21) Ckmb (Isoenzyme) Profile (05/01/16 20:21) Troponin I (05/01/16 20:21) Chest, Single Ap (05/01/16 20:21) Iv Access Insert/Monitor (05/01/16 20:21) Ecg Monitoring (05/01/16 20:21) Oxygen Administration (05/01/16 20:21) Oximetry (05/01/16 20:21) Lactic Acid (05/01/16 20:29) Prothrombin Time / Inr (Pt) (05/01/16 20:29) Act Partial Throm Time (Ptt) (05/01/16 20:29) Sodium Chlor 0.9% 1000 Ml Inj (Ns 1000 M (05/01/16 20:29) D-Dimer (05/01/16 20:29) Sodium Chlorid 0.9% 500 Ml Inj (Ns 500 M (05/01/16 21:15) Theophylline (Aminophylline) (05/01/16 21:08) Thyroid Stimulating Hormone (05/01/16 21:08) Vital Signs (Adult) Q15MX4,Q4H (05/01/16 21:13) [employer] Service Worker / Telemetry (05/01/16 21:13) Cardiac Rhythm LEIDA.Q8H (05/01/16 21:13) ^ Notify Dr: Other (05/01/16 21:13) Diltiazem Inj (Cardizem Inj) (05/01/16 21:15) Diltiazem Inj (Cardizem Inj) (05/01/16 21:15) Labs Laboratory Tests Test 05/01/16 20:35 White Blood Count 7.6 TH/MM3 Red Blood Count 3.74 MIL/MM3 Hemoglobin 10.1 GM/DL Hematocrit 30.9 % Mean Corpuscular Volume 82.6 FL Mean Corpuscular Hemoglobin 27.0 PG Mean Corpuscular Hemoglobin 32.7 % Concent Red Cell Distribution Width 17.9 % Platelet Count 289 TH/MM3 Mean Platelet Volume 9.0 FL Neutrophils (%) (Auto) 64.5 % Lymphocytes (%) (Auto) 21.5 % Monocytes (%) (Auto) 11.9 % Eosinophils (%) (Auto) 1.2 % Basophils (%) (Auto) 0.9 % Neutrophils # (Auto) 4.9 TH/MM3 Lymphocytes # (Auto) 1.6 TH/MM3 Monocytes # (Auto) 0.9 TH/MM3 Eosinophils # (Auto) 0.1 TH/MM3 Basophils # (Auto) 0.1 TH/MM3 CBC Comment DIFF FINAL Differential Comment MDM Medical Decision Making Medical Screen Exam Complete: Yes Emergency Medical Condition: Yes Differential Diagnosis This report is in ERROR Please disregard this report and all prior copies ! This report is in ERROR Please disregard this report and all prior copies ! This report is in ERROR Please disregard this report and all prior copies ! Narrative Course This report is in ERROR Please disregard this report and all prior copies ! This report is in ERROR Please disregard this report and all prior copies ! This report is in ERROR Please disregard this report and all prior copies ! Bo Vila May 01, 2016 20:36
[2016-05-01 21:06] LABS: AUTOMATED NEUTROPHIL # 4.9 TH/MM3 (1.8-7.7); BASOPHIL # 0.1 TH/MM3 (0-0.2); BASOPHIL % 0.9 % (0.0-2.0); EOSINOPHIL # 0.1 TH/MM3 (0-0.4); EOSINOPHIL % 1.2 % (0.0-4.0); HEMATOCRIT 30.9 % (39.0-51.0); HEMO FLAGS DIFF FINAL; LYMPH % 21.5 % (9.0-44.0); LYMPHOCYTE # 1.6 TH/MM3 (1.0-4.8); MEAN CELL VOLUME 82.6 FL (80.0-100.0); MEAN CORPUSCULAR HGB CONC 32.7 % (32.0-36.0); MONO % 11.9 % (0.0-8.0); NEUT % 64.5 % (16.0-70.0); PLATELET COUNT 289 TH/MM3 (150-450); RED BLOOD COUNT 3.74 MIL/MM3 (4.50-5.90); RED CELL DISTRIBUTION WIDTH 17.9 % (11.6-17.2); WHITE BLOOD COUNT 7.6 TH/MM3 (4.0-11.0)
--- NOTE | 2016-05-01 21:07 | PD ---
HPI Chief Complaint: Chest Pain Time Seen by Provider: 21:06 Travel History International Travel<30 days: No Contact w/Intl Traveler<30days: No Traveled to known affect area: No History of Present Illness HPI 71-year-old male came to the emergency room from the retirement with history of significant chest pain on the left side 2-3 hours prior to coming in. Patient has significant cardiac history with multiple stents and angioplasty in the past. He says his last stent was in 2012. The pain is not radiating and feels like a pressure of 9 out of 10. He is awake and answering questions appropriately. He does look older than his stated age and frail. His heart rate was in the 120s consistently when he came to the ER. I asked the nurse to do a rectal temperature which was 101.5. Patient has been complaining of some shortness of breath as well. Patient was discharged not too long ago from the hospital for sepsis. PFSH Past Medical History Narrative Medical List of his past medical history as reviewed from the nursing note. Anemia: Yes Asthma: Yes Anxiety: Yes Depression: Yes Heart Rhythm Problems: Yes Cardiovascular Problems: Yes (5 stents, 2 mi) High Cholesterol: Yes Chest Pain: Yes COPD: Yes Diminished Hearing: Yes Hypertension: Yes Respiratory: Yes (copd 02 dependent) Myocardial Infarction: Yes Pneumonia: Yes Thyroid Disease: Yes Past Surgical History Cardiac Surgery: Yes (5 stents ) Social History Alcohol Use: No Tobacco Use: No (1 03/31 PPD) Substance Use: No Allergies-Medications (Allergen,Severity, Reaction): Coded Allergies: Penicillin (Verified Allergy, Mild, 05/01/16) Comments List of his allergies reviewed from the nursing note. Reported Meds & Prescriptions Reported Meds & Active Scripts Active Diflucan (Fluconazole) 100 Mg Tab 100 Mg PO DAILY Levaquin (Levofloxacin) 500 Mg Tab 500 Mg PO Q24H Spiriva Handihaler (Tiotropium Inh) 18 Mcg Cap 18 Mcg INH DAILY Oxygen tank (Oxygen) 1 Ea Tank 2 Liter ANA.CANULA CONTINUOUS Oxygen Concentrator Portable Gaseous 2 L/min via Nasal Cannula Continuous For 99 months Lortab (Hydrocodone-Acetaminophen) 5-325 Mg Tab 1 Tab PO Q8HR PRN K-Phos Neutral (Potassium Phos/Sodium Phos) 155-852-130 Mg Tab 250 Mg PO PCHS Pantoprazole (Pantoprazole Sodium) 40 Mg Tab 40 Mg PO DAILY Metoprolol Tartrate 25 Mg Tab 25 Mg PO Q8HR Isosorbide Mononitrate ER (Isosorbide Mononitrate) 30 Mg Huber 30 Mg PO DAILY@07 Amiodarone (Amiodarone HCl) 200 Mg Tab 200 Mg PO DAILY 30 Days Ventolin Hfa 18 GM Inh (Albuterol Sulfate) 90 Mcg/Act Aer 2 Puff INH Q4HR PRN Reported Diff-Stat (Probiotic Product) 1 Cap Cap 1 Caplet PO BID Duoneb (Ipratropium-Albuterol Neb) 0.5-2.5 Mg/3 Ml Neb 1 Nebule INH Q6HR NEB Tylenol (Acetaminophen) 325 Mg Cap 650 Mg PO Q6H PRN Magnesium Oxide 500 Mg Tab 500 Mg PO DAILY Multivitamin Adults 50+ (Multiple Vitamins W/ Minerals) 1 Tab Tab 1 Cap PO DAILY Flomax (Tamsulosin HCl) 0.4 Mg Cap 0.4 Mg PO HS Feosol (Ferrous Sulfate) 65 Mg Tab 65 Mg PO TIDPC Nystatin Liq 100,000 unit/ml Susp 5 Ml SWISH-SWAL QID Lasix (Furosemide) 20 Mg Tab 20 Mg PO DAILY Calcium Carbonate 1,500 Mg Tab 1,500 Mg PO BID 1,500 mg calcium carbonate (600 mg elemental calcium) Theophylline ER 12 HR (Theophylline) 300 Mg Tab 300 Mg PO Q12H Simvastatin 80 Mg Tab 80 Mg PO DAILY Potassium Chloride ER (Potassium Chloride) 20 Meq Tab 20 Meq PO BID Nitroglycerin SL (Nitroglycerin) 0.4 Mg Subl 0.4 Mg SL DIRECTED PRN ONE TABLET UNDER THE TONGUE NEEDED FOR CHEST PAIN, MAY REPEAT EVERY FIVE MINUTES FOR A TOTAL OF 3 DOSES OR CALL 911 IF NO RELIEF Lyrica (Pregabalin) 50 Mg Cap 50 Mg PO DAILY Levothyroxine (Levothyroxine Sodium) 125 Mcg Tab 125 Mcg PO DAILY Narrative Medication List of his home medications reviewed from the nursing note. Review of Systems Except as stated in HPI: all other systems reviewed are Neg Physical Exam Narrative GENERAL: Awake, alert, elderly, pale, moderate distress SKIN: Warm and dry. HEAD: Atraumatic. Normocephalic. EYES: Pupils equal and round. No scleral icterus. No injection or drainage. ENT: No nasal bleeding or discharge. Dry mucous membrane NECK: Trachea midline. No JVD. CARDIOVASCULAR: Regular rate and rhythm. Tachycardia. No murmur appreciated. RESPIRATORY: No accessory muscle use. Clear to auscultation. Breath sounds equal bilaterally. GASTROINTESTINAL: Abdomen soft, non-tender, nondistended. Hepatic and splenic margins not palpable. MUSCULOSKELETAL: No obvious deformities. No clubbing. No cyanosis. No edema. NEUROLOGICAL: Awake and alert. No obvious cranial nerve deficits. Motor grossly within normal limits. Normal speech. PSYCHIATRIC: Appropriate mood and affect; insight and judgment normal. Data Data Last Documented VS Vital Signs Date Time Temp Pulse Resp B/P Pulse Ox O2 Delivery O2 Flow Rate FiO2 05/01/16:17 96 Nasal Cannula 2.00 05/01/16 20:22 98.8 128 18 132/63 Orders Electrocardiogram (05/01/16 20:21) Complete Blood Count With Diff (05/01/16 20:21) Basic Metabolic Panel (Bmp) (05/01/16 20:21) Ckmb (Isoenzyme) Profile (05/01/16 20:21) Troponin I (05/01/16 20:21) Chest, Single Ap (05/01/16 20:21) Iv Access Insert/Monitor (05/01/16 20:21) Ecg Monitoring (05/01/16 20:21) Oxygen Administration (05/01/16 20:21) Oximetry (05/01/16 20:21) Lactic Acid (05/01/16 20:29) Prothrombin Time / Inr (Pt) (05/01/16 20:29) Act Partial Throm Time (Ptt) (05/01/16 20:29) Sodium Chlor 0.9% 1000 Ml Inj (Ns 1000 M (05/01/16 20:29) D-Dimer (05/01/16 20:29) Sodium Chlorid 0.9% 500 Ml Inj (Ns 500 M (05/01/16 21:15) Theophylline (Aminophylline) (05/01/16 21:08) Thyroid Stimulating Hormone (05/01/16 21:08) Vital Signs (Adult) Q15MX4,Q4H (05/01/16 21:13) Plate Mill Hand / Telemetry (05/01/16 21:13) Cardiac Rhythm LEIDA.Q8H (05/01/16 21:13) ^ Notify Dr: Other (05/01/16 21:13) Diltiazem Inj (Cardizem Inj) (05/01/16 21:15) Diltiazem Inj (Cardizem Inj) (05/01/16 21:15) Lactic Acid Sepsis Protocol (05/01/16 21:17) Blood Culture (05/01/16 21:17) Aztreonam Inj (Azactam Inj) (05/01/16 21:17) Vancomycin Inj (Vancomycin Inj) (05/01/16 21:17) Azithromycin Inj (Zithromax Inj) (05/01/16 21:17) Sodium Chlor 0.9% 1000 Ml Inj (Ns 1000 M (05/01/16 21:17) Sodium Chlor 0.9% 1000 Ml Inj (Ns 1000 M (05/01/16 21:17) Sodium Chlor 0.9% 1000 Ml Inj (Ns 1000 M (05/01/16 21:17) Acetaminophen (Tylenol) (05/01/16 22:15) Albuterol Neb (Albuterol Neb) (05/01/16 22:15) Ct Pulmonary Angiogram (05/01/16 ) Iohexol 350 Inj (Omnipaque 350 Inj) (05/01/16 23:08) Admit Order (Ed Use Only) (05/02/16 00:03) Labs Laboratory Tests Test 05/01/16 05/01/16 20:35 21:40 White Blood Count 7.6 TH/MM3 Red Blood Count 3.74 MIL/MM3 Hemoglobin 10.1 GM/DL Hematocrit 30.9 % Mean Corpuscular Volume 82.6 FL Mean Corpuscular Hemoglobin 27.0 PG Mean Corpuscular Hemoglobin 32.7 % Concent Red Cell Distribution Width 17.9 % Platelet Count 289 TH/MM3 Mean Platelet Volume 9.0 FL Neutrophils (%) (Auto) 64.5 % Lymphocytes (%) (Auto) 21.5 % Monocytes (%) (Auto) 11.9 % Eosinophils (%) (Auto) 1.2 % Basophils (%) (Auto) 0.9 % Neutrophils # (Auto) 4.9 TH/MM3 Lymphocytes # (Auto) 1.6 TH/MM3 Monocytes # (Auto) 0.9 TH/MM3 Eosinophils # (Auto) 0.1 TH/MM3 Basophils # (Auto) 0.1 TH/MM3 CBC Comment DIFF FINAL Differential Comment Prothrombin Time 16.7 SEC Prothromb Time International 1.5 RATIO Ratio Activated Partial 35.2 SEC Thromboplast Time D-Dimer Quantitative (PE/DVT) 1.63 MG/L FEU Sodium Level 131 MEQ/L Potassium Level 4.0 MEQ/L Chloride Level 95 MEQ/L Carbon Dioxide Level 27.3 MEQ/L Anion Gap 9 MEQ/L Blood Urea Nitrogen 10 MG/DL Creatinine 0.95 MG/DL Estimat Glomerular Filtration 78 ML/MIN Rate Random Glucose 98 MG/DL Lactic Acid Level 1.2 mmol/L 1.0 mmol/L Calcium Level 8.2 MG/DL Total Creatine Kinase 43 U/L Troponin I LESS THAN 0.02 NG/ML Thyroid Stimulating Hormone 6.280 uIU/ML 3rd Gen Theophylline Level 14.8 MCG/ML MDM Medical Decision Making Medical Screen Exam Complete: Yes Emergency Medical Condition: Yes Medical Record Reviewed: Yes Interpretation(s) Twelve-lead EKG was reviewed by me. Wide-complex tachycardia, right bundle branch block, axis deviation, questionable atrial flutter versus junctional tachycardia. Right bundle branch block unchanged from previous EKG. Heart rate of 125 bpm. Differential Diagnosis Sepsis, pneumonia, UTI, ACS Narrative Course 11:10 PM patient received IV fluids and antibiotic as per sepsis protocol. He received Tylenol for the fever. Heart rate has come down to 1 teens. Patient has some leukocytosis and slight hyponatremia. Troponin is negative. There was a d-dimer ordered initially which is positive. CT pulmonary angiogram is ordered. Awaiting for the test to be done and resulted. Patient will require admission. Patient is on theophylline and a level was ordered which is within normal limits. His TSH was elevated. Patient is on Synthroid. 12:[address] report is back and does not show any PE but there is a right lower lobe consolidation. Patient has been admitted to the hospitalist. 1.30 AM: heart rate has been consistently at 120s. I will give him a dose of Cardizem bolus at 15mg. The nurse will notify the hospitalist regarding this. Critical Care Narrative Aggregate critical care time was 45 minutes. Time to perform other separately billable procedures was not included in the critical care time. My time did not include minutes spent treating any other patients simultaneously or on activities that did not directly contribute to the patient's treatment. The services I provided to this patient were to treat and/or prevent clinically significant deterioration that could result in: Sepsis, sepsis protocol I provided critical care services requiring my management, as noted below: Chart data review, documentation time, medication orders and management, vital sign assessments/reviewing monitor data, ordering and reviewing lab tests, ordering and interpreting/reviewing x-rays and diagnostic studies, care of the patient and discussion of the patient with the admitting physicians. Procedures EKG Prior to Arrival: Yes Diagnosis Primary Impression: Sepsis Qualified Code: A41.9 - Sepsis, due to unspecified organism Additional Impressions: fever of 101.5 Hyponatremia Pneumonia Qualified Code: J18.1 - Pneumonia of right lower lobe due to infectious organism Sinus tachycardia Admitting Information Admitting Physician Requests: Muna Corey MD May 01, 2016 21:07
--- NOTE | 2016-05-01 21:12 | RADRPT ---
EXAM DATE/TIME: 05/01/2016 20:40 [facility] COMPARISON: CT THORAX W/O CONTRAST, April 25, 2016, 16:11. CHEST SINGLE AP, April 22, 2016, 23:33. INDICATIONS : Chest pain. MEDICAL HISTORY : None. SURGICAL HISTORY : None. ENCOUNTER: Initial ACUITY: 1 day PAIN SCORE: 5/10 LOCATION: Bilateral chest FINDINGS: Very mild patchy parenchymal opacities are seen of both bases and the right mid lung, appear improved . Also probable decrease in bilateral pleural effusions, now minimal. No pneumothorax seen. Heart siz e stable, upper limits of normal. CONCLUSION: Decreasing bibasilar consolidation and effusions. Romel Beltran MD on May 01, 2016 at 21:10 Board Certified Radiologist. This report was verified electronically.
[2016-05-01] MEDS ORDERED: DILTIAZEM INJ 125 MG in SODIUM CHLORIDE 0.9% INJ 100 ML IV SCH (21:15)
[2016-05-01] MEDS ORDERED: SODIUM CHLORID 0.9% 500 ML INJ 500 ML IV ONE (21:15)
[2016-05-01] MEDS ORDERED: DILTIAZEM HCL 25 MG/5 ML VIAL IVP ONE (21:15)
[2016-05-01] MEDS ORDERED: SODIUM CHLOR 0.9% 1000 ML INJ 100 ML IV ONE (21:17)
[2016-05-01] MEDS ORDERED: VANCOMYCIN INJ 1 MG in SODIUM CHLOR 0.9% 250 ML INJ 250 ML IV STA (21:17)
[2016-05-01] MEDS ORDERED: AZITHROMYCIN INJ 500 MG in SODIUM CHLOR 0.9% 250 ML INJ 250 ML IV STA (21:17)
[2016-05-01] MEDS ORDERED: AZTREONAM INJ 2,000 MG in SODIUM CHLORIDE 0.9% INJ 100 ML IV STA (21:17)
[2016-05-01] MEDS ORDERED: SODIUM CHLOR 0.9% 1000 ML INJ 1,000 ML IV ONE ×2 (21:17)
[2016-05-01 21:36] LABS: ANION GAP 9 MEQ/L (5-15); BICARBONATE 27.3 MEQ/L (21.0-32.0); BLOOD UREA NITROGEN 10 MG/DL (7-18); CHLORIDE 95 MEQ/L (98-107); GLOMERULAR FILTRATION RATE 78 ML/MIN (>89); SODIUM (NA) 131 MEQ/L (136-145)
[2016-05-01 21:37] LABS: CREATINE KINASE 43 U/L (39-308)
[2016-05-01 21:41] LABS: APTT (PATIENT) 35.2 SEC (24.3-30.1); INTERNATIONAL NORMALIZED RATIO 1.5 RATIO; PROTHROMBIN TIME - PATIENT 16.7 SEC (9.8-11.6)
[2016-05-01] MEDS ORDERED: RESP: ALBUTEROL 2.5 MG/3 ML NEB (SCH) NEB ONE (22:15)
[2016-05-01] MEDS ORDERED: ACETAMINOPHEN 325 MG TAB PO ONE (22:15)
[2016-05-01 22:16] LABS: THEOPHYLLINE 14.8 MCG/ML (10.0-20.0)
[2016-05-01 22:17] VITALS: O2SAT 96
[2016-05-01] MEDS ORDERED: IOHEXOL 350 MG/ML 10 ML VIAL (for RAD DIAG) IV ONE (23:08)
--- NOTE | 2016-05-01 23:33 | RADRPT ---
EXAM DATE/TIME: 05/01/2016 23:02 [facility] COMPARISON: CT PULMONARY ANGIOGRAM, March 26, 2016, 9:48. INDICATIONS : Chest pain today. IV CONTRAST: 75 cc Omnipaque 350 (iohexol) IV RADIATION DOSE: 23.36 CTDIvol (mGy) MEDICAL HISTORY : Myocardial infarction. Hypertension. Chronic obstructive pulmonary disease. SURGICAL HISTORY : Stents ENCOUNTER: Initial ACUITY: 1 day PAIN SCALE: 5/10 LOCATION: chest TECHNIQUE: Volumetric scanning of the chest was performed using a pulmonary embolism protocol MIP images were re constructed. Using automated exposure control and adjustment of the mA and/or kV according to patien t size, radiation dose was kept as low as reasonably achievable to obtain optimal diagnostic quality images. FINDINGS: There is respiratory motion artifact. PULMONARY ARTERIES: No filling defects are seen in the pulmonary arteries through the segmental level. LUNGS: There is mild centrilobular emphysema in the upper lobes. Mild patchy airspace consolidation is prese nt in the right upper lobe and there is a focal area of consolidation in the right lower lobe along w ith bilateral compressive atelectasis in the lower lobes due to the bilateral effusions. No pneumotho rax is present. PLEURAE: There are bilateral pleural effusions with associated compressive atelectasis. MEDIASTINUM: Heart and great vessels demonstrate no acute finding. There is coronary artery calcification atherosc lerotic disease of the aorta with possible graft or stent of the mean aorta and arch. No lymphadenopa thy is visualized. MUSCULOSKELETAL: No acute osseous abnormality is seen. MISCELLANEOUS: The visualized upper abdominal organs demonstrate no acute abnormality. CONCLUSION: 1. Examination is degraded by respiratory motion artifact. No PE is visualized. 2. There is a focal air space consolidation in the right lower lobe and mild patchy consolidation in the right upper lobe. 3. Small bilateral pleural effusions, right larger than left, with associated compressive atelectasis in the lower lobes. Romel Lester MD on May 01, 2016 at 23:26 Board Certified Radiologist. This report was verified electronically.
[2016-05-02] VITALS (16 sets, daily range): BP systolic 92–161; BP diastolic 53–87; PULSE 76–127; RESP 16–24; TEMP 97.4–98.8; O2SAT 92–98
[2016-05-02] MEDS ORDERED: ACETAMINOPHEN/HYDROcodone 325 MG/5 MG TAB PO PRN (00:15)
[2016-05-02] MEDS ORDERED: ONDANSETRON HCL 4 MG/2 ML VIAL IVP PRN (00:15)
[2016-05-02] MEDS ORDERED: SODIUM CHLORIDE 0.9% FLUSH 5 ML FLUSH FLUSH PRN (00:15)
[2016-05-02] MEDS ORDERED: BISACODYL 10 MG SUPP PR PRN (00:15)
[2016-05-02] MEDS ORDERED: DILTIAZEM HCL 25 MG/5 ML VIAL IV ONE (00:30)
[2016-05-02] MEDS ORDERED: BENZOCAINE-MENTHOL (SUGAR FREE) 15 MG-3.6 MG LOZENGE BUCCAL PRN (00:45)
[2016-05-02] MEDS: RESP: ALBUTEROL 2.5 MG/IPRATROPIUM 0.5 MG NEB (PRN) NEB (00:50)
[2016-05-02] MEDS: THEOPHYLLINE ER 12 HR 300 MG TABCR PO SCH ×2 (02:41→13:21)
[2016-05-02] MEDS: DILTIAZEM INJ 125 MG in SODIUM CHLORIDE 0.9% INJ 100 ML IV SCH ×2 (02:43→14:08)
[2016-05-02] MEDS ORDERED: Vancomycin Consult Pharmacy 1 EA OTHER SCH (02:45)
--- NOTE | 2016-05-02 03:03 | HHI.HP ---
HPI Service [facility] Primary Care Physician Bertha Kc MD Admission Diagnosis sepsis, tachycardia, pneumonia, fever Diagnoses: (1) PNA (pneumonia) Diagnosis: Principal (2) Chest pain Diagnosis: Principal (3) Atrial fibrillation with RVR Diagnosis: Principal (4) COPD (chronic obstructive pulmonary disease) Diagnosis: Principal (5) UTI (urinary tract infection) Diagnosis: Principal Travel History International Travel<30 Days: No Contact w/Intl Traveler <30 Da: No Traveled to Known Affected Are: No History of Present Illness This is a 71-year-old male with a PMH of A. fib, HTN, COPD, O2 Dependent, CAD s/ p Cardiac Stents, Sacral Decubitus Ulcer, Anxiety and Depression who was sent to the ER from Rehab secondary to complaints of chest pain. Recent admit 04/23- for UTI and PNA, s/p IV Abx and d/c'd to Rehab on Levaquin and Diflucan for U/a w/ Nany Albicans from 04/22/16. While at Rehab pt w/ complaints of severe chest pain, reports pain worse w/ deep inspiration. Denies fever, chills , cough or palpitations. On arrival, pt noted to be in A-fib, HR 128, BP 132/63 , O2 sat 96% on 2L NC, Afebrile. WBC 7.6. Chemistry at baseline. CXR with improving bibasilar consolidation and effusions. CTA Pulm negative for PE, focal air space consolidation RUL and RLL, small bilateral pleural effusions. While in ER, pt w/ episode of A-fib w/ RVR, HR 150's, s/p Cardizem IV x1 and Cardizem gtt. Follows w/ Dr. Nash as outpatient. Review of Systems Other ROS: 14 point review of systems otherwise negative. Past Family Social History Past Medical History PMH: A. fib, HTN, COPD, O2 Dependent, CAD s/p Cardiac Stents, Sacral Decubitus Ulcer, Anxiety and Depression Past Surgical History PAST SURGICAL HISTORY: Cardiac Stents Allergies: Coded Allergies: Penicillin (Verified Allergy, Mild, 2/2/17) Family History PAST FAMILY HISTORY: Reviewed. No h/o DM or CAD Social History PAST SOCIAL HISTORY: Negative for alcohol, tobacco or drugs Physical Exam Vital Signs Vital Signs Date Time Temp Pulse Resp B/P Pulse Ox O2 Delivery O2 Flow Rate FiO2 05/02/16 00:15 127 20 107/57 05/01/16 22:17 96 Nasal Cannula 2.00 05/01/16 20:25 Nasal Cannula 2 05/01/16 20:22 98.8 128 18 132/63 96 Physical Exam PE: GENERAL: Very pleasant elderly white male in no acute distress. HEENT: PERRLA, EOMI. No scleral icterus or conjunctival pallor. No lid lag or facial droop. CARDIOVASCULAR: Irregularly irregular, in A. fib, HR 130s to 140s. No obvious murmurs to auscultation. No chest tenderness to palpation. RESPIRATORY: No obvious rhonchi or wheezing. Clear to auscultation. Breath sounds equal bilaterally. GASTROINTESTINAL: Abdomen soft, non-tender, nondistended. BS normal. MUSCULOSKELETAL: Extremities without clubbing, cyanosis, or edema. No obvious deformities. NEUROLOGICAL: Awake, alert and oriented x4. No focal neurologic deficits. Moving both upper and lower extremities spontaneously. Laboratory Laboratory Tests Test 05/01/16 05/01/16 20:35 21:40 White Blood Count 7.6 Red Blood Count 3.74 Hemoglobin 10.1 Hematocrit 30.9 Mean Corpuscular Volume 82.6 Mean Corpuscular Hemoglobin 27.0 Mean Corpuscular Hemoglobin 32.7 Concent Red Cell Distribution Width 17.9 Platelet Count 289 Mean Platelet Volume 9.0 Neutrophils (%) (Auto) 64.5 Lymphocytes (%) (Auto) 21.5 Monocytes (%) (Auto) 11.9 Eosinophils (%) (Auto) 1.2 Basophils (%) (Auto) 0.9 Neutrophils # (Auto) 4.9 Lymphocytes # (Auto) 1.6 Monocytes # (Auto) 0.9 Eosinophils # (Auto) 0.1 Basophils # (Auto) 0.1 CBC Comment DIFF FINAL Differential Comment Prothrombin Time 16.7 Prothromb Time International 1.5 Ratio Activated Partial 35.2 Thromboplast Time D-Dimer Quantitative (PE/DVT) 1.63 Sodium Level 131 Potassium Level 4.0 Chloride Level 95 Carbon Dioxide Level 27.3 Anion Gap 9 Blood Urea Nitrogen 10 Creatinine 0.95 Estimat Glomerular Filtration 78 Rate Random Glucose 98 Lactic Acid Level 1.2 1.0 Calcium Level 8.2 Total Creatine Kinase 43 Troponin I LESS THAN 0.02 Thyroid Stimulating Hormone 6.280 3rd Gen Theophylline Level 14.8 Date/Time Procedure Status Source Growth 05/01/16 21:45 Aerobic Blood Culture Received Blood Peripheral Pending 05/01/16 21:45 Anaerobic Blood Culture Received Blood Peripheral Pending Result Diagram: 05/01/16203405/01/162034 Assessment and Plan Problem List: (1) PNA (pneumonia) ICD Code: J18.9 Status: Acute (2) UTI (urinary tract infection) ICD Code: N39.0 Status: Acute (3) Chest pain ICD Code: R07.9 Status: Resolved (4) Atrial fibrillation with RVR ICD Code: I48.91 Status: Acute (5) COPD (chronic obstructive pulmonary disease) ICD Code: J44.9 Status: Acute Assessment and Plan A/P: 1. PNA: Recent admit 04/23-04/28/16 for UTI and PNA, s/p IV Abx and d/c'd to Rehab on Levaquin for PNA. CXR w/ decreasing bibasilar consolidation and effusions, CTA Pulm negative for PE, but air space consolidation RLL and RUL. S /p Vanc/Zithro/Azactam and Blood Cultures in ER. Continue w/ IV Abx, follow up Blood Cultures. 2. Chest Pain: Pleuritic. H/o CAD, follows w/ Dr. Nash as outpatient. Initial trop negative, check serial cardiac enzymes to trend. Resume home Statin, B-leilani. Morphine/NTG prn if needed. 3. A-fib: w/ RVR, HR 120-150's while in ER. S/p Cardizem IV x1 and started on Cardizem gtt. Resume home Metoprolol and Cardizem PO, wean off gtt as tolerated. Consult Dr. Nash as above. 4. COPD: Chronic Respiratory Failure, O2 Dependent. Resume home Theophylline , Spiriva, DuoNeb prn, Symbicort. 5. UTI: U/a w/ cultures from 04/22/16 positive for Nany, d/c'd to Rehab on on Diflucan x10 days, will resume PO Diflucan. 6. DVT Prophylaxis: SCD/Teds. 7. Social work for d/c planning as needed. 8. Case discussed w/ ER physician at length. Physician Certification 2 Midnight Certification Type: Admission for Inpatient Services Order for Inpatient Services The services are ordered in accordance with Medicare regulations or non- Medicare payer requirements, as applicable. In the case of services not specified as inpatient-only, they are appropriately provided as inpatient services in accordance with the 2-midnight benchmark. Estimated LOS (days): 2 days is the estimated time the patient will need to remain in the hospital, assuming treatment plan goals are met and no additional complications. Post-Hospital Plan: Not yet determined Fiona Vides MD May 02, 2016 03:03
[2016-05-02 04:01] LABS: BACTERIA, URINE RARE /hpf; BLOOD, URINE MOD (NEG); GLUCOSE,URINE NEG (NEG); KETONE, URINE NEG (NEG); MUCUS URINE FEW /lpf (OCC); NITRITE,URINE NEG (NEG); URINE COLOR YELLOW (YELLW/STRAW)
[2016-05-02 04:04] LABS: COMMENT (UR) CULTURE INDICATED; CULTURE IF INDICATED CULTURE INDICATED
[2016-05-02] MEDS: METOPROLOL TARTRATE 25 MG TAB PO SCH ×3 (06:00→22:41)
[2016-05-02] MEDS: LEVOTHYROXINE SODIUM 125 MCG TAB PO SCH (06:33)
[2016-05-02] MEDS: RESP: ALBUTEROL 2.5 MG/IPRATROPIUM 0.5 MG NEB (SCH) NEB ×4 (07:14→22:43)
[2016-05-02] MEDS: ISOSORBIDE MONONITRATE 30 MG TAB PO SCH (08:35)
[2016-05-02] MEDS: MULTIVITAMIN HEMATINIC THERAPEUTIC TAB PO SCH (09:49)
[2016-05-02] MEDS: AMIODARONE 200 MG TAB PO SCH (09:51)
[2016-05-02] MEDS: FLUCONAZOLE 100 MG TAB PO SCH (09:51)
[2016-05-02] MEDS: PANTOPRAZOLE SOD 40 MG DELAYED RELEASE TAB PO SCH (09:51)
[2016-05-02] MEDS: FUROSEMIDE 20 MG TAB PO SCH (09:51)
[2016-05-02] MEDS: BUDESONIDE-FORMOTEROL 160/4.5 MCG INHALER INH SCH ×2 (09:52→21:00)
[2016-05-02] MEDS: PRAVASTATIN SOD 80 MG TAB PO SCH (09:52)
[2016-05-02] MEDS: TIOTROPIUM BROMIDE 18 MCG INH INH SCH (09:52)
[2016-05-02] MEDS: SODIUM CHLORIDE 0.9% FLUSH 5 ML FLUSH FLUSH SCH ×2 (09:53→21:00)
--- NOTE | 2016-05-02 09:55 | MB ---
cc: ABISAI ELLIOTT DATE OF CONSULTATION 05/02/2016 REASON FOR CONSULTATION Chest pain HISTORY OF PRESENT ILLNESS 71-year-old male with a complex cardiovascular history known coronary artery disease status post multiple stents, longstanding history of hypertension, diabetes, COPD, hypothyroidism and atrial fibrillation, and recent sepsis. He was brought in from the correction because of complaints of chest pain. He reports that he was in his usual state of health when he had an acute onset of chest pressure "elephant sitting on my chest" that lasted for a couple of hours on and off, relieved by the medications given in the emergency department. He denies radiation, nausea, vomiting, palpitations, syncope or chest trauma. On arrival in the emergency department, he was found to be in atrial fibrillation with RVR. Chest x-ray done showed improvement in the consolidations and effusions and CTA done to rule out PE was negative. However, it showed focal air space consolidation in the right upper lung and right lower lung. Atrial fibrillation was treated with Cardizem IV and then he was started on an IV drip. Currently he reports feeling well. He denies any active cardiac complaints. REVIEW OF SYSTEMS Negative except for what is mentioned in the HPI. PAST MEDICAL HISTORY 1. Atrial fibrillation 2. Hypertension 3. COPD 4. O2 dependent 5. CAD status post cardiac stents 6. Sacral decubitus ulcer 7. Anxiety depression 8. GI bleeding 9. Recent admission for sepsis. PAST SURGICAL HISTORY Cardiac stents ALLERGIES PENICILLIN FAMILY HISTORY Noncontributory SOCIAL HISTORY He denies alcohol, tobacco or illicit drug use. PHYSICAL EXAM VITAL SIGNS: Temperature 98.8, pulse 112, respiratory rate 18, blood pressure 119/58 and O2 sat 94% on four liters nasal cannula. GENERAL: He is a placed on white male in no acute distress, awake, alert and oriented x3. NECK: Unremarkable. No JVD, no carotid bruits. LUNGS: There are diffuse crackles bilaterally. CARDIOVASCULAR: Irregularly irregular rhythm with no murmurs, rubs or gallops. ABDOMEN: Soft, pain with palpation, nondistended with positive bowel sounds. No masses. No organomegaly. EXTREMITIES: There is no cyanosis, clubbing or edema. He does have ecchymosis on the bilateral upper arms. DATA CBC hemoglobin 10, hematocrit 30, platelet count 282, INR 1.5. Chemistries sodium 131, potassium 4.0, BUN 10, creatinine 0.95, troponin less than 0.02, TSH 6.2. Urinalysis there is protein. There is occult blood moderate. Blood cultures and urine cultures are pending. IMAGING STUDIES CTA is negative for PE. There is focal air space consolidation in the right lower lobe and a mild patchy consolidation in the right upper lobe. There are small bilateral pleural effusions right larger than the left. Chest x-ray decreasing bibasilar consolidation and effusions. ASSESSMENT/PLAN A 71-year-old with known history of coronary artery disease followed by Dr. Nash who presents to the hospital with complaints of chest discomfort in the setting of atrial fibrillation with RVR and question of recurrence of his respiratory infection. He remains afebrile and hemodynamically stable. His chest pressure is atypical reproducible by palpation. On the other hand, he does have atrial fibrillation with RVR that can be exacerbating his symptoms. At this point, I would recommend rate control for afib and treat underlying infection with broad-spectrum antibiotic per primary team. Continue a Cardizem drip and transition to PO eventually. The patient has a history of recent GI bleeding, thus anticoagulation was off the table in the past and it will be at this time as well. Continue aggressive medical management for coronary artery disease, resume home statin, beta blockers and long-acting nitrates. If the patient continues complaining of the chest discomfort after the infection and afib have resolve, we might consider to do a myocardial perfusion stress test to further re-stratify his coronary artery disease. Thank you for the opportunity to take part in the care of this patient. MD VICTORINO Barrera/SAILAJA /9:20 AM /9:36 AM JAMES
[2016-05-02] MEDS: PREGABALIN 25 MG CAP PO SCH (10:12)
[2016-05-02 10:45] LABS: AUTOMATED NEUTROPHIL # 3.4 TH/MM3 (1.8-7.7); BASOPHIL # 0.1 TH/MM3 (0-0.2); BASOPHIL % 1.1 % (0.0-2.0); EOSINOPHIL # 0.2 TH/MM3 (0-0.4); EOSINOPHIL % 2.9 % (0.0-4.0); HEMATOCRIT 30.4 % (39.0-51.0); HEMO FLAGS DIFF FINAL; LYMPH % 28.3 % (9.0-44.0); LYMPHOCYTE # 1.7 TH/MM3 (1.0-4.8); MEAN CELL VOLUME 83.4 FL (80.0-100.0); MEAN CORPUSCULAR HEMOGLOBIN 27.4 PG (27.0-34.0); MEAN CORPUSCULAR HGB CONC 32.8 % (32.0-36.0); MONO % 13.3 % (0.0-8.0); NEUT % 54.4 % (16.0-70.0); PLATELET COUNT 289 TH/MM3 (150-450); RED BLOOD COUNT 3.64 MIL/MM3 (4.50-5.90); RED CELL DISTRIBUTION WIDTH 18.6 % (11.6-17.2); WHITE BLOOD COUNT 6.2 TH/MM3 (4.0-11.0)
[2016-05-02 11:22] LABS: ALKALINE PHOSPHATASE 90 U/L (45-117); ALT (GPT) LESS THAN 6 U/L (12-78); ANION GAP 10 MEQ/L (5-15); AST (GOT) 18 U/L (15-37); BLOOD UREA NITROGEN 9 MG/DL (7-18); CHLORIDE 99 MEQ/L (98-107); GLOMERULAR FILTRATION RATE 102 ML/MIN (>89); POTASSIUM 3.2 MEQ/L (3.5-5.1); SODIUM (NA) 134 MEQ/L (136-145); TOTAL BILIRUBIN ADULT 0.4 MG/DL (0.2-1.0)
[2016-05-02] MEDS ORDERED: POTASSIUM CHLORIDE 20 MEQ CONTROLLED RELEASE TAB PO ONE (13:00)
--- NOTE | 2016-05-02 14:23 | EKG ---
Date Performed: 05/01/2016 Time Performed: 20:13:04 PTAGE: 71 years EKG: SINUS TACHYCARDIA WITH FIRST DEGREE AV BLOCK RIGHT BUNDLE BRANCH BLOCK LEFT ANTERIOR FASCIC ULAR BLOCK POSSIBLE ANTERIOR MYOCARDIAL INFARCTION Compared to previous tracing the patient has devel oped a left anterior fascicular block and the sinus tachycardia is new ABNORMAL ECG PREVIOUS TRACING : 04/22/2016 23.06 DOCTOR: Mandy Laura Interpretating Date/Time 05/02/2016 14:22:23
--- NOTE | 2016-05-02 14:25 | EKG ---
Date Performed: 05/01/2016 Time Performed: 21:09:21 PTAGE: 71 years EKG: Sinus tachycardia MARKED LEFT AXIS DEVIATION RIGHT BUNDLE BRANCH BLOCK POSSIBLE ANTERIOR MY OCARDIAL INFARCTION Since the most recent tracing there has been no significant serial change ABNORMA L ECG PREVIOUS TRACING : 05/01/2016 20.13 DOCTOR: Mandy Laura Interpretating Date/Time 05/02/2016 14:24:27
[2016-05-02] MEDS: VANCOMYCIN 1,000 MG/NS 250 ML IV SCH ×2 (17:27)
[2016-05-02] MEDS: TAMSULOSIN HCL 0.4 MG CAP PO SCH (22:41)
[2016-05-02] MEDS: MORPHINE SULFATE 4 MG/ML INJ IV PRN (22:42)
[2016-05-02] MEDS: cefTRIAXone INJ 1,000 MG in SODIUM CHLORIDE 0.9% INJ 100 ML IV SCH (23:00)
[2016-05-03] VITALS (11 sets, daily range): BP systolic 105–133; BP diastolic 51–61; PULSE 77–118; RESP 20–22; TEMP 97.8–100.9; O2SAT 92–96
[2016-05-03] MEDS ORDERED: TRAZ50TA12 PO (00:09)
[2016-05-03] MEDS: THEOPHYLLINE ER 12 HR 300 MG TABCR PO SCH ×2 (00:30→11:50)
[2016-05-03] MEDS: ACETAMINOPHEN 325 MG TAB PO PRN ×2 (00:31→21:45)
[2016-05-03] MEDS ORDERED: traZODone HCL 50 MG TAB PO ONE (01:15)
[2016-05-03] MEDS: RESP: ALBUTEROL 2.5 MG/IPRATROPIUM 0.5 MG NEB (PRN) NEB ×3 (01:16→23:25)
[2016-05-03] MEDS: MORPHINE SULFATE 4 MG/ML INJ IV PRN ×3 (02:33→22:36)
[2016-05-03] MEDS: VANCOMYCIN 1,000 MG/NS 250 ML IV SCH ×4 (06:09→16:21)
[2016-05-03] MEDS: METOPROLOL TARTRATE 25 MG TAB PO SCH ×3 (06:09→21:42)
[2016-05-03] MEDS: LEVOTHYROXINE SODIUM 125 MCG TAB PO SCH (06:09)
[2016-05-03] MEDS: ISOSORBIDE MONONITRATE 30 MG TAB PO SCH (06:09)
[2016-05-03] MEDS: SODIUM CHLORIDE 0.9% FLUSH 5 ML FLUSH FLUSH SCH ×2 (08:29→21:00)
[2016-05-03] MEDS: PRAVASTATIN SOD 80 MG TAB PO SCH (08:30)
[2016-05-03] MEDS: AMIODARONE 200 MG TAB PO SCH (08:30)
[2016-05-03] MEDS: FUROSEMIDE 20 MG TAB PO SCH (08:30)
[2016-05-03] MEDS: FLUCONAZOLE 100 MG TAB PO SCH (08:30)
[2016-05-03] MEDS: PREGABALIN 25 MG CAP PO SCH (08:30)
[2016-05-03] MEDS: PANTOPRAZOLE SOD 40 MG DELAYED RELEASE TAB PO SCH (08:30)
[2016-05-03] MEDS: TIOTROPIUM BROMIDE 18 MCG INH INH SCH (08:36)
[2016-05-03] MEDS: BUDESONIDE-FORMOTEROL 160/4.5 MCG INHALER INH SCH ×2 (08:36→21:00)
[2016-05-03] MEDS: RESP: ALBUTEROL 2.5 MG/IPRATROPIUM 0.5 MG NEB (SCH) NEB ×4 (08:49→19:39)
[2016-05-03] MEDS: DILTIAZEM INJ 125 MG in SODIUM CHLORIDE 0.9% INJ 100 ML IV SCH (10:40)
[2016-05-03] MEDS: MULTIVITAMIN HEMATINIC THERAPEUTIC TAB PO SCH (10:42)
[2016-05-03 14:17] LABS: BICARBONATE 25.4 MEQ/L (21.0-32.0); POTASSIUM 3.4 MEQ/L (3.5-5.1)
[2016-05-03] MEDS ORDERED: POTASSIUM CHLORIDE 10 MEQ CONTROLLED RELEASE TAB PO ONE (16:00)
[2016-05-03] MEDS ORDERED: GLUCAGON 1 MG/ML VIAL OTHER PRN (16:15)
[2016-05-03] MEDS ORDERED: DEXTROSE 50% IN WATER 50 ML VIAL(D50) IV PUSH PRN (16:15)
--- NOTE | 2016-05-03 16:46 | HHI.PR ---
Subjective Remarks Seen for Chest pain. Improved chest pain. Requesting medicine for appetite and sleeping. States he has been not able to get out of bed since Mar Lin. Discussed with RN Objective Vitals Vital Signs Date Time Temp Pulse Resp B/P Pulse Ox O2 Delivery O2 Flow Rate FiO2 05/03/16 12:01 98.3 90 20 109/60 94 05/03/16 09:28 Nasal Cannula 2.00 05/03/16 08:51 95 Nasal Cannula 2.00 05/03/16 08:01 97.8 79 20 121/60 96 05/03/16 04:00 83 05/03/16 04:00 98.1 82 20 105/51 93 05/03/16 01:17 92 Nasal Cannula 2.00 05/03/16 00:08 77 05/03/16 00:00 98.7 79 20 119/58 95 05/02/16 22:44 92 Nasal Cannula 2.00 05/02/16 20:20 102 05/02/16 20:02 Nasal Cannula 2.00 05/02/16 20:00 97.4 90 18 128/68 95 I/O 05/02/16 05/02/16 05/02/16 05/03/16 05/03/16 05/03/16 07:00 15:00 23:00 07:00 15:00 23:00 Intake Total 120 ml 480 ml Output Total 1350 ml 1175 ml 400 ml Balance -1350 ml -1055 ml 80 ml Intake Oral 120 ml 480 ml Output Urine Total 1350 ml 1175 ml 400 ml # Voids 0 # Bowel Movements 0 0 Result Diagram: 05/02/16 1031 05/03/16 1255 Imaging Last Impressions Chest X-Ray 05/01/162020 Signed Impressions: Service Date/Time: April 20:40 - CONCLUSION: Decreasing bibasilar consolidation and effusions. Romel Beltran MD CT Angiography 05/01/16 0000 Signed Impressions: Service Date/Time: April 23:02 - CONCLUSION: 1. Examination is degraded by respiratory motion artifact. No PE is visualized. 2. There is a focal air space consolidation in the right lower lobe and mild patchy consolidation in the right upper lobe. 3. Small bilateral pleural effusions, right larger than left, with associated compressive atelectasis in the lower lobes. Romel Lester MD Objective Remarks GENERAL: Very pleasant elderly white male in no acute distress. Skin: Ecchymosis bilateral upper extremity stage II sacral area HEENT: PERRLA, EOMI. No scleral icterus or conjunctival pallor. No lid lag or facial droop. Slight erythema right infraorbital CARDIOVASCULAR: Irregularly irregular No obvious murmurs to auscultation. No chest tenderness to palpation. RESPIRATORY: No obvious rhonchi or wheezing. Right basal crackle GASTROINTESTINAL: Abdomen soft, non-tender, nondistended. BS normal. MUSCULOSKELETAL: Extremities without clubbing, cyanosis but with bilateral lower extremity pitting edema. No obvious deformities. NEUROLOGICAL: Awake, alert and oriented x4. No focal neurologic deficits. Moving both upper and lower extremities spontaneously. Procedures none A/P Problem List: (1) PNA (pneumonia) ICD Code: J18.9 Status: Acute (2) UTI (urinary tract infection) ICD Code: N39.0 Status: Acute (3) Chest pain ICD Code: R07.9 Status: Resolved (4) Atrial fibrillation with RVR ICD Code: I48.91 Status: Resolved (5) COPD (chronic obstructive pulmonary disease) ICD Code: J44.9 Status: Chronic Assessment and Plan 1. PNA: Recent admit 04/23-04/28/16 for UTI and PNA, s/p IV Abx and d/c'd to Rehab on Levaquin for PNA. CXR w/ decreasing bibasilar consolidation and effusions, CTA Pulm negative for PE, but air space consolidation RLL and RUL. S /p Vanc/Zithro/Azactam and Blood Cultures in ER. Continue w/ IV Rocephin, Zithromax and vancomycin, follow up Blood Cultures negative to date. 2. Chest Pain: Pleuritic negative PE on CTA. H/o CAD, follows w/ Dr. Nash as outpatient. Ruled out for [place], sounds atypical. Continue Statin, B-leilani and nitrate. Morphine/NTG prn if needed. Status post cardiology evaluation, recommended medical management. Likely secondary to pneumonia. If persistent after treatment of pneumonia, consider stress test 3. A-fib: w/ RVR, HR 120-150's while in ER. S/p Cardizem IV x1 and started on Cardizem gtt. now with controlled ventricular response, wean and discontinue Cardizem drip and continue Metoprolol and amiodarone PO, not a candidate for anticoagulation secondary to rectal bleeding per cardiology. Previous records also reviewed 4. COPD: Chronic Respiratory Failure, O2 Dependent. Resume home Theophylline , Spiriva, DuoNeb prn, Symbicort. 5. UTI: U/a w/ cultures from 04/22/16 positive for Nany, d/c'd to Rehab on on Diflucan x10 days, will resume PO Diflucan until May 09, discontinue Baca catheter. 6. Hypokalemia. Replace obtain magnesium level 7. Hypoglycemia with history of diabetes mellitus. Monitor fingersticks. Hypoglycemia protocol PT evaluation DVT Prophylaxis: SCD/Teds. Not a candidate for pharmacological prophylaxis secondary to rectal bleeding Discharge Planning Rehab when stable Barry Kaur MD May 03, 2016 16:46
[2016-05-03] MEDS: MEGESTROL ACETATE 40 MG TAB PO SCH (17:08)
[2016-05-03] MEDS: traZODone HCL 50 MG TAB PO SCH (21:00)
[2016-05-03] MEDS: TAMSULOSIN HCL 0.4 MG CAP PO SCH (21:40)
[2016-05-03] MEDS: AZITHROMYCIN INJ 500 MG in SODIUM CHLOR 0.9% 250 ML INJ 250 ML IV SCH (21:40)
[2016-05-03] MEDS: cefTRIAXone INJ 1,000 MG in SODIUM CHLORIDE 0.9% INJ 100 ML IV SCH (23:02)
[2016-05-04] VITALS (9 sets, daily range): BP systolic 92–124; BP diastolic 57–62; PULSE 90–117; RESP 20–28; TEMP 97.6–99.9; O2SAT 93–95
[2016-05-04] MEDS: THEOPHYLLINE ER 12 HR 300 MG TABCR PO SCH ×3 (01:19→23:08)
[2016-05-04] MEDS: RESP: ALBUTEROL 2.5 MG/IPRATROPIUM 0.5 MG NEB (PRN) NEB (04:07)
[2016-05-04] MEDS: MORPHINE SULFATE 4 MG/ML INJ IV PRN ×4 (04:41→16:13)
[2016-05-04] MEDS ORDERED: PHARMACY ORDERED LAB XX ONE (04:45)
[2016-05-04] MEDS: LEVOTHYROXINE SODIUM 125 MCG TAB PO SCH (05:11)
[2016-05-04] MEDS: VANCOMYCIN 1,000 MG/NS 250 ML IV SCH ×4 (05:11→16:13)
[2016-05-04] MEDS: METOPROLOL TARTRATE 25 MG TAB PO SCH ×3 (05:12→21:49)
[2016-05-04] MEDS: ISOSORBIDE MONONITRATE 30 MG TAB PO SCH (05:14)
[2016-05-04] MEDS ORDERED: MEGE40TA PO (07:43)
--- NOTE | 2016-05-04 07:44 | HHI.DCPOC ---
Discharge Care Plan Diagnosis: (1) Atrial fibrillation with RVR (2) Chest pain (3) PNA (pneumonia) Your Health Problems Are: Difficulty with ADL Chest Pain Exercise Tolerance Goals to Promote Your Health * To prevent worsening of your condition and complications * To maintain your health at the optimal level Directions to Meet Your Goals Take your medications as prescribed Follow your dietary instruction Follow activity as directed Keep your appointments as scheduled Take your immunizations and boosters as scheduled If your symptoms worsen call your PCP, if no PCP go to Urgent Care Center or Emergency Room Smoking is Dangerous to Your Health. Avoid second hand smoke Call the 24-hour hour crisis hotline for domestic abuse at Barry Kaur MD May 04, 2016 07:44
[2016-05-04] MEDS ORDERED: LACTULOSE SYRUP 20 GM/30 ML CUP PO PRN (07:45)
[2016-05-04] MEDS: RESP: ALBUTEROL 2.5 MG/IPRATROPIUM 0.5 MG NEB (SCH) NEB ×5 (07:45→22:44)
[2016-05-04] MEDS ORDERED: DOCUSATE SODIUM 100 MG CAP PO PRN (07:45)
[2016-05-04] MEDS ORDERED: MAGNESIUM HYDROXIDE SUSP 30 ML CUP PO PRN (07:45)
[2016-05-04] MEDS ORDERED: BISACODYL 10 MG SUPP PR PRN (07:45)
[2016-05-04] MEDS ORDERED: DIFL100T PO (07:59)
[2016-05-04] MEDS ORDERED: LEVA500T PO (07:59)
[2016-05-04] MEDS: MAGNESIUM SULFATE 1 GM PREMIX 100 ML IV SCH ×2 (08:05→08:10)
[2016-05-04] MEDS: PREGABALIN 25 MG CAP PO SCH (08:06)
[2016-05-04] MEDS: MEGESTROL ACETATE 40 MG TAB PO SCH (08:06)
[2016-05-04] MEDS: PANTOPRAZOLE SOD 40 MG DELAYED RELEASE TAB PO SCH (08:06)
[2016-05-04] MEDS: TIOTROPIUM BROMIDE 18 MCG INH INH SCH (08:06)
[2016-05-04] MEDS: SODIUM CHLORIDE 0.9% FLUSH 5 ML FLUSH FLUSH SCH ×2 (08:06→21:00)
[2016-05-04] MEDS: BUDESONIDE-FORMOTEROL 160/4.5 MCG INHALER INH SCH ×2 (08:06→21:00)
[2016-05-04] MEDS: MAGNESIUM OXIDE 400 MG TAB PO SCH ×2 (08:07→21:49)
[2016-05-04] MEDS: FLUCONAZOLE 100 MG TAB PO SCH (08:07)
[2016-05-04] MEDS: AMIODARONE 200 MG TAB PO SCH (08:07)
[2016-05-04] MEDS: MULTIVITAMIN HEMATINIC THERAPEUTIC TAB PO SCH (08:07)
[2016-05-04] MEDS: FUROSEMIDE 20 MG TAB PO SCH (08:07)
[2016-05-04] MEDS: PRAVASTATIN SOD 80 MG TAB PO SCH (08:07)
--- NOTE | 2016-05-04 08:51 | HHI.PR ---
Subjective Remarks Follow-up pneumonia. No chest pain. MAXIMUM TEMPERATURE 100.9. He wants to be discharged to SNF in [facility]. Discussed with RN Objective Vitals Vital Signs Date Time Temp Pulse Resp B/P Pulse Ox O2 Delivery O2 Flow Rate FiO2 05/04/16 07:47 93 Nasal Cannula 2.00 05/04/16 04:19 98.1 104 22 118/58 94 05/04/16 00:59 98.7 90 20 101/57 95 05/03/16 23:25 94 Nasal Cannula 2.00 05/03/16 21:20 100.9 118 22 133/61 92 05/03/16 21:00 Nasal Cannula 2.00 05/03/16 19:39 92 Nasal Cannula 2.00 05/03/16 16:01 98.7 82 20 118/55 95 05/03/16 12:01 98.3 90 20 109/60 94 05/03/16 09:28 Nasal Cannula 2.00 05/03/16 08:51 95 Nasal Cannula 2.00 I/O 05/03/16 05/03/16 05/03/16 05/04/16 05/04/16 05/04/16 07:00 15:00 23:00 07:00 15:00 23:00 Intake Total 480 ml 280 ml 480 ml Output Total 400 ml 1000 ml 50 ml Balance 80 ml -720 ml 430 ml Intake Oral 480 ml 280 ml 480 ml Output Urine Total 400 ml 1000 ml 50 ml # Bowel Movements 0 0 0 Result Diagram: 05/02/16 1031 05/03/16 1255 Imaging Last Impressions Chest X-Ray 05/01/162020 Signed Impressions: Service Date/Time: April 20:40 - CONCLUSION: Decreasing bibasilar consolidation and effusions. Romel Beltran MD CT Angiography 05/01/16 0000 Signed Impressions: Service Date/Time: April 23:02 - CONCLUSION: 1. Examination is degraded by respiratory motion artifact. No PE is visualized. 2. There is a focal air space consolidation in the right lower lobe and mild patchy consolidation in the right upper lobe. 3. Small bilateral pleural effusions, right larger than left, with associated compressive atelectasis in the lower lobes. Romel Lester MD Objective Remarks GENERAL: Very pleasant elderly white male in no acute distress. Skin: Ecchymosis bilateral upper extremity stage II sacral area. Stye right lower lid HEENT: PERRLA, EOMI. No scleral icterus or conjunctival pallor. No lid lag or facial droop. Slight erythema right infraorbital CARDIOVASCULAR: Irregularly irregular No obvious murmurs to auscultation. No chest tenderness to palpation. RESPIRATORY: No obvious rhonchi or wheezing. Decreased BS GASTROINTESTINAL: Abdomen soft, non-tender, nondistended. BS normal. MUSCULOSKELETAL: Extremities without clubbing, cyanosis but with bilateral lower extremity pitting edema. No obvious deformities. NEUROLOGICAL: Awake, alert and oriented x4. No focal neurologic deficits. Moving both upper and lower extremities spontaneously. Procedures none A/P Problem List: (1) PNA (pneumonia) ICD Code: J18.9 Status: Acute (2) UTI (urinary tract infection) ICD Code: N39.0 Status: Acute (3) Chest pain ICD Code: R07.9 Status: Resolved (4) Atrial fibrillation with RVR ICD Code: I48.91 Status: Resolved (5) COPD (chronic obstructive pulmonary disease) ICD Code: J44.9 Status: Chronic Assessment and Plan 1. PNA: Recent admit 04/23-04/28/16 for UTI and PNA, s/p IV Abx and d/c'd to Rehab on Levaquin for PNA. CXR w/ decreasing bibasilar consolidation and effusions, CTA Pulm negative for PE, but air space consolidation RLL and RUL. S /p Vanc/Zithro/Azactam and Blood Cultures in ER. Continue w/ IV Rocephin, Zithromax and vancomycin, follow up Blood Cultures negative to date. Tm 100.9 he looks good though. Add IS. Rpt CBC in am. Upon dc, resume Levaquin til 05/06 2. Chest Pain: Pleuritic negative PE on CTA. H/o CAD, follows w/ Dr. Nash as outpatient. Ruled out for [place], sounds atypical. Continue Statin, B-leilani and nitrate. Morphine/NTG prn if needed. Status post cardiology evaluation, recommended medical management. Likely secondary to pneumonia. If persistent after treatment of pneumonia, consider stress test 3. A-fib: w/ RVR, HR 120-150's while in ER. S/p Cardizem IV x1 and started on Cardizem gtt. now with controlled ventricular response, wean and discontinue Cardizem drip and continue Metoprolol and amiodarone PO, not a candidate for anticoagulation secondary to rectal bleeding per cardiology and GI during last admit. S/P EGD with gastritis and unremarkable Cscope. Advised pill cam . Previous records reviewed. 4. COPD: Chronic Respiratory Failure, O2 Dependent. Resume home Theophylline , Spiriva, DuoNeb prn, Symbicort. 5. UTI: U/a w/ cultures from 04/22/16 positive for Nany, d/c'd to Rehab on on Diflucan x10 days, will resume PO Diflucan until May 09, discontinue Ham catheter. Check postvoid urine if > 300 ml reinsert ham and f/u with op 6. Hypokalemia and hypomagnesemia. Replace with 2 gm IV mgso4 and 400 mg po Mg oxide BID. Rpt labs 12 nn. 7. Hypoglycemia with history of diabetes mellitus. Monitor fingersticks. Hypoglycemia protocol PT evaluation DVT Prophylaxis: SCD/Teds. Not a candidate for pharmacological prophylaxis secondary to rectal bleeding 1444H Rn reports K 3.3 Mg 1.4 pt also RVR with sbp 90 . No complaints. Will replace K and Mg and give one does of Dig .5 IV. Cardizem drip prn. Rpt BMp mg in ma. Hold dc then Discharge Planning Rehab when stable Barry Kaur MD May 04, 2016 08:51
[2016-05-04] MEDS: DOCUSATE SODIUM 50 MG/SENNA 8.6 MG TAB PO SCH ×2 (09:48→21:49)
[2016-05-04] MEDS: POLYETHYLENE GLYCOL 17 GM PKG PO SCH (09:48)
[2016-05-04 13:43] LABS: BICARBONATE 22.8 MEQ/L (21.0-32.0); MAGNESIUM 1.4 MG/DL (1.5-2.5); POTASSIUM 3.3 MEQ/L (3.5-5.1)
[2016-05-04] MEDS ORDERED: MAGNESIUM SULFATE 1 GM PREMIX 100 ML IV ONE (14:45)
[2016-05-04] MEDS ORDERED: POTASSIUM CHLORIDE 20 MEQ CONTROLLED RELEASE TAB PO ONE (14:45)
[2016-05-04] MEDS ORDERED: DIGOXIN 0.5 MG/2 ML VIAL IV PUSH ONE (14:45)
[2016-05-04] MEDS ORDERED: DILTIAZEM INJ 125 MG in SODIUM CHLORIDE 0.9% INJ 100 ML IV PRN (16:00)
[2016-05-04] MEDS: POTASSIUM CHLORIDE 20 MEQ CONTROLLED RELEASE TAB PO SCH (21:49)
[2016-05-04] MEDS: traZODone HCL 50 MG TAB PO SCH (21:49)
[2016-05-04] MEDS: TAMSULOSIN HCL 0.4 MG CAP PO SCH (21:49)
[2016-05-04] MEDS: AZITHROMYCIN INJ 500 MG in SODIUM CHLOR 0.9% 250 ML INJ 250 ML IV SCH (21:50)
[2016-05-04] MEDS: cefTRIAXone INJ 1,000 MG in SODIUM CHLORIDE 0.9% INJ 100 ML IV SCH (23:09)
[2016-05-05] VITALS (10 sets, daily range): BP systolic 100–120; BP diastolic 53–65; PULSE 87–112; RESP 18–28; TEMP 97.7–99.4; O2SAT 93–97
[2016-05-05] MEDS: RESP: ALBUTEROL 2.5 MG/IPRATROPIUM 0.5 MG NEB (PRN) NEB ×2 (03:32→07:41)
[2016-05-05] MEDS: METOPROLOL TARTRATE 25 MG TAB PO SCH ×3 (04:43→21:05)
[2016-05-05] MEDS: LEVOTHYROXINE SODIUM 125 MCG TAB PO SCH (04:43)
[2016-05-05] MEDS: VANCOMYCIN 1,000 MG/NS 250 ML IV SCH ×4 (04:43→17:00)
[2016-05-05] MEDS: MORPHINE SULFATE 4 MG/ML INJ IV PRN ×4 (04:44→21:06)
[2016-05-05] MEDS: ISOSORBIDE MONONITRATE 30 MG TAB PO SCH (05:54)
[2016-05-05 07:28] LABS: BICARBONATE 25.5 MEQ/L (21.0-32.0); MAGNESIUM 1.5 MG/DL (1.5-2.5); POTASSIUM 3.6 MEQ/L (3.5-5.1)
[2016-05-05 07:37] LABS: AUTOMATED NEUTROPHIL # 7.2 TH/MM3 (1.8-7.7); BASOPHIL # 0.1 TH/MM3 (0-0.2); BASOPHIL % 0.7 % (0.0-2.0); EOSINOPHIL # 0.1 TH/MM3 (0-0.4); EOSINOPHIL % 1.1 % (0.0-4.0); HEMATOCRIT 29.6 % (39.0-51.0); HEMO FLAGS DIFF FINAL; LYMPH % 18.2 % (9.0-44.0); LYMPHOCYTE # 1.8 TH/MM3 (1.0-4.8); MEAN CELL VOLUME 82.7 FL (80.0-100.0); MEAN CORPUSCULAR HEMOGLOBIN 27.4 PG (27.0-34.0); MEAN CORPUSCULAR HGB CONC 33.2 % (32.0-36.0); MONO % 8.2 % (0.0-8.0); NEUT % 71.8 % (16.0-70.0); PLATELET COUNT 292 TH/MM3 (150-450); RED BLOOD COUNT 3.58 MIL/MM3 (4.50-5.90); RED CELL DISTRIBUTION WIDTH 18.3 % (11.6-17.2)
[2016-05-05] MEDS: SODIUM CHLORIDE 0.9% FLUSH 5 ML FLUSH FLUSH SCH ×2 (09:00→21:09)
[2016-05-05] MEDS: TIOTROPIUM BROMIDE 18 MCG INH INH SCH (09:00)
[2016-05-05] MEDS: BUDESONIDE-FORMOTEROL 160/4.5 MCG INHALER INH SCH ×2 (09:00→21:00)
[2016-05-05] MEDS: DOCUSATE SODIUM 50 MG/SENNA 8.6 MG TAB PO SCH ×2 (09:00→21:05)
[2016-05-05] MEDS: POLYETHYLENE GLYCOL 17 GM PKG PO SCH (09:00)
[2016-05-05] MEDS: AMIODARONE 200 MG TAB PO SCH (10:07)
[2016-05-05] MEDS: PREGABALIN 25 MG CAP PO SCH (10:07)
[2016-05-05] MEDS: MEGESTROL ACETATE 40 MG TAB PO SCH (10:07)
[2016-05-05] MEDS: MULTIVITAMIN HEMATINIC THERAPEUTIC TAB PO SCH (10:07)
[2016-05-05] MEDS: PRAVASTATIN SOD 80 MG TAB PO SCH (10:07)
[2016-05-05] MEDS: FUROSEMIDE 20 MG TAB PO SCH (10:08)
[2016-05-05] MEDS: MAGNESIUM OXIDE 400 MG TAB PO SCH ×2 (10:08→21:02)
[2016-05-05] MEDS: PANTOPRAZOLE SOD 40 MG DELAYED RELEASE TAB PO SCH (10:08)
[2016-05-05] MEDS: POTASSIUM CHLORIDE 20 MEQ CONTROLLED RELEASE TAB PO SCH ×2 (10:08→21:03)
[2016-05-05] MEDS: FLUCONAZOLE 100 MG TAB PO SCH (10:08)
[2016-05-05] MEDS: RESP: ALBUTEROL 2.5 MG/IPRATROPIUM 0.5 MG NEB (SCH) NEB ×3 (11:41→20:00)
[2016-05-05] MEDS: THEOPHYLLINE ER 12 HR 300 MG TABCR PO SCH ×2 (14:07→23:45)
--- NOTE | 2016-05-05 18:15 | HHI.PR ---
Subjective Remarks awake and alert, feels better, no pain complains baseline uses a walker sputum better noted essential tremors right hand Objective Vitals Vital Signs Date Time Temp Pulse Resp B/P Pulse Ox O2 Delivery O2 Flow Rate FiO2 05/05/16 16:00 97.7 108 28 103/53 95 05/05/16 12:00 98.2 105 28 120/65 97 05/05/16 08:00 99 05/05/16 08:00 98.4 99 28 100/56 94 05/05/16 07:42 94 Nasal Cannula 3.00 05/05/16 04:42 98.6 106 20 119/60 95 05/05/16 03:32 94 Nasal Cannula 3.00 05/05/16 00:12 98.1 91 22 111/55 97 05/04/16 21:00 Nasal Cannula 2.00 05/04/16 20:15 97.8 112 22 124/58 93 I/O 05/04/16 05/04/16 05/04/16 05/05/16 05/05/16 05/05/16 07:00 15:00 23:00 07:00 15:00 23:00 Intake Total 1200 ml Output Total 650 ml 200 ml Balance 550 ml -200 ml Intake Oral 1200 ml Output Urine Total 650 ml 200 ml # Bowel Movements 0 Result Diagram: 05/05/1662505/05/16625 Imaging Last Impressions Chest X-Ray 05/01/162020 Signed Impressions: Service Date/Time: April 20:40 - CONCLUSION: Decreasing bibasilar consolidation and effusions. Romel Beltran MD CT Angiography 05/01/16 0000 Signed Impressions: Service Date/Time: April 23:02 - CONCLUSION: 1. Examination is degraded by respiratory motion artifact. No PE is visualized. 2. There is a focal air space consolidation in the right lower lobe and mild patchy consolidation in the right upper lobe. 3. Small bilateral pleural effusions, right larger than left, with associated compressive atelectasis in the lower lobes. Romel Lester MD Objective Remarks awake and alert, oriented x 3 anicteric lungs no rales or wheezes heart on telmetry regular, abdomen soft, nontender extremities no edmea, , + right lower extremity weakness Procedures none Urinary Catheter: Yes A/P Problem List: (1) PNA (pneumonia) ICD Code: J18.9 Status: Acute (2) UTI (urinary tract infection) ICD Code: N39.0 Status: Acute (3) Chest pain ICD Code: R07.9 Status: Resolved (4) Atrial fibrillation with RVR ICD Code: I48.91 Status: Resolved (5) COPD (chronic obstructive pulmonary disease) ICD Code: J44.9 Status: Chronic Assessment and Plan 1. PNA: Recent admit 04/23-04/28/16 for UTI and PNA, s/p IV Abx and d/c'd to Rehab on Levaquin for PNA. CXR w/ decreasing bibasilar consolidation and effusions, CTA Pulm negative for PE, but air space consolidation RLL and RUL. S /p Vanc/Zithro/Azactam and Blood Cultures in ER. Continue w/ IV Rocephin, Zithromax and vancomycin, follow up Blood Cultures negative to date. Upon dc, resume Levaquin til 05/06 2. Chest Pain: no episodes. Pleuritic negative PE on CTA. H/o CAD, follows w / Dr. Nash as outpatient. Ruled out for [place], sounds atypical. Continue Statin , B-leilani and nitrate. Morphine/NTG prn if needed. Status post cardiology evaluation, recommended medical management. Likely secondary to pneumonia. If persistent after treatment of pneumonia, consider stress test 3. A-fib: w/ RVR, HR 120-150's while in ER. now in SR but rate still in 90s- 110s for past 3 days on BB 25 mg po q 8, amiodaron. will Add Cardizem 120 mg CD start today S/p Cardizem IV x1 and started on Cardizem gtt.weaned off Cardizem. Metoprolol and amiodarone PO, not a candidate for anticoagulation secondary to rectal bleeding per cardiology and GI during last admit. S/P EGD with gastritis and unremarkable Cscope. Advised pill cam . Previous records reviewed. 4. COPD: Chronic Respiratory Failure, O2 Dependent. Resume home Theophylline , Spiriva, DuoNeb prn, Symbicort. 5. UTI: U/a w/ cultures from 04/22/16 positive for Nany, d/c'd to Rehab on on Diflucan x10 days, will resume PO Diflucan until May 09, discontinue Ham catheter. Check postvoid urine if > 300 ml reinsert ham and f/u with op 6. Hypokalemia and hypomagnesemia. Replace with 2 gm IV mgso4 and 400 mg po Mg oxide BID. Rpt labs 12 nn. 7. Hypoglycemia with history of diabetes mellitus. Monitor fingersticks. Hypoglycemia protocol 8 Hypokalemia corrected on KCL 20 meq po bid PT evaluation DVT Prophylaxis: SCD/Teds. Not a candidate for pharmacological prophylaxis secondary to rectal bleeding 05/04 - 1444H Rn reports K 3.3 Mg 1.4 pt also RVR with sbp 90 . No complaints. Will replace K and Mg and give one does of Dig .5 IV. Cardizem drip prn. Rpt BMp mg in ma. Hold dc then DC planning- patient hoping that he goes to rehab facility in [place], [place] near his family but per CM unlikely - [place] [facility] Maninder Maurice MD May 05, 2016 18:15
[2016-05-05] MEDS: DILTIAZEM-CD 120 MG CAP ER PO SCH (18:30)
[2016-05-05] MEDS: TAMSULOSIN HCL 0.4 MG CAP PO SCH (21:02)
[2016-05-05] MEDS: traZODone HCL 50 MG TAB PO SCH (21:02)
[2016-05-05] MEDS: AZITHROMYCIN INJ 500 MG in SODIUM CHLOR 0.9% 250 ML INJ 250 ML IV SCH (21:02)
[2016-05-05] MEDS: cefTRIAXone INJ 1,000 MG in SODIUM CHLORIDE 0.9% INJ 100 ML IV SCH (22:55)
[2016-05-06] VITALS: BP 105/57; PULSE 85; RESP 20; TEMP 98.7; O2SAT 96
[2016-05-06] MEDS: RESP: ALBUTEROL 2.5 MG/IPRATROPIUM 0.5 MG NEB (PRN) NEB ×2 (01:49→08:07)
[2016-05-06 01:51] VITALS: O2SAT 94
[2016-05-06 04:00] VITALS: BP 117/56; PULSE 95; RESP 24; TEMP 98; O2SAT 94
[2016-05-06] MEDS: LEVOTHYROXINE SODIUM 125 MCG TAB PO SCH (05:03)
[2016-05-06] MEDS: METOPROLOL TARTRATE 25 MG TAB PO SCH ×2 (05:03→12:38)
[2016-05-06] MEDS: VANCOMYCIN 1,000 MG/NS 250 ML IV SCH ×2 (05:04)
[2016-05-06] MEDS: MORPHINE SULFATE 4 MG/ML INJ IV PRN ×3 (05:07→12:39)
[2016-05-06] MEDS: ISOSORBIDE MONONITRATE 30 MG TAB PO SCH (06:23)
--- NOTE | 2016-05-06 07:49 | HHI.PR ---
Subjective Remarks Patient feels much better. Says has less cough. No fever or chills. No n/v/d/c. Denies fever or chills. Wants to go home. Objective Vitals Vital Signs Date Time Temp Pulse Resp B/P Pulse Ox O2 Delivery O2 Flow Rate FiO2 05/06/16 04:00 98.0 95 24 117/56 94 05/06/16 01:51 94 Nasal Cannula 2.00 05/06/16 00:00 98.7 85 20 105/57 96 05/05/16 20:01 93 Nasal Cannula 2.00 05/05/16 20:00 99.4 112 18 111/56 95 05/05/16 19:59 87 05/05/16 19:45 Room Air 05/05/16 16:00 97.7 108 28 103/53 95 05/05/16 12:00 98.2 105 28 120/65 97 05/05/16 08:00 99 05/05/16 08:00 98.4 99 28 100/56 94 I/O 05/05/16 05/05/16 05/05/16 05/06/16 05/06/16 05/06/16 07:00 15:00 23:00 07:00 15:00 23:00 Intake Total 720 ml 600 ml Output Total 200 ml 1000 ml 750 ml Balance -200 ml -280 ml -150 ml Intake Oral 720 ml 600 ml Output Urine Total 200 ml 1000 ml 750 ml # Bowel Movements 5 0 Result Diagram: 05/05/16 0626 05/05/16 0626 Imaging Last Impressions Chest X-Ray 05/01/162020 Signed Impressions: Service Date/Time: April 20:40 - CONCLUSION: Decreasing bibasilar consolidation and effusions. Romel Beltran MD CT Angiography 05/01/16 0000 Signed Impressions: Service Date/Time: April 23:02 - CONCLUSION: 1. Examination is degraded by respiratory motion artifact. No PE is visualized. 2. There is a focal air space consolidation in the right lower lobe and mild patchy consolidation in the right upper lobe. 3. Small bilateral pleural effusions, right larger than left, with associated compressive atelectasis in the lower lobes. Romel Lester MD Objective Remarks GENERAL: Elderly male. Appears in nad. SKIN: Warm and dry. HEAD: Atraumatic. Normocephalic. EYES: Pupils equal and round. No scleral icterus. No injection or drainage. ENT: No nasal bleeding or discharge. Mucous membranes pink and moist. NECK: Trachea midline. No JVD. CARDIOVASCULAR: Regular rate and rhythm. RESPIRATORY: No accessory muscle use. Clear to auscultation. Breath sounds equal bilaterally. GASTROINTESTINAL: Abdomen soft, non-tender, nondistended. Hepatic and splenic margins not palpable. MUSCULOSKELETAL: Extremities without clubbing, cyanosis, or edema. No obvious deformities. NEUROLOGICAL: Awake and alert. No obvious cranial nerve deficits. Motor grossly within normal limits. Five out of 5 muscle strength in the arms and legs. Normal speech. PSYCHIATRIC: Appropriate mood and affect; insight and judgment normal. Procedures none A/P Problem List: (1) PNA (pneumonia) ICD Code: J18.9 Status: Acute (2) UTI (urinary tract infection) ICD Code: N39.0 Status: Acute (3) Chest pain ICD Code: R07.9 Status: Resolved (4) Atrial fibrillation with RVR ICD Code: I48.91 Status: Resolved (5) COPD (chronic obstructive pulmonary disease) ICD Code: J44.9 Status: Chronic Assessment and Plan 1. PNA: Recent admit 04/23-04/28/16 for UTI and PNA, s/p IV Abx and d/c'd to Rehab on Levaquin for PNA. CXR w/ decreasing bibasilar consolidation and effusions, CTA Pulm negative for PE, but air space consolidation RLL and RUL. S /p Vanc/Zithro/Azactam and Blood Cultures in ER. Continue w/ IV Rocephin, Zithromax and vancomycin, follow up Blood Cultures negative to date. Upon dc, resume Levaquin til 05/06 2. Chest Pain: no episodes. Pleuritic negative PE on CTA. H/o CAD, follows w / Dr. Nash as outpatient. Ruled out for [place], sounds atypical. Continue Statin , B-leilani and nitrate. Morphine/NTG prn if needed. Status post cardiology evaluation, recommended medical management. Likely secondary to pneumonia. If persistent after treatment of pneumonia, consider stress test 3. A-fib: w/ RVR, HR 120-150's while in ER. now in SR but rate still in 90s- 110s for past 3 days on BB 25 mg po q 8, amiodaron. will Add Cardizem 120 mg CD start today S/p Cardizem IV x1 and started on Cardizem gtt.weaned off Cardizem. Metoprolol and amiodarone PO, not a candidate for anticoagulation secondary to rectal bleeding per cardiology and GI during last admit. S/P EGD with gastritis and unremarkable Cscope. Advised pill cam . Previous records reviewed. 4. COPD: Chronic Respiratory Failure, O2 Dependent. Resume home Theophylline , Spiriva, DuoNeb prn, Symbicort. 5. UTI: U/a w/ cultures from 04/22/16 positive for Nany, d/c'd to Rehab on on Diflucan x10 days, will resume PO Diflucan until May 09, discontinue Ham catheter. Check postvoid urine if > 300 ml reinsert ham and f/u with op 6. Hypokalemia and hypomagnesemia. Replace with 2 gm IV mgso4 and 400 mg po Mg oxide BID. Rpt labs 12 nn. 7. Hypoglycemia with history of diabetes mellitus. Monitor fingersticks. Hypoglycemia protocol 8 Hypokalemia corrected on KCL 20 meq po bid PT evaluation DVT Prophylaxis: SCD/Teds. Not a candidate for pharmacological prophylaxis secondary to rectal bleeding 2 - 1444H Rn reports K 3.3 Mg 1.4 pt also RVR with sbp 90 . No complaints. Will replace K and Mg and give one does of Dig .5 IV. Cardizem drip prn. Rpt BMp mg in ma. Hold dc then DC planning- patient hoping that he goes to rehab facility in [place], [place] near his family but per CM unlikely - [place] [facility]. CM following for DC plan. DC today. Elif Barraza MD May 06, 2016 07:49
[2016-05-06 08:00] VITALS: BP 118/59; PULSE 83; RESP 20; TEMP 98.3; O2SAT 97
[2016-05-06] MEDS: MEGESTROL ACETATE 40 MG TAB PO SCH (08:46)
[2016-05-06] MEDS: MULTIVITAMIN HEMATINIC THERAPEUTIC TAB PO SCH (08:46)
[2016-05-06] MEDS: MAGNESIUM OXIDE 400 MG TAB PO SCH (08:46)
[2016-05-06] MEDS: PRAVASTATIN SOD 80 MG TAB PO SCH (08:46)
[2016-05-06] MEDS: PANTOPRAZOLE SOD 40 MG DELAYED RELEASE TAB PO SCH (08:46)
[2016-05-06] MEDS: FUROSEMIDE 20 MG TAB PO SCH (08:46)
[2016-05-06] MEDS: FLUCONAZOLE 100 MG TAB PO SCH (08:46)
[2016-05-06] MEDS: AMIODARONE 200 MG TAB PO SCH (08:47)
[2016-05-06] MEDS: SODIUM CHLORIDE 0.9% FLUSH 5 ML FLUSH FLUSH SCH (08:47)
[2016-05-06] MEDS: TIOTROPIUM BROMIDE 18 MCG INH INH SCH (08:47)
[2016-05-06] MEDS: DILTIAZEM-CD 120 MG CAP ER PO SCH (08:47)
[2016-05-06] MEDS: BUDESONIDE-FORMOTEROL 160/4.5 MCG INHALER INH SCH (08:48)
[2016-05-06] MEDS: POTASSIUM CHLORIDE 20 MEQ CONTROLLED RELEASE TAB PO SCH (08:52)
[2016-05-06] MEDS: PREGABALIN 25 MG CAP PO SCH (08:52)
[2016-05-06] MEDS: POLYETHYLENE GLYCOL 17 GM PKG PO SCH (09:00)
[2016-05-06] MEDS: DOCUSATE SODIUM 50 MG/SENNA 8.6 MG TAB PO SCH (09:00)
--- NOTE | 2016-05-06 11:22 | HHI.DS ---
Discharge Summary Admission Date May 02, 2016 at 00:04 Discharge Date: May 06, 2016 Admitting Diagnosis sepsis, tachycardia, pneumonia, fever (1) PNA (pneumonia) ICD Code: J18.9 (2) UTI (urinary tract infection) ICD Code: N39.0 (3) Chest pain ICD Code: R07.9 (4) Atrial fibrillation with RVR ICD Code: I48.91 (5) COPD (chronic obstructive pulmonary disease) ICD Code: J44.9 Procedures none Brief History - From Admission This is a 71-year-old male with a PMH of A. fib, HTN, COPD, O2 Dependent, CAD s/ p Cardiac Stents, Sacral Decubitus Ulcer, Anxiety and Depression who was sent to the ER from Rehab secondary to complaints of chest pain. Recent admit 04/23- for UTI and PNA, s/p IV Abx and d/c'd to Rehab on Levaquin and Diflucan for U/a w/ Nany Albicans from 04/22/16. While at Rehab pt w/ complaints of severe chest pain, reports pain worse w/ deep inspiration. Denies fever, chills , cough or palpitations. On arrival, pt noted to be in A-fib, HR 128, BP 132/63 , O2 sat 96% on 2L NC, Afebrile. WBC 7.6. Chemistry at baseline. CXR with improving bibasilar consolidation and effusions. CTA Pulm negative for PE, focal air space consolidation RUL and RLL, small bilateral pleural effusions. While in ER, pt w/ episode of A-fib w/ RVR, HR 150's, s/p Cardizem IV x1 and Cardizem gtt. Follows w/ Dr. Nash as outpatient. CBC/BMP: 05/05/16 0626 05/05/16 0626 Significant Findings Laboratory Tests Test 05/03/16 05/04/16 05/04/16 05/05/16 12:55 05:05 12:46 06:26 Sodium Level 132 MEQ/L 130 MEQ/L 131 MEQ/L (136-145) (136-145) (136-145) Potassium Level 3.4 MEQ/L 3.3 MEQ/L (3.5-5.1) (3.5-5.1) Chloride Level 95 MEQ/L 93 MEQ/L 96 MEQ/L (98-107) (98-107) (98-107) Random Glucose 67 MG/DL (74-106) Calcium Level 7.7 MG/DL 7.9 MG/DL 7.5 MG/DL (8.5-10.1) (8.5-10.1) (8.5-10.1) Magnesium Level 1.0 MG/DL 1.4 MG/DL (1.5-2.5) (1.5-2.5) Vancomycin Level Trough 14.6 MCG/ML (5.0-10.0) Red Blood Count 3.58 MIL/MM3 (4.50-5.90) Hemoglobin 9.8 GM/DL (13.0-17.0) Hematocrit 29.6 % (39.0-51.0) Red Cell Distribution Width 18.3 % (11.6-17.2) Neutrophils (%) (Auto) 71.8 % (16.0-70.0) Monocytes (%) (Auto) 8.2 % (0.0-8.0) Imaging Last Impressions Chest X-Ray 05/01/162020 Signed Impressions: Service Date/Time: April 20:40 - CONCLUSION: Decreasing bibasilar consolidation and effusions. Romel Beltran MD CT Angiography 05/01/16 0000 Signed Impressions: Service Date/Time: April 23:02 - CONCLUSION: 1. Examination is degraded by respiratory motion artifact. No PE is visualized. 2. There is a focal air space consolidation in the right lower lobe and mild patchy consolidation in the right upper lobe. 3. Small bilateral pleural effusions, right larger than left, with associated compressive atelectasis in the lower lobes. Romel Lester MD PE at Discharge GENERAL: Elderly male. Appears in nad. SKIN: Warm and dry. HEAD: Atraumatic. Normocephalic. EYES: Pupils equal and round. No scleral icterus. No injection or drainage. ENT: No nasal bleeding or discharge. Mucous membranes pink and moist. NECK: Trachea midline. No JVD. CARDIOVASCULAR: Regular rate and rhythm. RESPIRATORY: No accessory muscle use. Clear to auscultation. Breath sounds equal bilaterally. GASTROINTESTINAL: Abdomen soft, non-tender, nondistended. Hepatic and splenic margins not palpable. MUSCULOSKELETAL: Extremities without clubbing, cyanosis, or edema. No obvious deformities. NEUROLOGICAL: Awake and alert. No obvious cranial nerve deficits. Motor grossly within normal limits. Five out of 5 muscle strength in the arms and legs. Normal speech. PSYCHIATRIC: Appropriate mood and affect; insight and judgment normal. Hospital Course 1. PNA: Recent admit 04/23-04/28/16 for UTI and PNA, s/p IV Abx and d/c'd to Rehab on Levaquin for PNA. CXR w/ decreasing bibasilar consolidation and effusions, CTA Pulm negative for PE, but air space consolidation RLL and RUL. S /p Vanc/Zithro/Azactam and Blood Cultures in ER. Continue w/ IV Rocephin, Zithromax and vancomycin, follow up Blood Cultures negative to date. Upon dc, resume Levaquin til 05/06 2. Chest Pain: no episodes. Pleuritic negative PE on CTA. H/o CAD, follows w / Dr. Nash as outpatient. Ruled out for [place], sounds atypical. Continue Statin , B-leilani and nitrate. Morphine/NTG prn if needed. Status post cardiology evaluation, recommended medical management. Likely secondary to pneumonia. If persistent after treatment of pneumonia, consider stress test 3. A-fib: w/ RVR, HR 120-150's while in ER. now in SR but rate still in 90s- 110s for past 3 days on BB 25 mg po q 8, amiodaron. will Add Cardizem 120 mg CD start today S/p Cardizem IV x1 and started on Cardizem gtt.weaned off Cardizem. Metoprolol and amiodarone PO, not a candidate for anticoagulation secondary to rectal bleeding per cardiology and GI during last admit. S/P EGD with gastritis and unremarkable Cscope. Advised pill cam . Previous records reviewed. 4. COPD: Chronic Respiratory Failure, O2 Dependent. Resume home Theophylline , Spiriva, DuoNeb prn, Symbicort. 5. UTI: U/a w/ cultures from 04/22/16 positive for Nany, d/c'd to Rehab on on Diflucan x10 days, will resume PO Diflucan until May 09, discontinue Ham catheter. Check postvoid urine if > 300 ml reinsert ham and f/u with op 6. Hypokalemia and hypomagnesemia. Replace with 2 gm IV mgso4 and 400 mg po Mg oxide BID. Rpt labs 12 nn. 7. Hypoglycemia with history of diabetes mellitus. Monitor fingersticks. Hypoglycemia protocol 8 Hypokalemia corrected on KCL 20 meq po bid PT evaluation DVT Prophylaxis: SCD/Teds. Not a candidate for pharmacological prophylaxis secondary to rectal bleeding 2 - 1444H Rn reports K 3.3 Mg 1.4 pt also RVR with sbp 90 . No complaints. Will replace K and Mg and give one does of Dig .5 IV. Cardizem drip prn. Rpt BMp mg in ma. Hold dc then DC planning- patient hoping that he goes to rehab facility in [place], [place] near his family but per CM unlikely - [facility]. CM following for DC plan. Patient improved. Was discharged to SNF in fairly good condition, to follow up as OP with PCP and consultants. Pt Condition on Discharge: Stable Discharge Disposition: Discharge to SNF Discharge Time: > 30 minutes Discharge Instructions DIET: Follow Instructions for: Heart Healthy Diet Activities you can perform: Regular-No Restrictions Activities to Avoid: Driving Follow up Referrals: Cardiology - 1 Week PCP Follow-up - 1 Week New Medications: Megestrol (Megestrol) 40 Mg Tab 40 MG PO DAILY appetite #30 TAB Changed Medications: Fluconazole (Diflucan) 100 Mg Tab 100 MG PO DAILY stop date 05/09/16 Infection #10 Ref 0 TAB (Medication details modified) Levofloxacin (Levaquin) 500 Mg Tab 500 MG PO Q24H stop date 05/06/16 Infection #7 TAB (Medication details modified) Continued Medications: Albuterol 18 GM Inh (Ventolin Hfa 18 GM Inh) 90 Mcg/Act Aer 2 PUFF INH Q4HR PRN COPD #2 INHALER Amiodarone (Amiodarone) 200 Mg Tab 200 MG PO DAILY AFIB Days 30 TAB Calcium Carbonate (Calcium Carbonate) 1,500 Mg Tab 1500 MG PO BID 1,500 mg calcium carbonate (600 mg elemental calcium) Calcium Supplement Ref 0 TAB Ferrous Sulfate (Feosol) 65 Mg Tab 65 MG PO TIDPC Nutritional Supplement #60 Ref 0 TAB Furosemide (Lasix) 20 Mg Tab 20 MG PO DAILY #30 Ref 0 TAB Ipratropium-Albuterol Neb (Duoneb) 0.5-2.5 Mg/3 Ml Neb 1 NEBULE INH Q6HR NEB Breathing Treatment #120 Ref 0 NEBULE Isosorbide Mononitrate ER (Isosorbide Mononitrate ER) 30 Mg Huber 30 MG PO DAILY@07 CARD #30 TAB Levothyroxine (Levothyroxine) 125 Mcg Tab 125 MCG PO DAILY Thyroid #30 Ref 0 TAB Magnesium Oxide (Magnesium Oxide) 500 Mg Tab 500 MG PO DAILY TAB Metoprolol Tartrate (Metoprolol Tartrate) 25 Mg Tab 25 MG PO Q8HR CARD #90 TAB Multiple Vitamins W/ Minerals (Multivitamin Adults 50+) 1 Tab Tab 1 CAP PO DAILY Nitroglycerin SL (Nitroglycerin SL) 0.4 Mg Subl 0.4 MG SL DIRECTED ONE TABLET UNDER THE TONGUE NEEDED FOR CHEST PAIN, MAY REPEAT EVERY FIVE MINUTES FOR A TOTAL OF 3 DOSES OR CALL 911 IF NO RELIEF PRN CHEST PAIN #100 Ref 0 TAB.SL Pantoprazole (Pantoprazole) 40 Mg Tab 40 MG PO DAILY GIB #30 TAB Potassium Chloride ER (Potassium Chloride ER) 20 Meq Tab 20 MEQ PO BID Electrolyte Replacement #60 Ref 0 TAB Probiotic Product (Diff-Stat) 1 Cap Cap 1 CAPLET PO BID Simvastatin (Simvastatin) 80 Mg Tab 80 MG PO DAILY Cholesterol Management #30 Ref 0 TAB Tamsulosin (Flomax) 0.4 Mg Cap 0.4 MG PO HS Manage Prostate Problems #30 Ref 0 CAP Theophylline ER 12 HR (Theophylline ER 12 HR) 300 Mg Tab 300 MG PO Q12H #60 Ref 0 TAB Tiotropium Inh (Spiriva Handihaler) 18 Mcg Cap 18 MCG INH DAILY CPD #1 Ref 3 CAP Discontinued Medications: Acetaminophen (Tylenol) 325 Mg Cap 650 MG PO Q6H PRN INCREASED TEMPERATURE Ref 0 CAP Hydrocodone-Acetaminophen (Lortab) 5-325 Mg Tab 1 TAB PO Q8HR PRN shoulder/back pain #20 Ref 0 TAB Nystatin Liq (Nystatin Liq) 100,000 unit/ml Susp 5 ML SWISH-SWAL QID Infection Ref 0 ML Potassium Phosphate-Sodium Phosphate (K-Phos Neutral) 155-852-130 Mg Tab 250 MG PO PCHS Electrolyte Replacement #15 Ref 0 TAB Pregabalin (Lyrica) 50 Mg Cap 50 MG PO DAILY #30 Ref 0 CAP Trazodone (Trazodone) 50 Mg Tab 50 MG PO HS Insomnia #30 Ref 0 TAB Elif Barraza MD May 06, 2016 11:22
[2016-05-06 12:00] VITALS: BP 105/54; PULSE 92; RESP 22; TEMP 99.7; O2SAT 95
[2016-05-06] MEDS: THEOPHYLLINE ER 12 HR 300 MG TABCR PO SCH (12:38)
== END 2016-05-06 12:55 | DRG 194 ==
LOC: NEPE 19:49 → NEDA 05-02 00:04 → NEDH 05-02 04:33 → N04B 05-02 15:23
PROVIDERS: ADMIT Hospitalist; ATTEND Hospitalist
DX: J18.9 Pneumonia, unspecified organism (principal); N39.0 Urinary tract infection, site not specified; L89.150 Pressure ulcer of sacral region, unstageable; J96.10 Chronic respiratory failure, unspecified whether with hypoxia or hypercapnia; E11.649 Type 2 diabetes mellitus with hypoglycemia without coma; E87.1 Hypo-osmolality and hyponatremia; J44.9 Chronic obstructive pulmonary disease, unspecified; Z99.81 Dependence on supplemental oxygen; I48.91 Unspecified atrial fibrillation; F32.9 Major depressive disorder, single episode, unspecified; F41.9 Anxiety disorder, unspecified; I25.10 Atherosclerotic heart disease of native coronary artery without angina pectoris; Z95.5 Presence of coronary angioplasty implant and graft; J45.909 Unspecified asthma, uncomplicated; E78.00 Pure hypercholesterolemia, unspecified; H91.90 Unspecified hearing loss, unspecified ear; I10 Essential (primary) hypertension; I25.2 Old myocardial infarction; E07.9 Disorder of thyroid, unspecified; I45.10 Unspecified right bundle-branch block; E03.9 Hypothyroidism, unspecified; E87.6 Hypokalemia; E83.42 Hypomagnesemia
CPT/HCPCS: 71010; 71275; 80048; 80053; 80198; 80202; 81001; 82550; 82948; 83605; 83735; 84443; 84484; 85025; 85379; 85610; 85730; 87040; 87086; 93005; 94150; 94640; 94664; 96374; 96375; J0456; J0696; J1160; J2270; J3370; J3475; J7030; J7040; J7050; J7613; Q9967